=== PATIENT | female | born 1940 | race Caucasian/White ===

== ENCOUNTER 2019-05-08 09:39 | Outpatient (CLI) | payer MEDICARE, OTHER, SELFPAY ==
--- NOTE | 2019-05-08 09:48 | MM_ITS ---
WS: [id number] BILATERAL DIGITAL DIAGNOSTIC MAMMOGRAPHY WITH CAD CLINICAL INFORMATION: HX OF BREAST CA HISTORY: Diagnostic mammogram. No current complaints. COMPARISON: April 30, 2018 TECHNIQUE: Bilateral CC and MLO views. FINDINGS: Scattered fibroglandular densities bilaterally. Lucent centered calcifications. Prior postoperative c hanges with parenchymal volume loss left breast from prior lumpectomy. Unchanged trabecular thickenin g left breast consistent with treatment-related changes. No suspicious focal mass, asymmetry, calcifi cations, or architectural distortion. No evidence of malignancy. MM/[place] [id number] IMPRESSION: BI-RADS: 2-Benign FOLLOW UP: 1 Year Follow-up Recommend return to annual diagnostic mammography.
== END 2019-05-08 09:40 | disposition home or self-care (01) ==
LOC: RADSHAW 09:45
PROVIDERS: Family Provider Internal Medicine; PCP Internal Medicine; Visit Provider Internal Medicine
DX: Z85.3 Personal history of malignant neoplasm of breast (principal)
CPT/HCPCS: 77066

== ENCOUNTER 2019-08-05 14:29 | Outpatient (CLI) | payer MEDICARE, OTHER, SELFPAY ==
--- NOTE | 2019-08-05 14:35 | CT_ITS ---
WS: [id number] CT CHEST WITH INTRAVENOUS CONTRAST HISTORY: COPD,COUGH TECHNIQUE: Contiguous 5 mm axial imaging performed on the thorax. Coronal and sagittal reformats are submitted. All CT scans at [facility] use at least one of these dose optimization techniq ues: automated exposure control; mA and/or kV adjustment per patient size (includes targeted exams wh ere dose is matched to clinical indication); or iterative reconstruction. CONTRAST: Visipaque 320; 95 mL IV. DLP: 849.88 mGycm COMPARISON: 09/21/2016 Lungs and central airway: Marked pulmonary hyperexpansion. Stable LEFT upper lobe 5 mm noncalcified n odule. Stable lobulated 10 mm nodule RIGHT lower lobe. Pleural thickening along the RIGHT fissures. P artial atelectasis of the RIGHT middle lobe is stable. Bronchiectasis in the medial RIGHT upper lobe and also at the RIGHT middle lobe. No new pulmonary nodule. Pleura: Normal. No pleural effusion. Heart and pericardium: Normal size heart. No pericardial effusion. Mediastinum and shaun: Small mediastinal and hilar lymph nodes. Vessels: Mild atherosclerosis aorta. Pulmonary artery size is enlarged. Moderate coronary artery athe rosclerosis. Chest wall and lower neck: Postoperative seroma has decreased in size along the posterior LEFT breast against the chest wall. The skin thickening previously described involving the LEFT breast has signi ficantly improved. Prior LEFT axillary jeremy dissection. Upper abdomen: 3.9 cm cyst upper pole RIGHT kidney is stable. No adrenal mass. Visualized liver is no rmal. Prior cholecystectomy. Osseous structures: No osteoblastic or osteolytic bone disease. There is extensive disc space narrowi ng and osteophytosis throughout the thoracic spine. CT/CT chest w con* [id number] IMPRESSION: 1. Marked chronic emphysema with chronic partial atelectasis RIGHT middle lobe and stable bilateral lower lobe pulmonary nodules. 2. No adenopathy. 3. No pneumonia. 4. Bronchiectasis medial RIGHT upper and RIGHT middle lobes. 5. Postsurgical changes at the LEFT breast with prior LEFT axillary dissection .
[2019-08-05] MEDS: iodixanol 320 mg/mL 100mL Btl IV (15:32)
== END 2019-08-05 14:30 | disposition home or self-care (01) ==
LOC: RADWPI 14:33
PROVIDERS: Family Provider Internal Medicine; PCP Internal Medicine; Visit Provider Internal Medicine
DX: J44.9 Chronic obstructive pulmonary disease, unspecified (principal); R05 Cough
CPT/HCPCS: Q9967

== ENCOUNTER 2019-11-13 16:22 | Inpatient (IN) | payer MEDICARE, OTHER, SELFPAY ==
[2019-11-13] VITALS (10 sets, daily range): BP systolic 95–161; BP diastolic 57–87; PULSE 52–119; RESP 16–26; TEMP 36.5–37.2; O2SAT 92–100; BMI 26.6
--- NOTE | 2019-11-13 16:23 | XR_ITS ---
WS: [id number] Portable AP upright chest, 11/13/2019 Clinical Data: SOB Comparison: PA and lateral chest, 09/13/2016. Findings: There is a patchy right middle lobe opacity which may represent acute pneumonia No nodules, masses or effusions are seen. The heart is normal. The pulmonary vascularity is not increased. No p neumothorax is seen. The aortic arch and descending aorta are are tortuous. The diaphragms are flatte waldemar. XR/XR chest 1V portable [id number] Impression: 1. Probable right middle lobe pneumonia. 2. Atherosclerosis and hyperinflation.
--- NOTE | 2019-11-13 16:23 | ECG_ITS ---
[facility] Test Date: 2019-11-13 Pat Name: Samia Newberry Department: Room: Gender: Female [employer]el [employer]: : 1940 Requested By: Elvia Long Order Number: [id number] Castaneda MD: Sky Padilla M.D. Measurements Intervals [place] Rate: 112 P: 87 MI: 170 QRS: 71 QRSD: 90 T: 105 QT: 306 QTc: 418 Interpretive Statements SINUS TACHYCARDIA WITH OCCASIONAL VENTRICULAR PREMATURE COMPLEXES MINIMAL ST DEPRESSION [0.025+ mV ST DEPRESSION] ABNORMAL RHYTHM ECG Compared to ECG 05/18/2015 12:29:43 Ventricular premature complex(es) now present ST (T wave) deviation now present Sinus rhythm no longer present Sinus arrhythmia no longer present Myocardial infarct finding no longer present Electronically Signed On 11-13-2019 19:57:41 CDT by Sky Padilla M.D. [id number] fili
--- NOTE | 2019-11-13 16:28 | W.ED.GENADLT ---
HPI - General Adult General: Chief complaint: Shortness of Breath/Dyspnea Stated complaint: Respiratory Distress Time Seen by Provider: 11/13/19 16:26 Source: patient Mode of arrival: ambulatory Limitations: no limitations History of Present Illness: HPI narrative: Mrs. Newberry is a nice 79-year-old female who comes in complaining of chest congestion, shortness of breath and fever. Her symptoms been present for about a week but in the past 2 days that she become more ill. She only developed a fever today. She has no chest pain only has shortness of breath and a cough. Her fever was 101.8 at home. EMS got a temperature of 100.8. Patient has audible rhonchi and wheezing that can be heard. She denies a history of needing oxygen but does have a history of COPD. EMS in route gave the patient 0.25 mg of terbutaline 125 mg of Solu-Medrol. She describes her shortness of breath as a tightness in her chest and she is occasionally coughing up clear-colored sputum. She denies loss of sense of taste or loss of sense of smell. She denies any other complaints. Associated symptoms: Reports dyspnea and malaise; Deny chest pain, confusion, diaphoresis, headache(s), nausea, rash, palpitations, syncope or vomiting Review of Systems Const: Reports: fever(s), chills, body aches, fatigue and malaise; Denies: diaphoresis Eyes: Denies: change in vision, blurry vision, photophobia, eye discomfort, eye discharge or eye redness ENMT: Denies: throat pain, odynophagia, hoarseness, swelling of lips/tongue, ear or mastoid pain, ear discharge, change in hearing or nasal discharge Card: Denies: chest pain, palpitations, irregular heart rhythm, edema, lightheadedness, syncope, pre-syncope, dyspnea on exertion or orthopnea Resp: Reports: dyspnea, productive cough, wheezing and chest congestion; Denies: non-productive cough or hemoptysis GI: Denies: abdominal pain, nausea, vomiting, hematemesis, coffee ground emesis, heartburn, diarrhea, constipation, GI cramping, hematochezia or melena : Denies: flank pain, dysuria, urinary frequency, urinary urgency or hematuria Musc: Denies: neck pain, back pain, extremity pain, extremity swelling, joint pain, joint swelling, joint redness, joint warmth or joint stiffness Skin/Breast: Denies: rash, pruritus, erythema or skin tenderness Neuro: Denies: headache(s), numbness in extremities, weakness in extremities, sensory changes, lack of coordination, difficulty walking, dizziness, vertigo, confusion, Slurred speech present or seizure-like activity Guilherme/Lymph: Denies: easy bruising, easy bleeding, petechiae, purpura or enlarged lymph nodes All/Imm: Denies: urticaria, throat swelling, tongue swelling, facial swelling or acute wheezing PFSH ED PFSH: Medical History (Updated 11/13/19 @ 19:48 by Justina Shultz) Accelerated essential hypertension Chronic toe pain, bilateral Social History Smoking and tobacco status: current every day smoker Alcohol intake: never Physical Exam Const: COMMON NORMALS: no acute distress, patient oriented x3, no limitations, healthy appearing and well nourished GENERAL APPEARANCE: cooperative, well kempt and well developed HENMT: COMMON NORMALS: normocephalic, atraumatic, external ears normal, EAC's normal and Normal external nose present HEAD & SCALP: normal to inspection, normocephalic and atraumatic FACE & SINUS: normal facial exam and face symmetric NOSE: Normal external nose present and Normal nares present EXTERNAL EAR: Yes external ears normal EXTERNAL AUDITORY CANAL: EAC's normal MOUTH: Normal oral and palatal mucosa present, lip normal and tongue normal Eye: COMMON NORMALS: Equal, round and reactive pupils present and conjunctivae normal GENERAL EYE: appearance normal, both eyes and all related structures ALIGNMENT: Yes alignment normal PERIORBITAL: periorbital findings normal EYELID: eyelids normal CONJUNCTIVA: Yes conjunctivae normal SCLERA: sclerae normal PUPIL: Yes Equal, round and reactive pupils present Neck/C-Spine: COMMON NORMALS: full ROM, no lymphadenopathy, supple, no meningeal signs and no JVD GENERAL: Yes normal visual inspection and Yes trachea midline Chest: COMMONS NORMALS: normal inspection of the chest and normal palpation of entire chest wall Resp: EFFORT & INSPECTION: Yes able to speak in complete sentences, Yes symmetric chest movement and Yes tachypneic AUSCULTATION: no crackles, no rales, rhonchi, wheezes and diminished lung sounds Cardio: COMMON NORMALS: no JVD, regular rate, regular rhythm, S1 normal heart sound present and S2 normal heart sound present RATE: regular rate RHYTHM: regular rhythm HEART SOUNDS: S1 normal heart sound present, S2 normal heart sound present, no click, no gallops, no murmurs, no rubs and abnormal split S2 GI: COMMON NORMALS: Soft to palpation and No hepatosplenomegaly present PALPATION: Yes Soft to palpation, No Tenderness to palpation present (GI), No Guarding due to palpation present (GI), No Rigid due to palpation, Yes No hepatosplenomegaly present, No Hernia present, No Palpable mass present and No Pulsatile mass present : COMMON NORMALS: Yes no CVA tenderness BLADDER/KIDNEY EXAM: Yes no CVA tenderness EXTERNAL FEMALE EXAM: No Hernia present Back/Pelvis: COMMON NORMALS: no CVA tenderness, thoracic and lumbar spine normal to inspection, no thoracic nor lumbar tenderness and thoraco-lumbar ROM normal Extremity: COMMON NORMALS: normal to inspection, full ROM, capillary refill normal, no joint enlargement, no clubbing, cyanosis or edema and no calf tenderness Neuro: COMMON NORMALS: patient oriented x3, CN's II-XII intact bilaterally, moves all extremities, no focal motor deficits and no sensory deficits noted MENINGEAL SIGNS: Yes no meningeal signs SPEECH: speech normal Psych: COMMON NORMALS: mental status grossly normal, Normal thought process present, cooperative, normal affect, speech normal and activity/motor behavior normal APPEARANCE: Yes well kempt SPEECH: Yes normal speech THOUGHT PROCESS: Normal thought process present Skin: COMMON NORMALS: no rashes or lesions noted, turgor normal, no jaundice, no petechiae and no mottling GENERAL SKIN EXAM: no rashes or lesions noted and turgor normal Course Vital Signs: Vital signs: Vital Signs Temperature 98.9 F 11/13/19 16:23 Pulse Rate 91 11/13/19 19:08 Respiratory Rate 16 11/13/19 19:08 Blood Pressure 95/57 11/13/19 19:08 Pulse Oximetry 100 11/13/19 19:08 MDM - General Adult MDM Narrative: Medical decision making narrative: 1899 -the patient is no longer in respiratory distress but has a significant pneumonia and a COPD exacerbation. She will need to be admitted for treatment of both. The case was endorsed to Dr. Webber and she will come see the patient in the ER. Lab Data: Attestation: I reviewed the patient's lab results. Labs: Lab Results 11/13/19 11/13/19 11/13/19 Range/Units 16:48 16:48 16:48 WBC 11.5 H (4.0-10.0) 10^3/ uL RBC 4.58 (4.1-5.3) 10^6/u L Hgb 14.0 (11.5-15.3) g/dL Hct 44.2 (37.0-47.0) % MCV 96.5 (81-99) fL MCH 30.6 (28.0-34.0) pg MCHC 31.7 (30.0-36.0) g/dL RDW 13.1 (12.1-15.1) % Plt Count 190 (130-400) 10^3/c mm MPV 10.6 H (7.4-10.4) fL Neut % (Auto) 63.4 % Lymph % (Auto) 26.3 % [place] % (Auto) 9.8 % Eos % (Auto) 0.0 % Baso % (Auto) 0.2 % Neut # (Auto) 7.28 (1.8-7.7) 10^3/u L Lymph # (Auto) 3.0 (0.8-4.8) 10^3/u L [place] # (Auto) 1.1 H (0.2-0.9) 10^3/u L Eos # (Auto) 0.0 (0.0-0.8) 10^3/u L Baso # (Auto) 0.0 (0.0-0.1) 10^3/u L Nucleated RBC % (a uto) 0 % Nucleated RBCs # 0.0 /100WBC PT 14.10 (12.1-14.9) SECO NDS INR 1.05 (0.8-1.2) APTT 27.1 (23.9-36.7) SECO NDS Fibrinogen 738 H (174-498) mg/dL D-Dimer 1.51 H (0-0.59) ug/mIFE U Specimen Type Sample Site ABG pH (7.35-7.45) ABG pCO2 (35-45) mmHg ABG pO2 (80.0-100.0) mmH g ABG HCO3 (22-26) mmol/L ABG O2 Saturation ABG Base Excess (-2.0-2.0) mmol/ L Jeff Test A-a O2 Gradient (5-10) mmHg Hematocrit (37-47) % Hgb O2 Saturation (95-100) % Carboxyhemoglobin (0.4-20.1) %THgb Methemoglobin (0.4-1.5) % Total Hemoglobin (12-16) g/dL Ionized Calcium (1.1-1.4) mmol/L O2 Delivery Device O2 Liters/Min % FiO2 % Cap Sizer ID Sodium 135 L (136-145) mmol/L Potassium 3.6 (3.5-5.1) mmol/L Chloride 98 (98-107) mmol/L Carbon Dioxide 26 (22-29) mmol/L Anion Gap 14.6 (5-19) BUN 10 (8-23) mg/dL Creatinine 0.8 (0.5-0.9) mg/dL GFR Calculation Not Reportable Glucose 185 H (65-115) mg/dL Calculated Osmolal ity 281 L (285-295) mOsm/k g Lactic Acid (0.5-2.2) mmol/L Calcium 8.9 (8.5-10.5) mg/dL Magnesium 2.0 (1.7-2.3) mg/dL Ferritin 156 H (15-150) ng/mL Total Bilirubin 0.7 (0.15-1.2) mg/dL AST 9 (0-32) U/L ALT < 5 (0-33) U/L Alkaline Phosphata se 67 (35-105) IU/L Creatine Kinase 39 (26-192) U/L Troponin T Baselin e (0-10) ng/L C-Reactive Protein 117.7 H (0.0-4.9) mg/L NT-Pro-B Natriuret Pep 92 (0-450) pg/mL Total Protein 7.5 (6.6-8.7) g/dL Albumin 3.9 (3.5-5.2) g/dL Globulin 3.6 (1.3-4.6) g/dL Influenza Type A A g (Negative) Influenza Type B A g (Negative) SARS-CoV-2 Ag (Rap id) (Negative) 11/13/19 11/13/19 11/13/19 Range/Units 16:48 16:48 17:07 WBC (4.0-10.0) 10^3/ uL RBC (4.1-5.3) 10^6/u L Hgb (11.5-15.3) g/dL Hct (37.0-47.0) % MCV (81-99) fL MCH (28.0-34.0) pg MCHC (30.0-36.0) g/dL RDW (12.1-15.1) % Plt Count (130-400) 10^3/c mm MPV (7.4-10.4) fL Neut % (Auto) % Lymph % (Auto) % [place] % (Auto) % Eos % (Auto) % Baso % (Auto) % Neut # (Auto) (1.8-7.7) 10^3/u L Lymph # (Auto) (0.8-4.8) 10^3/u L [place] # (Auto) (0.2-0.9) 10^3/u L Eos # (Auto) (0.0-0.8) 10^3/u L Baso # (Auto) (0.0-0.1) 10^3/u L Nucleated RBC % (a uto) % Nucleated RBCs # /100WBC PT (12.1-14.9) SECO NDS INR (0.8-1.2) APTT (23.9-36.7) SECO NDS Fibrinogen (174-498) mg/dL D-Dimer (0-0.59) ug/mIFE U Specimen Type Arterial Sample Site Radial, right ABG pH 7.43 (7.35-7.45) ABG pCO2 37.1 (35-45) mmHg ABG pO2 96.4 (80.0-100.0) mmH g ABG HCO3 24.3 (22-26) mmol/L ABG O2 Saturation 96.3 ABG Base Excess 0.2 (-2.0-2.0) mmol/ L Jeff Test Pos A-a O2 Gradient 11.1 H (5-10) mmHg Hematocrit 43.8 (37-47) % Hgb O2 Saturation 93.7 L (95-100) % Carboxyhemoglobin 2.1 (0.4-20.1) %THgb Methemoglobin 0.6 (0.4-1.5) % Total Hemoglobin 14.3 (12-16) g/dL Ionized Calcium 1.2 (1.1-1.4) mmol/L O2 Delivery Device Nc O2 Liters/Min 3.0 % FiO2 32.0 % Cap Sizer ID Ck Sodium 136.0 (136-145) mmol/L Potassium 3.4 L (3.5-5.1) mmol/L Chloride (98-107) mmol/L Carbon Dioxide (22-29) mmol/L Anion Gap (5-19) BUN (8-23) mg/dL Creatinine (0.5-0.9) mg/dL GFR Calculation Glucose 183.0 H (65-115) mg/dL Calculated Osmolal ity (285-295) mOsm/k g Lactic Acid 2.1 (0.5-2.2) mmol/L Calcium (8.5-10.5) mg/dL Magnesium (1.7-2.3) mg/dL Ferritin (15-150) ng/mL Total Bilirubin (0.15-1.2) mg/dL AST (0-32) U/L ALT (0-33) U/L Alkaline Phosphata se (35-105) IU/L Creatine Kinase (26-192) U/L Troponin T Baselin e 9 (0-10) ng/L C-Reactive Protein (0.0-4.9) mg/L NT-Pro-B Natriuret Pep (0-450) pg/mL Total Protein (6.6-8.7) g/dL Albumin (3.5-5.2) g/dL Globulin (1.3-4.6) g/dL Influenza Type A A g (Negative) Influenza Type B A g (Negative) SARS-CoV-2 Ag (Rap id) (Negative) 11/13/19 11/13/19 Range/Units 18:00 18:00 WBC (4.0-10.0) 10^3/ uL RBC (4.1-5.3) 10^6/u L Hgb (11.5-15.3) g/dL Hct (37.0-47.0) % MCV (81-99) fL MCH (28.0-34.0) pg MCHC (30.0-36.0) g/dL RDW (12.1-15.1) % Plt Count (130-400) 10^3/c mm MPV (7.4-10.4) fL Neut % (Auto) % Lymph % (Auto) % [place] % (Auto) % Eos % (Auto) % Baso % (Auto) % Neut # (Auto) (1.8-7.7) 10^3/u L Lymph # (Auto) (0.8-4.8) 10^3/u L [place] # (Auto) (0.2-0.9) 10^3/u L Eos # (Auto) (0.0-0.8) 10^3/u L Baso # (Auto) (0.0-0.1) 10^3/u L Nucleated RBC % (a uto) % Nucleated RBCs # /100WBC PT (12.1-14.9) SECO NDS INR (0.8-1.2) APTT (23.9-36.7) SECO NDS Fibrinogen (174-498) mg/dL D-Dimer (0-0.59) ug/mIFE U Specimen Type Sample Site ABG pH (7.35-7.45) ABG pCO2 (35-45) mmHg ABG pO2 (80.0-100.0) mmH g ABG HCO3 (22-26) mmol/L ABG O2 Saturation ABG Base Excess (-2.0-2.0) mmol/ L Jeff Test A-a O2 Gradient (5-10) mmHg Hematocrit (37-47) % Hgb O2 Saturation (95-100) % Carboxyhemoglobin (0.4-20.1) %THgb Methemoglobin (0.4-1.5) % Total Hemoglobin (12-16) g/dL Ionized Calcium (1.1-1.4) mmol/L O2 Delivery Device O2 Liters/Min % FiO2 % Cap Sizer ID Sodium (136-145) mmol/L Potassium (3.5-5.1) mmol/L Chloride (98-107) mmol/L Carbon Dioxide (22-29) mmol/L Anion Gap (5-19) BUN (8-23) mg/dL Creatinine (0.5-0.9) mg/dL GFR Calculation Glucose (65-115) mg/dL Calculated Osmolal ity (285-295) mOsm/k g Lactic Acid (0.5-2.2) mmol/L Calcium (8.5-10.5) mg/dL Magnesium (1.7-2.3) mg/dL Ferritin (15-150) ng/mL Total Bilirubin (0.15-1.2) mg/dL AST (0-32) U/L ALT (0-33) U/L Alkaline Phosphata se (35-105) IU/L Creatine Kinase (26-192) U/L Troponin T Baselin e (0-10) ng/L C-Reactive Protein (0.0-4.9) mg/L NT-Pro-B Natriuret Pep (0-450) pg/mL Total Protein (6.6-8.7) g/dL Albumin (3.5-5.2) g/dL Globulin (1.3-4.6) g/dL Influenza Type A A g Negative (Negative) Influenza Type B A g Negative (Negative) SARS-CoV-2 Ag (Rap id) Negative (Negative) Imaging Data^: CXR: Attestation: I personally reviewed and interpreted this imaging study as follows: My impression: Right lower lobe infiltrate. CT Chest: Radiologist's impression: [place] [address] CT Scan Report Signed Patient: Samia Newberry Unit #: [id number] : 1940 Age/Sex: 79 / F ADM Date: 11/13/19 Loc: ER Room/Bed: Attending Dr: Ordering Provider/Ordering MD: Justina Shultz DO Date of Service: 11/13/19 Procedure(s): CT angio chest PE protcl [id number] Accession Number(s): [id number] Report Number: [id number] PROCEDURE INFORMATION: Exam: CT Angiography Chest With Contrast Exam date and time: 11/13/2019 5:38 PM Age: 79 years old Clinical indication: Dyspnea; Prior surgery; Additional info: Dyspnea, positive d-dimer TECHNIQUE: Imaging protocol: Computed tomographic angiography of the chest with intravenous contrast. 3D rendering (Not supervised by radiologist): MIP and/or 3D reconstructed images were created by the technologist. Radiation optimization: All CT scans at this facility use at least one of these dose optimization techniques: automated exposure control; mA and/or kV adjustment per patient size (includes targeted exams where dose is matched to clinical indication); or iterative reconstruction. Contrast material: OMNI 350; Contrast volume: 82 ml; Contrast route: INTRAVENOUS (IV); COMPARISON: CT chest w con* [id number] 08/05/2019 3:24 PM, 09/21/2016. RADIATION DOSE METRICS: Total DLP (mGy-cm): 627.41 FINDINGS: Pulmonary arteries: Normal. No pulmonary emboli. Aorta: Unremarkable. No aortic aneurysm. No aortic dissection. Lungs: Severe centrilobular emphysema. Small scar in the posterior right upper lobe. Stable bandlike region of fibrosis with calcifications transversing the right mid lung. Stable 10 mm irregular nodule in the right lower lobe, image 41. Mild scarring in the anterior left upper lobe. Patchy airspace opacities and tree-in-bud opacities throughout the right lower lobe. Minimal tree-in-bud opacities in the peripheral right upper lobe. Bronchial wall thickening in the right lower lobe and bronchus intermedius. Pleural space: Unremarkable. No pneumothorax. No pleural effusion. Heart: Unremarkable. No cardiomegaly. No pericardial effusion. Lymph nodes: Increased mediastinal and right hilar lymph nodes. Calcified right hilar lymph nodes. Gallbladder and bile ducts: Cholecystectomy. Kidneys and ureters: Benign fluid density cyst in the right kidney, Hounsfield units less than 20. No follow-up is recommended. Bones/joints: Unremarkable. No acute fracture. Soft tissues: Unremarkable. Other findings: Suspected right partial pneumonectomy changes. CT/CT angio chest PE protcl [id number] IMPRESSION: 1. No evidence for pulmonary embolus. 2. Right lower lobe opacities with bronchial wall thickening most likely represents pneumonia with bronchitis. CT follow-up to document resolution recommended. 3. Increased mediastinal and right hilar lymphadenopathy is most likely reactive. 4. Stable 10 mm right lower lobe nodule. Continued annual CT follow-up recommended. COMMENTS: Consistent with the [employer]'s Incidental Findings Committee white paper (J Am Benjy Radiol 2018): Any incidental renal lesion less than 1 cm or classified as too small to characterize, or any incidental cystic renal lesion characterized as simple-appearing, is likely benign. No follow-up imaging is recommended for these lesions per consensus recommendations based on imaging criteria. Radiation Dose CTDIVOL = (mGy): DLP = 627.41 (mGy-cm) Dictated By: Latrell Velez Signed By: Latrell Velez Signed Date/Time: 11/13/191822 DD/ 20 EKG Data^: EKG 1: Attestation: I personally reviewed and interpreted this EKG as follows: EKG interpretation date: 11/13/19 EKG interpretation time: 16:38 Interpretation: Sinus tachycardia at 112 beats a minute, normal axis, no blocks, normal intervals, nonspecific ST and T wave changes. PVC. Computer generated interpretation: Chest CTA 11/13/19 17:18 IMPRESSION: 1. No evidence for pulmonary embolus. 2. Right lower lobe opacities with bronchial wall thickening most likely represents pneumonia with bronchitis. CT follow-up to document resolution recommended. 3. Increased mediastinal and right hilar lymphadenopathy is most likely reactive. 4. Stable 10 mm right lower lobe nodule. Continued annual CT follow-up recommended. COMMENTS: Consistent with the [employer]'s Incidental Findings Committee white paper (J Am Benjy Radiol 2018): Any incidental renal lesion less than 1 cm or classified as too small to characterize, or any incidental cystic renal lesion characterized as simple-appearing, is likely benign. No follow-up imaging is recommended for these lesions per consensus recommendations based on imaging criteria. Radiation Dose CTDIVOL = (mGy): DLP = 627.41 (mGy-cm) Discharge Plan Discharge Patient Disposition: Admitted As Inpatient Clinical Impression: Pneumonia, Acute exacerbation of chronic obstructive pulmonary disease Condition: Stable Prescriptions: No Action lisinopril 20 mg tablet 20 mg PO DAILY RF: 0 exemestane 25 mg tablet 25 mg PO DAILY RF: 0 aspirin [Adult Low Dose Aspirin] 81 mg tablet,delayed release (DR/EC) 81 mg PO DAILY RF: 0 levothyroxine 75 mcg capsule 75 mcg PO DAILY RF: 0 glipizide 5 mg tablet 5 mg PO DAILY RF: 0 amlodipine 5 mg tablet 5 mg PO DAILY RF: 0 Cinnamon 500 mg Capsule 500 mg PO DAILY RF: 0 Vitamin B-12 1 tab PO DAILY RF: 0 Referrals: Nasima Back MD [Primary Care Provider] - Coding Level of Care Code ED Vice President [employer] for Chg Fwd Exam Comprehensive
[2019-11-13] MEDS: piperacillin-tazobactam 3.375 GM in sodium chloride 0.9% (plus) 50 ML IV (16:43)
[2019-11-13 16:56] LABS: Basophils % 0.2 %; Hematocrit 44.2 % (37.0-47.0); Lymphocytes % 26.3 %; Mean Corpuscular HGB Conc 31.7 g/dL (30.0-36.0); Mean Corpuscular Hemoglobin 30.6 pg (28.0-34.0); Mean Corpuscular Volume 96.5 fL (81-99); Mean Platelet Volume 10.6 fL (7.4-10.4); Monocytes # 1.1 10^3/uL (0.2-0.9); Monocytes % 9.8 %; Neutrophils # 7.28 10^3/uL (1.8-7.7); Neutrophils % 63.4 %; Nucleated Red Blood Cells % 0 %; Platelet Count 190 10^3/cmm (130-400); Red Blood Count 4.58 10^6/uL (4.1-5.3); Red Cell Distribution Width 13.1 % (12.1-15.1); White Blood Count 11.5 10^3/uL (4.0-10.0)
[2019-11-13 17:03] LABS: INR 1.05 (0.8-1.2)
[2019-11-13 17:04] LABS: Partial Thromboplastin Time 27.1 SECONDS (23.9-36.7)
[2019-11-13 17:05] LABS: Fibrinogen 738 mg/dL (174-498)
[2019-11-13 17:07] LABS: Lactic Sepsis W/Reflex 2.1 mmol/L (0.5-2.2)
[2019-11-13 17:08] LABS: D Dimer 1.51 ug/mIFEU (0-0.59)
[2019-11-13] MEDS: albuterol 8 gm MDI 6 PUFF INHALATION (17:16)
[2019-11-13 17:18] LABS: ABG PCO2 37.1 mmHg (35-45); ABG PH Result 7.43 (7.35-7.45); Alveolar-Arterial Oxygen Gradi 11.1 mmHg (5-10); Arterial Blood Gas Hematocrit 43.8 % (37-47); Base Excess ABG 0.2 mmol/L (-2.0-2.0); Blood Gas Allen Test Pos; Blood Gas Operator Identificat CK; Blood Gas Sample Site Radial, right; Blood Gas Sample Type Arterial; Carboxyhemoglobin 2.1 %THgb (0.4-20.1); HCO3 ABG 24.3 mmol/L (22-26); HGB O2 Sat 93.7 % (95-100); Ionized Calcium Level - ABG 1.2 mmol/L (1.1-1.4); Methemoglobin 0.6 % (0.4-1.5); Oxygen Device NC; Oxygen Saturation ABG 96.3; PO2 ABG 96.4 mmHg (80.0-100.0); Potassium Level - ABG 3.4 mmol/L (3.5-5.0); Total Hemoglobin 14.3 g/dL (12-16)
--- NOTE | 2019-11-13 17:18 | CTR_ITS ---
PROCEDURE INFORMATION: Exam: CT Angiography Chest With Contrast Exam date and time: 11/13/2019 5:38 PM Age: 79 years old Clinical indication: Dyspnea; Prior surgery; Additional info: Dyspnea, positive d-dimer TECHNIQUE: Imaging protocol: Computed tomographic angiography of the chest with intravenous contrast. 3D rendering (Not supervised by radiologist): MIP and/or 3D reconstructed images were created by the technologist. Radiation optimization: All CT scans at this facility use at least one of these dose optimization techniques: automated exposure control; mA and/or kV adjustment per patient size (includes targeted exams where dose is matched to clinical indication); or iterative reconstruction. Contrast material: OMNI 350; Contrast volume: 82 ml; Contrast route: INTRAVENOUS (IV); COMPARISON: CT chest w con* [id number] 08/05/2019 3:24 PM, 09/21/2016. RADIATION DOSE METRICS: Total DLP (mGy-cm): 627.41 FINDINGS: Pulmonary arteries: Normal. No pulmonary emboli. Aorta: Unremarkable. No aortic aneurysm. No aortic dissection. Lungs: Severe centrilobular emphysema. Small scar in the posterior right upper lobe. Stable bandlike region of fibrosis with calcifications transversing the right mid lung. Stable 10 mm irregular nodule in the right lower lobe, image 41. Mild scarring in the anterior left upper lobe. Patchy airspace opacities and tree-in-bud opacities throughout the right lower lobe. Minimal tree-in-bud opacities in the peripheral right upper lobe. Bronchial wall thickening in the right lower lobe and bronchus intermedius. Pleural space: Unremarkable. No pneumothorax. No pleural effusion. Heart: Unremarkable. No cardiomegaly. No pericardial effusion. Lymph nodes: Increased mediastinal and right hilar lymph nodes. Calcified right hilar lymph nodes. Gallbladder and bile ducts: Cholecystectomy. Kidneys and ureters: Benign fluid density cyst in the right kidney, Hounsfield units less than 20. No follow-up is recommended. Bones/joints: Unremarkable. No acute fracture. Soft tissues: Unremarkable. Other findings: Suspected right partial pneumonectomy changes. CT/CT angio chest PE protcl [id number] IMPRESSION: 1. No evidence for pulmonary embolus. 2. Right lower lobe opacities with bronchial wall thickening most likely represents pneumonia with bronchitis. CT follow-up to document resolution recommended. 3. Increased mediastinal and right hilar lymphadenopathy is most likely reactive. 4. Stable 10 mm right lower lobe nodule. Continued annual CT follow-up recommended. COMMENTS: Consistent with the [employer]'s Incidental Findings Committee white paper (J Am Benjy Radiol 2018): Any incidental renal lesion less than 1 cm or classified as too small to characterize, or any incidental cystic renal lesion characterized as simple-appearing, is likely benign. No follow-up imaging is recommended for these lesions per consensus recommendations based on imaging criteria. Radiation Dose CTDIVOL = (mGy): DLP = 627.41 (mGy-cm)
[2019-11-13 17:23] LABS: Alanine Aminotransferase < 5 U/L (0-33); Albumin Level 3.9 g/dL (3.5-5.2); Alkaline Phosphatase 67 IU/L (35-105); Anion Gap 14.6 (5-19); Aspartate Amino Transferase 9 U/L (0-32); Blood Urea Nitrogen 10 mg/dL (8-23); Calcium 8.9 mg/dL (8.5-10.5); Carbon Dioxide 26 mmol/L (22-29); Chloride 98 mmol/L (98-107); Creatine Phosphokinase 39 U/L (26-192); Globulin 3.6 g/dL (1.3-4.6); Glucose 185 mg/dL (65-115); NT Pro B Type Natriuretic Pept 92 pg/mL (0-450); Osmolality Calculated 281 mOsm/kg (285-295); Potassium 3.6 mmol/L (3.5-5.1); Sodium 135 mmol/L (136-145); Total Bilirubin 0.7 mg/dL (0.15-1.2); Total Protein 7.5 g/dL (6.6-8.7)
[2019-11-13 17:41] LABS: C Reactive Protein 117.7 mg/L (0.0-4.9); Ferritin 156 ng/mL (15-150)
--- NOTE | 2019-11-13 17:47 | PC.NURSE ---
pt to CT by stretcher with tech
[2019-11-13 17:52] LABS: Troponin(5th) Baseline 9 ng/L (0-10)
[2019-11-13] MEDS: iohexol 350 mg/mL 100 mL Btl IV (17:57)
[2019-11-13 18:32] LABS: Influenza A by IFA Negative (Negative); Influenza B by IFA Negative (Negative); SARS Covid-2 Antigen Negative (Negative)
[2019-11-13 18:41] LABS: Reflex Lactate Order REFLEX LACTIC ORDERD
--- NOTE | 2019-11-13 20:12 | P.HP_ITS ---
Providers/Chief Complaint Admitting Physician: Betsy Webber MD Primary Care Provider: Nasima Back MD Chief Complaint: Respiratory Distress History of Present Illness Samia Newberry is a 79 year old female with PMHx noted below presents with complaints of worsening shortness of breath, malaise, congestion and productive cough with clear sputum production for the past 2 days. She is not oxygen dependent at baseline, denies any sick contacts including known COVID-19 posit matt individuals but for the past 2 days has been feeling quite unwell. She has spent much of the time sleeping due to fatigue, and earlier today spiked a fever. She has been compliant to the medications and denies any recent changes. Work-up so far indicates a white count of 11.5, with otherwise normal CBC, normal electrolytes, normal renal function, blood glucose of 185, lactate of 2.1, appropriate ABG, d-dimer 1.[address] with no PE on CT, rapid COVID testing is negative, influenza is also negative. Chest x-ray is pending report but CT shows right lower lobe pneumonia with reactive lymphadenopathy. She has received Zosyn, is currently on 3 L nasal cannula and is audibly congested during my encounter in the ER. Repeat COVID testing has been ordered as well so will require isolation precautions. She will need continued monitoring of her respiratory and hemodynamic status as well as IV antibiotic treatment for pneumonia hence need for admission. Review of Systems Const: Reports: chills, fatigue and malaise; Denies: fever(s) Eyes: Denies: change in vision ENMT: Reports: dry mouth Card: Reports: dyspnea on exertion; Denies: chest pain, swelling of feet/ankles or lightheadedness Resp: Reports: dyspnea, productive cough (clear sputum) and chest congestion GI: Denies: abdominal pain, nausea, vomiting, hematemesis or hematochezia : Denies: difficulty voiding, dysuria or hematuria Musc: Denies: back pain Skin/Breast: Denies: rash Neuro: Denies: numbness in extremities or weakness in extremities Psych: Denies: anxiety Medications/Allergies Home Medications Medication Instructions Recorded Confirmed Last Taken Type amlodipine 5 mg tablet 5 mg PO DAILY 05/13/19 11/13/19 11/13/19 History aspirin 81 mg tablet,delayed 81 mg PO DAILY 05/13/19 11/13/19 11/12/19 History release exemestane 25 mg tablet 25 mg PO DAILY 05/13/19 11/13/19 11/13/19 History glipizide 5 mg tablet 5 mg PO DAILY 05/13/19 11/13/19 11/13/19 History levothyroxine 75 mcg capsule 75 mcg PO DAILY 05/13/19 11/13/19 11/13/19 History lisinopril 20 mg tablet 20 mg PO DAILY 05/13/19 11/13/19 11/13/19 History Vitamin B-12 1 tab PO DAILY 11/13/19 11/13/19 11/13/19 History cinnamon bark [Cinnamon] 500 mg PO DAILY 11/13/19 11/13/19 11/12/19 History Allergies Allergy/AdvReac Type Severity Reaction Status Date / Time No Known Allergies Allergy Verified 11/13/19 17:37 PFSH Acute PFSH: Medical History (Updated 11/13/19 @ 20:33 by Betsy Webber MD) Accelerated essential hypertension Breast cancer -L breast s/p chemo and radiation about 6 yrs ago Carpal tunnel syndrome Chronic toe pain, bilateral COPD (chronic obstructive pulmonary disease) Diabetes mellitus -non insulin dependent Dyslipidemia GERD (gastroesophageal reflux disease) Hypothyroidism Peripheral vascular disease Primary osteoarthritis of left knee Surgical History (Updated 11/13/19 @ 20:20 by Btesy Webber MD) History of lumpectomy of left breast Hx of cholecystectomy Family History Sister Cancer CAD (coronary artery disease) Social History (Updated 11/13/19 @ 20:21 by Betsy Webber MD) Smoking and tobacco status: current every day smoker cigarettes Packs smoked per day: 1.5 Alcohol intake: never Substance/Drug Use: never Household members: family Vitals/I&O/Wt Last Vital Signs Temp 98.9 F 11/13/19 16:23 Pulse 91 11/13/19 19:08 Resp 16 11/13/19 19:08 BP 95/57 11/13/19 19:08 Pulse Ox 100 11/13/19 19:08 11/13/19 11/13/19 11/13/19 06:59 14:59 22:59 Intake Total 50 / 50 Balance 50 / 50 Weight last 48 hrs Weight 70.307 kg Physical Exam Const: COMMON NORMALS: no acute distress, patient oriented x3 and alert GENERAL APPEARANCE: cooperative and comfortable ORIENTATION/CONSCIOUSNESS: Yes awake HENMT: COMMON NORMALS: normocephalic, atraumatic and moist oral mucous membranes HEAD & SCALP: normocephalic and atraumatic GENERAL EAR: hearing grossly impaired (mildly) Laterality: bilateral Eye: COMMON NORMALS: Equal, round and reactive pupils present, EOMs intact bilaterally and conjunctivae normal CONJUNCTIVA: Yes conjunctivae normal PUPIL: Yes Equal, round and reactive pupils present Neck/C-Spine: COMMON NORMALS: full ROM GENERAL: Yes normal visual inspection and Yes trachea midline Resp: COMMON NORMALS: normal respiratory effort, No retractions and No use of accessory muscles EFFORT & INSPECTION: Yes able to speak in complete sentences and Yes symmetric chest movement AUSCULTATION: rhonchi right upper OTHER: -Audibly congested, on 3 L nasal cannula, saturating at 95% Cardio: COMMON NORMALS: regular rate, regular rhythm, S1 normal heart sound present, S2 normal heart sound present and No murmurs present (Cardio) RATE: regular rate RHYTHM: regular rhythm HEART SOUNDS: S1 normal heart sound present and S2 normal heart sound present GI: COMMON NORMALS: Normal to inspection, nondistended, normoactive bowel sounds present, Soft to palpation and non-tender PALPATION: Yes Soft to palpation Extremity: COMMON NORMALS: normal to inspection, full ROM, no clubbing, cyanosis or edema and no pedal edema Neuro: COMMON NORMALS: patient oriented x3, moves all extremities, no focal motor deficits and no sensory deficits noted Psych: COMMON NORMALS: mental status grossly normal, Normal thought process present, cooperative, normal affect and speech normal SPEECH: Yes normal speech THOUGHT PROCESS: Normal thought process present Skin: COMMON NORMALS: no rashes or lesions noted, no jaundice, no petechiae and no mottling GENERAL SKIN EXAM: no rashes or lesions noted Data : 11/13/19 16:48 11/13/19 16:48 Micro: Microbiology 11/13/19 16:55 Blood Culture - Preliminary Blood SPECIMEN COLLECTED 11/13/19 16:48 Blood Culture - Preliminary Blood SPECIMEN COLLECTED A&P Assessment and plan (1) Pneumonia: -Noted evidence of right-sided pneumonia on CT scan with likely reactive lymphadenopathy -Follow-up chest x-ray report -Noted leukocytosis with a white count of 11.5, neutrophilic predominance; trend WBC. Lactate-2.1 -Screen for COVID-19, rapid test negative, will order a send out test as well, isolation precautions for now -Received dose of Zosyn in ER, continue Zosyn, add Levaquin and vancomycin for broad-spectrum IV antibiotic coverage -Follow-up blood culture -ABG noted, appropriate -Currently requiring supplemental oxygen support, wean off as tolerated -Monitor respiratory status -Monitor vital signs Status: Acute Qualifiers: Laterality: right Lung location: lower lobe of lung Pneumonia type: due to unspecified organism Qualified Code(s): J18.9 - Pneumonia, unspecified organism (2) Acute exacerbation of chronic obstructive pulmonary disease: -Not oxygen dependent at baseline, currently requiring 3 L nasal cannula -Likely triggered by pneumonia as noted above -IV steroids for now, wean as tolerated -Noted severe emphysema on CT chest -Neb treatments as needed, antitussives as needed Status: Acute (3) Hypothyroidism: -Resume levothyroxine Status: Chronic Qualifiers: Hypothyroidism type: unspecified Qualified Code(s): E03.9 - Hypothyroidism, unspecified Additional A&P Information -History of hypertension, resume oral antihypertensives as tolerated by blood pressure, monitor vital sign -History of peripheral vascular disease -Noted elevated d-dimer, CTA negative for PE -[id number] diabetes, hold glipizide, ISS, hypoglycemia precautions, A1c at goal (7.3 on 10/29), consistent carb diet as tolerated -History of osteoarthritis, pain control as needed -Chronic smoker, smokes 1.5 packs/day, nicotine replacement therapy -GI ppx with PPI -DVT ppx with lovenox -Dispo: home -Code status: FULL code, discussed with patient at bedside Attestations Medical Necessity Statement*: Samia Newberry's hospital stay will require greater than 2 midnights for treatment of right-sided pneumonia, acute COPD exacerbation, currently requiring higher than baseline oxygen, IV antibiotics, close monitoring of respiratory and hemodynamic status. Time Spent in Patient Care: Greater than 35 minutes (>than 50% of time s pent in counselling and/or direct pt care on unit) . 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
[2019-11-13 21:52] LABS: Troponin 5 2HR 9.06 ng/L (0-10)
--- NOTE | 2019-11-13 22:08 | PC.PHAR ---
Pharmacokinetic dosing service Date: 11/13/19 Time: 2199 Objective: Patient: Samia Newberry Floor: 257-1 Age: 79 yo Serum creatinine: 0.8 mg/dL Height: 64.0 Inches Weight (kg): 70.307 Diagnosis: Relevant medical/social history: Cultures and sensitivities: Other labs: Assessment: IBW (kg): 54.70 Dosing wt(kg): 70.307 Estimated Creatinine clearance (ml/min): 49.2 CRCL method: Cockcroft and Gault using ibw(default). Drug selected: Vancomycin Loading dose (mg): 0 Vd (liters): 63.3 (factor used: 0.9 L/kg) Adrián (hr-1): 0.045 Half life (hrs): 15.40 Recommended dose: 1250 mg Interval: 24 hrs Infusion time (hrs): 2.0 Predicted peak (mcg/mL): 28.6 Predicted trough (mcg/mL): 10.63 Total body weight is being used for vancomycin dosing. Renal function is stable [ ] /unstable [ ] Recommendations: Give Vancomycin 1250 mg q 24 hrs with an expected Cpeak of 28.6 mcg/ml and an expected Ctrough of 10.63 mcg/ml Renal dosing of other antibiotics (review renal dosing of other medications and list guidelines here): Thank you for the consult, will continue to follow. Signature: Dilia Mendez [facility]
--- NOTE | 2019-11-13 22:23 | ECG_ITS ---
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 Measurements Intervals Mitchell Rate: 77 P: 75 WI: 182 QRS: -5 QRSD: 110 T: 79 QT: 397 QTc: 450 Interpretive Statements SINUS RHYTHM POSSIBLE ANTERIOR MYOCARDIAL INFARCTION [30 ms Q WAVE IN V3/V4, OR R < 0.2 mV IN V4], OF INDETERMINATE AGE Compared to ECG 11/13/2019 16:38:28 Myocardial infarct finding now present Sinus tachycardia no longer present Ventricular premature complex(es) no longer present ST (T wave) deviation no longer present Electronically Signed On 11-14-2019 20:24:26 CDT by Angela Shaffer M.D. [email or web address]
[2019-11-13 22:30] LABS: Lactic Acid level (Lactate) 1.4 mmol/L (0.5-2.2)
[2019-11-13] MEDS: sodium chloride 0.9% 1,000 ML 100 ML IV (22:38)
[2019-11-13] MEDS: enoxaparin 40 mg/0.4 mL Syringe SUBCUT (22:39)
[2019-11-13] MEDS: levofloxacin-dextrose 5 % 750 MG/150 ML PREMIX 100 MG IV (22:39)
[2019-11-13 23:04] LABS: Glucose Point of Care 282 mg/dL (70-110)
[2019-11-13 23:09] LABS: Troponin 5 6HR 9.03 ng/L (0-10); Troponin 5 6HR Delta 0.03 ng/L (0-12)
[2019-11-14] VITALS (12 sets, daily range): BP systolic 147–151; BP diastolic 69–77; PULSE 80–100; RESP 14–20; TEMP 36.4–36.7; O2SAT 90–94
[2019-11-14] MEDS: ipratropium-albuterol 3 mL Neb INHALATION ×5 (00:33→21:05)
[2019-11-14] MEDS: piperacillin-tazobactam 3.375 GM in sodium chloride 0.9% (plus) 50 ML IV ×3 (02:00→17:33)
[2019-11-14 05:56] LABS: Add Urine Microscopic? YES; Bacteria Urine TRACE /hpf; Bilirubin Urine Neg (Negative); Blood Urine 2+ (Negative); Glucose Urine UA 2+ (Normal); Ketones Urine Negative (Negative); Leukocyte Esterase Urine Negative (Negative); Nitrate Urine Negative (Negative); Protein Urine Neg (Negative); RBC Urine 0-4 /hpf (0-2); Squamous Epithelial Cell Urine 15-25 /hpf (0-5); Urine Appearance Clear (CLEAR); Urine Color Yellow (Yellow); Urobilinogen Urine Norm (Negative); pH Urine 7 (5-7)
[2019-11-14 06:30] LABS: Hemoglobin 13.5 g/dL (11.5-15.3); Lymphocytes # 1.1 10^3/uL (0.8-4.8); Lymphocytes % 13.2 %; Mean Corpuscular HGB Conc 32.1 g/dL (30.0-36.0); Mean Corpuscular Hemoglobin 30.6 pg (28.0-34.0); Mean Corpuscular Volume 95.2 fL (81-99); Monocytes # 0.1 10^3/uL (0.2-0.9); Monocytes % 1.6 %; Nucleated Red Blood Cells % 0 %; Platelet Count 167 10^3/cmm (130-400); Red Blood Count 4.41 10^6/uL (4.1-5.3); Red Cell Distribution Width 12.8 % (12.1-15.1); White Blood Count 8.2 10^3/uL (4.0-10.0)
[2019-11-14 06:33] LABS: Glucose Point of Care 262 mg/dL (70-110)
[2019-11-14 06:48] LABS: Blood Urea Nitrogen 13 mg/dL (8-23); Calcium 8.8 mg/dL (8.5-10.5); Carbon Dioxide 25 mmol/L (22-29); Chloride 102 mmol/L (98-107); Glucose 248 mg/dL (65-115); Osmolality Calculated 288 mOsm/kg (285-295); Sodium 137 mmol/L (136-145)
[2019-11-14 06:49] LABS: Anion Gap 13.8 (5-19); Potassium 3.8 mmol/L (3.5-5.1)
[2019-11-14] MEDS: pantoprazole DR 40 mg Tablet PO (08:24)
[2019-11-14] MEDS: levothyroxine 150 mcg Tablet 75 MCG PO (08:24)
[2019-11-14] MEDS: lisinopril 20 mg Tablet PO (08:25)
[2019-11-14] MEDS: aspirin 81 mg EC Tablet PO (08:25)
[2019-11-14] MEDS: nicotine 21 mg Patch 1 PATCH TRANSDERMA (08:25)
[2019-11-14] MEDS: guaiFENesin 600 mg Tablet PO ×2 (08:25→17:33)
[2019-11-14] MEDS: amlodipine 5 mg Tablet PO (08:25)
--- NOTE | 2019-11-14 11:19 | PC.CHAP ---
Pastoral Care Encounter/Spiritual Assessment Type of Contact [] Declined welt edge rounder visit [] Patient/Family/Request visit [] Outpatient visit [] Follow-up visit [] Physician referral [] Code/Alert [] Routine visit [] Staff referral [] Actively dying [] Patient sleeping [] Family support [] [] Out of room [] Palliative care [] [] Receiving care in room [] Pre-surgical visit [] Trauma [] Long length of stay [] ICU visit [x] Other: Covid 19 Relational/Emotional Strength [] Patient feels connected with others/family/visitors/staff [] Distress [] Loneliness/isolation [] Abandonment Spirituality of Patient [] Person of Haley [] Attends Jew of their Haley [] Believes in Prayer [] Reads Bible or Pentecostalism materials [] There are Spiritual issues to be addressed Barrel Drum Cutter Interventions [] Prayer [] Active listening [] Non-anxious presence [] Spiritual/emotional support [] Crisis/trauma care [] Spiritual counseling [] Bereavement support [] Provided bereavement packet [] Provided Bible/devotional materials [] Provided toy/stuffed animal, coloring book to patient or family member [] Provided Communion [] Anointing/Hoffman [] Salvation [] Completed spiritual assessment [] Other: Impact on Illness or Injury [] Angry [] Fearful [] Anxious [] Often cries [] Exhaustion [] Unable to work [] Unable to attend pentecostalism [] Unable to walk/stand [] Unable to read [] Unable to drive [] Unable to eat/drink [] Unable to sleep [] Unable to be with family [] Patient intubated [] Other: Summary Covid 19 Time spent with patient 5 mins
[2019-11-14 11:37] LABS: Glucose Point of Care 292 mg/dL (70-110)
--- NOTE | 2019-11-14 11:45 | PM.PN ---
Subjective Subjective: Interval history: Samia reports she feels little bit better. Less short of breath. More energy. History and physical was reviewed. Medications: Reviewed: Yes Vitals/I&O/Wt Last Vital Signs Temp 98.0 F 11/14/19 08:00 Pulse 86 11/14/19 09:08 Resp 20 H 11/14/19 09:05 BP 149/71 11/14/19 08:00 Pulse Ox 93 11/14/19 09:05 11/13/19 11/14/19 11/14/19 22:59 06:59 14:59 Intake Total 50 / 50 50 / 100 360 / 360 Output Total 600 / 600 Balance 50 / 50 -550 / -500 360 / 360 Weight last 48 hrs Weight 70.035 kg Weight 70.307 kg Physical Exam Narrative: EXAM NARRATIVE: General exam no apparent distress Cardiovascular regular rate and rhythm without murmur, bilateral rhonchi are noted Lungs bilateral expiratory wheezes Abdomen is soft with positive bowel sounds Extremities no cyanosis clubbing or edema Data : 11/14/19 06:15 11/14/19 06:15 Micro: Microbiology 11/13/19 23:00 MRSA Culture - Final Nose 11/14/19 04:40 Legionella Urinary Antigen - Final Urine,Voided Bacterial Antigens - Final 11/13/19 16:55 Blood Culture - Preliminary Blood SPECIMEN COLLECTED 11/13/19 16:48 Blood Culture - Preliminary Blood SPECIMEN COLLECTED A&P Assessment and plan (1) Pneumonia: Right lung pneumonia. CTA demonstrated no pulmonary embolism Continue Levaquin, Zosyn, vancomycin started on admission. Vancomycin will be discontinued as MRSA PCR negative Await sputum culture and blood culture Overall improving Will need repeat CT in the future to show clearing of pneumonia Wean oxygen as tolerated Awaiting PTC COVID. Status: Acute Qualifiers: Laterality: right Lung location: lower lobe of lung Pneumonia type: due to unspecified organism Qualified Code(s): J18.9 - Pneumonia, unspecified organism (2) Acute exacerbation of chronic obstructive pulmonary disease: Discontinue IV steroids. Initiate prednisone 40 mg daily Nebs every 4 hours Status: Acute (3) Hypothyroidism: Continue thyroid hormone Status: Chronic Qualifiers: Hypothyroidism type: unspecified Qualified Code(s): E03.9 - Hypothyroidism, unspecified Additional A&P Information History of hypertension Type 2 diabetes. Sliding scale insulin Tobacco dependency. Counseled 3 to 5 minutes Multiple other medical problems as outlined in past medical history Full code Lovenox for DVT prophylaxis Attestations Medical Necessity Statement*: Needs continued hospitalization for IV antibiotics secondary to pneumonia. 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
[2019-11-14] MEDS: sodium chloride 0.9% 1,000 ML 100 ML IV ×2 (11:54→21:43)
--- NOTE | 2019-11-14 13:25 | PC.RESP ---
Smoking Cessation and Pulmonary Rehab information to patient.
[2019-11-14 17:01] LABS: Glucose Point of Care 273 mg/dL (70-110)
[2019-11-14 20:52] LABS: Glucose Point of Care 306 mg/dL (70-110)
[2019-11-14] MEDS: enoxaparin 40 mg/0.4 mL Syringe SUBCUT (21:38)
[2019-11-14] MEDS: levofloxacin-dextrose 5 % 750 MG/150 ML PREMIX 100 MG IV (22:24)
[2019-11-15] VITALS (10 sets, daily range): BP systolic 123–152; BP diastolic 64–81; PULSE 71–99; RESP 16–20; TEMP 36.4–36.6; O2SAT 91–97
[2019-11-15 00:46] LABS: Coronavirus Lab Test PTC Negative
[2019-11-15] MEDS: piperacillin-tazobactam 3.375 GM in sodium chloride 0.9% (plus) 50 ML IV ×3 (01:32→17:20)
[2019-11-15] MEDS: ipratropium-albuterol 3 mL Neb INHALATION ×3 (03:31→19:58)
[2019-11-15 05:33] LABS: Basophils % 0.2 %; Hematocrit 41.1 % (37.0-47.0); Hemoglobin 12.8 g/dL (11.5-15.3); Lymphocytes # 0.7 10^3/uL (0.8-4.8); Lymphocytes % 6.4 %; Mean Corpuscular HGB Conc 31.1 g/dL (30.0-36.0); Mean Corpuscular Hemoglobin 30.5 pg (28.0-34.0); Mean Corpuscular Volume 97.9 fL (81-99); Mean Platelet Volume 10.6 fL (7.4-10.4); Monocytes # 0.5 10^3/uL (0.2-0.9); Monocytes % 4.5 %; Neutrophils # 10.07 10^3/uL (1.8-7.7); Neutrophils % 88.5 %; Nucleated Red Blood Cells % 0 %; Platelet Count 186 10^3/cmm (130-400); Red Cell Distribution Width 12.9 % (12.1-15.1); White Blood Count 11.4 10^3/uL (4.0-10.0)
[2019-11-15 06:00] LABS: Anion Gap 14.9 (5-19); Blood Urea Nitrogen 18 mg/dL (8-23); Calcium 8.6 mg/dL (8.5-10.5); Carbon Dioxide 25 mmol/L (22-29); Chloride 107 mmol/L (98-107); Glucose 255 mg/dL (65-115); Osmolality Calculated 301 mOsm/kg (285-295); Potassium 3.9 mmol/L (3.5-5.1); Sodium 143 mmol/L (136-145)
[2019-11-15 07:14] LABS: Glucose Point of Care 229 mg/dL (70-110)
[2019-11-15] MEDS: sodium chloride 0.9% 1,000 ML 100 ML IV (07:34)
[2019-11-15] MEDS: levothyroxine 150 mcg Tablet 75 MCG PO (07:36)
[2019-11-15] MEDS: predniSONE 20 mg Tablet 40 MG PO (07:36)
[2019-11-15] MEDS: pantoprazole DR 40 mg Tablet PO (07:36)
[2019-11-15] MEDS: amlodipine 5 mg Tablet PO (07:37)
[2019-11-15] MEDS: lisinopril 20 mg Tablet PO (07:37)
[2019-11-15] MEDS: guaiFENesin 600 mg Tablet PO ×2 (07:37→17:20)
[2019-11-15] MEDS: nicotine 21 mg Patch 1 PATCH TRANSDERMA (07:38)
[2019-11-15] MEDS: aspirin 81 mg EC Tablet PO (07:38)
--- NOTE | 2019-11-15 09:50 | PM.PN ---
Subjective Subjective: Interval history: Today in the morning when I examined the patient. She was denying any shortness of breath, cough, any fever. She expressed a desire to go home. She was on 2 L of oxygen through nasal cannula and saturating more than 95%. We will try to wean her off oxygen We will continue with IV antibiotics for now. She is on day 2 of double pseudomonal coverage Zosyn and levofloxacin . We will switch her to oral antibiotics tomorrow in preparation for discharge. Vitals and labs have been reviewed. Medications: Reviewed: Yes Vitals/I&O/Wt Last Vital Signs Temp 97.8 F 11/15/19 07:37 Pulse 91 11/15/19 07:37 Resp 16 11/15/19 07:37 BP 152/81 11/15/19 07:37 Pulse Ox 91 11/15/19 07:37 11/14/19 11/15/19 11/15/19 22:59 06:59 14:59 Intake Total 1271.667 / 2921.667 850 / 3771.667 1105 / 1105 Output Total 100 / 1000 Balance 1271.667 / 2021.667 750 / 2771.667 1105 / 1105 Weight last 48 hrs Weight 71.809 kg Weight 70.035 kg Weight 70.307 kg Physical Exam Const: COMMON NORMALS: patient oriented x3 HENMT: COMMON NORMALS: normocephalic, atraumatic, hearing grossly normal bilaterally and external ears normal HEAD & SCALP: normocephalic and atraumatic EXTERNAL EAR: Yes external ears normal Eye: COMMON NORMALS: no scleral icterus GENERAL EYE: appearance normal, both eyes and all related structures Chest: COMMONS NORMALS: normal inspection of the chest and normal palpation of entire chest wall CHEST: Yes Symmetrical chest wall rise Resp: COMMON NORMALS: normal respiratory effort, No retractions and No use of accessory muscles EFFORT & INSPECTION: Yes symmetric chest movement AUSCULTATION: wheezes expiratory wheezes, scattered wheezes and lower bilaterally Cardio: COMMON NORMALS: regular rate, regular rhythm, S1 normal heart sound present, S2 normal heart sound present, No gallops present (Cardio), No murmurs present (Cardio), No rub (Cardio) and Peripheral pulses 2+ throughout RATE: regular rate RHYTHM: regular rhythm HEART SOUNDS: S1 normal heart sound present and S2 normal heart sound present PERIPHERAL PULSES: Peripheral pulses 2+ throughout GI: COMMON NORMALS: Normal to inspection, nondistended, normoactive bowel sounds present, Soft to palpation, non-tender, No hepatosplenomegaly present and no masses AUSCULTATION: Yes normoactive bowel sounds PALPATION: Yes Soft to palpation and Yes No hepatosplenomegaly present RECTAL EXAM: deferred : COMMON NORMALS: Yes no CVA tenderness BLADDER/KIDNEY EXAM: Yes no CVA tenderness Back/Pelvis: COMMON NORMALS: no CVA tenderness Extremity: COMMON NORMALS: no clubbing, cyanosis or edema and no pedal edema Neuro: COMMON NORMALS: patient oriented x3 Data : 11/15/19 05:20 11/15/19 05:20 Micro: Microbiology 11/13/19 16:48 Blood Culture - Preliminary Blood NEGATIVE TO DATE 11/13/19 16:55 Blood Culture - Preliminary Blood NEGATIVE TO DATE 11/13/19 23:00 MRSA Culture - Final Nose 11/14/19 04:40 Legionella Urinary Antigen - Final Urine,Voided Bacterial Antigens - Final A&P Assessment and plan (1) Pneumonia: Right lung pneumonia. CTA demonstrated no pulmonary embolism Continue Levaquin, Zosyn, vancomycin started on admission. Vancomycin will be discontinued as MRSA PCR negative Await sputum culture and blood culture Overall improving Will need repeat CT in the future to show clearing of pneumonia Wean oxygen as tolerated Awaiting PTC COVID. Status: Acute Qualifiers: Laterality: right Lung location: lower lobe of lung Pneumonia type: due to unspecified organism Qualified Code(s): J18.9 - Pneumonia, unspecified organism (2) Acute exacerbation of chronic obstructive pulmonary disease: continue prednisone 40 mg daily Nebs every 4 hours Status: Acute (3) Hypothyroidism: Continue thyroid hormone Status: Chronic Qualifiers: Hypothyroidism type: unspecified Qualified Code(s): E03.9 - Hypothyroidism, unspecified Additional A&P Information History of hypertension Type 2 diabetes. Sliding scale insulin Tobacco dependency. Counseled 3 to 5 minutes Multiple other medical problems as outlined in past medical history Imaging studies: CT angio chest PE protcl: No evidence for pulmonary embolus. 2. Right lower lobe opacities with bronchial wall thickening most likely represents pneumonia with bronchitis. CT follow-up to document resolution recommended. . Increased mediastinal and right hilar lymphadenopathy is most likely reactive.4. Stable 10 mm right lower lobe nodule. Continued annual CT follow-up recommended. Microbiology: Bacterial antigen panel is negative: Urine Legionella is negative: Blood culture drawn on 11/12: Is negative till date. 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
[2019-11-15 10:49] LABS: Glucose Point of Care 197 mg/dL (70-110)
[2019-11-15 16:44] LABS: Glucose Point of Care 135 mg/dL (70-110)
[2019-11-15 21:43] LABS: Glucose Point of Care 147 mg/dL (70-110)
[2019-11-15] MEDS: enoxaparin 40 mg/0.4 mL Syringe SUBCUT (22:03)
[2019-11-15] MEDS: levofloxacin-dextrose 5 % 750 MG/150 ML PREMIX 100 MG IV (22:04)
[2019-11-16] VITALS (16 sets, daily range): BP systolic 111–157; BP diastolic 72–90; PULSE 77–112; RESP 16–22; TEMP 36.6–37.3; O2SAT 70–94
[2019-11-16] MEDS: ipratropium-albuterol 3 mL Neb INHALATION ×5 (00:15→20:30)
[2019-11-16] MEDS: piperacillin-tazobactam 3.375 GM in sodium chloride 0.9% (plus) 50 ML IV ×3 (01:02→17:51)
[2019-11-16 07:02] LABS: Glucose Point of Care 109 mg/dL (70-110)
[2019-11-16] MEDS: pantoprazole DR 40 mg Tablet PO (08:14)
[2019-11-16] MEDS: lisinopril 20 mg Tablet PO (08:14)
[2019-11-16] MEDS: aspirin 81 mg EC Tablet PO (08:14)
[2019-11-16] MEDS: levothyroxine 150 mcg Tablet 75 MCG PO (08:14)
[2019-11-16] MEDS: nicotine 21 mg Patch 1 PATCH TRANSDERMA (08:14)
[2019-11-16] MEDS: amlodipine 5 mg Tablet PO (08:14)
[2019-11-16] MEDS: predniSONE 20 mg Tablet 40 MG PO (08:14)
[2019-11-16] MEDS: guaiFENesin 600 mg Tablet PO ×2 (08:14→17:51)
--- NOTE | 2019-11-16 10:25 | PC.SOCIAL ---
IMM Update Pg. 2 of [facility] updated and reviewed with patient. She verbalized understanding. Copy provided.
[2019-11-16 11:00] LABS: Glucose Point of Care 141 mg/dL (70-110)
--- NOTE | 2019-11-16 12:00 | PC.NURSE ---
Dr. Garcia stated pt is able to have 2 visitors today,Keith Newberry son of pt and Barb Bowden who is pt daughter.
--- NOTE | 2019-11-16 12:50 | PM.PN ---
Subjective Subjective: Interval history: Still needing 3 L of oxygen via nasal cannula. Without oxygen she desaturates to high 80s. She voiced her desire to go home. But we explained her the medical necessity to stay in the in the hospital. Medications: Reviewed: Yes Vitals/I&O/Wt Last Vital Signs Temp 98.0 F 11/16/19 11:43 Pulse 102 H 11/16/19 11:43 Resp 20 H 11/16/19 11:43 BP 157/84 11/16/19 11:43 Pulse Ox 90 11/16/19 11:43 11/15/19 11/16/19 11/16/19 22:59 06:59 14:59 Intake Total 170 / 1445 700 / 2145 360 / 360 Output Total 400 / 900 Balance 170 / 945 300 / 1245 360 / 360 Weight last 48 hrs Weight 75.013 kg Weight 71.809 kg Physical Exam Const: COMMON NORMALS: patient oriented x3 HENMT: COMMON NORMALS: normocephalic, atraumatic, hearing grossly normal bilaterally and external ears normal HEAD & SCALP: normocephalic and atraumatic EXTERNAL EAR: Yes external ears normal Eye: COMMON NORMALS: no scleral icterus GENERAL EYE: appearance normal, both eyes and all related structures Chest: COMMONS NORMALS: normal inspection of the chest and normal palpation of entire chest wall CHEST: Yes Symmetrical chest wall rise Resp: COMMON NORMALS: normal respiratory effort, No retractions, No use of accessory muscles and clear to auscultation bilaterally EFFORT & INSPECTION: Yes symmetric chest movement AUSCULTATION: clear to auscultation bilaterally OTHER: Decreased air entry on the left lower lung as well as right lower lung. Cardio: COMMON NORMALS: regular rate, regular rhythm, S1 normal heart sound present, S2 normal heart sound present, No gallops present (Cardio), No murmurs present (Cardio), No rub (Cardio) and Peripheral pulses 2+ throughout RATE: regular rate RHYTHM: regular rhythm HEART SOUNDS: S1 normal heart sound present and S2 normal heart sound present PERIPHERAL PULSES: Peripheral pulses 2+ throughout GI: COMMON NORMALS: Normal to inspection, nondistended, normoactive bowel sounds present, Soft to palpation, non-tender, No hepatosplenomegaly present and no masses AUSCULTATION: Yes normoactive bowel sounds PALPATION: Yes Soft to palpation and Yes No hepatosplenomegaly present RECTAL EXAM: deferred : COMMON NORMALS: Yes no CVA tenderness BLADDER/KIDNEY EXAM: Yes no CVA tenderness Back/Pelvis: COMMON NORMALS: no CVA tenderness Extremity: COMMON NORMALS: no clubbing, cyanosis or edema and no pedal edema Neuro: COMMON NORMALS: patient oriented x3 Data : 11/16/19 14:00 11/16/19 14:00 A&P Assessment and plan (1) Pneumonia: Right lung pneumonia. CTA demonstrated no pulmonary embolism Continue Zosyn, stop levofloxacin vancomycin started on admission. Vancomycin will be discontinued as MRSA PCR negative Overall improving Will need repeat CT in the future to show clearing of pneumonia Wean oxygen as tolerated Awaiting PTC COVID. Status: Acute Qualifiers: Laterality: right Lung location: lower lobe of lung Pneumonia type: due to unspecified organism Qualified Code(s): J18.9 - Pneumonia, unspecified organism (2) Acute exacerbation of chronic obstructive pulmonary disease: continue prednisone 40 mg daily Nebs every 4 hours Status: Acute (3) Hypothyroidism: Continue thyroid hormone Status: Chronic Qualifiers: Hypothyroidism type: unspecified Qualified Code(s): E03.9 - Hypothyroidism, unspecified Additional A&P Information History of hypertension Type 2 diabetes. Sliding scale insulin Tobacco dependency. Counseled 3 to 5 minutes Multiple other medical problems as outlined in past medical history Imaging studies: CT angio chest PE protcl: No evidence for pulmonary embolus. 2. Right lower lobe opacities with bronchial wall thickening most likely represents pneumonia with bronchitis. CT follow-up to document resolution recommended. . Increased mediastinal and right hilar lymphadenopathy is most likely reactive.4. Stable 10 mm right lower lobe nodule. Continued annual CT follow-up recommended. Microbiology: Bacterial antigen panel is negative: Urine Legionella is negative: Blood culture drawn on 11/12: Is negative till date. Full code Lovenox for DVT prophylaxis Attestations Medical Necessity Statement*: She needs management of pneumonia Coding Level of Care Code Acute Global Engineering Manager for [facility] Diagnoses Pneumonia J18.9 Laterality: right Lung location: lower lobe of lung Pneumonia type: due to unspecified organism Acute exacerbation of chronic obstructive pulmonary disease J44.1 Hypothyroidism E03.9 Hypothyroidism type: unspecified
--- NOTE | 2019-11-16 12:51 | XRR_ITS ---
PROCEDURE INFORMATION: Exam: XR Chest, 1 View Exam date and time: 11/16/2019 1:52 PM Age: 79 years old Clinical indication: Condition or disease; Lung condition and disease; Pneumonia; Lobar TECHNIQUE: Imaging protocol: XR of the chest Views: 1 view. COMPARISON: CR XR chest 1V portable [id number] 11/13/2019 4:54 PM FINDINGS: Lungs: Right lower lobe consolidation unchanged. Pleural space: Unremarkable. No pleural effusion. No pneumothorax. Heart/Mediastinum: Unremarkable. No cardiomegaly. Bones/joints: No acute findings. XR/XR chest 1V portable [id number] IMPRESSION: Right lower lobe pneumonia unchanged from 11/13/19.
[2019-11-16 14:30] LABS: Basophils % 0.1 %; Hematocrit 44.2 % (37.0-47.0); Hemoglobin 14.1 g/dL (11.5-15.3); Lymphocytes # 0.5 10^3/uL (0.8-4.8); Lymphocytes % 4.7 %; Mean Corpuscular HGB Conc 31.9 g/dL (30.0-36.0); Mean Corpuscular Hemoglobin 30.3 pg (28.0-34.0); Mean Corpuscular Volume 94.8 fL (81-99); Mean Platelet Volume 10.4 fL (7.4-10.4); Monocytes # 0.2 10^3/uL (0.2-0.9); Monocytes % 1.7 %; Neutrophils # 9.14 10^3/uL (1.8-7.7); Neutrophils % 92.7 %; Nucleated Red Blood Cells % 0 %; Platelet Count 236 10^3/cmm (130-400); Red Blood Count 4.66 10^6/uL (4.1-5.3); Red Cell Distribution Width 12.9 % (12.1-15.1); White Blood Count 9.9 10^3/uL (4.0-10.0)
[2019-11-16 14:50] LABS: Anion Gap 15.7 (5-19); Blood Urea Nitrogen 15 mg/dL (8-23); Calcium 9.1 mg/dL (8.5-10.5); Carbon Dioxide 26 mmol/L (22-29); Chloride 102 mmol/L (98-107); Glucose 195 mg/dL (65-115); Osmolality Calculated 292 mOsm/kg (285-295); Potassium 3.7 mmol/L (3.5-5.1); Sodium 140 mmol/L (136-145)
[2019-11-16] MEDS: vancomycin 1,000 MG in sodium chloride 0.9% 250 ML 250 MG IV (21:25)
[2019-11-16] MEDS: enoxaparin 40 mg/0.4 mL Syringe SUBCUT (21:29)
[2019-11-16 21:38] LABS: Glucose Point of Care 220 mg/dL (70-110)
[2019-11-16 21:38] LABS: Glucose Point of Care 222 mg/dL (70-110)
[2019-11-17] VITALS (8 sets, daily range): BP systolic 133–155; BP diastolic 65–86; PULSE 77–89; RESP 17–22; TEMP 36.4–36.9; O2SAT 87–94
[2019-11-17] MEDS: piperacillin-tazobactam 3.375 GM in sodium chloride 0.9% (plus) 50 ML IV ×3 (01:49→17:27)
--- NOTE | 2019-11-17 05:26 | PC.NURSE ---
Pt requiring more oxygen this morning. Pt O2 sat is 86-88% on 3L NC. Pt sat up higher in bed and encouraged to take slow deep breath, inhaling through nose and exhaling out her mouth. Pt then tried coughing. Sats still not coming up. Pt's O2 increased to 4L on NC.
[2019-11-17] MEDS: ipratropium-albuterol 3 mL Neb INHALATION (05:31)
[2019-11-17 06:59] LABS: Glucose Point of Care 119 mg/dL (70-110)
[2019-11-17] MEDS: vancomycin 1,000 MG in sodium chloride 0.9% 250 ML 250 MG IV ×2 (07:40→20:58)
[2019-11-17] MEDS: amlodipine 5 mg Tablet PO (07:41)
[2019-11-17] MEDS: levothyroxine 150 mcg Tablet 75 MCG PO (07:41)
[2019-11-17] MEDS: guaiFENesin 600 mg Tablet PO ×2 (07:41→17:28)
[2019-11-17] MEDS: aspirin 81 mg EC Tablet PO (07:41)
[2019-11-17] MEDS: lisinopril 20 mg Tablet PO (07:42)
[2019-11-17] MEDS: predniSONE 20 mg Tablet 40 MG PO (07:43)
[2019-11-17] MEDS: pantoprazole DR 40 mg Tablet PO (07:43)
[2019-11-17] MEDS: nicotine 21 mg Patch 1 PATCH TRANSDERMA (07:48)
[2019-11-17] MEDS: acetaminophen 325 mg Tablet 650 MG PO (08:56)
[2019-11-17 09:31] LABS: Hematocrit 41.9 % (37.0-47.0); Hemoglobin 13.1 g/dL (11.5-15.3); Lymphocytes # 1.4 10^3/uL (0.8-4.8); Lymphocytes % 19.2 %; Mean Corpuscular HGB Conc 31.3 g/dL (30.0-36.0); Mean Corpuscular Hemoglobin 30.3 pg (28.0-34.0); Mean Corpuscular Volume 96.8 fL (81-99); Mean Platelet Volume 10.3 fL (7.4-10.4); Monocytes # 0.5 10^3/uL (0.2-0.9); Monocytes % 7.5 %; Neutrophils # 5.11 10^3/uL (1.8-7.7); Neutrophils % 72.7 %; Nucleated Red Blood Cells % 0 %; Platelet Count 217 10^3/cmm (130-400); Red Blood Count 4.33 10^6/uL (4.1-5.3); Red Cell Distribution Width 12.9 % (12.1-15.1)
[2019-11-17 09:53] LABS: Anion Gap 12.5 (5-19); Blood Urea Nitrogen 16 mg/dL (8-23); Calcium 8.7 mg/dL (8.5-10.5); Carbon Dioxide 30 mmol/L (22-29); Chloride 104 mmol/L (98-107); Glucose 123 mg/dL (65-115); Osmolality Calculated 294 mOsm/kg (285-295); Potassium 3.5 mmol/L (3.5-5.1); Sodium 143 mmol/L (136-145)
[2019-11-17] MEDS: fluticasone nasal spray 16gm Btl 1 SPRAY NASAL (10:17)
--- NOTE | 2019-11-17 11:03 | PM.PN ---
Subjective Subjective: Interval history: Still needing 3 L of oxygen via nasal cannula. Without oxygen she desaturates to high 80s. We have added vancomycin to broaden the antibiotic coverage. We have also started her on Solu-Medrol 60mg every 12. A 2D echo has also been ordered to evaluate for possible cardiac etiology of shortness of breath. Medications: Reviewed: Yes Vitals/I&O/Wt Last Vital Signs Temp 97.6 F 11/17/19 08:00 Pulse 82 11/17/19 08:00 Resp 18 11/17/19 08:00 BP 136/75 11/17/19 08:00 Pulse Ox 92 11/17/19 08:00 11/16/19 11/17/19 11/17/19 22:59 06:59 14:59 Intake Total 420 / 830 290 / 1120 720 / 720 Output Total 400 / 1200 600 / 600 Balance 20 / -370 290 / -80 120 / 120 Weight last 48 hrs Weight 73.227 kg Weight 75.013 kg Physical Exam Const: COMMON NORMALS: patient oriented x3 HENMT: COMMON NORMALS: normocephalic, atraumatic, hearing grossly normal bilaterally and external ears normal HEAD & SCALP: normocephalic and atraumatic EXTERNAL EAR: Yes external ears normal Eye: COMMON NORMALS: no scleral icterus GENERAL EYE: appearance normal, both eyes and all related structures Chest: COMMONS NORMALS: normal inspection of the chest and normal palpation of entire chest wall CHEST: Yes Symmetrical chest wall rise Resp: COMMON NORMALS: normal respiratory effort, No retractions, No use of accessory muscles and clear to auscultation bilaterally EFFORT & INSPECTION: Yes symmetric chest movement AUSCULTATION: clear to auscultation bilaterally and wheezes expiratory wheezes, scattered wheezes and lower bilaterally OTHER: Decreased air entry on the left lower lung as well as right lower lung. Cardio: COMMON NORMALS: regular rate, regular rhythm, S1 normal heart sound present, S2 normal heart sound present, No gallops present (Cardio), No murmurs present (Cardio), No rub (Cardio) and Peripheral pulses 2+ throughout RATE: regular rate RHYTHM: regular rhythm HEART SOUNDS: S1 normal heart sound present and S2 normal heart sound present PERIPHERAL PULSES: Peripheral pulses 2+ throughout GI: COMMON NORMALS: Normal to inspection, nondistended, normoactive bowel sounds present, Soft to palpation, non-tender, No hepatosplenomegaly present and no masses AUSCULTATION: Yes normoactive bowel sounds PALPATION: Yes Soft to palpation and Yes No hepatosplenomegaly present RECTAL EXAM: deferred : COMMON NORMALS: Yes no CVA tenderness BLADDER/KIDNEY EXAM: Yes no CVA tenderness Back/Pelvis: COMMON NORMALS: no CVA tenderness Extremity: COMMON NORMALS: no clubbing, cyanosis or edema and no pedal edema Neuro: COMMON NORMALS: patient oriented x3 Data : 11/17/19 09:12 11/17/19 09:12 A&P Assessment and plan (1) Pneumonia: Right lung pneumonia. CTA demonstrated no pulmonary embolism Continue Zosyn, stop levofloxacin vancomycin started on admission. Vancomycin will be discontinued as MRSA PCR negative Overall improving Will need repeat CT in the future to show clearing of pneumonia Wean oxygen as tolerated Awaiting PTC COVID. Status: Acute Qualifiers: Laterality: right Lung location: lower lobe of lung Pneumonia type: due to unspecified organism Qualified Code(s): J18.9 - Pneumonia, unspecified organism (2) Acute exacerbation of chronic obstructive pulmonary disease: continue prednisone 40 mg daily Nebs every 4 hours Status: Acute (3) Hypothyroidism: Continue thyroid hormone Status: Chronic Qualifiers: Hypothyroidism type: unspecified Qualified Code(s): E03.9 - Hypothyroidism, unspecified Additional A&P Information History of hypertension Type 2 diabetes. Sliding scale insulin Tobacco dependency. Counseled 3 to 5 minutes Multiple other medical problems as outlined in past medical history Imaging studies: CT angio chest PE protcl: No evidence for pulmonary embolus. 2. Right lower lobe opacities with bronchial wall thickening most likely represents pneumonia with bronchitis. CT follow-up to document resolution recommended. . Increased mediastinal and right hilar lymphadenopathy is most likely reactive.4. Stable 10 mm right lower lobe nodule. Continued annual CT follow-up recommended. 2D Echo Ordered : Microbiology: Bacterial antigen panel is negative: Urine Legionella is negative: Blood culture drawn on 11/12: Is negative till date. Full code Lovenox for DVT prophylaxis Attestations Medical Necessity Statement*: Patient needs to stay in hospital for further management of pneumonia and to rule out other etiology of shortness of breath. Coding Level of Care Code Acute Manager Lsw for [facility] Fwd Exam Comprehensive Diagnoses Pneumonia J18.9 Laterality: right Lung location: lower lobe of lung Pneumonia type: due to unspecified organism Acute exacerbation of chronic obstructive pulmonary disease J44.1 Hypothyroidism E03.9 Hypothyroidism type: unspecified
--- NOTE | 2019-11-17 11:28 | USCV_ITS ---
Samia Newberry Age: 79 Gender: F : 1940 Exam Date: 11/17/2019 13:48 Ordering Phys: Nasim Garcia MD Technologist: Lexii Du Exam Location: [facility] [place] Indication: Worsening shortness of breath BP: 133 / 71 HR: 86 Rhythm: Sinus Technical Quality: Technically difficult study MEASUREMENTS (Male / Female) Normal Values 2D ECHO LV Diastolic Diameter PLAX 3.3 cm 4.2 - 5.9 / 3.9 - 5.3 cm LV Systolic Diameter PLAX 1.9 cm LV Chamber Size 3.3 cm IVS Diastolic Thickness 1.2 cm 0.6 - 1.0 / 0.6 - 0.9 cm IVS Systolic Thickness 1.6 cm LVPW Diastolic Thickness 1.1 cm 0.6 - 1.0 / 0.6 - 0.9 cm LVPW Systolic Thickness 1.8 cm RV Chamber Size 1.7 cm LVOT Diameter 2.1 cm LV Ejection Fraction 2D Teich 75.1 % LA Diameter 3.2 cm LA Width 1.8 cm LA Height 3.9 cm RA Width 2.0 cm RA Height 3.9 cm Aorta at Sinotubular Diameter 2.9 cm M-MODE LV Diastolic Diameter MM 4.2 cm 4.2 - 5.9 / 3.9 - 5.3 cm LV Systolic Diameter MM 2.7 cm LV Ejection Fraction MM Teich 64.0 % IVS Diastolic Thickness MM 1.4 cm 0.6 - 1.0 / 0.6 - 0.9 cm IVS Systolic Thickness MM 1.6 cm LVPW Diastolic Thickness MM 1.1 cm 0.6 - 1.0 / 0.6 - 0.9 cm LVPW Systolic Thickness MM 1.6 cm RV Diastolic Diameter MM 1.8 cm Aortic Annulus Diameter 3.1 cm LA Ao Ratio MM 1.0 MV E Point Septal Separation 0.5 cm DOPPLER AV Peak Velocity 97.0 cm/s LVOT Peak Velocity 92.0 cm/s AV Area Cont Eq vti 3.1 cm squared AV Area Cont Eq pk 3.3 cm squared MV Area PHT 3.7 cm squared Mitral E to A Ratio 0.8 MV E' Velocity 8.0 cm/s Mitral E to LV E' Lateral Ratio 11.3 TV Peak E Velocity 84.0 cm/s Right Atrial Pressure 3.0 mmHg PV Peak Velocity 76.0 cm/s RV Acceleration Time 0.1 s RV Ejection Time 0.3 s RV AcT/ET 0.3 FINDINGS Left Ventricle Normal left ventricular cavity size. Normal left ventricular systolic function. Left ventricular ejection fraction is estimated at 64 %. No regional wall motion abnormalities. Grade I/IV diastolic dysfunction (abnormal relaxation filling pattern), normal to mildly elevated filling pressures. Right Ventricle The right ventricle is normal in size and function. Right Atrium The right atrium is normal in size. Left Atrium The left atrium is normal in size. Mitral Valve Structurally normal mitral valve without significant stenosis or prolapse. There is no mitral regurgitation. Aortic Valve Structurally normal aortic valve without significant sclerosis or stenosis. There is no aortic regurgitation. Tricuspid Valve Trace tricuspid valve regurgitation. Pulmonic Valve Structurally normal pulmonic valve without significant stenosis. There is no pulmonic regurgitation. Pericardium Normal pericardium without effusion. Aorta Normal ascending aorta dimension. CONCLUSIONS 1-Normal left ventricular cavity size. Normal left ventricular systolic function. Left ventricular ejection fraction is estimated at 64 %. No regional wall motion abnormalities. Grade I/IV diastolic dysfunction (abnormal relaxation filling pattern), normal to mildly elevated filling pressures. 2-Trace tricuspid valve regurgitation. 3-There is no pericardial effusion. 4-No other significant valvular abnormality 5-Right atrial pressure is around 5 mm of mercury. 6-There are no prior echocardiogram studies to compare. Angela Shaffer MD (Electronically Signed) Final Date: 18 November 2019 10:00 S
[2019-11-17] MEDS: azithromycin 500 MG in sodium chloride 0.9% 250 ML 250 MG IV (11:36)
--- NOTE | 2019-11-17 14:32 | PC.NURSE ---
PER Patient Please add son Ramone Newberry (Bill) to HIPPA Release form. His home number is and cell number is . Daughter Mary is leaving for home and she resides in [place] but son (Keith) resides with patient at patients home and can be contacted if unable to reach patient. RYLEE, CLOVER
[2019-11-17 16:22] LABS: Glucose Point of Care 130 mg/dL (70-110)
[2019-11-17 16:22] LABS: Glucose Point of Care 228 mg/dL (70-110)
--- NOTE | 2019-11-17 18:25 | PC.NURSE ---
IS at BS and patient instructed on how to use and how often to use. Educated patient to inhale 10x per hour every hour and goal is 1850 per scale on IS. GEMMAW, POPPED CORN OVEN ATTENDANT
[2019-11-17 19:24] LABS: Vancomycin Trough 8.7 ug/mL (10-15)
[2019-11-17 20:41] LABS: Glucose Point of Care 201 mg/dL (70-110)
[2019-11-17] MEDS: enoxaparin 40 mg/0.4 mL Syringe SUBCUT (21:02)
[2019-11-18] VITALS (8 sets, daily range): BP systolic 136–147; BP diastolic 68–84; PULSE 73–89; RESP 18; TEMP 36.4–36.9; O2SAT 84–93; BMI 27.7
[2019-11-18] MEDS: piperacillin-tazobactam 3.375 GM in sodium chloride 0.9% (plus) 50 ML IV ×2 (00:26→10:11)
[2019-11-18 06:46] LABS: Glucose Point of Care 164 mg/dL (70-110)
[2019-11-18] MEDS: vancomycin 1,000 MG in sodium chloride 0.9% 250 ML 250 MG IV (08:51)
[2019-11-18] MEDS: nicotine 21 mg Patch 1 PATCH TRANSDERMA (08:51)
[2019-11-18] MEDS: fluticasone nasal spray 16gm Btl 1 SPRAY NASAL (08:55)
[2019-11-18] MEDS: lisinopril 20 mg Tablet PO (08:56)
[2019-11-18] MEDS: levothyroxine 150 mcg Tablet 75 MCG PO (08:56)
[2019-11-18] MEDS: guaiFENesin 600 mg Tablet PO (08:56)
[2019-11-18] MEDS: aspirin 81 mg EC Tablet PO (08:56)
[2019-11-18] MEDS: pantoprazole DR 40 mg Tablet PO (08:57)
[2019-11-18] MEDS: amlodipine 5 mg Tablet PO (08:57)
[2019-11-18 11:08] LABS: Glucose Point of Care 216 mg/dL (70-110)
--- NOTE | 2019-11-18 11:33 | DCPLANNER ---
Pg 2 of IM updated and reviewed with pt. No questions, copy provided.
[2019-11-18] MEDS: azithromycin 500 MG in sodium chloride 0.9% 250 ML 250 MG IV (11:56)
--- NOTE | 2019-11-18 13:17 | PC.CHAP ---
Pastoral Care Encounter/Spiritual Assessment Type of Contact [] Declined plant production worker visit [] Patient/Family/Request visit [] Outpatient visit [] Follow-up visit [] Physician referral [] Code/Alert [x] Routine visit [] Staff referral [] Actively dying [] Patient sleeping [] Family support [] [] Out of room [] Palliative care [] [] Receiving care in room [] Pre-surgical visit [] Trauma [x] Long length of stay [] ICU visit [] Other: Relational/Emotional Strength [x] Patient feels connected with others/family/visitors/staff [] Distress [] Loneliness/isolation [] Abandonment Spirituality of Patient [x] Person of Haley [] Attends Druze of their Haley [x] Believes in Prayer [] Reads Bible or Mandaen materials [] There are Spiritual issues to be addressed Change Booth Attendant Interventions [x] Prayer [x] Active listening [x] Non-anxious presence [x] Spiritual/emotional support [] Crisis/trauma care [] Spiritual counseling [] Bereavement support [] Provided bereavement packet [] Provided Bible/devotional materials [] Provided toy/stuffed animal, coloring book to patient or family member [] Provided Communion [] Anointing/[place] [] Salvation [] Completed spiritual assessment [] Other: Impact on Illness or Injury [] Angry [] Fearful [] Anxious [] Often cries [] Exhaustion [] Unable to work [] Unable to attend zoroastrianism [] Unable to walk/stand [] Unable to read [] Unable to drive [] Unable to eat/drink [] Unable to sleep [x] Unable to be with family [] Patient intubated [] Other: Summary Patient asked for prayer for healing. She visited about her family. Change Booth Attendant prayed with patient and visited with her until staff came in to give care. Patient visited by Change Booth Attendant Benigno Durham. Time spent with patient 10 minutes
--- NOTE | 2019-11-18 16:24 | PM.DCS ---
Discharge Providers Date of Admission: 11/13/19 20:22 Date of Discharge: November 18, 2019 Attending Provider at Admission: Betsy Webber MD Attending Provider at Discharge: Nasim Garcia MD Primary Care Provider: Nasima Back MD Diagnoses at Discharge Discharge Diagnosis (1) Pneumonia: Status: Acute Qualifiers: Laterality: right Lung location: lower lobe of lung Pneumonia type: due to unspecified organism Qualified Code(s): J18.9 - Pneumonia, unspecified organism (2) Acute exacerbation of chronic obstructive pulmonary disease: Status: Acute (3) Hypothyroidism: Status: Chronic Qualifiers: Hypothyroidism type: unspecified Qualified Code(s): E03.9 - Hypothyroidism, unspecified Reason for Visit Reason for Visit: Respiratory Distress Hospital Course Hospital Course: 79 year old female with PMHx hypertension, COPD, hypothyroidism, DM , came in with chief complaint of worsening shortness of breath, malaise, congestion and productive cough starting 2 days prior to the hospitalization. During this hospital stay she was managed for pneumonia as well as for COPD exacerbation. She was kept on good IV antibiotic. He completed the IV antibiotic course. She was also managed for COPD excerbation. Upon discharge she qualified for 4 L of home oxygen. During this hospital stay PE was ruled out. She responded well to the medical management and was discharged in stable condition. CT angio chest PE protcl: No evidence for pulmonary embolus. 2. Right lower lobe opacities with bronchial wall thickening most likely represents pneumonia with bronchitis. CT follow-up to document resolution recommended. . Increased mediastinal and right hilar lymphadenopathy is most likely reactive.4. Stable 10 mm right lower lobe nodule. Continued annual CT follow-up recommended. 2D Echo Ordered :1-Normal left ventricular cavity size. Normal left ventricular systolic function. Left ventricular ejection fraction is estimated at 64 %. No regional wall motion abnormalities. Grade I/IV diastolic dysfunction (abnormal relaxation filling pattern), normal to mildly elevated filling pressures. 2-Trace tricuspid valve regurgitation. 3-There is no pericardial effusion. 4-No other significant valvular abnormality 5-Right atrial pressure is around 5 mm of mercury. 6-There are no prior echocardiogram studies to compare. Microbiology: Bacterial antigen panel is negative: Urine Legionella is negative: Blood culture drawn on 11/12: was negative. . Physical Exam Const: COMMON NORMALS: patient oriented x3 HENMT: COMMON NORMALS: normocephalic, atraumatic, hearing grossly normal bilaterally and external ears normal HEAD & SCALP: normocephalic and atraumatic EXTERNAL EAR: Yes external ears normal Eye: COMMON NORMALS: no scleral icterus GENERAL EYE: appearance normal, both eyes and all related structures Chest: COMMONS NORMALS: normal inspection of the chest and normal palpation of entire chest wall CHEST: Yes Symmetrical chest wall rise Resp: COMMON NORMALS: normal respiratory effort, No retractions, No use of accessory muscles and clear to auscultation bilaterally EFFORT & INSPECTION: Yes symmetric chest movement AUSCULTATION: clear to auscultation bilaterally Cardio: COMMON NORMALS: regular rate, regular rhythm, S1 normal heart sound present, S2 normal heart sound present, No gallops present (Cardio), No murmurs present (Cardio), No rub (Cardio) and Peripheral pulses 2+ throughout RATE: regular rate RHYTHM: regular rhythm HEART SOUNDS: S1 normal heart sound present and S2 normal heart sound present PERIPHERAL PULSES: Peripheral pulses 2+ throughout GI: COMMON NORMALS: Normal to inspection, nondistended, normoactive bowel sounds present, Soft to palpation, non-tender, No hepatosplenomegaly present and no masses AUSCULTATION: Yes normoactive bowel sounds PALPATION: Yes Soft to palpation and Yes No hepatosplenomegaly present RECTAL EXAM: deferred Extremity: COMMON NORMALS: no clubbing, cyanosis or edema and no pedal edema Neuro: COMMON NORMALS: patient oriented x3 Discharge Data Data Completed and Pending: Completed Studies During Hospitalization Category Date Time Status CT angio chest PE protcl [id number] Stat Cat Scan 11/13/19 17:18 Completed XR chest 1V kanika ble [id number] Stat Exams 11/16/19 12:51 Completed XR chest 1V kanika ble [id number] Urgent Exams 11/13/19 16:23 Completed CV echo complete* [id number] Routine Ultrasound 11/17/19 11:28 Completed Pending at discharge Category Date Time Status Blood Culture Sta t Lab 11/13/19 16:55 Results Labs from last 24 hours 11/18/19 11/18/19 11/17/19 10:35 06:22 20:31 POC Glucose 216 164 201 Vancomycin Trough 11/17/19 18:47 POC Glucose Vancomycin Trough 8.7 L Vitals: Last Vital Signs Temp 98.4 F 11/18/19 13:21 Pulse 89 11/18/19 13:21 Resp 18 11/18/19 13:21 BP 139/84 11/18/19 13:21 Pulse Ox 90 11/18/19 13:21 Discharge Plan Discharge Patient Disposition: Home Condition: Stable Prescriptions: New Medrol (Brannon) 4 mg tablets,dose pack See Rx Instructions .ROUTE .COMPLEX Qty: 21 RF: 0 Continued lisinopril 20 mg tablet 20 mg PO DAILY RF: 0 exemestane 25 mg tablet 25 mg PO DAILY RF: 0 aspirin [Adult Low Dose Aspirin] 81 mg tablet,delayed release (DR/EC) 81 mg PO DAILY RF: 0 levothyroxine 75 mcg capsule 75 mcg PO DAILY RF: 0 glipizide 5 mg tablet 5 mg PO DAILY RF: 0 amlodipine 5 mg tablet 5 mg PO DAILY RF: 0 Cinnamon 500 mg Capsule 500 mg PO DAILY RF: 0 Vitamin B-12 1 tab PO DAILY RF: 0 Discharge Orders: Discharge Order (Routine); Ordered 11/18/19 Ordered By: Nasim Garcia Other Ambulatory Orders: DME: Oxygen (Order) Location: None Selected Ordered By: Nasim Garcia Referrals: [facility] [place] [Outside] Nasima Back MD [Primary Care Provider] - Datar,Bruno Murillo MD [Physician] - 1 week (,check in at 09:00 AM) Discharge Diet: Usual diet Discharge Activity: Resume usual activity Patient Instructions: Methylprednisolone (By mouth), Hypothyroidism (DC), Chronic Obstructive Pulmonary Disease (DC), Pneumonia (DC), COPD Stoplight, Pneumonia Stoplight Discharge Date/Time: 11/18/19 16:15 Discharge Attestations Time Spent in Discharge Care*: greater than 30 min Status at Discharge: Cognitive status at discharge: cognitively intact, Behavioral status at discharge: cooperative, Functional status at discharge: independent ambulation Overall status at discharge: patient is back to baseline Quality Metrics Clinical Quality Measures During this hospital stay, did patient experience: None Coding Level of Care Code Acute Associate Director Data & Analytics for [facility] Fwd Diagnoses Pneumonia J18.9 Laterality: right Lung location: lower lobe of lung Pneumonia type: due to unspecified organism Acute exacerbation of chronic obstructive pulmonary disease J44.1 Hypothyroidism E03.9 Hypothyroidism type: unspecified
== END 2019-11-18 16:15 | disposition home or self-care (01) | DRG 194 ==
LOC: ER 19:48 → MEDSURG 20:48
PROVIDERS: Emergency Medicine; Internal Medicine; Physician Assistant; Admitting Provider Family Medicine; PCP Internal Medicine; Visit Provider Internal Medicine
DX: J18.9 Pneumonia, unspecified organism (principal); J44.1 Chronic obstructive pulmonary disease with (acute) exacerbation; J44.0 Chronic obstructive pulmonary disease with (acute) lower respiratory infection; I10 Essential (primary) hypertension; Z85.3 Personal history of malignant neoplasm of breast; Z92.21 Personal history of antineoplastic chemotherapy; Z92.3 Personal history of irradiation; G89.29 Other chronic pain; M79.675 Pain in left toe(s); M79.674 Pain in right toe(s); E11.51 Type 2 diabetes mellitus with diabetic peripheral angiopathy without gangrene; E78.5 Hyperlipidemia, unspecified; K21.9 Gastro-esophageal reflux disease without esophagitis; E03.9 Hypothyroidism, unspecified; M17.12 Unilateral primary osteoarthritis, left knee; F17.210 Nicotine dependence, cigarettes, uncomplicated; Z79.811 Long term (current) use of aromatase inhibitors; Z79.82 Long term (current) use of aspirin
CPT/HCPCS: 12345; 36415; 36416; 36600; 71045; 71275; 80048; 80051; 80053; 80202; 81001; 82550; 82728; 82810; 82962; 83605; 83735; 83880; 83986; 84484; 85025; 85378; 85384; 85610; 85730; 86140; 86403; 87040; 87426; 87449; 87635; 87641; 87804; 93005; 93306; 94640; 94760; 96372; 96375; 99283; J0456; J1650; J1815; J1956; J2543; J2920; J2930; J3370; J3535; J7030; J7050; J7512; Q9967

== ENCOUNTER → 2019-11-28 15:37 | Outpatient (BNVA) | payer MEDICARE, OTHER, SELFPAY | PROVIDERS: PCP Internal Medicine; Visit Provider Internal Medicine Critical Care Medicine | DX: Z20.828 Contact with and (suspected) exposure to other viral communicable diseases (principal) | CPT/HCPCS: 87635 ==

== ENCOUNTER 2019-12-02 08:52 | Outpatient (CLI) | payer MEDICARE, OTHER, SELFPAY ==
[2019-12-02 09:58] VITALS: BP 152/90
--- NOTE | 2019-12-02 14:18 | PFTS_ITS ---
Date of Study:12/02/19 Date of Dictation: MECHANICS: Forced vital capacity (FVC) is reduced. Forced expiratory volume in one second (FEV1) is reduced. FEV1/FVC is reduced. FLOW VOLUME LOOP: Reduced flow at all lung volumes with significant scooping. LUNG VOLUMES: Total lung capacity (TLC) is normal. Residual volume (RV) is increased. DIFFUSING CAPACITY FOR CARBON MONOXIDE: Moderately reduced. INTERPRETATION: The pulmonary function tests are consistent with moderate obstruction. There is no significant postbronchodilator response. Lung volumes are consistent with air trapping. Gas exchange (DLCO) is moderately reduced. MTDD
== END 2019-12-02 08:53 | disposition home or self-care (01) ==
LOC: RT 08:58
PROVIDERS: PCP Internal Medicine; Visit Provider Internal Medicine Critical Care Medicine
DX: J44.9 Chronic obstructive pulmonary disease, unspecified (principal)
CPT/HCPCS: 94060; 94618; 94726; 94729; J7611

== ENCOUNTER 2020-06-19 09:59 | Outpatient (CLI) | payer MEDICARE, OTHER, SELFPAY ==
--- NOTE | 2020-06-19 10:05 | MM_ITS ---
WS: [id number] Bilateral diagnostic digital mammogram, 06/19/2020 Clinical Data: HX OF BREAST CA Comparison: 05/08/2019, 04/30/2018, 08/26/2016, 05/07/2015. Findings: There are no speculated masses or clustered calcifications. The left breast is smaller with skin thic kening unchanged. There is a pacemaker in the right axilla. The breast parenchymal pattern shows fibr oglandular tissue. There are lymph nodes in the right axilla. MM/[id number] Impression: 1. Left breast is smaller with skin thickening because of treatment for left br east cancer. New line 2. Negative right breast unchanged. BIRADS: 2-Benign FOLLOW UP: 1 Year Follow-up The CAD glass checker was used.
== END 2020-06-19 10:00 | disposition home or self-care (01) ==
LOC: RADSHAW 10:04
PROVIDERS: PCP Internal Medicine; Visit Provider Internal Medicine
DX: Z85.3 Personal history of malignant neoplasm of breast (principal)
CPT/HCPCS: 77066

== ENCOUNTER 2020-08-26 12:46 | Outpatient (CLI) | payer MEDICARE, OTHER, SELFPAY ==
--- NOTE | 2020-08-26 12:51 | CT_ITS ---
WS: [id number] CT CHEST TECHNIQUE: Contrast enhanced CT of the chest with coronal and sagittal reformatted images. CLINICAL INFORMATION: PULMONARY NODULE, COPD COMPARISON: None. DLP: 834.[address] scans at use at least one of these dose optimization techniques: automat ed exposure control; mA and/or kV adjustment per patient size (includes targeted exams where dose is matched to clinical indication); or iterative reconstruction. FINDINGS: Advanced chronic emphysematous changes. No acute pulmonary infiltrates. Bronchiectasis in right lower lobe. Subsegmental atelectasis in the right middle lobe. Stable 10 mm right lower lobe noncalcified nodule. Two additional noncalcified nodules left upper lobe measuring 4 to 5 mm unchanged.Previously described infiltrates in the right lower lobe have resolved. Aortic calcification. Coronary calcification. No mediastinal or hilar lymphadenopathy. Calcified righ t hilar lymph nodes. Adrenal glands are normal. Right renal cyst measuring 3.7 CC. Diffuse fatty infi ltration liver. No axillary lymphadenopathy. Prior postoperative changes left breast with prior left axillary dissection. CT/CT chest w con* [id number] IMPRESSION: 1. Previously described right lower lobe pulmonary infiltrates have resolved w ith mild residual interstitial thickening right lower lobe. 2. Stable 10 mm noncalcified nodule right lower lobe. Recommend 12 month follo w-up. 3. Two Additional noncalcified nodules left upper lobe measuring 4 to 5 mm unc hanged. 4. Bronchiectasis right lower lobe. Subsegmental atelectasis in the lingula. 5. Calcified right hilar lymph nodes. No mediastinal or hilar lymphadenopathy.
[2020-08-26] MEDS: iohexol 300 mg/mL 100 mL Btl IV (13:35)
== END 2020-08-26 12:47 | disposition home or self-care (01) ==
PROVIDERS: PCP Internal Medicine; Visit Provider Internal Medicine
DX: R91.1 Solitary pulmonary nodule (principal); J44.9 Chronic obstructive pulmonary disease, unspecified; J98.11 Atelectasis
CPT/HCPCS: 71260; Q9967

== ENCOUNTER 2021-06-21 14:18 | Outpatient (CLI) | payer MEDICARE, OTHER, SELFPAY ==
--- NOTE | 2021-06-21 14:26 | MM_ITS ---
WS: [id number] VIEWS: MLO, CC, and ML views both breasts. 3D digital tomosynthesis is also included in this exam. Comparison made with prior exam of 05/07/2015, 08/26/2016, 04/30/2018, and 06/19/2020.. Findings: There was no sign of mass, architectural distortion or suspicious calcification in either breast. Sc attered fibroglandular densities MM/[id number] Impression: BI-RADS: 2-Benign FOLLOW-UP: 1 Year Follow-up This mammogram was also analyzed by the Computer Aided Detection System R2 Imag e Instrument Sterilizer.
== END 2021-06-21 14:19 | disposition home or self-care (01) ==
LOC: RAD 14:19
PROVIDERS: PCP Internal Medicine; Visit Provider Internal Medicine
DX: Z85.3 Personal history of malignant neoplasm of breast (principal)
CPT/HCPCS: 77062

== ENCOUNTER 2021-07-25 07:46 | Emergency (ER) | payer MEDICARE, OTHER, SELFPAY ==
[2021-07-25 07:55] VITALS: BP 129/90; PULSE 103; RESP 24; TEMP 36.5; O2SAT 90; BMI 25.0
[2021-07-25 08:02] VITALS: BP 130/66; RESP 21; TEMP 36.6; O2SAT 91
--- NOTE | 2021-07-25 08:09 | ECG_ITS ---
[facility] Test Date: 2021-07-25 Pat Name: Samia Newberry Department: Room: Gender: Female Take Away Man: : 1940 Requested By: Brittany Edmonds Order Number: [id number] Tonya MD: Darrick Madrid M.D. Measurements Intervals [place] Rate: 96 P: 75 ND: 176 QRS: -59 QRSD: 91 T: 84 QT: 330 QTc: 419 Interpretive Statements SINUS RHYTHM LEFT AXIS DEVIATION [QRS AXIS < -30] ANTEROSEPTAL MYOCARDIAL INFARCTION , OF INDETERMINATE AGE [40+ ms Q WAVE IN V1-V4] Compared to ECG 11/14/2019 00:45:56 Left-axis deviation now present Myocardial infarct finding still present Electronically Signed On 07-25-2021 12:12:14 CDT by Darrick Madrid M.D. [id number]
--- NOTE | 2021-07-25 08:09 | XRR_ITS ---
PROCEDURE INFORMATION: Exam: XR Chest Exam date and time: 07/25/2021 8:28 AM Age: 80 years old Clinical indication: Shortness of breath; Additional info: SOB TECHNIQUE: Imaging protocol: XR of the chest. Views: 1 view. 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 There is increased left basilar atelectasis. The lung apices are clear. Pleural spaces: Unremarkable. No pleural effusion. No pneumothorax. Heart/Mediastinum: Unremarkable. No cardiomegaly. Bones/joints: Unremarkable. XR/XR chest 1V portable [id number] IMPRESSION: 1. Stable right basilar fibrosis and atelectasis. 2. There is increasing atelectasis in the medial left lung base.
[2021-07-25 08:21] LABS: Basophils % 0.3 %; Eosinophils % 0.2 %; Hematocrit 48.1 % (37.0-47.0); Hemoglobin 15.4 g/dL (11.5-15.3); Lymphocytes # 1.8 10^3/uL (0.8-4.8); Lymphocytes % 14.3 %; Mean Corpuscular Hemoglobin 30.9 pg (28.0-34.0); Mean Corpuscular Volume 96.6 fl (81-99); Mean Platelet Volume 10.4 fL (7.4-10.4); Monocytes # 1.4 10^3/uL (0.2-0.9); Monocytes % 10.5 %; Neutrophils # 9.55 10^3/uL (1.8-7.7); Neutrophils % 74.4 %; Nucleated Red Blood Cells % 0 %; Platelet Count 171 10^3/cmm (130-400); Red Blood Count 4.98 10^6/uL (4.1-5.3); Red Cell Distribution Width 12.8 % (12.1-15.1); White Blood Count 12.8 10^3/uL (4.0-10.0)
--- NOTE | 2021-07-25 08:21 | W.ED.SOB ---
HPI - SOB/Dyspnea General: Chief Complaint: Shortness of Breath/Dyspnea Stated Complaint: low o2 Time Seen by Provider: 07/25/21 08:07 Source: patient Mode of arrival: ambulatory Limitations: no limitations History of Present Illness: HPI Narrative: 80-year-old female history of COPD wears oxygen as needed at home is a smoker. States she had increasing shortness of breath for the last 3 to 4 days with a cough and some wheezing she states her oxygen levels been in the 80s at home and her concentrator and oxygen tank was not working. She denies any fever denies any chest pain denies any worsening improving factors. Associated symptoms: Deny abdominal pain, chest pain, fever(s), nausea or vomiting Review of Systems Const: Denies: fever(s), chills, body aches or change in appetite Eyes: Denies: blurry vision or eye discomfort ENMT: Denies: throat pain or dental pain Card: Denies: chest pain Resp: Reports: dyspnea and non-productive cough GI: Denies: abdominal pain, nausea, vomiting or diarrhea : Denies: dysuria Musc: Denies: neck pain or back pain Skin/Breast: Denies: rash Neuro: Denies: headache(s) Psych: Denies: depression Guilherme/Lymph: Denies: easy bruising All/Imm: Denies: urticaria PFSH ED PFSH: Medical History Abnormal ankle brachial index (SURESH) Accelerated essential hypertension Acute exacerbation of chronic obstructive pulmonary disease Breast cancer -L breast s/p chemo and radiation about 6 yrs ago Carpal tunnel syndrome Chronic toe pain, bilateral COPD (chronic obstructive pulmonary disease) Diabetes mellitus -non insulin dependent Dyslipidemia GERD (gastroesophageal reflux disease) Hypothyroidism Peripheral vascular disease Primary osteoarthritis of left knee Surgical History History of lumpectomy of left breast Hx of cholecystectomy Family History Sister Cancer CAD (coronary artery disease) Social History Smoking and tobacco status: current every day smoker cigarettes Packs smoked per day: 1 Years cigarettes smoked: 65 Quit status (tobacco): not considering quitting Second hand smoke exposure: No Alcohol intake: never Lives independently: Yes Household members: family Marital status: / 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 History of recent travel: No Current gender identity: Female Physical Exam Const: COMMON NORMALS: patient oriented x3 HENMT: COMMON NORMALS: normocephalic and atraumatic HEAD & SCALP: normocephalic and atraumatic Eye: COMMON NORMALS: Equal, round and reactive pupils present and EOMs intact bilaterally PUPIL: Yes Equal, round and reactive pupils present Neck/C-Spine: COMMON NORMALS: full ROM and supple Chest: COMMONS NORMALS: normal inspection of the chest and normal palpation of entire chest wall Resp: COMMON NORMALS: No retractions and No use of accessory muscles AUSCULTATION: rales and wheezes Cardio: COMMON NORMALS: regular rate, regular rhythm and No murmurs present (Cardio) RATE: regular rate RHYTHM: regular rhythm GI: COMMON NORMALS: Normal to inspection, nondistended, normoactive bowel sounds present, Soft to palpation, non-tender and no masses PALPATION: Yes Soft to palpation Extremity: COMMON NORMALS: normal to inspection and full ROM Neuro: COMMON NORMALS: patient oriented x3, moves all extremities and no focal motor deficits Psych: COMMON NORMALS: mental status grossly normal, Normal thought process present and cooperative THOUGHT PROCESS: Normal thought process present Skin: COMMON NORMALS: no rashes or lesions noted and no wounds GENERAL SKIN EXAM: no rashes or lesions noted Course Vital Signs: Vital signs: Vital Signs Temperature 97.8 F 07/25/21 08:02 Pulse Rate 96 07/25/21 08:32 Respiratory Rate 18 07/25/21 08:32 Blood Pressure 130/74 07/25/21 08:32 Pulse Oximetry 94 07/25/21 08:32 MDM - SOB/Dyspnea Medical Decision Making Patient presents here with COPD exacerbation likely bronchitis her concentrator and tank was not working at home we will get her set up with home oxygen she feels improved here she continues to smoke I did give her counseling she is to follow-up with pulmonology we will start her on antibiotic she is return if worsening she has no signs of pulm embolism. Lab Data : 07/25/21 08:10 07/25/21 08:10 Labs/Radiology: Radiology Impressions Chest X-Ray 07/25/21 08:09 IMPRESSION: 1. Stable right basilar fibrosis and atelectasis. 2. There is increasing atelectasis in the medial left lung base. Laboratory Results WBC 12.8 10^3/uL (4.0-10.0) H 07/25/21 08:10 RBC 4.98 10^6/uL (4.1-5.3) 07/25/21 08:10 Hgb 15.4 g/dL (11.5-15.3) H 07/25/21 08:10 Hct 48.1 % (37.0-47.0) H 07/25/21 08:10 MCV 96.6 fl (81-99) 07/25/21 08:10 MCH 30.9 pg (28.0-34.0) 07/25/21 08:10 MCHC 32.0 g/dL (30.0-36.0) 07/25/21 08:10 RDW 12.8 % (12.1-15.1) 07/25/21 08:10 Plt Count 171 10^3/cmm (130-400) 07/25/21 08:10 MPV 10.4 fL (7.4-10.4) 07/25/21 08:10 Neut % (Auto) 74.4 % 07/25/21 08:10 Lymph % (Auto) 14.3 % 07/25/21 08:10 [place] % (Auto) 10.5 % 07/25/21 08:10 Eos % (Auto) 0.2 % 07/25/21 08:10 Baso % (Auto) 0.3 % 07/25/21 08:10 Neut # (Auto) 9.55 10^3/uL (1.8-7.7) H 07/25/21 08:10 Lymph # (Auto) 1.8 10^3/uL (0.8-4.8) 07/25/21 08:10 [place] # (Auto) 1.4 10^3/uL (0.2-0.9) H 07/25/21 08:10 Eos # (Auto) 0.0 10^3/uL (0.0-0.8) 07/25/21 08:10 Baso # (Auto) 0.0 10^3/uL (0.0-0.1) 07/25/21 08:10 Nucleated RBC % (auto) 0 % 07/25/21 08:10 Nucleated RBCs # 0.0 /100WBC 07/25/21 08:10 Sodium 137 mmol/L (136-145) 07/25/21 08:10 Potassium 3.9 mmol/L (3.5-5.1) 07/25/21 08:10 Chloride 98 mmol/L (98-107) 07/25/21 08:10 Carbon Dioxide 27 mmol/L (22-29) 07/25/21 08:10 Anion Gap 15.9 (5-19) 07/25/21 08:10 BUN 14 mg/dL (8-23) 07/25/21 08:10 Creatinine 0.7 mg/dL (0.5-0.9) 07/25/21 08:10 GFR Calculation Not Reportable 07/25/21 08:10 Glucose 171 mg/dL (65-115) H 07/25/21 08:10 Calculated Osmolality 289 mOsm/kg (285-295) 07/25/21 08:10 Calcium 8.6 mg/dL (8.5-10.5) 07/25/21 08:10 Total Bilirubin 0.8 mg/dL (0.15-1.2) 07/25/21 08:10 AST 7 U/L (0-32) 07/25/21 08:10 ALT < 5 U/L (0-33) 07/25/21 08:10 Alkaline Phosphatase 78 IU/L (35-105) 07/25/21 08:10 NT-Pro-B Natriuret Pep 178 pg/mL (0-450) 07/25/21 08:10 Total Protein 7.0 g/dL (6.6-8.7) 07/25/21 08:10 Albumin 4.0 g/dL (3.5-5.2) 07/25/21 08:10 Globulin 3.0 g/dL (1.3-4.6) 07/25/21 08:10 SARS-CoV-2 Ag (Rapid) Negative (Negative) 07/25/21 08:30 EKG Data EKG 1: I personally reviewed and interpreted this EKG as follows: EKG Interpretation Date: 07/25/21 EKG interpretation time: 08:25 Interpretation: nsr hr [address] or t wave abnormalities qrs 91 qtc 384 Discharge Plan Discharge Patient Disposition: Home Clinical Impression: Acute exacerbation of chronic obstructive airways disease Condition: Stable Prescriptions: New prednisone 50 mg tablet 50 mg PO DAILY Qty: 5 0RF doxycycline hyclate 100 mg tablet 100 mg PO BID 7 Days Qty: 14 0RF No Action aspirin [Adult Low Dose Aspirin] 81 mg tablet,delayed release (DR/EC) 81 mg PO DAILY 0RF levothyroxine 75 mcg capsule 75 mcg PO DAILY 0RF glipizide 5 mg tablet 5 mg PO DAILY 0RF ipratropium-albuterol 0.5 mg-3 mg(2.5 mg base)/3 mL solution for nebulization 3 ml inhalation Q4H Qty: 540 6RF Rx Instructions: And as needed ICaps AREDS [id number] capsule 1 cap PO BID 0RF amlodipine 5 mg tablet 5 mg PO BID Qty: 180 3RF lisinopril 20 mg tablet 30 mg PO DIRECTED Qty: 135 3RF Rx Instructions: Take 20mg (1 tab) in AM and 10mg (0.5 tab) in PM Cinnamon 500 mg Capsule 500 mg PO DAILY 0RF Vitamin B-12 1 tab PO DAILY 0RF Discharge Orders: Discharge ED (Routine); Ordered 07/25/21 Ordered By: Brittany Edmonds Other Ambulatory Orders: DME: Oxygen (Order) Location: None Selected Ordered By: Brittany Edmonds Referrals: Nasima Back MD [Primary Care Provider] - 1-3 days Discharge Diet: Advance as tolerated Discharge Activity: Resume usual activity Patient Instructions: COPD (Chronic Obstructive Pulmonary Disease) (ED) Coding Level of Care Code ED Chalk Cutter for Chg Fwd Exam Comprehensive
[2021-07-25 08:32] VITALS: BP 130/74; PULSE 96; RESP 18; O2SAT 94
[2021-07-25 08:53] LABS: Alanine Aminotransferase < 5 U/L (0-33); Alkaline Phosphatase 78 IU/L (35-105); Anion Gap 15.9 (5-19); Aspartate Amino Transferase 7 U/L (0-32); Blood Urea Nitrogen 14 mg/dL (8-23); Calcium 8.6 mg/dL (8.5-10.5); Carbon Dioxide 27 mmol/L (22-29); Chloride 98 mmol/L (98-107); Creatinine Clr Calc Pharmacy 52.5137; Glucose 171 mg/dL (65-115); NT Pro B Type Natriuretic Pept 178 pg/mL (0-450); Osmolality Calculated 289 mOsm/kg (285-295); Potassium 3.9 mmol/L (3.5-5.1); Sodium 137 mmol/L (136-145); Total Bilirubin 0.8 mg/dL (0.15-1.2)
[2021-07-25 09:24] LABS: SARS Covid-2 Antigen Negative (Negative)
[2021-07-25 09:57] VITALS: BP 131/68; PULSE 81; RESP 18; TEMP 36.6; O2SAT 91
--- NOTE | 2021-07-29 06:38 | DCPLANNER ---
Addendum entered by Oxana Mejia 08/13/21 05:44: Patient had a follow up appointment scheduled for 08.10.[address] Conti at [facility] - patient did attend appointment. Original Note: dealer development manager had message to schedule a follow up appointment for patient with heart care for pulmonology. dealer development manager sent patients information to the front office staff at [facility]. Patients information will be printed and reviewed. Clinic will call patient with appointment information.
== END 2021-07-25 10:00 | disposition home or self-care (01) ==
PROVIDERS: Emergency Provider Emergency Medicine; PCP Internal Medicine
DX: J44.1 Chronic obstructive pulmonary disease with (acute) exacerbation (principal); F17.210 Nicotine dependence, cigarettes, uncomplicated
CPT/HCPCS: 71045; 80053; 83880; 85025; 87426; 93005; 96374; 99284; J2930

== ENCOUNTER → 2021-08-10 13:01 | Outpatient (BNVA) | payer MEDICARE, OTHER, SELFPAY | PROVIDERS: PCP Internal Medicine; Visit Provider Internal Medicine Critical Care Medicine | DX: J44.9 Chronic obstructive pulmonary disease, unspecified (principal); F17.210 Nicotine dependence, cigarettes, uncomplicated; R91.1 Solitary pulmonary nodule; G25.81 Restless legs syndrome; E78.5 Hyperlipidemia, unspecified; K21.9 Gastro-esophageal reflux disease without esophagitis; E11.8 Type 2 diabetes mellitus with unspecified complications; E03.9 Hypothyroidism, unspecified | CPT/HCPCS: 99214 ==

== ENCOUNTER 2021-09-13 14:44 | Outpatient (CLI) | payer MEDICARE, OTHER, SELFPAY ==
--- NOTE | 2021-09-13 15:06 | CT_ITS ---
WS: [id number] CT CHEST WITH INTRAVENOUS CONTRAST HISTORY: PULMONARY NODULE. COPD, pain posterior RIGHT ribs. History of breast cancer. TECHNIQUE: Contiguous 5 mm axial imaging performed on the thorax. Coronal and sagittal reformats are submitted. All CT scans at [facility] use at least one of these dose optimization techniques: automated exposure control; mA and/or kV adjustment per patient size (includes targeted exams where dose is matched to clinical indication); or iterative reconstruction. CONTRAST: Omnipaque 350; 75 mL IV. DLP: 617.45 mGy.cm COMPARISON: 08/26/2020 and 11/13/2019 Lungs and central airway: Mild pulmonary hyperexpansion from emphysema. Since the prior examination t here are multiple bilateral pulmonary nodules identified. Majority of these nodules are very small. T he largest is slightly lobulated in the RIGHT lower lobe measuring 9 x 7 mm. There are additional lachelle y small bilateral pulmonary nodules greatest in the lower lung pineda. There is also mild bilateral b ronchial wall thickening. This is greatest extending into the RIGHT lower lobe. No pneumonia. Pleura: Normal. No pleural effusion. Heart and pericardium: Normal size heart with no pericardial effusion. Mediastinum and shaun: Mediastinal and hilar lymph nodes have increased slightly in size and number si nce the prior study. Largest lymph node is 13 mm at the RIGHT hilum. Vessels: Atherosclerosis aorta. Pulmonary artery is enlarged measuring 3.5 cm. Chest wall and lower neck/osseous structures.: Abnormal appearance to the RIGHT lateral chest wall in volving both the soft tissues and the bones. There is increased soft tissue thickening with stranding predominantly encasing the 10th rib. Increased soft tissue surrounding the rib and the rib has been destroyed over a long segment. Abnormal soft tissue extends into the intercostal muscles. Pathologica l fracture involving the 10th rib. Increased sclerosis in the T9 vertebral body, increased sclerosis within T4 and T6 suspicious for metastatic sites. Abnormal lytic and sclerotic changes within the mona rnal body. There is an additional soft tissue nodule in the LEFT posterior lateral chest wall adjacen t to the ninth rib. Upper abdomen: No adrenal mass. No liver lesions. Incompletely visualized 3.9 x 4.1 cm cyst associate d with the superior RIGHT kidney. Common bile duct at pancreatic head is mildly prominent 8.[address]/CT chest w con* [id number] IMPRESSION: 1. Numerous bilateral very small pulmonary nodules are new since 08/26/2020. Th e largest measures 9 x 7 mm in the RIGHT lower lobe. Consistent with metastatic disease until proven otherwise. Consider follow-up PET/CT imaging. 2. Abnormal RIGHT 10th rib consistent with metastatic disease and pathological fracture. There is additional soft tissue thickening surrounding the rib and e xtending into the intercostal muscles centered at the RIGHT 10th rib. 3. Additional metastatic cyst RIGHT suspected at T9 and probably T4 and T6 and also the sternal body. Consider PET/CT. 4. Slight increase in size of the mediastinal lymph nodes with the largest at the RIGHT hilum measuring 13 mm. 5. Additional soft tissue nodule in the posterior LEFT chest wall at the leve l of the ninth rib. Indeterminate for metastatic nodule.
[2021-09-13] MEDS: iohexol 350 mg/mL 100 mL Btl IV (15:23)
== END 2021-09-13 14:45 | disposition home or self-care (01) ==
LOC: RAD 14:44
PROVIDERS: PCP Internal Medicine; Visit Provider Internal Medicine
DX: R91.1 Solitary pulmonary nodule (principal); J43.9 Emphysema, unspecified; C78.01 Secondary malignant neoplasm of right lung; C78.02 Secondary malignant neoplasm of left lung; C79.51 Secondary malignant neoplasm of bone; M84.58XA Pathological fracture in neoplastic disease, other specified site, initial encounter for fracture
CPT/HCPCS: 71260

== ENCOUNTER 2021-10-01 11:05 | Oncology outpatient (recurring) (ONCR) | payer MEDICARE, OTHER, SELFPAY ==
--- NOTE | 2021-09-16 14:17 | N.ONRAD NP_ITS ---
Radiation Oncology Consultation Patient Name: Samia Newberry Date of : 1940 Date of Service: 09/16/2021 Attending Physician: Ferdinand Marrero M.D. Samia Newberry was seen in consultation this afternoon at the request of Cory Richter M.D. for consideration of palliative radiotherapy for the management of metastatic breast cancer. 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 The breast prognostic profile was estrogen receptor positive, progesterone receptor negative, and HER-2 negative. Adjuvant chemotherapy consisting of Taxotere and cyclophosphamide were administered between dates of Jul, 2015 through September 15, 2015. A total of 4 cycles were prescribed. Postoperative radiotherapy was administered and completed on December 07, 2015. Adjuvant hormonal therapy was initiated. She was evaluated by her primary care physician for right-sided thoracic pain. A thoracic CT scan (independently reviewed in [facility]) ordered on September 13, 2021 described multiple bilateral pulmonary nodules, hilar and mediastinal lymphadenopathy, soft tissue thickening encasing the right 10th rib with an associated pathological fracture, left posterior chest wall soft tissue nodule adjacent to the ninth rib, and sclerosis of the T4, T6, and T9 vertebral bodies. The patient was evaluated for palliative radiotherapy in the setting of right thoracic wall pain likely attributable to the soft tissue abnormality. I discussed with Ms. Newberry the role for palliative radiotherapy because of her worsening symptoms. She would like a trial of pain medication prior to beginning treatment. The patient???s medical treatment has been discussed with Cory Richter M.D. Signed by: Dr. Ferdinand Marrero 09/16/2021 3:12:52 PM
--- NOTE | 2021-09-24 11:20 | ONCRAD EPV_ITS ---
Radiation Oncology Established Patient Visit Patient: Rohith Gracia [id number] : 1940 Age: 80 Sex: Female> Dictated by: Dr. Titus Bello Date of Service: 09/24/2021 Referring Physician(s) : Dr. Paul Day Diagnosis: Z17.0 - Estrogen receptor positive status [ER+], Diagnosed 06/08/2015 (Active) C50.512 - Malignant neoplasm of lower-outer quadrant of left female breast, Diagnosed 05/21/2015 (Active) Stage IIIA, T2, pN2, M0, G2 Breast cancer. 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 She had presented with a lump in her left breast mass. A left breast mammogram on 05/07/2015 showed highly suspicious posterior wall along the chest wall at 3 to 4:00 position. The patient underwent a lumpectomy without sentinel lymph node biopsy on 05/21/2015. Her surgical pathology showed 3 cm grade 2/3 infiltrating ductal carcinoma with positive lymphovascular invasion and positive neural invasion. Margins were negative. Prognostic profile was ER positive at 100%, AL less than 1%, and HER-2/colette negative, 1+ by IHC and FISH amplification ratio 1.0. The patient was first seen by Dr. Howard on 06/08/2015. Clinically, her breast was swollen and tender, concerning for mastitis after surgery. It was not was not like that prior to surgery. She received antibiotic therapy with Augmentin. On 06/11/2015 she underwent axillary lymph node dissection, and 9 out of 9 lymph nodes were involved with metastatic disease. Further staging imaging with CT of the chest showed new left lower lobe pulmonary nodules for which follow-up was recommended in 6 months. PET/CT on 06/20/2015 showed FDG avid dermal thickening suspicious for inflammatory breast cancer and equivocal left retropectoral lymph nodes. Thus, by clinical evaluation her disease was at least stage IIIA (T2, N2, M0). Radiographically, inflammatory breast cancer was suspected. Skin biopsy on 07/02/2015 showed only nonspecific chronic dermatitis, without atypia or tumor. Therefore, inflammatory breast cancer was unlikely. Port-A-Cath was placed. 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 She received acyclovir therapy 500 mg 5 times a day and topical eyedrops. Adjuvant chemotherapy with Taxotere and cyclophosphamide began on 07/14/15, with Neulasta prophylaxis. As of 09/15/2015 she completed 4 cycles of treatment. Toxicities included nausea/vomiting with dehydration, severe asthenia, and grade 3 neutropenia. She did receive a dose reduction with cycles 3 and 4. Her other medical illnesses include COPD, hypertension, hyperlipidemia, type II diabetes, GERD, and peripheral neuropathy. She has history of smoking a pack and a half of cigarettes daily for 60 years. She continues to smoke one pack of cigarettes daily. She completed radiation therapy to the left scapula to 5,040 cGy with posterior axillary boost of 705.6 cGy on 11/30/15 and completed radiation therapy to the left breast to 5,040 cGy with 1,000 cGy boost on 12/07/15. tolerating hormonal therapy well. Patient says she did stop taking anastrozolefor month because she could not affor due to financial reason but then her primary care doctor Dr. Back convinced her and give her a prescription. Came for follow-up, denies any specific complaints except left knee pain, which is chronic in nature patient said she has a arthritis in both knees. No fever or chills no nausea or vomiting no other bony pains.Tolerating anastrozole well Radiotherapy to Date: Course: C1, Treatment Site: BREAST BST, Ref. ID: BREAST BOOST, Energy: 6X, Dose/Fx (cGy): 200, #Fx: 5 / 5, Dose Correction (cGy): 0, Total Dose (cGy): 1,000, Start Date: 12/01/2015, End Date: 12/07/2015, Elapsed Days: 6 Course: C1, Treatment Site: PAB, Ref. ID: PAB, Energy: 15X, Dose/Fx (cGy): 25.2, #Fx: , Dose Correction (cGy): 0, Total Dose (cGy): 705.6, Start Date: 10/21/2015, End Date: 11/30/2015, Elapsed Days: 40 Course: C1, Treatment Site: SCLAV, Ref. ID: SCLAV [id number], Energy: 15X, Dose/Fx (cGy): 180, #Fx: , Dose Correction (cGy): 0, Total Dose (cGy): 5,040, Start Date: 10/21/2015, End Date: 11/30/2015, Elapsed Days: 40 C1, Treatment Site: LT BREAST, Ref. ID: LTBREAST PTV50.4, Energy: 15X/6X, Dose/Fx (cGy): 180, #Fx: , Dose Correction (cGy): 0, Total Dose (cGy): 5,040, Start Date: 10/21/2015, End Date: 11/30/2015, Elapsed Days: 40 Current History: Ms Newberry saw Dr. Marrreo last week in consultation for right thoracic pain related to metastatic disease in that area. Because of this right-sided pain she had had a CT of the thorax on 09/13/2021. She she was noted to have soft tissue thickening encasing the right 10th rib with an associated pathologic fracture. Also she had suspicious findings in multiple vertebrae, particularly T4, T6 and T9. Also she had a left posterior chest wall nodule adjacent to the ninth rib that was not symptomatic. It was decided to give her a 1 week trial of pain medication (oxycodone 5 mg #30) and then to return for follow-up today to discuss the status of her pain. The pain medication gives her some relief of the pain for a few hours. She mainly notices it when she lies down to sleep at night. Shifting positions in bed produces discomfort. It seems to be significantly disruptive of her sleep pattern. She also describes pain that extends down the posterior aspect of her left leg. She states that pain has been present for about 1 year. She has not had any evaluation of it and has not been on any pain medication until about 1 week ago. She states that the pain in the posterior aspect of the left lower extremity can occur anytime and in any position. Although it is troublesome, she does not really describe it as having a sense significant impact on her quality of life, whereas the right chest wall pain does have an effect on quality of life. She does not have any other areas of pain that are significantly troublesome. Current Medications: Acetaminophen, aromasin, bactrim DS, citalopram Hydrobromide, compazine, dexamethasone, glipiZIDE, klor-Con 10, lasix, levothyroxine Sodium, levothyroxine Sodium, lisinopril, lomotil, medrol, neulasta, omeprazole, ondansetron HCl, raNITidine HCl. Allergies: No Known Allergies Current Complaints / Review of Systems: . Vital Signs: Performed on 09/24/2021 9:06 AM BMI - 24.133 kg/m2 (high), Height - 64.5 in, Weight - 142.8 lbs, Temperature - 97.4 f, Pulse - 97 /min, Respiration - 18 /min, O2 Sat - 91 % (low), Pain - 0, Fatigue - 8 and BP - 128/ 67 mm(hg). Physical Exam: General: Alert and oriented x 3. No acute distress. HEENT: Normocephalic, atraumatic. Extraocular Movements Intact. NECK: Supple without supraclavicular or jugular lymphadenopathy. LUNGS: Clear to auscultation bilaterally without rales, rhonchi or wheeze. HEART: Regular rate and rhythm, normal S1 and S2 without murmur, gallop or rub. MUSCULOSKELETAL: Cervical spine nontender. The thoracic spine she has tenderness over the lower 3 or 4 vertebrae this tenderness is easily reproducible with either palpation or percussion. No tenderness of the lumbar spine, sacrum or SI joints. Palpation of the rib cage reveals no tenderness on the left. On the right she has easily reproducible tenderness over the right lower ribs in the area of the 10th rib. No tenderness of the shoulders or humeri. She has a free range of motion in both hips. On the right with internal rotation she had mild discomfort. No tenderness on direct palpation over the hip joints or along the course of the femurs. ABDOMEN: Soft, nondistended without masses or organomegaly. Bowell sounds are present. Tenderness in the epigastrium which seem to be related to the left lobe of the liver. There was some induration and fullness though no distinct mass was palpated. EXTREMITIES: No peripheral edema is identified. Limited motor and sensory examination are grossly intact and symmetric bilaterally. NEUROLOGIC: Cranial nerves II ???XII are grossly intact. Normal sensation, strength 5/5 in all extremities, limping gait giving to the right, no ataxia. Performance Status: Lab: None pending. 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 Imaging: See HPI Recent chest CT reviewed. Prior PET scan reviewed. Impression: Metastatic breast cancer with a symptomatic right rib pathologic fracture. Quality of life is being affected. The pain prevents her from resting well at night. I suggested a 2-week course of palliative radiation and she has agreed to that. Also suggested that a PET CT should be performed to better evaluate the full extent of her metastatic cancer. I discussed that with her and her daughter and they are eager to proceed. (Also the diagnostic radiologist who read the recent chest CT suggested a PET/CT.) I told the patient she may need additional areas treated. I am particularly concerned about the lower thoracic spine. This study may or may not give us some information about the pain that she has been experiencing down the posterior aspect of the left lower extremity. Simulation will be scheduled and I will order the PET. We will also get her in to see Dr. García in the next few weeks. Signed by: 09/24/2021 11:18:55 AM <<Signature on File>> Time spent with patient: CPT Code: CPT Code:
--- NOTE | 2021-09-27 | CT_ITS ---
Radiation Therapy Planning CT images; total exam DLP: 444.15 mGy-cm MTDD
[2021-09-29 09:50] LABS: Basophils % 0.3 %; Eosinophils # 0.1 10^3/uL (0.0-0.8); Eosinophils % 1.3 %; Hematocrit 44.6 % (37.0-47.0); Hemoglobin 14.6 g/dL (11.5-15.3); Lymphocytes # 2.3 10^3/uL (0.8-4.8); Lymphocytes % 25.7 %; Mean Corpuscular HGB Conc 32.7 g/dL (30.0-36.0); Mean Corpuscular Hemoglobin 30.9 pg (28.0-34.0); Mean Corpuscular Volume 94.5 fl (81-99); Mean Platelet Volume 10.4 fL (7.4-10.4); Monocytes # 0.6 10^3/uL (0.2-0.9); Neutrophils # 5.77 10^3/uL (1.8-7.7); Neutrophils % 65.6 %; Nucleated Red Blood Cells % 0 %; Platelet Count 222 10^3/cmm (130-400); Red Blood Count 4.72 10^6/uL (4.1-5.3); Red Cell Distribution Width 13.3 % (12.1-15.1); White Blood Count 8.8 10^3/uL (4.0-10.0)
[2021-09-29 12:21] LABS: Alanine Aminotransferase 8 U/L (0-33); Alkaline Phosphatase 87 IU/L (35-105); Anion Gap 15.5 (5-19); Aspartate Amino Transferase 11 U/L (0-32); Blood Urea Nitrogen 12 mg/dL (8-23); CA 15-3 194.8 U/mL (0-25); Calcium 9.4 mg/dL (8.5-10.5); Carbon Dioxide 27 mmol/L (22-29); Chloride 103 mmol/L (98-107); Globulin 2.8 g/dL (1.3-4.6); Glucose 155 mg/dL (65-115); Osmolality Calculated 295 mOsm/kg (285-295); Potassium 4.5 mmol/L (3.5-5.1); Sodium 141 mmol/L (136-145); Total Bilirubin 0.4 mg/dL (0.15-1.2); Total Protein 6.8 g/dL (6.6-8.7)
== END 2021-10-03 23:59 | disposition home or self-care (01) ==
PROVIDERS: PCP Internal Medicine; Referring Provider Internal Medicine Medical Oncology; Visit Provider Specialist
DX: Z51.0 Encounter for antineoplastic radiation therapy (principal); C50.512 Malignant neoplasm of lower-outer quadrant of left female breast
CPT/HCPCS: 36415; 77290; 77295; 77300; 77334; 77387; 77412; 80053; 85025; 86300; 99205; 99214; 99215; G6002

== ENCOUNTER 2021-10-12 13:41 | Oncology outpatient (recurring) (ONCR) | payer MEDICARE, OTHER, SELFPAY ==
--- NOTE | 2021-10-05 14:40 | ONCRAD TMN_ITS ---
Radiation Oncology Treatment Management Note Patient Name: Samia Newberry Date of : 1940 Date of Service: 10/05/2021 Attending Physician: Ferdinand Marrero M.D. Samia Newberry is an 81 year-old white male diagnosed with metastatic breast cancer. 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 The breast prognostic profile was estrogen receptor positive, progesterone receptor negative, and HER-2 negative. Adjuvant chemotherapy consisting of Taxotere and cyclophosphamide were administered between dates of Jul, 2015 through September 15, 2015. A total of 4 cycles were prescribed. Postoperative radiotherapy was administered and completed on December 07, 2015. Adjuvant hormonal therapy was initiated. She was evaluated by her primary care physician for right-sided thoracic pain. A thoracic CT scan ordered on September 13, 2021 described multiple bilateral pulmonary nodules, hilar and mediastinal lymphadenopathy, soft tissue thickening encasing the right 10th rib with an associated pathological fracture, left posterior chest wall soft tissue nodule adjacent to the ninth rib, and sclerosis of the T4, T6, and T9 vertebral bodies. The patient has received 15 Gy of a prescribed 30 Ellis to the 10th rib with a 3-dimensional conformal radiotherapy plan utilizing tangential treatment pineda. Upon review of systems, she described a rash on her back and abdomen. She denied taking new medications. On physical examination, the patient weighed 134 lbs. Her temperature was 97.8 ???F and the blood pressure was 117/72mmHg. Her pulse was 94 bpm and the respiratory rate was 17. A maculopapular rash was present on the left aspect of her back and abdomen. Continue palliative radiotherapy as prescribed. I will prescribe a Medrol Dosepak. Signed by: Dr. Ferdinand Marrero 10/05/2021 2:39:26 PM
--- NOTE | 2021-10-12 14:04 | N.ONRD TS_ITS ---
Radiation OncologyTreatment Summary Patient Name: Samia Newberry Date of : 1940 Date of Service: 10/12/2021 Attending Physician: Ferdinand Marrero M.D. Samia Newberry has completed palliative radiotherapy for the management of diagnosed with metastatic breast cancer. 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 The breast prognostic profile was estrogen receptor positive, progesterone receptor negative, and HER-2 negative. Adjuvant chemotherapy consisting of Taxotere and cyclophosphamide were administered between dates of Jul, 2015 through September 15, 2015. A total of 4 cycles were prescribed. Postoperative radiotherapy was administered and completed on December 07, 2015. Adjuvant hormonal therapy was initiated. She was evaluated by her primary care physician for right-sided thoracic pain. A thoracic CT scan ordered on September 13, 2021 described multiple bilateral pulmonary nodules, hilar and mediastinal lymphadenopathy, soft tissue thickening encasing the right 10th rib with an associated pathological fracture, left posterior chest wall soft tissue nodule adjacent to the ninth rib, and sclerosis of the T4, T6, and T9 vertebral bodies. Daily radiotherapy was administered between the dates of September 29, 2021 through October 12, 2021. A prescribed dose of 30 Gy was delivered in 10 fractions encompassing 14 elapsed days. The right 10th rib was treated utilizing a 3-dimensional conformal radiotherapy plan with an SALEH/RPO portal pineda design. The SALEH field utilized a 320??? gantry angle with a collimator angle of 90???. The field size measured 5.9 cm x 6 cm within the X-direction and 5.7 cm x 4.2 cm within the Y-direction. The SSD measured 94.8 cm with the field delivering 223 monitor units. An enhanced dynamic wedge of 45??? was incorporated. The RPO port employed a gantry angle of 200??? and a collimator angle of 90???. The field size was 5.8 cm x 6.2 cm within X-direction and 5.2 cm x 6.7 cm within the Y-direction. The measured SSD was 96.2 cm with the field allocating 217 monitor units. An enhanced dynamic wedge of 45??? was implemented. All treatments were performed with the [employer] linear accelerator and an isocentric technique. The dose was calculated by Anisotropic Analytic Algorithm. Photon energies of 6 MV were prescribed with the plan normalized to deliver 100% of the prescription dose to 95% of the planning target volume. The plan was designed and approved by the [facility] physician. Signed by: Dr. Ferdinand Marrero 10/12/2021 2:03:06 PM
--- NOTE | 2021-10-12 14:29 | ONCRAD TMN_ITS ---
Radiation Oncology Treatment Management Note Patient Name: Samia Newberry Date of : 1940 Date of Service: 10/12/2021 Attending Physician: Ferdinand Marrero M.D. Samia Newberry is an 81 year-old white male diagnosed with metastatic breast cancer. 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 The breast prognostic profile was estrogen receptor positive, progesterone receptor negative, and HER-2 negative. Adjuvant chemotherapy consisting of Taxotere and cyclophosphamide were administered between dates of Jul, 2015 through September 15, 2015. A total of 4 cycles were prescribed. Postoperative radiotherapy was administered and completed on December 07, 2015. Adjuvant hormonal therapy was initiated. She was evaluated by her primary care physician for right-sided thoracic pain. A thoracic CT scan ordered on September 13, 2021 described multiple bilateral pulmonary nodules, hilar and mediastinal lymphadenopathy, soft tissue thickening encasing the right 10th rib with an associated pathological fracture, left posterior chest wall soft tissue nodule adjacent to the ninth rib, and sclerosis of the T4, T6, and T9 vertebral bodies. The patient has received 30 Gy of a prescribed 30 Ellis to the 10th rib with a 3-dimensional conformal radiotherapy plan utilizing tangential treatment pineda. Upon review of systems, she described improvement in the rib pain. On physical examination, the patient weighed 137 lbs. Her temperature was 98.6 ???F and the blood pressure was 107/65 mmHg. Her pulse was 107 bpm and the respiratory rate was 20. The rash that was present on the left aspect of her back and abdomen has resolved. Radiotherapy was completed today. Signed by: Dr. Ferdinand Marrero 10/12/2021 2:28:00 PM
== END 2021-11-03 23:59 | disposition home or self-care (01) ==
PROVIDERS: PCP Internal Medicine; Referring Provider Internal Medicine Medical Oncology; Visit Provider Radiology Radiation Oncology
DX: Z51.0 Encounter for antineoplastic radiation therapy (principal); C50.812 Malignant neoplasm of overlapping sites of left female breast
CPT/HCPCS: 77336; 77387; 77412

== ENCOUNTER 2021-10-17 14:58 | Inpatient (IN) | payer MEDICARE, OTHER, SELFPAY ==
[2021-10-17] VITALS (9 sets, daily range): BP systolic 95–117; BP diastolic 58–66; PULSE 67–99; RESP 16–24; TEMP 36.6–36.7; O2SAT 80–92; BMI 22.3
--- NOTE | 2021-10-17 15:20 | ECG_ITS ---
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 Measurements Intervals [place] Rate: 97 P: 59 TX: 159 QRS: -28 QRSD: 100 T: 77 QT: 329 QTc: 418 Interpretive Statements SINUS RHYTHM BORDERLINE LEFT AXIS DEVIATION [QRS AXIS < -20] Compared to ECG 07/25/2021 08:25:31 Myocardial infarct finding no longer present Electronically Signed On 10-18-2021 17:39:27 CDT by Darrick Madrid M.D. [id number]
--- NOTE | 2021-10-17 15:20 | XRR_ITS ---
PROCEDURE INFORMATION: Exam: XR Chest Exam date and time: 10/17/2021 3:24 PM Age: 81 years old Clinical indication: Dyspnea TECHNIQUE: Imaging protocol: Radiologic exam of the chest. Views: 1 view. COMPARISON: CT chest w con* [id number] 09/13/2021 3:18 PM FINDINGS: Lungs: New ill-defined bibasilar opacities, right greater than left suspicious for multifocal pneumonia. Probable small right pleural effusion. No pneumothorax. Pleural spaces: See Lungs finding. Heart/Mediastinum: Normal heart size with no vascular congestion. Vasculature: Somewhat tortuous thoracic aorta with no obvious dilatation on recent CT exam. There is slightly prominent main pulmonary artery similar to CT findings. Clinical correlation for pulmonary hypertension should be obtained. Bones/joints: No acute findings. XR/XR chest 1V portable [id number] IMPRESSION: New bibasilar opacities. See discussion above. Other findings as above.
--- NOTE | 2021-10-17 15:28 | W.ED.GENADLT ---
HPI - General Adult General: Chief complaint: Shortness of Breath/Dyspnea Stated complaint: low O2 Time Seen by Provider: 10/17/21 15:19 History of Present Illness: Patient is an 81-year-old female with a history of breast cancer, interstitial pulmonary disease, COPD, diabetes chronically on 5 L oxygen at home presenting to the emergency room with increased respiratory distress and fatigue. Per family, patient patient has been increasingly short of breath congested and coughing for the last 2 days. Patient today was noted to have an oxygen sat of 60% on 5 L oxygen. EMS was called patient was brought to the emergency room. In route, patient required 8 to 9 L of oxygen satting at 80%. Patient has no demonstrated work of breathing. Per family, patient is full code at this time. Patient denies any fever/chills, productive sputum, abdominal pain, chest pain, diarrhea melena/hematochezia. No sick contact around her. Onset:2 days ago Duration:2 days Location:home Severity:severe Associated symptoms: Reports dyspnea; Deny chest pain, nausea, rash, palpitations or vomiting Review of Systems Const: Denies: fever(s) or chills Eyes: Denies: change in vision ENMT: Denies: mouth pain Card: Denies: chest pain or palpitations Resp: Reports: dyspnea and non-productive cough GI: Denies: abdominal pain, nausea, vomiting or diarrhea : Denies: dysuria Musc: Denies: extremity pain Skin/Breast: Denies: rash or new lesions Neuro: Denies: weakness in extremities Psych: Reports: other (Normal mood) Guilherme/Lymph: Denies: easy bruising PFS ED PFSH: Medical History Abnormal ankle brachial index (SURESH) Accelerated essential hypertension Acute exacerbation of chronic obstructive pulmonary disease Breast cancer -L breast s/p chemo and radiation about 6 yrs ago Carpal tunnel syndrome Chronic toe pain, bilateral COPD (chronic obstructive pulmonary disease) Diabetes mellitus -non insulin dependent Dyslipidemia GERD (gastroesophageal reflux disease) Hypothyroidism Peripheral vascular disease Primary osteoarthritis of left knee Surgical History History of lumpectomy of left breast Hx of cholecystectomy Family History Sister Cancer CAD (coronary artery disease) Other Diabetes Hyperlipidemia Denies family history of Clotting disorder Dementia Psychiatric illness Chronic kidney disease (CKD) Suicide Anesthesia complication Bleeding disorder Lung disease Hypertension Stroke Social History Smoking and tobacco status: current every day smoker (1.5 ppd) cigarettes Packs smoked per day: 1 Years cigarettes smoked: 65 [ Other cigarette details: started at 15] Quit status (tobacco): not considering quitting Second hand smoke exposure: No Alcohol intake: never Lives independently: Yes Household members: family Marital status: / 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 History of recent travel: No Current gender identity: Female Physical Exam Const: COMMON NORMALS: alert HENMT: COMMON NORMALS: atraumatic HEAD & SCALP: atraumatic MOUTH: moist mucous membranes not abnormal Eye: COMMON NORMALS: EOMs intact bilaterally and conjunctivae normal CONJUNCTIVA: Yes conjunctivae normal Neck/C-Spine: COMMON NORMALS: full ROM and supple Resp: COMMON NORMALS: normal respiratory effort OTHER: + Coarse breath sounds bilaterally Cardio: COMMON NORMALS: regular rate RATE: regular rate GI: COMMON NORMALS: Soft to palpation and non-tender PALPATION: Yes Soft to palpation OTHER: No focal TTP. NO guarding rebound, guarding, rigidity. No CVA tenderness to percussion. Neg Lindsey/Neg McBurney's point tenderness, no suprabupic tenderness to palpation. Extremity: COMMON NORMALS: full ROM OTHER: +no lower extremity swelling Neuro: SENSORIUM/ORIENTATION: Yes alert MOTOR EXAM: No Abnormal motor strength present and Other motor observations present (no focal motor deficits) Psych: COMMON NORMALS: speech normal SPEECH: Yes normal speech MOOD & AFFECT: Yes euthymic mood Course Vital Signs: Vital signs: Vital Signs Temperature 97.9 F 10/17/21 15:13 Pulse Rate 94 10/17/21 16:15 Respiratory Rate 22 H 10/17/21 16:05 Blood Pressure 95/58 10/17/21 15:13 Pulse Oximetry 92 10/17/21 16:05 Oxygen Delivery Me thod 10/17/21 16:05 Oxygen Flow Rate 30 10/17/21 16:05 Fraction of Inspir ed Oxygen 43 10/17/21 16:05 MDM - General Adult Medical Decision Making 81-year-old female with a history of COPD, breast cancer currently on radiation treatment presenting to the emergency room for evaluation of cute onset of dyspnea and nonproductive cough worsening the last 2 days. On physical exam, patient is noted to be satting at 83% on 6 L oxygen. Patient is noted to have coarse lungs bilaterally. Patient has no oral airway compromise no increased work of breathing. Patient is placed on high flow for comfort 30 L. Chest shows bilateral lower opacity findings. Patient received ceftriaxone azithromycin. COVID pending. CTA done did not show any PE but multifocal PNA. Patient received duoneb in the ED. on reassessment, patient is no signs of respiratory compromise. Patient continues to be stable in no acute distress on high flow. Disposition: ICU Lab Data : 10/17/21 15:45 10/17/21 15:45 Radiology Impressions Chest X-Ray 10/17/21 15:20 IMPRESSION: New bibasilar opacities. See discussion above. Other findings as above. Chest CTA 10/17/21 15:41 IMPRESSION: 1. Comparison CT 09/13/2021. 2. No acute PE. Stable minimal dilatation of main pulmonary artery. 3. New diffuse peribronchial thickening and patchy opacities in the right mid and lower lung zones suspicious for acute multifocal pneumonia. Clinical correlation and follow-up should be obtained. Stable pulmonary emphysema. 4. Several tiny pulmonary nodules are again noted, probably unchanged and may represent metastatic disease. 5. Stable abnormal partially calcified right perihilar soft tissue density. No new enlarged mediastinal adenopathy. 6. Osseous findings as above. If there is a concern for progression of metastatic osseous lesions, bone scan correlation may be helpful. COMMENTS: Consistent with the [place] [employer]'s Incidental Findings Committee white paper (J Am Benjy Radiol 2018): Any incidental renal lesion less than 1 cm or classified as too small to characterize, or any incidental cystic renal lesion characterized as simple-appearing, is likely benign. No follow-up imaging is recommended for these lesions per consensus recommendations based on imaging criteria. Laboratory Results WBC 8.6 10^3/uL (4.0-10.0) 10/17/21 15:45 RBC 4.47 10^6/uL (4.1-5.3) 10/17/21 15:45 Hgb 13.9 g/dL (11.5-15.3) 10/17/21 15:45 Hct 43.5 % (37.0-47.0) 10/17/21 15:45 MCV 97.3 fl (81-99) 10/17/21 15:45 MCH 31.1 pg (28.0-34.0) 10/17/21 15:45 MCHC 32.0 g/dL (30.0-36.0) 10/17/21 15:45 RDW 13.4 % (12.1-15.1) 10/17/21 15:45 Plt Count 175 10^3/cmm (130-400) 10/17/21 15:45 MPV 10.4 fL (7.4-10.4) 10/17/21 15:45 Neut % (Auto) 78.0 % 10/17/21 15:45 Lymph % (Auto) 9.9 % 10/17/21 15:45 [place] % (Auto) 10.9 % 10/17/21 15:45 Eos % (Auto) 0.5 % 10/17/21 15:45 Baso % (Auto) 0.2 % 10/17/21 15:45 Neut # (Auto) 6.71 10^3/uL (1.8-7.7) 10/17/21 15:45 Lymph # (Auto) 0.9 10^3/uL (0.8-4.8) 10/17/21 15:45 [place] # (Auto) 0.9 10^3/uL (0.2-0.9) 10/17/21 15:45 Eos # (Auto) 0.0 10^3/uL (0.0-0.8) 10/17/21 15:45 Baso # (Auto) 0.0 10^3/uL (0.0-0.1) 10/17/21 15:45 Nucleated RBC % (auto) 0 % 10/17/21 15:45 Nucleated RBCs # 0.0 /100WBC 10/17/21 15:45 Specimen Type Arterial 10/17/21 15:46 Sample Site Radial, left 10/17/21 15:46 ABG pH 7.40 (7.35-7.45) 10/17/21 15:46 ABG pCO2 51.9 mmHg (35-45) H 10/17/21 15:46 ABG pO2 70.9 mmHg (80.0-100.0) L 10/17/21 15:46 ABG HCO3 31.8 mmol/L (22-26) H 10/17/21 15:46 ABG O2 Saturation 94.6 10/17/21 15:46 ABG Base Excess 5.5 mmol/L (-2.0-2.0) H 10/17/21 15:46 Jeff Test Pos 10/17/21 15:46 A-a O2 Gradient 22.3 mmHg (5-10) H 10/17/21 15:46 Hematocrit 42.7 % (37-47) 10/17/21 15:46 Hgb O2 Saturation 92.0 % (95-100) L 10/17/21 15:46 Carboxyhemoglobin 2.1 %THgb (0.4-20.1) 10/17/21 15:46 Methemoglobin 0.7 % (0.4-1.5) 10/17/21 15:46 Total Hemoglobin 13.9 g/dL (12-16) 10/17/21 15:46 Sodium 139.0 mmol/L (131-143) 10/17/21 15:46 Potassium 3.9 mmol/L (3.5-5.0) 10/17/21 15:46 Glucose 175.0 mg/dL (70-115) H 10/17/21 15:46 Ionized Calcium 1.2 mmol/L (1.1-1.4) 10/17/21 15:46 O2 Delivery Device Hag 10/17/21 15:46 O2 Liters/Min 30.0 % 10/17/21 15:46 FiO2 43.0 % 10/17/21 15:46 Panel Instrument Repairer ID Cak 10/17/21 15:46 Sodium 140 mmol/L (136-145) 10/17/21 15:45 Potassium 4.0 mmol/L (3.5-5.1) 10/17/21 15:45 Chloride 100 mmol/L (98-107) 10/17/21 15:45 Carbon Dioxide 33 mmol/L (22-29) H 10/17/21 15:45 Anion Gap 11.0 (5-19) 10/17/21 15:45 BUN 25 mg/dL (8-23) H 10/17/21 15:45 Creatinine 0.8 mg/dL (0.5-0.9) 10/17/21 15:45 GFR Calculation Not Reportable 10/17/21 15:45 Glucose 167 mg/dL (65-115) H 10/17/21 15:45 Calculated Osmolality 298 mOsm/kg (285-295) H 10/17/21 15:45 Calcium 8.8 mg/dL (8.5-10.5) 10/17/21 15:45 Troponin T Baseline 15 ng/L (0-10) H 10/17/21 15:45 NT-Pro-B Natriuret Pep 100 pg/mL (0-450) 10/17/21 15:45 Imaging Data Other Imaging: Radiologist's impression: [facility] [address] [address] XRay Report Signed Patient: Samia Newberry Unit #: [id number] : 1940 Age/Sex: 81 / F ADM Date: 10/17/21 Loc: ER Room/Bed: Attending Dr: Ordering Provider/Ordering MD: Huong Quintanilla MD Date of Service: 10/17/21 Procedure(s): XR chest 1V portable [id number] Accession Number(s): [id number] Report Number: [id number] PROCEDURE INFORMATION: Exam: XR Chest Exam date and time: 10/17/2021 3:24 PM Age: 81 years old Clinical indication: Dyspnea TECHNIQUE: Imaging protocol: Radiologic exam of the chest. Views: 1 view. COMPARISON: CT chest w con* [id number] 09/13/2021 3:18 PM FINDINGS: Lungs: New ill-defined bibasilar opacities, right greater than left suspicious for multifocal pneumonia.? Probable small right pleural effusion. No pneumothorax. Pleural spaces: See Lungs finding. Heart/Mediastinum:? Normal heart size with no vascular congestion. Vasculature: Somewhat tortuous thoracic aorta with no obvious dilatation on recent CT exam. There is slightly prominent main pulmonary artery similar to CT findings. Clinical correlation for pulmonary hypertension should be obtained. Bones/joints: No acute findings.? XR/XR chest 1V portable [id number] IMPRESSION: New bibasilar opacities. See discussion above. Other findings as above. ? Dictated By: Afia Cid MD Signed By: Afia Cid MD Signed Date/Time: 10/17/21 1558 DD/ [address] [address] [address] Scan Report Signed Patient: Samia Newberry Unit #: [id number] : 1940 Age/Sex: 81 / F ADM Date: 10/17/21 Loc: ER Room/Bed: Attending Dr: Ordering Provider/Ordering MD: Huong Quintanilla MD Date of Service: 10/17/21 Procedure(s): CT angio chest PE protcl [id number] Accession Number(s): [id number] Report Number: [id number] PROCEDURE INFORMATION: Exam: CTA Chest With Contrast Exam date and time: 10/17/2021 5:07 PM Age: 81 years old Clinical indication: Shortness of breath; Additional info: Hypoxemia TECHNIQUE: Imaging protocol: Computed tomographic angiography of the chest with contrast. 3D rendering (Not supervised by radiologist): MIP and/or 3D reconstructed images were created by the technologist. Radiation optimization: All CT scans at this facility use at least one of these dose optimization techniques: automated exposure control; mA and/or kV adjustment per patient size (includes targeted exams where dose is matched to clinical indication); or iterative reconstruction. Contrast material: OMNI 350; Contrast volume: 88 ml; Contrast route: INTRAVENOUS (IV);? COMPARISON: CT angio chest PE protcl [id number] 11/13/2019 5:46 PM RADIATION DOSE METRICS: Total DLP (mGy-cm): 229.85 FINDINGS: Pulmonary arteries: There is no pulmonary embolism in the central-proximal segmental branches. Assessment of the peripheral subsegmental small branches is limited. Minimal dilatation of main pulmonary artery at 3.2 cm, unchanged. Aorta: No aortic aneurysm. No aortic dissection. Lungs: Partially calcified soft tissue thickening in the right perihilar region appears stable suggesting sequela of treated malignancy or postinflammatory disease. No new enlarged mediastinal hilar lymph nodes are otherwise identified. Diffuse peribronchial thickening and ill-defined patchy opacities throughout the right mid and lower lung zones, new since prior exam suggesting multifocal pneumonia. Multiple scattered tiny nodular pulmonary densities are again noted measuring up to 2-4 mm, probably unchanged and may represent metastatic disease. Several nodules are somewhat obscured by the new lung opacity.? Mild pulmonary emphysema, unchanged. Pleural spaces: Unremarkable. No pneumothorax. No pleural effusion. Heart: See Bones/joints finding. Lymph nodes: See Lungs finding. Kidneys and ureters: Right upper pole simple renal cyst measuring 4.2 cm. Bones/joints: Osteopenia. Multilevel vertebral disc degeneration and endplate osteophytes. Heterogeneous trabecular pattern involving multiple osseous structures with patchy vertebral sclerosis at multiple levels suspicious for metastatic disease similar to prior exam. No obvious vertebral compression fractures. Osteolytic changes of the sternum appears relatively stable. Next item normal heart size with coronary calcification. No acute osseous findings otherwise. Soft tissues: Unremarkable. CT/CT angio chest PE protcl [id number] IMPRESSION: 1. Comparison CT 09/13/2021. 2. No acute PE. Stable minimal dilatation of main pulmonary artery. 3. New diffuse peribronchial thickening and patchy opacities in the right mid and lower lung zones suspicious for acute multifocal pneumonia. Clinical correlation and follow-up should be obtained.? Stable pulmonary emphysema. 4. Several tiny pulmonary nodules are again noted, probably unchanged and may represent metastatic disease. 5. Stable abnormal partially calcified right perihilar soft tissue density. No new enlarged mediastinal adenopathy. 6. Osseous findings as above. If there is a concern for progression of metastatic osseous lesions, bone scan correlation may be helpful. ? COMMENTS: Consistent with the [place] [employer]'s Incidental Findings Committee white paper (J Am Benjy Radiol 2018): Any incidental renal lesion less than 1 cm or classified as too small to characterize, or any incidental cystic renal lesion characterized as simple-appearing, is likely benign. No follow-up imaging is recommended for these lesions per consensus recommendations based on imaging criteria. ? Dictated By: Afia Cid MD Signed By: Afia Cid MD Signed Date/Time: 10/17/211746 DD/ 06 Discharge Plan Discharge Patient Disposition: Admitted As Inpatient Clinical Impression: Hypoxemia, Pneumonia Condition: Stable Coding Level of Care Code ED Water Quality Specialist for Chg Fwd Exam Comprehensive
--- NOTE | 2021-10-17 15:41 | CTR_ITS ---
PROCEDURE INFORMATION: Exam: CTA Chest With Contrast Exam date and time: 10/17/2021 5:07 PM Age: 81 years old Clinical indication: Shortness of breath; Additional info: Hypoxemia TECHNIQUE: Imaging protocol: Computed tomographic angiography of the chest with contrast. 3D rendering (Not supervised by radiologist): MIP and/or 3D reconstructed images were created by the technologist. Radiation optimization: All CT scans at this facility use at least one of these dose optimization techniques: automated exposure control; mA and/or kV adjustment per patient size (includes targeted exams where dose is matched to clinical indication); or iterative reconstruction. Contrast material: OMNI 350; Contrast volume: 88 ml; Contrast route: INTRAVENOUS (IV); COMPARISON: CT angio chest PE protcl [id number] 11/13/2019 5:46 PM RADIATION DOSE METRICS: Total DLP (mGy-cm): 229.85 FINDINGS: Pulmonary arteries: There is no pulmonary embolism in the central-proximal segmental branches. Assessment of the peripheral subsegmental small branches is limited. Minimal dilatation of main pulmonary artery at 3.2 cm, unchanged. Aorta: No aortic aneurysm. No aortic dissection. Lungs: Partially calcified soft tissue thickening in the right perihilar region appears stable suggesting sequela of treated malignancy or postinflammatory disease. No new enlarged mediastinal hilar lymph nodes are otherwise identified. Diffuse peribronchial thickening and ill-defined patchy opacities throughout the right mid and lower lung zones, new since prior exam suggesting multifocal pneumonia. Multiple scattered tiny nodular pulmonary densities are again noted measuring up to 2-4 mm, probably unchanged and may represent metastatic disease. Several nodules are somewhat obscured by the new lung opacity. Mild pulmonary emphysema, unchanged. Pleural spaces: Unremarkable. No pneumothorax. No pleural effusion. Heart: See Bones/joints finding. Lymph nodes: See Lungs finding. Kidneys and ureters: Right upper pole simple renal cyst measuring 4.2 cm. Bones/joints: Osteopenia. Multilevel vertebral disc degeneration and endplate osteophytes. Heterogeneous trabecular pattern involving multiple osseous structures with patchy vertebral sclerosis at multiple levels suspicious for metastatic disease similar to prior exam. No obvious vertebral compression fractures. Osteolytic changes of the sternum appears relatively stable. Next item normal heart size with coronary calcification. No acute osseous findings otherwise. Soft tissues: Unremarkable. CT/CT angio chest PE protcl [id number] IMPRESSION: 1. Comparison CT 09/13/2021. 2. No acute PE. Stable minimal dilatation of main pulmonary artery. 3. New diffuse peribronchial thickening and patchy opacities in the right mid and lower lung zones suspicious for acute multifocal pneumonia. Clinical correlation and follow-up should be obtained. Stable pulmonary emphysema. 4. Several tiny pulmonary nodules are again noted, probably unchanged and may represent metastatic disease. 5. Stable abnormal partially calcified right perihilar soft tissue density. No new enlarged mediastinal adenopathy. 6. Osseous findings as above. If there is a concern for progression of metastatic osseous lesions, bone scan correlation may be helpful. COMMENTS: Consistent with the [place] [employer]'s Incidental Findings Committee white paper (J Am Benjy Radiol 2018): Any incidental renal lesion less than 1 cm or classified as too small to characterize, or any incidental cystic renal lesion characterized as simple-appearing, is likely benign. No follow-up imaging is recommended for these lesions per consensus recommendations based on imaging criteria.
[2021-10-17 15:57] LABS: Basophils % 0.2 %; Eosinophils % 0.5 %; Hematocrit 43.5 % (37.0-47.0); Hemoglobin 13.9 g/dL (11.5-15.3); Lymphocytes # 0.9 10^3/uL (0.8-4.8); Lymphocytes % 9.9 %; Mean Corpuscular Hemoglobin 31.1 pg (28.0-34.0); Mean Corpuscular Volume 97.3 fl (81-99); Mean Platelet Volume 10.4 fL (7.4-10.4); Monocytes # 0.9 10^3/uL (0.2-0.9); Monocytes % 10.9 %; Neutrophils # 6.71 10^3/uL (1.8-7.7); Nucleated Red Blood Cells % 0 %; Platelet Count 175 10^3/cmm (130-400); Red Blood Count 4.47 10^6/uL (4.1-5.3); Red Cell Distribution Width 13.4 % (12.1-15.1); White Blood Count 8.6 10^3/uL (4.0-10.0)
[2021-10-17 15:58] LABS: ABG PCO2 51.9 mmHg (35-45); Alveolar-Arterial Oxygen Gradi 22.3 mmHg (5-10); Arterial Blood Gas Hematocrit 42.7 % (37-47); Base Excess ABG 5.5 mmol/L (-2.0-2.0); Blood Gas Allen Test Pos; Blood Gas Operator Identificat CAK; Blood Gas Sample Site Radial, left; Blood Gas Sample Type Arterial; Carboxyhemoglobin 2.1 %THgb (0.4-20.1); HCO3 ABG 31.8 mmol/L (22-26); Ionized Calcium Level - ABG 1.2 mmol/L (1.1-1.4); Methemoglobin 0.7 % (0.4-1.5); Oxygen Device HAG; Oxygen Saturation ABG 94.6; PO2 ABG 70.9 mmHg (80.0-100.0); Potassium Level - ABG 3.9 mmol/L (3.5-5.0); Total Hemoglobin 13.9 g/dL (12-16)
[2021-10-17] MEDS: ipratropium-albuterol 3 mL Neb INHALATION ×3 (16:08→16:09)
[2021-10-17 16:22] LABS: Troponin(5th) Baseline 15 ng/L (0-10)
[2021-10-17 16:32] LABS: Blood Urea Nitrogen 25 mg/dL (8-23); Calcium 8.8 mg/dL (8.5-10.5); Carbon Dioxide 33 mmol/L (22-29); Chloride 100 mmol/L (98-107); Glucose 167 mg/dL (65-115); NT Pro B Type Natriuretic Pept 100 pg/mL (0-450); Osmolality Calculated 298 mOsm/kg (285-295); Sodium 140 mmol/L (136-145)
[2021-10-17] MEDS: iohexol 350 mg/mL 100 mL Btl IV (17:17)
--- NOTE | 2021-10-17 17:20 | ECG_ITS ---
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 Measurements Intervals [place] Rate: 93 P: 61 CA: 174 QRS: -6 QRSD: 104 T: 90 QT: 356 QTc: 445 Interpretive Statements SINUS RHYTHM POSSIBLE ANTERIOR MYOCARDIAL INFARCTION , OF INDETERMINATE AGE [30 ms Q WAVE IN V3/V4, OR R < 0.2 mV IN V4] Compared to ECG 10/17/2021 15:49:39 Myocardial infarct finding now present Electronically Signed On 10-18-2021 17:47:14 CDT by Darrick Madrid M.D. [email or web address]
--- NOTE | 2021-10-17 17:39 | PM.HP ---
Providers/Chief Complaint Primary Care Provider: Nasima Back MD Chief Complaint: low O2 History of Present Illness Samia Newberry is a 81 year old female who carries history of stage IV metastatic breast cancer, follows up with Dr. García, presented to the hospital for worsening of shortness of breath, at baseline uses 4 to 5 L. In the ER I requested CTA chest to rule out PE. Patient has not noticed any fever however she is producing white sputum with her cough. Her shortness of breath has been getting worse over the last 2 days. In the ER she was put on heated high flow. She has not noted chest pain, diarrhea, skin rash or fever. Decision was made to start her on IV steroids along broad-spectrum antibiotics CTA ruled out PE She was admitted to ICU because of her drowsy mentation and requiring heated high flow SHe is full code Review of Systems Const: Reports: chills, body aches and fatigue Eyes: Denies: change in vision ENMT: Denies: throat pain Card: Reports: dyspnea on exertion; Denies: chest pain Resp: Reports: dyspnea GI: Denies: abdominal pain : Denies: flank pain Musc: Denies: neck pain Skin/Breast: Denies: rash Neuro: Denies: headache(s) Psych: Reports: anxiety Endo: Denies: polyuria Guilherme/Lymph: Denies: easy bruising All/Imm: Denies: urticaria Medications/Allergies Home Medications Medication Instructions Recorded Confirmed Last Taken Type aspirin 81 mg tablet,delayed 81 mg PO DAILY 05/13/19 10/17/21 10/16/21 History release (Adult Low Dose Aspirin) glipizide 5 mg tablet 5 mg PO BID 05/13/19 10/17/21 10/16/21 History levothyroxine 75 mcg capsule 75 mcg PO DAILY 05/13/19 10/17/21 11/13/19 History cyanocobalamin (vitamin B-12) 50 50 mcg PO DAILY ##0 11/13/19 10/17/21 10/16/21 History mcg tablet (Vitamin B-12) vitamins A,C,D-dljz-cwlhzt 14,320 1 cap PO BID 07/20/20 10/17/21 10/16/21 History unit-226 mg-200 unit capsule (ICaps AREDS) albuterol sulfate 90 mcg/actuation 2 puff inhalation Q6H PRN 08/10/21 10/17/21 Unknown Rx aerosol inhaler shortness of breath or wheezing 30 days #8.5 grams atorvastatin 40 mg tablet 40 mg PO DAILY 08/10/21 10/17/21 10/16/21 History lisinopril 20 mg tablet 20 mg PO DAILY 08/10/21 10/17/21 10/16/21 History omeprazole 40 mg capsule,delayed 40 mg PO DAILY 08/10/21 10/17/21 10/16/21 History release amlodipine 5 mg tablet 5 mg PO BID #60 tabs 09/29/21 10/17/21 10/16/21 Rx oxycodone 5 mg capsule 5 mg PO Q4H PRN pain 2 weeks #60 10/07/21 10/17/21 Unknown Rx caps Allergies Allergy/AdvReac Type Severity Reaction Status Date / Time No Known Allergies Allergy Verified 09/29/21 11:12 PFSH Acute PFSH: Medical History Abnormal ankle brachial index (SURESH) Accelerated essential hypertension Acute exacerbation of chronic obstructive pulmonary disease Breast cancer -L breast s/p chemo and radiation about 6 yrs ago Carpal tunnel syndrome Chronic toe pain, bilateral COPD (chronic obstructive pulmonary disease) Diabetes mellitus -non insulin dependent Dyslipidemia GERD (gastroesophageal reflux disease) Hypothyroidism Peripheral vascular disease Primary osteoarthritis of left knee Surgical History History of lumpectomy of left breast Hx of cholecystectomy Family History Sister Cancer CAD (coronary artery disease) Other Diabetes Hyperlipidemia Denies family history of Clotting disorder Dementia Psychiatric illness Chronic kidney disease (CKD) Suicide Anesthesia complication Bleeding disorder Lung disease Hypertension Stroke Social History Smoking and tobacco status: current every day smoker (1.5 ppd) cigarettes Packs smoked per day: 1 Years cigarettes smoked: 65 [ Other cigarette details: started at 15] Quit status (tobacco): not considering quitting Second hand smoke exposure: No Alcohol intake: never Lives independently: Yes Household members: family Marital status: / 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 History of recent travel: No Current gender identity: Female Vitals/I&O/Wt Last Vital Signs Temp 97.9 F 10/17/21 15:13 Pulse 94 10/17/21 16:15 Resp 22 H 10/17/21 16:05 BP 95/58 10/17/21 15:13 Pulse Ox 92 10/17/21 16:05 O2 Del Method 10/17/21 16:05 O2 Flow Rate 30 10/17/21 16:05 FiO2 43 10/17/21 16:05 Weight last 48 hrs Weight 58.967 kg Physical Exam Narrative: Patient was showing signs of conversational dyspnea She was on heated high flow 30% Family at the bedside Nonfocal neuro exam She was drowsy however able to converse at Verbally redirectable S1, S2 with systolic murmur Abdomen soft No signs of edema Clinically looks dehydrated Data : 10/18/21 05:11 10/18/21 05:11 A&P Assessment and plan (1) Hypoxemia: Status: Acute (2) Pneumonia: Status: Acute (3) Breast cancer: Status: Acute (4) Restless leg syndrome: Status: Acute (5) Pulmonary nodule: Status: Acute (6) Stage IV breast cancer in female: Status: Acute Plan Breast cancer stage IV mets to lungs and spine Acute on chronic hypoxia related to pneumonia Acute exacerbation of COPD Patient is immunocompromised started broad-spectrum antibiotic Rule out PE CTA chest requested IV steroids DuoNeb BiPAP Patient is full code Admit to ICU Continue hypothyroid medication levothyroxine 75 mcg Initiate use of antihypertensive regimen along opioids Family at the bedside updated Follows up with Dr. García Attestations Medical Necessity Statement*: Anticipating more than 2 midnights for management of multifocal pneumonia Time Spent in Patient Care: 35 Coding Level of Care Code Acute Personnel Associate for Chg Fwd Diagnoses Hypoxemia R09.02 Pneumonia J18.9 Breast cancer C50.919 Restless leg syndrome G25.81 Pulmonary nodule R91.1 Stage IV breast cancer in female C50.919
--- NOTE | 2021-10-17 17:49 | PC.NURSE ---
Blood cultures not necessary prior to antibiotic administration- per Dr. Quintanilla.
[2021-10-17] MEDS: cefTRIAXone 1,000 MG in sodium chloride 0.9% (plus) 50 ML 100 MG IV (17:54)
[2021-10-17] MEDS: azithromycin 500 MG in sodium chloride 0.9% 250 ML 250 MG IV (18:06)
[2021-10-17 18:10] LABS: Adenovirus Not Detected (NOT DETECT); Chlamydia Pneumoniae Not Detected (NOT DETECT); Coronavirus 229E,HKU1,NL63,OC4 Not Detected (NOT DETECT); Human Metapneumovirus Not Detected (NOT DETECT); Human Rhinovirus/Enterovirus Not Detected (NOT DETECT); Influenza A Not Detected (NOT DETECT); Influenza A H1 Not Detected (NOT DETECT); Influenza A H1-2009 Not Detected (NOT DETECT); Influenza A H3 Not Detected (NOT DETECT); Influenza B Not Detected (NOT DETECT); Mycoplasma Pneumoniae Not Detected (NOT DETECT); Parainfluenza Virus Type 1 Not Detected (NOT DETECT); Parainfluenza Virus Type 2 Not Detected (NOT DETECT); Parainfluenza Virus Type 3 Detected (NOT DETECT); Parainfluenza Virus Type 4 Not Detected (NOT DETECT); Respiratory Syncytial Virus A Not Detected (NOT DETECT); Respiratory Syncytial Virus B Not Detected (NOT DETECT); SARS-COV-2 Not Detected (NOT DETECT)
[2021-10-17 18:21] LABS: Procalcitonin 0.12 ng/mL (0-0.5)
[2021-10-17 18:25] LABS: Parainfluenza Virus Type 1 Not Detected (NOT DETECT); Parainfluenza Virus Type 2 Not Detected (NOT DETECT); Parainfluenza Virus Type 3 Detected (NOT DETECT); Parainfluenza Virus Type 4 Not Detected (NOT DETECT); Results from Genmark
[2021-10-17 19:58] LABS: Glucose Point of Care 160 mg/dL (70-110)
[2021-10-17] MEDS: enoxaparin 40 mg/0.4 mL Syringe SUBCUT (20:13)
[2021-10-17] MEDS: sodium chloride 0.9% 1,000 ML 75 ML IV (21:09)
--- NOTE | 2021-10-17 21:20 | ECG_ITS ---
[facility] Test Date: 2021-10-18 Pat Name: Samia Newberry Department: Room: EDIP Gender: Female Plasma Table Operator: : 1940 Requested By: Huong Quintanilla Order Number: [id number] Tonya MD: Darrick Madrid M.D. Measurements Intervals [place] Rate: 86 P: 81 MS: 183 QRS: 9 QRSD: 94 T: 67 QT: 362 QTc: 433 Interpretive Statements SINUS RHYTHM POSSIBLE ANTERIOR MYOCARDIAL INFARCTION , PROBABLY OLD [30 ms Q WAVE IN V3/V4, OR R < 0.2 mV IN V4] Compared to ECG 10/17/2021 18:59:30 No significant changes Electronically Signed On 10-18-2021 17:44:43 CDT by Darrick Madrid M.D. [id number]
--- NOTE | 2021-10-17 21:20 | PC.PHAR ---
Pharmacokinetic dosing service Date: 10/17/21 Time: 2129 Objective: Patient: Samia Newberry Floor: ER Age: 81 yo Serum creatinine: 0.8 mg/dL Height: 64.0 Inches Weight (kg): 58.967 Diagnosis: Relevant medical/social history: Cultures and sensitivities: Other labs: Assessment: IBW (kg): 54.70 Dosing wt(kg): 58.967 Estimated Creatinine clearance (ml/min): 47.6 CRCL method: Cockcroft and Gault using ibw(default). Drug selected: Vancomycin Loading dose (mg): 0 Vd (liters): 53.1 (factor used: 0.9 L/kg) Adrián (hr-1): 0.044 Half life (hrs): 15.75 Recommended dose: 1000 mg Interval: 24 hrs Infusion time (hrs): 1.5 Predicted peak (mcg/mL): 27.9 Predicted trough (mcg/mL): 10.37 Total body weight is being used for vancomycin dosing. Renal function is stable [ ] /unstable [ ] Recommendations: Give Vancomycin 1000 mg q 24 hrs with an expected Cpeak of 27.9 mcg/ml and an expected Ctrough of 10.37 mcg/ml Renal dosing of other antibiotics (review renal dosing of other medications and list guidelines here): Thank you for the consult, will continue to follow. Signature: Dilia Mendez [facility]
[2021-10-17 22:01] LABS: Troponin 5 6HR 22.57 ng/L (0-10)
[2021-10-17 22:13] LABS: Troponin 5 6HR Delta 7.57 ng/L (0-12)
[2021-10-17] MEDS: piperacillin-tazobactam 3.375 GM in sodium chloride 0.9% (plus) 50 ML IV (23:03)
[2021-10-17] MEDS: vancomycin 1,000 MG in sodium chloride 0.9% 250 ML 250 MG IV (23:33)
[2021-10-18] VITALS (78 sets, daily range): BP systolic 90–143; BP diastolic 48–85; PULSE 59–95; RESP 15–32; TEMP 36.5–36.8; O2SAT 83–98
[2021-10-18] MEDS: insulin lispro 100 unit/1 mL SUBCUT ×4 (00:22→18:24)
[2021-10-18 03:31] LABS: ABG PCO2 50.4 mmHg (35-45); ABG PH Result 7.38 (7.35-7.45); Arterial Blood Gas Hematocrit 41.3 % (37-47); Base Excess ABG 3.4 mmol/L (-2.0-2.0); Blood Gas Allen Test Pos; Blood Gas Sample Site Radial, right; Blood Gas Sample Type Arterial; HCO3 ABG 29.6 mmol/L (22-26); Oxygen Device NC; PO2 ABG 72.3 mmHg (80.0-100.0)
[2021-10-18 05:35] LABS: Basophils % 0.1 %; Hematocrit 41.3 % (37.0-47.0); Hemoglobin 13.2 g/dL (11.5-15.3); Lymphocytes # 0.5 10^3/uL (0.8-4.8); Lymphocytes % 6.8 %; Mean Corpuscular Hemoglobin 30.6 pg (28.0-34.0); Mean Corpuscular Volume 95.8 fl (81-99); Mean Platelet Volume 10.9 fL (7.4-10.4); Monocytes # 0.1 10^3/uL (0.2-0.9); Monocytes % 1.4 %; Neutrophils # 7.29 10^3/uL (1.8-7.7); Neutrophils % 91.2 %; Nucleated Red Blood Cells % 0 %; Platelet Count 169 10^3/cmm (130-400); Red Blood Count 4.31 10^6/uL (4.1-5.3); Red Cell Distribution Width 13.1 % (12.1-15.1)
[2021-10-18 05:58] LABS: Anion Gap 13.1 (5-19); Blood Urea Nitrogen 22 mg/dL (8-23); C Reactive Protein 119.9 mg/L (0.0-4.9); Calcium 8.2 mg/dL (8.5-10.5); Carbon Dioxide 28 mmol/L (22-29); Chloride 104 mmol/L (98-107); Glucose 149 mg/dL (65-115); Magnesium 2.4 mg/dL (1.7-2.3); Osmolality Calculated 298 mOsm/kg (285-295); Phosphorus 3.6 mg/dL (2.5-4.5); Potassium 4.1 mmol/L (3.5-5.1); Sodium 141 mmol/L (136-145)
--- NOTE | 2021-10-18 07:44 | PC.NURSE ---
Patient report called to HUDSON Cisse.
[2021-10-18 08:20] LABS: Glucose Point of Care 230 mg/dL (70-110)
[2021-10-18] MEDS: sodium chloride 0.9% 1,000 ML 75 ML IV (08:53)
[2021-10-18] MEDS: levothyroxine 75 mcg Tablet PO (08:53)
[2021-10-18] MEDS: piperacillin-tazobactam 3.375 GM in sodium chloride 0.9% (plus) 50 ML IV ×3 (09:49→22:46)
[2021-10-18 11:44] LABS: Glucose Point of Care 197 mg/dL (70-110)
--- NOTE | 2021-10-18 15:04 | P.PN_ITS ---
Subjective Subjective: Morning patient is on 5 L nasal cannula She is not requiring heated high flow anymore She is much more awake and alert Happy with the progress Family at the bedside No fever no leukocytosis Vitals/I&O/Wt Last Vital Signs Temp 98.2 F 10/18/21 14:30 Pulse 87 10/18/21 14:00 Resp 17 10/18/21 08:00 BP 107/66 10/18/21 07:37 Pulse Ox 93 10/18/21 08:12 O2 Del Method 10/18/21 08:03 O2 Flow Rate 4 10/18/21 08:12 FiO2 50 10/18/21 07:52 10/18/21 10/18/21 10/18/21 06:59 14:59 22:59 Intake Total 300 / 350 1170 / 1170 Balance 300 / 350 1170 / 1170 Weight last 48 hrs Weight 58.967 kg Physical Exam Narrative: Patient is on 5 L nasal cannula No conversational dyspnea today She is much more awake and alert Abdomen soft No signs of edema Awake and alert Nonfocal neuro exam No signs of stroke Bilateral breath sounds with mild rhonchi Data : 10/18/21 05:11 10/18/21 05:11 Micro: Microbiology 10/17/21 19:12 MRSA Culture - Final Nose A&P Assessment and plan (1) Stage IV breast cancer in female: Status: Acute (2) Hypoxemia: Status: Acute (3) Pneumonia: Status: Acute (4) Breast cancer: Status: Acute (5) Restless leg syndrome: Status: Acute (6) COPD (chronic obstructive pulmonary disease): Status: Acute (7) Chronic toe pain, bilateral: Status: Acute Plan I would like to watch her 1 more day I will keep her in ICU Currently she is on nasal cannula Not requiring heated high flow Continue IV steroids along antibiotics Cultures negative to date, afebrile, no leukocytosis She is immunocompromise She is high risk of deterioration Judicious use of antihypertensive regimen because of low blood pressure and opioids Continue levothyroxine Acute on chronic hypoxia at home uses 4 to 5 L, Full code DVT prophylaxis on board No signs of PE SHe does not want to go to any correction Attestations Medical Necessity Statement*: Discharge in next 48 hours if stable Time Spent in Patient Care: 30 Coding Level of Care Code Acute Contract Consultant for Chg Fwd Diagnoses Stage IV breast cancer in female C50.919 Hypoxemia R09.02 Pneumonia J18.9 Breast cancer C50.919 Restless leg syndrome G25.81 COPD (chronic obstructive pulmonary disease) J44.9 Chronic toe pain, bilateral M79.674; M79.675; G89.29
[2021-10-18 18:02] LABS: Glucose Point of Care 267 mg/dL (70-110)
[2021-10-18] MEDS: enoxaparin 40 mg/0.4 mL Syringe SUBCUT (20:06)
[2021-10-18] MEDS: vancomycin 1,000 MG in sodium chloride 0.9% 250 ML 250 MG IV (21:33)
[2021-10-19] VITALS (43 sets, daily range): BP systolic 107–142; BP diastolic 46–85; PULSE 57–90; RESP 15–25; TEMP 36.5; O2SAT 86–99
[2021-10-19 04:08] LABS: Basophils % 0.1 %; Hematocrit 41.3 % (37.0-47.0); Lymphocytes # 0.5 10^3/uL (0.8-4.8); Lymphocytes % 4.6 %; Mean Corpuscular HGB Conc 31.5 g/dL (30.0-36.0); Mean Corpuscular Hemoglobin 30.7 pg (28.0-34.0); Mean Corpuscular Volume 97.4 fl (81-99); Monocytes # 0.3 10^3/uL (0.2-0.9); Monocytes % 2.2 %; Neutrophils # 10.75 10^3/uL (1.8-7.7); Neutrophils % 92.5 %; Nucleated Red Blood Cells % 0 %; Platelet Count 197 10^3/cmm (130-400); Red Blood Count 4.24 10^6/uL (4.1-5.3); Red Cell Distribution Width 13.2 % (12.1-15.1); White Blood Count 11.6 10^3/uL (4.0-10.0)
[2021-10-19 04:34] LABS: Anion Gap 9.3 (5-19); Blood Urea Nitrogen 22 mg/dL (8-23); Calcium 8.8 mg/dL (8.5-10.5); Carbon Dioxide 32 mmol/L (22-29); Chloride 104 mmol/L (98-107); Glucose 245 mg/dL (65-115); Osmolality Calculated 303 mOsm/kg (285-295); Potassium 4.3 mmol/L (3.5-5.1); Sodium 141 mmol/L (136-145)
[2021-10-19] MEDS: piperacillin-tazobactam 3.375 GM in sodium chloride 0.9% (plus) 50 ML IV (06:00)
[2021-10-19 07:39] LABS: Glucose Point of Care 221 mg/dL (70-110)
[2021-10-19] MEDS: levothyroxine 75 mcg Tablet PO (08:12)
[2021-10-19] MEDS: insulin lispro 100 unit/1 mL SUBCUT ×2 (08:25→11:49)
--- NOTE | 2021-10-19 10:26 | PC.CHAP ---
Pastoral Care Encounter/Spiritual Assessment Type of Contact [] Declined crate repairer visit [] Patient/Family/Request visit [] Outpatient visit [] Follow-up visit [] Physician referral [] Code/Alert [x] Routine visit [] Staff referral [] Actively dying [] Patient sleeping [x] Family support [] [] Out of room [] Palliative care [] [] Receiving care in room [] Pre-surgical visit [] Trauma [] Long length of stay [x] ICU visit [] Other: Relational/Emotional Strength [] Patient feels connected with others/family/visitors/staff [] Distress [] Loneliness/isolation [] Abandonment Spirituality of Patient [] Person of Haley [] Attends Mosque of their Haley [] Believes in Prayer [] Reads Bible or Pentecostal materials [] There are Spiritual issues to be addressed Leasing Coordinator Interventions [x] Prayer [x] Active listening [x] Non-anxious presence [x] Spiritual/emotional support [] Crisis/trauma care [] Spiritual counseling [] Bereavement support [] Provided bereavement packet [] Provided Bible/devotional materials [] Provided toy/stuffed animal, coloring book to patient or family member [] Provided Communion [] Anointing/[place] [] Salvation [x] Completed spiritual assessment [] Other: Impact on Illness or Injury [] Angry [] Fearful [] Anxious [] Often cries [] Exhaustion [] Unable to work [] Unable to attend zoroastrian [] Unable to walk/stand [] Unable to read [] Unable to drive [] Unable to eat/drink [] Unable to sleep [] Unable to be with family [] Patient intubated [] Other: Summary PT setting up in chair... family members with her.. feeling much stronger Time spent with patient 10 min
[2021-10-19 11:45] LABS: Glucose Point of Care 230 mg/dL (70-110)
--- NOTE | 2021-10-19 11:50 | PM.DCS ---
Discharge Providers Date of Admission: 10/17/21 17:41 Date of Discharge: October 19, 2021 Attending Provider at Admission: Angela Lee MD Attending Provider at Discharge: Angela Lee MD Primary Care Provider: Nasima Back MD Diagnoses at Discharge Discharge Diagnosis (1) Stage IV breast cancer in female: Status: Acute Permanent problem details: Stage IIIa progressed to stage IV with metastatic lesion in spine and lungs with pulm nodule (2) Hypoxemia: Status: Acute (3) Pneumonia: Status: Acute (4) Breast cancer: Status: Acute (5) Restless leg syndrome: Status: Acute (6) COPD (chronic obstructive pulmonary disease): Status: Acute (7) Chronic toe pain, bilateral: Status: Acute Reason for Visit Reason for Visit: low O2 Hospital Course Hospital Course 81-year-old female who has history of metastatic breast cancer present to the hospital for worsening of shortness of breath. She was diagnosed with pneumonia at the time of admission CTA ruled out PE, she still has an appointment to see Dr. García after her PET scan, they are metastatic nodules in her lung and osseous lesions in the spine, initially required high flow oxygen however transitioned down to nasal cannula 45 L which is her home requirement. She remained afebrile no severe worsening of leukocytosis. Cultures negative. Patient started feeling better after 48 hours in the ICU, she is able to eat on her own her appetite is better. Her family is requesting that they would like to keep her home and follow-up with Dr. García outpatient. Home O2 eval would be done, a walker will be prescribed. I will give her Augmentin at the time of discharge no signs of MRSA from nares PCR. CT/CT angio chest PE protcl [id number] IMPRESSION: 1. Comparison CT 09/13/2021. 2. No acute PE. Stable minimal dilatation of main pulmonary artery. 3. New diffuse peribronchial thickening and patchy opacities in the right mid and lower lung zones suspicious for acute multifocal pneumonia. Clinical correlation and follow-up should be obtained.? Stable pulmonary emphysema. 4. Several tiny pulmonary nodules are again noted, probably unchanged and may represent metastatic disease. 5. Stable abnormal partially calcified right perihilar soft tissue density. No new enlarged mediastinal adenopathy. 6. Osseous findings as above. If there is a concern for progression of metastatic osseous lesions, bone scan correlation may be helpful. Physical Exam Narrative: Patient is on 5 L nasal cannula No conversational dyspnea today She is much more awake and alert, eating breakfast Abdomen soft No signs of edema Awake and alert Nonfocal neuro exam No signs of stroke Bilateral breath sounds with mild rhonchi Discharge Data Studies Completed and Pending Completed Studies During Hospitalization Category Date Time Status CTA chest [CT angio chest PE protcl [id number]] Stat Cat Scan 10/17/21 15:41 Completed XR chest 1V portable [id number] Stat Exams 10/17/21 15:20 Completed Pending at discharge Category Date Time Status Vancomycin Trough Timed Lab 10/20/21 21:00 Ordered Radiology Impressions Chest X-Ray 10/17/21 15:20 IMPRESSION: New bibasilar opacities. See discussion above. Other findings as above. Chest CTA 10/17/21 15:41 IMPRESSION: 1. Comparison CT 09/13/2021. 2. No acute PE. Stable minimal dilatation of main pulmonary artery. 3. New diffuse peribronchial thickening and patchy opacities in the right mid and lower lung zones suspicious for acute multifocal pneumonia. Clinical correlation and follow-up should be obtained. Stable pulmonary emphysema. 4. Several tiny pulmonary nodules are again noted, probably unchanged and may represent metastatic disease. 5. Stable abnormal partially calcified right perihilar soft tissue density. No new enlarged mediastinal adenopathy. 6. Osseous findings as above. If there is a concern for progression of metastatic osseous lesions, bone scan correlation may be helpful. COMMENTS: Consistent with the [employer]'s Incidental Findings Committee white paper (J Am Benjy Radiol 2018): Any incidental renal lesion less than 1 cm or classified as too small to characterize, or any incidental cystic renal lesion characterized as simple-appearing, is likely benign. No follow-up imaging is recommended for these lesions per consensus recommendations based on imaging criteria. Laboratory Results WBC 11.6 10^3/uL (4.0-10.0) H 10/19/21 03:17 RBC 4.24 10^6/uL (4.1-5.3) 10/19/21 03:17 Hgb 13.0 g/dL (11.5-15.3) 10/19/21 03:17 Hct 41.3 % (37.0-47.0) 10/19/21 03:17 MCV 97.4 fl (81-99) 10/19/21 03:17 MCH 30.7 pg (28.0-34.0) 10/19/21 03:17 MCHC 31.5 g/dL (30.0-36.0) 10/19/21 03:17 RDW 13.2 % (12.1-15.1) 10/19/21 03:17 Plt Count 197 10^3/cmm (130-400) 10/19/21 03:17 MPV 11.0 fL (7.4-10.4) H 10/19/21 03:17 Neut % (Auto) 92.5 % 10/19/21 03:17 Lymph % (Auto) 4.6 % 10/19/21 03:17 [place] % (Auto) 2.2 % 10/19/21 03:17 Eos % (Auto) 0.0 % 10/19/21 03:17 Baso % (Auto) 0.1 % 10/19/21 03:17 Neut # (Auto) 10.75 10^3/uL (1.8-7.7) H 10/19/21 03:17 Lymph # (Auto) 0.5 10^3/uL (0.8-4.8) L 10/19/21 03:17 [place] # (Auto) 0.3 10^3/uL (0.2-0.9) 10/19/21 03:17 Eos # (Auto) 0.0 10^3/uL (0.0-0.8) 10/19/21 03:17 Baso # (Auto) 0.0 10^3/uL (0.0-0.1) 10/19/21 03:17 Nucleated RBC % (auto) 0 % 10/19/21 03:17 Nucleated RBCs # 0.0 /100WBC 10/19/21 03:17 Specimen Type Arterial 10/18/21 03:25 Sample Site Radial, right 10/18/21 03:25 ABG pH 7.38 (7.35-7.45) 10/18/21 03:25 ABG pCO2 50.4 mmHg (35-45) H 10/18/21 03:25 ABG pO2 72.3 mmHg (80.0-100.0) L 10/18/21 03:25 ABG HCO3 29.6 mmol/L (22-26) H 10/18/21 03:25 ABG O2 Saturation 94.6 10/17/21 15:46 ABG Base Excess 3.4 mmol/L (-2.0-2.0) H 10/18/21 03:25 Jeff Test Pos 10/18/21 03:25 A-a O2 Gradient 22.3 mmHg (5-10) H 10/17/21 15:46 Hematocrit 41.3 % (37-47) 10/18/21 03:25 Hgb O2 Saturation 92.0 % (95-100) L 10/17/21 15:46 Carboxyhemoglobin 2.1 %THgb (0.4-20.1) 10/17/21 15:46 Methemoglobin 0.7 % (0.4-1.5) 10/17/21 15:46 Total Hemoglobin 13.9 g/dL (12-16) 10/17/21 15:46 Sodium 139.0 mmol/L (131-143) 10/17/21 15:46 Potassium 3.9 mmol/L (3.5-5.0) 10/17/21 15:46 Glucose 175.0 mg/dL (70-115) H 10/17/21 15:46 Ionized Calcium 1.2 mmol/L (1.1-1.4) 10/17/21 15:46 O2 Delivery Device Nc 10/18/21 03:25 O2 Liters/Min 30.0 % 10/17/21 15:46 FiO2 50.0 % 10/18/21 03:25 Member Service Specialist ID [email or web address] 10/18/21 03:25 Sodium 141 mmol/L (136-145) 10/19/21 03:17 Potassium 4.3 mmol/L (3.5-5.1) 10/19/21 03:17 Chloride 104 mmol/L (98-107) 10/19/21 03:17 Carbon Dioxide 32 mmol/L (22-29) H 10/19/21 03:17 Anion Gap 9.3 (5-19) 10/19/21 03:17 BUN 22 mg/dL (8-23) 10/19/21 03:17 Creatinine 0.6 mg/dL (0.5-0.9) 10/19/21 03:17 GFR Calculation Not Reportable 10/19/21 03:17 Glucose 245 mg/dL (65-115) H 10/19/21 03:17 POC Glucose 230 mg/dL (70-110) H 10/19/21 11:42 Calculated Osmolality 303 mOsm/kg (285-295) H 10/19/21 03:17 Calcium 8.8 mg/dL (8.5-10.5) 10/19/21 03:17 Phosphorus 3.6 mg/dL (2.5-4.5) 10/18/21 05:11 Magnesium 2.4 mg/dL (1.7-2.3) H 10/18/21 05:11 Troponin T Baseline 15 ng/L (0-10) H 10/17/21 15:45 Troponin T 120 Minute 13.20 ng/L (0-10) H 10/17/21 18:16 Delta Troponin T -1.80 ABS# (0-10) L 10/17/21 18:16 Troponin T Hi Sens 6Hr 22.57 ng/L (0-10) H 10/17/21 21:25 Troponin T Hi Sens 6Hr Delta 7.57 ng/L (0-12) 10/17/21 21:25 C-Reactive Protein 119.9 mg/L (0.0-4.9) H 10/18/21 05:11 NT-Pro-B Natriuret Pep 100 pg/mL (0-450) 10/17/21 15:45 Procalcitonin 0.12 ng/mL (0-0.5) 10/17/21 15:45 Coronavirus 229E (PCR) Not detected (NOT DETECT) 10/17/21 15:45 Parainfluenza 1 (PCR) Not detected (NOT DETECT) 10/17/21 18:25 Parainfluenza 2 (PCR) Not detected (NOT DETECT) 10/17/21 18:25 Parainfluenza 3 (PCR) Detected (NOT DETECT) A 10/17/21 18:25 Parainfluenza 4 (PCR) Not detected (NOT DETECT) 10/17/21 18:25 SARS-CoV-2 (PCR) Not detected (NOT DETECT) 10/17/21 15:45 Vitals Last Vital Signs Temp 97.7 F 10/19/21 04:00 Pulse 69 10/19/21 10:00 Resp 21 H 10/19/21 10:00 BP 127/61 10/19/21 10:00 Pulse Ox 94 10/19/21 10:00 O2 Del Method 10/19/21 08:00 O2 Flow Rate 4 10/19/21 08:00 FiO2 50 10/18/21 07:52 Discharge Plan Discharge Patient Disposition: Home Condition: Stable Prescriptions: New Symbicort 80-4.5 mcg/actuation HFA aerosol inhaler 2 inh inhalation BID Qty: 10.2 3RF Augmentin 500-125 mg tablet 1 tab PO BID Qty: 20 0RF Continued aspirin [Adult Low Dose Aspirin] 81 mg tablet,delayed release (DR/EC) 81 mg PO DAILY levothyroxine 75 mcg capsule 75 mcg PO DAILY ICaps AREDS [id number] four-[id number]-zxxa capsule 1 cap PO BID omeprazole 40 mg capsule,delayed release(DR/EC) 40 mg PO DAILY lisinopril 20 mg tablet 20 mg PO DAILY Rx Instructions: Take 20mg (1 tab) atorvastatin 40 mg tablet 40 mg PO DAILY amlodipine 5 mg tablet 5 mg PO BID Qty: 60 0RF Rx Instructions: MUST have follow-up with new provider for further refills oxycodone 5 mg capsule 5 mg PO Q4H PRN (Reason: pain) 14 Days Qty: 60 0RF Vitamin B-12 50 mcg Tablet 50 mcg PO DAILY Qty: 0 albuterol sulfate 90 mcg/actuation HFA aerosol inhaler 2 puff inhalation Q6H PRN (Reason: shortness of breath or wheezing) 30 Days Qty: 8.5 7RF Discontinued glipizide 5 mg tablet 5 mg PO BID Discharge Orders: Discharge Order (Routine); Ordered 10/19/21 Ordered By: Angela Lee Other Ambulatory Orders: DME: Oxygen (Order) Location: None Selected Ordered By: Angela Lee DME: Walker (Order) Location: None Selected Ordered By: Angela Lee Referrals: Nasima Back MD [Primary Care Provider] - Casey García MD [Staff Physician] - 4-7 days (Dr García is out of the office for two weeks... Please keep your biopsy appt 11-03-2021 and a followup will be scheduled at that time) Discharge Diet: Cardiac Discharge Activity: Increase activity as tolerated Patient Instructions: Amoxicillin/Clavulanate Potassium (By mouth) (Augmentin, Augmentin..., Budesonide/Formoterol (By breathing) (Symbicort), Heart Healthy Diet, Viral Pneumonia (DC), Opioid Safety Discharge Attestations Time Spent in Discharge Care*: less than 30 min Status at Discharge: Cognitive status at discharge: cognitively intact, Behavioral status at discharge: cooperative, Quality Metrics Clinical Quality Measures [ No reported AMI, CVA or VTE this stay] Coding Level of Care Code Acute Chg FW DC note Diagnoses Stage IV breast cancer in female C50.919 Hypoxemia R09.02 Pneumonia J18.9 Breast cancer C50.919 Restless leg syndrome G25.81 COPD (chronic obstructive pulmonary disease) J44.9 Chronic toe pain, bilateral M79.674; M79.675; G89.29
== END 2021-10-19 12:34 | disposition home health service (06) | DRG 190 ==
LOC: ER 17:38 → ER IP 23:30 → ICU 10-18 05:48
PROVIDERS: Admitting Provider Internal Medicine; Emergency Provider Emergency Medicine; PCP Internal Medicine; Visit Provider Internal Medicine
DX: J44.0 Chronic obstructive pulmonary disease with (acute) lower respiratory infection (principal); J18.9 Pneumonia, unspecified organism; C78.00 Secondary malignant neoplasm of unspecified lung; C79.51 Secondary malignant neoplasm of bone; C50.912 Malignant neoplasm of unspecified site of left female breast; I10 Essential (primary) hypertension; Z92.3 Personal history of irradiation; Z92.21 Personal history of antineoplastic chemotherapy; E11.40 Type 2 diabetes mellitus with diabetic neuropathy, unspecified; E11.51 Type 2 diabetes mellitus with diabetic peripheral angiopathy without gangrene; K21.9 Gastro-esophageal reflux disease without esophagitis; E03.9 Hypothyroidism, unspecified; M17.12 Unilateral primary osteoarthritis, left knee; F17.210 Nicotine dependence, cigarettes, uncomplicated; G25.81 Restless legs syndrome; Z79.891 Long term (current) use of opiate analgesic; Z79.82 Long term (current) use of aspirin; Z79.51 Long term (current) use of inhaled steroids
CPT/HCPCS: 36415; 36416; 36600; 71045; 71275; 77336; 80048; 80051; 82330; 82803; 82805; 82962; 83735; 83880; 84100; 84145; 84484; 85025; 86140; 87631; 87635; 87641; 93005; 94640; 94664; 96365; 96367; 96372; 96375; 97116; 97162; 99285; J0456; J0696; J1650; J1815; J2543; J2920; J3370; J7030; J7050; Q9967

== ENCOUNTER 2021-11-05 08:23 | Oncology outpatient (recurring) (ONCR) | payer MEDICARE, OTHER, SELFPAY | END 2021-12-03 23:59 | disposition home or self-care (01) | PROVIDERS: PCP Internal Medicine; Referring Provider Internal Medicine Medical Oncology; Visit Provider Radiology Radiation Oncology | DX: C50.812 Malignant neoplasm of overlapping sites of left female breast (principal); Z17.0 Estrogen receptor positive status [ER+]; C79.51 Secondary malignant neoplasm of bone; R91.1 Solitary pulmonary nodule; R59.0 Localized enlarged lymph nodes; J44.9 Chronic obstructive pulmonary disease, unspecified; F17.210 Nicotine dependence, cigarettes, uncomplicated; Z79.818 Long term (current) use of other agents affecting estrogen receptors and estrogen levels; Z92.21 Personal history of antineoplastic chemotherapy; Z92.3 Personal history of irradiation | CPT/HCPCS: 36415; 99214 ==

== ENCOUNTER → 2021-11-15 10:48 | Outpatient (BNVA) | payer MEDICARE, OTHER, SELFPAY | PROVIDERS: PCP Internal Medicine; Visit Provider Internal Medicine Critical Care Medicine | DX: J43.2 Centrilobular emphysema (principal); R91.1 Solitary pulmonary nodule; C50.919 Malignant neoplasm of unspecified site of unspecified female breast; R60.0 Localized edema; F17.210 Nicotine dependence, cigarettes, uncomplicated; Z99.81 Dependence on supplemental oxygen | CPT/HCPCS: 99214 ==

== ENCOUNTER 2021-11-22 15:37 | Outpatient (CLI) | payer MEDICARE, OTHER, SELFPAY ==
[2021-11-22 16:52] LABS: Basophils % 0.4 %; Eosinophils # 0.1 10^3/uL (0.0-0.8); Eosinophils % 0.7 %; Hemoglobin 12.6 g/dL (11.5-15.3); Lymphocytes % 27.4 %; Mean Corpuscular HGB Conc 31.5 g/dL (30.0-36.0); Mean Corpuscular Hemoglobin 30.4 pg (28.0-34.0); Mean Corpuscular Volume 96.4 fl (81-99); Monocytes # 0.6 10^3/uL (0.2-0.9); Monocytes % 7.6 %; Neutrophils # 4.61 10^3/uL (1.8-7.7); Neutrophils % 63.6 %; Nucleated Red Blood Cells % 0 %; Platelet Count 191 10^3/cmm (130-400); Red Blood Count 4.15 10^6/uL (4.1-5.3); Red Cell Distribution Width 14.1 % (12.1-15.1); White Blood Count 7.3 10^3/uL (4.0-10.0)
[2021-11-22 17:26] LABS: Alanine Aminotransferase 9 U/L (0-33); Alkaline Phosphatase 158 U/L (35-105); Aspartate Amino Transferase 14 U/L (0-32); Blood Urea Nitrogen 13 mg/dL (8-23); Calcium 8.8 mg/dL (8.5-10.5); Carbon Dioxide 26 mmol/L (22-29); Chloride 105 mmol/L (98-107); Globulin 3.2 g/dL (1.3-4.6); Glucose 164 mg/dL (65-115); Osmolality Calculated 298 mOsm/kg (285-295); Sodium 142 mmol/L (136-145); Total Bilirubin 0.3 mg/dL (0.15-1.2); Total Protein 6.2 g/dL (6.6-8.7)
[2021-11-22 17:29] LABS: Anion Gap 14.4 (5-19); Potassium 3.4 mmol/L (3.5-5.1)
[2021-11-22 21:53] LABS: Estmated Average Glucose 143; Hemoglobin A1C 6.6 % (4.0-6.0)
== END 2021-11-22 15:38 | disposition home or self-care (01) ==
LOC: LAB 15:37
PROVIDERS: PCP Internal Medicine; Visit Provider Student in an Organized Health Care Education/Training Program
DX: J18.9 Pneumonia, unspecified organism (principal); E11.51 Type 2 diabetes mellitus with diabetic peripheral angiopathy without gangrene
CPT/HCPCS: 36415; 80053; 83036; 85025

== ENCOUNTER 2021-12-22 14:20 | Oncology outpatient (recurring) (ONCR) | payer MEDICARE, OTHER, SELFPAY ==
[2021-12-22 14:42] LABS: Basophils % 0.3 %; Eosinophils # 0.1 10^3/uL (0.0-0.8); Eosinophils % 1.2 %; Hematocrit 41.4 % (37.0-47.0); Hemoglobin 13.5 g/dL (11.5-15.3); Lymphocytes % 28.9 %; Mean Corpuscular HGB Conc 32.6 g/dL (30.0-36.0); Mean Corpuscular Hemoglobin 31.8 pg (28.0-34.0); Mean Corpuscular Volume 97.4 fl (81-99); Mean Platelet Volume 10.3 fL (7.4-10.4); Monocytes # 0.6 10^3/uL (0.2-0.9); Monocytes % 8.6 %; Neutrophils # 4.19 10^3/uL (1.8-7.7); Neutrophils % 60.9 %; Nucleated Red Blood Cells % 0 %; Platelet Count 210 10^3/cmm (130-400); Red Blood Count 4.25 10^6/uL (4.1-5.3); White Blood Count 6.9 10^3/uL (4.0-10.0)
[2021-12-22 15:32] LABS: Alanine Aminotransferase 8 U/L (0-33); Albumin Level 3.8 g/dL (3.5-5.2); Alkaline Phosphatase 132 U/L (35-105); Anion Gap 16.7 (5-19); Aspartate Amino Transferase 11 U/L (0-32); Blood Urea Nitrogen 12 mg/dL (8-23); Calcium 9.2 mg/dL (8.5-10.5); Carbon Dioxide 25 mmol/L (22-29); Chloride 101 mmol/L (98-107); Globulin 3.2 g/dL (1.3-4.6); Glucose 170 mg/dL (65-115); Osmolality Calculated 292 mOsm/kg (285-295); Potassium 3.7 mmol/L (3.5-5.1); Sodium 139 mmol/L (136-145); Total Bilirubin 0.3 mg/dL (0.15-1.2)
== END 2022-01-03 23:59 | disposition home or self-care (01) ==
PROVIDERS: Internal Medicine Hematology & Oncology; PCP Internal Medicine; Referring Provider Internal Medicine Medical Oncology; Visit Provider Radiology Radiation Oncology
DX: C50.812 Malignant neoplasm of overlapping sites of left female breast (principal); Z17.0 Estrogen receptor positive status [ER+]; C79.51 Secondary malignant neoplasm of bone; J44.9 Chronic obstructive pulmonary disease, unspecified; F17.210 Nicotine dependence, cigarettes, uncomplicated; Z79.818 Long term (current) use of other agents affecting estrogen receptors and estrogen levels; Z92.21 Personal history of antineoplastic chemotherapy; Z92.3 Personal history of irradiation; Z79.899 Other long term (current) drug therapy; R91.1 Solitary pulmonary nodule; R59.0 Localized enlarged lymph nodes
CPT/HCPCS: 80053; 85025; 99214

== ENCOUNTER → 2021-12-30 13:57 | Outpatient (BNVA) | payer MEDICARE, OTHER, SELFPAY | PROVIDERS: PCP Internal Medicine; Visit Provider Internal Medicine Pulmonary Disease | DX: J44.9 Chronic obstructive pulmonary disease, unspecified (principal); C50.919 Malignant neoplasm of unspecified site of unspecified female breast; R60.0 Localized edema; R91.1 Solitary pulmonary nodule; F17.210 Nicotine dependence, cigarettes, uncomplicated; C79.51 Secondary malignant neoplasm of bone | CPT/HCPCS: 99214 ==

== ENCOUNTER 2022-01-06 12:53 | Oncology outpatient (recurring) (ONCR) | payer MEDICARE, OTHER, SELFPAY ==
[2022-01-06] MEDS: denosumab 120 mg SDV SUBCUT (13:18)
== END 2022-02-02 23:59 | disposition home or self-care (01) ==
PROVIDERS: PCP Internal Medicine; Visit Provider Internal Medicine Hematology & Oncology
DX: C50.812 Malignant neoplasm of overlapping sites of left female breast (principal); Z17.0 Estrogen receptor positive status [ER+]; Z51.11 Encounter for antineoplastic chemotherapy
CPT/HCPCS: 96372; J0897

== ENCOUNTER 2022-02-15 11:14 | Oncology outpatient (recurring) (ONCR) | payer MEDICARE, OTHER, SELFPAY ==
[2022-02-15 12:08] LABS: Basophils % 0.5 %; Eosinophils # 0.1 10^3/uL (0.0-0.8); Eosinophils % 1.4 %; Hematocrit 46.7 % (37.0-47.0); Hemoglobin 14.8 g/dL (11.5-15.3); Lymphocytes # 1.9 10^3/uL (0.8-4.8); Lymphocytes % 33.6 %; Mean Corpuscular HGB Conc 31.7 g/dL (30.0-36.0); Mean Corpuscular Hemoglobin 30.9 pg (28.0-34.0); Mean Corpuscular Volume 97.5 fl (81-99); Mean Platelet Volume 10.2 fL (7.4-10.4); Monocytes # 0.5 10^3/uL (0.2-0.9); Neutrophils # 3.06 10^3/uL (1.8-7.7); Neutrophils % 55.3 %; Nucleated Red Blood Cells % 0 %; Platelet Count 190 10^3/cmm (130-400); Red Blood Count 4.79 10^6/uL (4.1-5.3); Red Cell Distribution Width 13.2 % (12.1-15.1); White Blood Count 5.5 10^3/uL (4.0-10.0)
[2022-02-15 12:28] LABS: Alanine Aminotransferase 6 U/L (0-33); Albumin Level 4.1 g/dL (3.5-5.2); Alkaline Phosphatase 114 U/L (35-105); Anion Gap 13.2 (5-19); Aspartate Amino Transferase 10 U/L (0-32); Blood Urea Nitrogen 11 mg/dL (8-23); Calcium 8.6 mg/dL (8.5-10.5); Carbon Dioxide 28 mmol/L (22-29); Chloride 105 mmol/L (98-107); Globulin 3.2 g/dL (1.3-4.6); Glucose 164 mg/dL (65-115); Osmolality Calculated 297 mOsm/kg (285-295); Potassium 4.2 mmol/L (3.5-5.1); Sodium 142 mmol/L (136-145); Total Bilirubin 0.3 mg/dL (0.15-1.2); Total Protein 7.3 g/dL (6.6-8.7)
[2022-02-15] MEDS: denosumab 120 mg SDV SUBCUT (14:56)
[2022-02-16 11:29] LABS: CA 27.29 604 U/mL (<38)
== END 2022-03-05 23:59 | disposition home or self-care (01) ==
PROVIDERS: PCP Internal Medicine; Visit Provider Internal Medicine Hematology & Oncology
DX: C50.812 Malignant neoplasm of overlapping sites of left female breast; Z17.0 Estrogen receptor positive status [ER+]; C79.51 Secondary malignant neoplasm of bone; C78.01 Secondary malignant neoplasm of right lung; C78.02 Secondary malignant neoplasm of left lung; C77.8 Secondary and unspecified malignant neoplasm of lymph nodes of multiple regions; Z79.818 Long term (current) use of other agents affecting estrogen receptors and estrogen levels; Z79.899 Other long term (current) drug therapy; F17.210 Nicotine dependence, cigarettes, uncomplicated
CPT/HCPCS: 36415; 80053; 85025; 86300; 96372; 99214; J0897

== ENCOUNTER 2022-03-28 09:42 | Oncology outpatient (recurring) (ONCR) | payer MEDICARE, OTHER, SELFPAY ==
[2022-03-21 09:41] LABS: Basophils % 0.5 %; Eosinophils # 0.1 10^3/uL (0.0-0.8); Hemoglobin 15.4 g/dL (11.5-15.3); Lymphocytes # 1.7 10^3/uL (0.8-4.8); Lymphocytes % 29.9 %; Mean Corpuscular HGB Conc 32.1 g/dL (30.0-36.0); Mean Corpuscular Volume 96.8 fl (81-99); Monocytes # 0.5 10^3/uL (0.2-0.9); Monocytes % 8.3 %; Neutrophils # 3.25 10^3/uL (1.8-7.7); Neutrophils % 59.1 %; Nucleated Red Blood Cells % 0 %; Platelet Count 190 10^3/cmm (130-400); Red Blood Count 4.96 10^6/uL (4.1-5.3); Red Cell Distribution Width 13.5 % (12.1-15.1); White Blood Count 5.5 10^3/uL (4.0-10.0)
[2022-03-21 09:57] LABS: Alanine Aminotransferase < 5 U/L (0-33); Albumin Level 4.2 g/dL (3.5-5.2); Alkaline Phosphatase 94 U/L (35-105); Anion Gap 11.8 (5-19); Aspartate Amino Transferase 10 U/L (0-32); Blood Urea Nitrogen 12 mg/dL (8-23); Calcium 8.6 mg/dL (8.5-10.5); Carbon Dioxide 28 mmol/L (22-29); Chloride 105 mmol/L (98-107); Globulin 3.2 g/dL (1.3-4.6); Glucose 155 mg/dL (65-115); Osmolality Calculated 293 mOsm/kg (285-295); Potassium 4.8 mmol/L (3.5-5.1); Sodium 140 mmol/L (136-145); Total Bilirubin 0.3 mg/dL (0.15-1.2); Total Protein 7.4 g/dL (6.6-8.7)
[2022-03-21] MEDS: denosumab 120 mg SDV SUBCUT (11:39)
[2022-03-21 11:53] LABS: CA 15-3 159.6 U/mL (0-25)
[2022-03-28 10:21] LABS: Basophils % 0.4 %; Eosinophils # 0.1 10^3/uL (0.0-0.8); Eosinophils % 1.6 %; Hematocrit 45.5 % (37.0-47.0); Hemoglobin 14.3 g/dL (11.5-15.3); Lymphocytes # 1.4 10^3/uL (0.8-4.8); Lymphocytes % 27.6 %; Mean Corpuscular HGB Conc 31.4 g/dL (30.0-36.0); Mean Corpuscular Hemoglobin 30.5 pg (28.0-34.0); Mean Platelet Volume 10.4 fL (7.4-10.4); Monocytes # 0.2 10^3/uL (0.2-0.9); Monocytes % 4.1 %; Neutrophils # 3.36 10^3/uL (1.8-7.7); Neutrophils % 65.9 %; Nucleated Red Blood Cells % 0 %; Platelet Count 187 10^3/cmm (130-400); Red Blood Count 4.69 10^6/uL (4.1-5.3); Red Cell Distribution Width 13.3 % (12.1-15.1); White Blood Count 5.1 10^3/uL (4.0-10.0)
[2022-03-28 10:44] LABS: Alanine Aminotransferase < 5 U/L (0-33); Alkaline Phosphatase 78 U/L (35-105); Anion Gap 11.6 (5-19); Aspartate Amino Transferase 9 U/L (0-32); Blood Urea Nitrogen 10 mg/dL (8-23); Calcium 8.4 mg/dL (8.5-10.5); Carbon Dioxide 27 mmol/L (22-29); Chloride 99 mmol/L (98-107); Globulin 3.1 g/dL (1.3-4.6); Glucose 172 mg/dL (65-115); Osmolality Calculated 279 mOsm/kg (285-295); Potassium 4.6 mmol/L (3.5-5.1); Sodium 133 mmol/L (136-145); Total Bilirubin 0.4 mg/dL (0.15-1.2); Total Protein 7.1 g/dL (6.6-8.7)
== END 2022-04-05 23:59 | disposition home or self-care (01) ==
PROVIDERS: Nurse Practitioner; PCP Internal Medicine; Visit Provider Internal Medicine Hematology & Oncology
DX: C50.812 Malignant neoplasm of overlapping sites of left female breast (principal); Z17.0 Estrogen receptor positive status [ER+]
CPT/HCPCS: 36415; 80053; 85025; 86300; 96372; 99215; J0897

== ENCOUNTER 2022-04-29 10:15 | Oncology outpatient (recurring) (ONCR) | payer MEDICARE, OTHER, SELFPAY ==
[2022-04-11 10:41] LABS: Basophils % 0.7 %; Hematocrit 44.4 % (37.0-47.0); Hemoglobin 14.3 g/dL (11.5-15.3); Lymphocytes # 1.4 10^3/uL (0.8-4.8); Lymphocytes % 46.2 %; Mean Corpuscular HGB Conc 32.2 g/dL (30.0-36.0); Mean Corpuscular Hemoglobin 31.2 pg (28.0-34.0); Mean Corpuscular Volume 96.7 fl (81-99); Mean Platelet Volume 9.7 fL (7.4-10.4); Monocytes # 0.2 10^3/uL (0.2-0.9); Monocytes % 6.3 %; Neutrophils # 1.37 10^3/uL (1.8-7.7); Neutrophils % 45.5 %; Nucleated Red Blood Cells % 0 %; Platelet Count 158 10^3/cmm (130-400); Red Blood Count 4.59 10^6/uL (4.1-5.3); Red Cell Distribution Width 14.4 % (12.1-15.1)
[2022-04-11 10:56] LABS: Alanine Aminotransferase < 5 U/L (0-33); Albumin Level 4.2 g/dL (3.5-5.2); Alkaline Phosphatase 74 U/L (35-105); Anion Gap 12.6 (5-19); Aspartate Amino Transferase 8 U/L (0-32); Blood Urea Nitrogen 10 mg/dL (8-23); Calcium 8.7 mg/dL (8.5-10.5); Carbon Dioxide 29 mmol/L (22-29); Chloride 101 mmol/L (98-107); Globulin 2.9 g/dL (1.3-4.6); Glucose 154 mg/dL (65-115); Osmolality Calculated 288 mOsm/kg (285-295); Potassium 4.6 mmol/L (3.5-5.1); Sodium 138 mmol/L (136-145); Total Bilirubin 0.3 mg/dL (0.15-1.2); Total Protein 7.1 g/dL (6.6-8.7)
[2022-04-18 10:39] LABS: Basophils % 1.1 %; Eosinophils % 0.6 %; Hematocrit 43.5 % (37.0-47.0); Hemoglobin 13.7 g/dL (11.5-15.3); Lymphocytes # 1.6 10^3/uL (0.8-4.8); Lymphocytes % 44.1 %; Mean Corpuscular HGB Conc 31.5 g/dL (30.0-36.0); Mean Corpuscular Hemoglobin 30.9 pg (28.0-34.0); Mean Corpuscular Volume 98.2 fl (81-99); Mean Platelet Volume 9.5 fL (7.4-10.4); Monocytes # 0.4 10^3/uL (0.2-0.9); Monocytes % 10.5 %; Neutrophils # 1.55 10^3/uL (1.8-7.7); Neutrophils % 43.7 %; Nucleated Red Blood Cells % 0 %; Platelet Count 165 10^3/cmm (130-400); Red Blood Count 4.43 10^6/uL (4.1-5.3); Red Cell Distribution Width 15.6 % (12.1-15.1); White Blood Count 3.5 10^3/uL (4.0-10.0)
[2022-04-18 10:54] LABS: Alanine Aminotransferase < 5 U/L (0-33); Alkaline Phosphatase 72 U/L (35-105); Anion Gap 14.6 (5-19); Aspartate Amino Transferase 13 U/L (0-32); Blood Urea Nitrogen 9 mg/dL (8-23); Carbon Dioxide 27 mmol/L (22-29); Chloride 105 mmol/L (98-107); Globulin 2.8 g/dL (1.3-4.6); Glucose 134 mg/dL (65-115); Osmolality Calculated 295 mOsm/kg (285-295); Potassium 4.6 mmol/L (3.5-5.1); Sodium 142 mmol/L (136-145); Total Bilirubin 0.4 mg/dL (0.15-1.2); Total Protein 6.8 g/dL (6.6-8.7)
[2022-04-29] MEDS: denosumab 120 mg SDV SUBCUT (12:31)
== END 2022-05-03 23:59 | disposition home or self-care (01) ==
PROVIDERS: Nurse Practitioner; PCP Internal Medicine; Visit Provider Internal Medicine Hematology & Oncology
DX: C50.812 Malignant neoplasm of overlapping sites of left female breast (principal); Z17.0 Estrogen receptor positive status [ER+]; C79.51 Secondary malignant neoplasm of bone; Z79.818 Long term (current) use of other agents affecting estrogen receptors and estrogen levels; Z79.899 Other long term (current) drug therapy; F17.210 Nicotine dependence, cigarettes, uncomplicated; Z92.21 Personal history of antineoplastic chemotherapy; Z92.3 Personal history of irradiation
CPT/HCPCS: 71046; 72100; 72220; 80053; 85025; 96372; 99214; J0897

== ENCOUNTER 2022-06-03 09:30 | Oncology outpatient (recurring) (ONCR) | payer MEDICARE, OTHER, SELFPAY ==
[2022-05-23 12:11] LABS: Basophils % 0.5 %; Eosinophils # 0.1 10^3/uL (0.0-0.8); Eosinophils % 0.8 %; Hematocrit 45.7 % (37.0-47.0); Hemoglobin 14.8 g/dL (11.5-15.3); Lymphocytes # 1.9 10^3/uL (0.8-4.8); Mean Corpuscular HGB Conc 32.4 g/dL (30.0-36.0); Mean Corpuscular Hemoglobin 31.8 pg (28.0-34.0); Mean Corpuscular Volume 98.3 fl (81-99); Monocytes # 0.2 10^3/uL (0.2-0.9); Monocytes % 2.7 %; Neutrophils # 4.12 10^3/uL (1.8-7.7); Neutrophils % 65.7 %; Nucleated Red Blood Cells % 0 %; Platelet Count 191 10^3/cmm (130-400); Red Blood Count 4.65 10^6/uL (4.1-5.3); Red Cell Distribution Width 15.1 % (12.1-15.1); White Blood Count 6.3 10^3/uL (4.0-10.0)
[2022-05-23 12:23] LABS: Alanine Aminotransferase < 5 U/L (0-33); Albumin Level 4.1 g/dL (3.5-5.2); Alkaline Phosphatase 60 U/L (35-105); Anion Gap 13.5 (5-19); Aspartate Amino Transferase 6 U/L (0-32); Blood Urea Nitrogen 12 mg/dL (8-23); Calcium 8.7 mg/dL (8.5-10.5); Carbon Dioxide 26 mmol/L (22-29); Chloride 105 mmol/L (98-107); Glucose 137 mg/dL (65-115); Osmolality Calculated 292 mOsm/kg (285-295); Potassium 4.5 mmol/L (3.5-5.1); Sodium 140 mmol/L (136-145); Total Bilirubin 0.5 mg/dL (0.15-1.2); Total Protein 7.1 g/dL (6.6-8.7)
[2022-05-30 13:29] LABS: Basophils % 0.6 %; Eosinophils % 0.6 %; Hematocrit 43.1 % (37.0-47.0); Hemoglobin 13.8 g/dL (11.5-15.3); Lymphocytes # 1.4 10^3/uL (0.8-4.8); Lymphocytes % 44.2 %; Mean Corpuscular Hemoglobin 31.2 pg (28.0-34.0); Mean Corpuscular Volume 97.5 fl (81-99); Mean Platelet Volume 10.4 fL (7.4-10.4); Monocytes # 0.2 10^3/uL (0.2-0.9); Monocytes % 4.7 %; Neutrophils # 1.58 10^3/uL (1.8-7.7); Neutrophils % 49.9 %; Nucleated Red Blood Cells % 0 %; Platelet Count 115 10^3/cmm (130-400); Red Blood Count 4.42 10^6/uL (4.1-5.3); White Blood Count 3.2 10^3/uL (4.0-10.0)
[2022-05-30 13:51] LABS: Alanine Aminotransferase < 5 U/L (0-33); Albumin Level 4.4 g/dL (3.5-5.2); Alkaline Phosphatase 69 U/L (35-105); Anion Gap 15.7 (5-19); Aspartate Amino Transferase 8 U/L (0-32); Blood Urea Nitrogen 11 mg/dL (8-23); Calcium 8.2 mg/dL (8.5-10.5); Carbon Dioxide 24 mmol/L (22-29); Chloride 108 mmol/L (98-107); Globulin 2.7 g/dL (1.3-4.6); Glucose 122 mg/dL (65-115); Osmolality Calculated 297 mOsm/kg (285-295); Potassium 4.7 mmol/L (3.5-5.1); Sodium 143 mmol/L (136-145); Total Bilirubin 0.3 mg/dL (0.15-1.2); Total Protein 7.1 g/dL (6.6-8.7)
[2022-06-03 10:05] LABS: Basophils % 0.3 %; Eosinophils % 0.7 %; Hematocrit 42.8 % (37.0-47.0); Hemoglobin 13.8 g/dL (11.5-15.3); Lymphocytes # 1.3 10^3/uL (0.8-4.8); Lymphocytes % 45.5 %; Mean Corpuscular HGB Conc 32.2 g/dL (30.0-36.0); Mean Corpuscular Hemoglobin 31.8 pg (28.0-34.0); Mean Corpuscular Volume 98.6 fl (81-99); Monocytes # 0.2 10^3/uL (0.2-0.9); Monocytes % 6.3 %; Neutrophils # 1.34 10^3/uL (1.8-7.7); Neutrophils % 46.9 %; Nucleated Red Blood Cells % 0 %; Platelet Count 140 10^3/cmm (130-400); Red Blood Count 4.34 10^6/uL (4.1-5.3); Red Cell Distribution Width 15.5 % (12.1-15.1); White Blood Count 2.9 10^3/uL (4.0-10.0)
[2022-06-03 10:31] LABS: Alanine Aminotransferase < 5 U/L (0-33); Albumin Level 4.3 g/dL (3.5-5.2); Alkaline Phosphatase 65 U/L (35-105); Anion Gap 14.4 (5-19); Aspartate Amino Transferase 12 U/L (0-32); Blood Urea Nitrogen 11 mg/dL (8-23); CA 15-3 139.9 U/mL (0-25); Calcium 7.6 mg/dL (8.5-10.5); Carbon Dioxide 25 mmol/L (22-29); Chloride 107 mmol/L (98-107); Globulin 2.9 g/dL (1.3-4.6); Glucose 142 mg/dL (65-115); Osmolality Calculated 296 mOsm/kg (285-295); Potassium 4.4 mmol/L (3.5-5.1); Sodium 142 mmol/L (136-145); Total Bilirubin 0.4 mg/dL (0.15-1.2); Total Protein 7.2 g/dL (6.6-8.7)
[2022-06-03] MEDS: denosumab 120 mg SDV SUBCUT (12:05)
[2022-06-03 12:09] VITALS: BP 129/71; PULSE 91; RESP 16; TEMP 35.8; O2SAT 93
== END 2022-06-03 23:59 | disposition home or self-care (01) ==
PROVIDERS: Nurse Practitioner; PCP Internal Medicine; Visit Provider Internal Medicine Hematology & Oncology
DX: C50.812 Malignant neoplasm of overlapping sites of left female breast (principal); Z17.0 Estrogen receptor positive status [ER+]; C79.51 Secondary malignant neoplasm of bone; C78.02 Secondary malignant neoplasm of left lung; C78.01 Secondary malignant neoplasm of right lung; C77.8 Secondary and unspecified malignant neoplasm of lymph nodes of multiple regions; R97.8 Other abnormal tumor markers; D72.819 Decreased white blood cell count, unspecified; Z79.818 Long term (current) use of other agents affecting estrogen receptors and estrogen levels; Z79.899 Other long term (current) drug therapy
CPT/HCPCS: 36415; 80053; 85025; 86300; 96402; 99214; J0897

== ENCOUNTER 2022-07-02 06:21 | Outpatient (CLI) | payer MEDICARE, OTHER, SELFPAY ==
--- NOTE | 2022-07-02 11:00 | PETR_ITS ---
PROCEDURE INFORMATION: Exam: PET/CT Skull Base to Mid-thigh Exam date and time: 07/02/2022 11:37 AM Age: 81 years old Clinical indication: Abnormal findings; Elevated tumor markers; Patient HX: Malignant neoplasm of breast LABS AND CLINICAL REPORTS: Glucose: 151 mg/dl Treatment strategy for malignancy (PET staging): Restaging (PS) TECHNIQUE: Imaging protocol: Following at least four-hour fasting and following the injection of radiopharmaceutical, low dose CT images were obtained. Then, PET images were obtained. Attenuation corrected images were constructed using the CT scan. Fused images of PET and CT were reviewed. The standardized uptake values (SUV) reported below are maximum values within a region of interest, expressed in gm/ml. Exam includes orbital meatal line to mid-thigh. Radiopharmaceutical: 13.8 mCi F-18 FDG (Fluorodeoxyglucose), IV. Time of imaging post radiopharmaceutical administration: 1 hour Injection site: Right antecubital COMPARISON: CTA chest 10/17/2021, PT PET Scan 10/02/2021 8:59 AM FINDINGS: Brain: Visualized brain has normal physiologic uptake. Paranasal sinuses: Moderate non radiotracer avid lobulated mucosal thickening of the right maxillary sinus is noted. Pharynx: No abnormal uptake. Larynx: No abnormal uptake. Lungs, pleura and trachea: No abnormal uptake. Small right pleural effusion. Non radiotracer avid streaky linear density is noted in the region of the major fissure inferiorly and involving the minor fissure. Regions of patchy consolidation involving the right lung in the right lower lobe have nearly completely resolved. A single noncalcified appearing nodule measuring 7 mm on series 3, image 68 is noted. Evaluation of the lungs is slightly limited by motion artifact. A noncalcified similar nodule in the posterior left upper lobe is noted on series 3, image 54 measuring 4 mm. Similar 2 mm nodule in the lateral left upper lobe on series 3, image 44. Heart: Normal physiologic uptake. Mediastinal space: No abnormal uptake. Liver: No abnormal uptake. Gallbladder and bile ducts: No abnormal uptake. Pancreas: No abnormal uptake. Spleen: No abnormal uptake. Adrenal glands: No abnormal uptake. Kidneys and ureters: Normal physiologic uptake. Stomach and bowel: No abnormal uptake. There are scattered colonic diverticula. Vasculature: No abnormal uptake. Diffuse atherosclerotic changes are noted including within the coronary arteries. Lymph nodes: Uptake within a similar in size lymph node measuring approximately 9 mm in the aortopulmonary window is noted, SUV max 3.7 (previously 4.9). Calcified non radiotracer avid mediastinal and right hilar lymph nodes are noted. Bones/joints: There is been interval decreased radiotracer activity within previously noted osseous metastatic lesions. The number of osseous lesions which are predominately sclerotic appear increased since the prior PET-CT. Currently radiotracer avid lesions are as follows: Uptake in the T6 vertebral body within a sclerotic lesion measuring approximately 1.8 cm in diameter on series 3, image 56 demonstrates an SUV max 3.7 (previous SUV max 8.9). A subtle primarily lucent lesion in the anterior right lateral L2 vertebral body on series 3, image 97 demonstrates an SUV max 2.7 (previously 4.1). Subtle uptake in a rounded 1.3 cm lesion in the right lateral L5 vertebral body on series 3, image 116 is noted, SUV max 1.8 (previously 6.0). A small focus of uptake in S1 to the right of midline on series 3, image 124 demonstrates an SUV max 3.1 (previously 2.5) without a well-defined lesion there is uptake within the mid superior sacrum at S2 with an SUV max 3.1 (previously 6.7) within a sclerotic lesion measuring 1 cm on series 3, image 126. Soft tissues: No abnormal uptake in the visualized head, neck, chest, abdomen, pelvis, and extremities. There are postoperative changes involving the left breast. No abnormal uptake. METRICS: Mediastinal blood pool: SUV max 2.3 PET[facility] SUBSEQ [id number] IMPRESSION: 1. Interval near complete resolution of regions of patchy density throughout the right lower lobe compared with 10/17/2021 with a single residual 7 mm nodule. Similar small left upper lobe nodule. These nodules are not radiotracer avid. Assessment of small nodules can be limited by PET-CT. 2. Increased number of sclerotic osseous metastatic lesions compared with the prior PET-CT. The number of radiotracer avid lesions has significantly decreased since the prior PET-CT however suggesting interval partial response to therapy. The number of radiotracer avid lesions has decreased and currently radiotracer avid lesions demonstrate decreased uptake with the exception of a lesion in the S1 vertebral body to the right of midline where uptake is slightly increased. 3. Small left pleural effusion. 4. Additional nonurgent findings as detailed above.
== END 2022-07-02 06:22 | disposition home or self-care (01) ==
LOC: RAD 07-04 06:21
PROVIDERS: PCP Internal Medicine; Visit Provider Internal Medicine Hematology & Oncology
DX: C50.919 Malignant neoplasm of unspecified site of unspecified female breast (principal); C79.51 Secondary malignant neoplasm of bone; R97.8 Other abnormal tumor markers; J90 Pleural effusion, not elsewhere classified
CPT/HCPCS: 78815; A9552

== ENCOUNTER 2022-07-11 13:01 | Oncology outpatient (recurring) (ONCR) | payer MEDICARE, OTHER, SELFPAY ==
[2022-07-11 13:24] LABS: Basophils % 0.3 %; Eosinophils # 0.1 10^3/uL (0.0-0.8); Eosinophils % 0.7 %; Hematocrit 44.8 % (37.0-47.0); Hemoglobin 14.5 g/dL (11.5-15.3); Lymphocytes # 2.3 10^3/uL (0.8-4.8); Lymphocytes % 22.9 %; Mean Corpuscular HGB Conc 32.4 g/dL (30.0-36.0); Mean Corpuscular Volume 98.9 fl (81-99); Mean Platelet Volume 10.2 fL (7.4-10.4); Monocytes # 0.8 10^3/uL (0.2-0.9); Monocytes % 7.8 %; Neutrophils # 6.71 10^3/uL (1.8-7.7); Neutrophils % 67.9 %; Nucleated Red Blood Cells % 0 %; Platelet Count 196 10^3/cmm (130-400); Red Blood Count 4.53 10^6/uL (4.1-5.3); Red Cell Distribution Width 13.6 % (12.1-15.1); White Blood Count 9.9 10^3/uL (4.0-10.0)
[2022-07-11 13:56] LABS: Alanine Aminotransferase < 5 U/L (0-33); Albumin Level 4.2 g/dL (3.5-5.2); Alkaline Phosphatase 79 U/L (35-105); Aspartate Amino Transferase 10 U/L (0-32); Blood Urea Nitrogen 9 mg/dL (8-23); Carbon Dioxide 23 mmol/L (22-29); Chloride 102 mmol/L (98-107); Globulin 2.9 g/dL (1.3-4.6); Glucose 142 mg/dL (65-115); Osmolality Calculated 285 mOsm/kg (285-295); Sodium 137 mmol/L (136-145); Total Bilirubin 0.5 mg/dL (0.15-1.2); Total Protein 7.1 g/dL (6.6-8.7)
== END 2022-08-03 23:59 | disposition home or self-care (01) ==
PROVIDERS: PCP Internal Medicine; Visit Provider Internal Medicine Hematology & Oncology
DX: C50.812 Malignant neoplasm of overlapping sites of left female breast (principal); Z17.0 Estrogen receptor positive status [ER+]; Z79.811 Long term (current) use of aromatase inhibitors; F17.210 Nicotine dependence, cigarettes, uncomplicated; C77.8 Secondary and unspecified malignant neoplasm of lymph nodes of multiple regions; C78.02 Secondary malignant neoplasm of left lung; C78.01 Secondary malignant neoplasm of right lung; C79.51 Secondary malignant neoplasm of bone; Z92.3 Personal history of irradiation; Z79.899 Other long term (current) drug therapy; Z92.21 Personal history of antineoplastic chemotherapy; J90 Pleural effusion, not elsewhere classified; R11.2 Nausea with vomiting, unspecified
CPT/HCPCS: 36415; 80053; 85025; 99214

== ENCOUNTER 2022-08-10 10:01 | Oncology outpatient (recurring) (ONCR) | payer MEDICARE, OTHER, SELFPAY ==
[2022-08-10 10:30] VITALS: BP 130/76; PULSE 92; RESP 16; TEMP 36.3; O2SAT 94
[2022-08-10 10:47] LABS: Basophils % 0.6 %; Hematocrit 39.9 % (37.0-47.0); Lymphocytes # 1.4 10^3/uL (0.8-4.8); Lymphocytes % 44.7 %; Mean Corpuscular HGB Conc 32.6 g/dL (30.0-36.0); Mean Corpuscular Hemoglobin 32.2 pg (28.0-34.0); Mean Corpuscular Volume 98.8 fl (81-99); Mean Platelet Volume 9.5 fL (7.4-10.4); Monocytes # 0.3 10^3/uL (0.2-0.9); Monocytes % 10.6 %; Neutrophils # 1.42 10^3/uL (1.8-7.7); Neutrophils % 44.1 %; Nucleated Red Blood Cells % 0 %; Platelet Count 143 10^3/cmm (130-400); Red Blood Count 4.04 10^6/uL (4.1-5.3); Red Cell Distribution Width 14.3 % (12.1-15.1); White Blood Count 3.2 10^3/uL (4.0-10.0)
[2022-08-10 11:08] LABS: Estmated Average Glucose 151; Hemoglobin A1C 6.9 % (4.0-6.0)
[2022-08-10 11:21] LABS: Alanine Aminotransferase 6 U/L (0-33); Albumin Level 4.2 g/dL (3.5-5.2); Alkaline Phosphatase 69 U/L (35-105); Anion Gap 13.9 (5-19); Aspartate Amino Transferase 11 U/L (0-32); Blood Urea Nitrogen 8 mg/dL (8-23); Calcium 8.3 mg/dL (8.5-10.5); Carbon Dioxide 26 mmol/L (22-29); Chloride 105 mmol/L (98-107); Globulin 2.8 g/dL (1.3-4.6); Glucose 111 mg/dL (65-115); Osmolality Calculated 291 mOsm/kg (285-295); Potassium 3.9 mmol/L (3.5-5.1); Sodium 141 mmol/L (136-145); Total Bilirubin 0.4 mg/dL (0.15-1.2)
== END 2022-09-02 23:59 | disposition home or self-care (01) ==
PROVIDERS: PCP Internal Medicine; Visit Provider Internal Medicine Hematology & Oncology
DX: C50.812 Malignant neoplasm of overlapping sites of left female breast (principal); Z17.0 Estrogen receptor positive status [ER+]; Z79.811 Long term (current) use of aromatase inhibitors; F17.210 Nicotine dependence, cigarettes, uncomplicated; Z92.21 Personal history of antineoplastic chemotherapy; Z79.899 Other long term (current) drug therapy; C77.8 Secondary and unspecified malignant neoplasm of lymph nodes of multiple regions; C78.02 Secondary malignant neoplasm of left lung; C78.01 Secondary malignant neoplasm of right lung; C79.51 Secondary malignant neoplasm of bone; Z92.3 Personal history of irradiation; D72.819 Decreased white blood cell count, unspecified
CPT/HCPCS: 36415; 80053; 83036; 85025; 99214

== ENCOUNTER 2022-09-22 13:40 | Oncology outpatient (recurring) (ONCR) | payer MEDICARE, OTHER, SELFPAY ==
[2022-09-08 14:15] VITALS: BP 145/76; PULSE 91; RESP 18; TEMP 36.6; O2SAT 91
[2022-09-08 14:22] LABS: Basophils % 0.5 %; Eosinophils # 0.1 10^3/uL (0.0-0.8); Eosinophils % 1.5 %; Hematocrit 41.1 % (37.0-47.0); Hemoglobin 13.2 g/dL (11.5-15.3); Lymphocytes # 1.7 10^3/uL (0.8-4.8); Lymphocytes % 42.7 %; Mean Corpuscular HGB Conc 32.1 g/dL (30.0-36.0); Mean Corpuscular Hemoglobin 32.4 pg (28.0-34.0); Mean Corpuscular Volume 100.7 fl (81-99); Mean Platelet Volume 9.6 fL (7.4-10.4); Monocytes # 0.2 10^3/uL (0.2-0.9); Monocytes % 4.9 %; Neutrophils # 2.03 10^3/uL (1.8-7.7); Neutrophils % 50.2 %; Nucleated Red Blood Cells % 0 %; Platelet Count 145 10^3/cmm (130-400); Red Blood Count 4.08 10^6/uL (4.1-5.3); Red Cell Distribution Width 14.2 % (12.1-15.1); White Blood Count 4.1 10^3/uL (4.0-10.0)
[2022-09-08 14:43] LABS: Alanine Aminotransferase < 5 U/L (0-33); Albumin Level 3.9 g/dL (3.5-5.2); Alkaline Phosphatase 56 U/L (35-105); Aspartate Amino Transferase 11 U/L (0-32); Blood Urea Nitrogen 8 mg/dL (8-23); Calcium 7.9 mg/dL (8.5-10.5); Carbon Dioxide 27 mmol/L (22-29); Chloride 107 mmol/L (98-107); Globulin 2.9 g/dL (1.3-4.6); Glucose 99 mg/dL (65-115); Osmolality Calculated 296 mOsm/kg (285-295); Sodium 144 mmol/L (136-145); Total Bilirubin 0.4 mg/dL (0.15-1.2); Total Protein 6.8 g/dL (6.6-8.7)
[2022-09-08 14:45] LABS: Anion Gap 14.4 (5-19); Potassium 4.4 mmol/L (3.5-5.1)
[2022-09-08] MEDS: denosumab 120 mg SDV SUBCUT (15:43)
[2022-09-22 13:33] VITALS: BMI 24.7
[2022-09-22 13:34] VITALS: BP 110/71; PULSE 95; RESP 18; TEMP 36.3; O2SAT 89
[2022-09-22 13:50] LABS: Basophils % 0.8 %; Eosinophils % 0.8 %; Hematocrit 40.2 % (37.0-47.0); Hemoglobin 13.2 g/dL (11.5-15.3); Lymphocytes # 1.9 10^3/uL (0.8-4.8); Lymphocytes % 46.8 %; Mean Corpuscular HGB Conc 32.8 g/dL (30.0-36.0); Mean Corpuscular Hemoglobin 33.5 pg (28.0-34.0); Mean Platelet Volume 9.8 fL (7.4-10.4); Monocytes # 0.4 10^3/uL (0.2-0.9); Monocytes % 10.6 %; Neutrophils # 1.62 10^3/uL (1.8-7.7); Nucleated Red Blood Cells % 0 %; Platelet Count 152 10^3/cmm (130-400); Red Blood Count 3.94 10^6/uL (4.1-5.3); Red Cell Distribution Width 15.4 % (12.1-15.1)
[2022-09-22 14:13] LABS: Alanine Aminotransferase 6 U/L (0-33); Albumin Level 4.1 g/dL (3.5-5.2); Alkaline Phosphatase 53 U/L (35-105); Anion Gap 15.3 (5-19); Aspartate Amino Transferase 11 U/L (0-32); Blood Urea Nitrogen 12 mg/dL (8-23); Calcium 8.3 mg/dL (8.5-10.5); Carbon Dioxide 27 mmol/L (22-29); Chloride 102 mmol/L (98-107); Globulin 2.6 g/dL (1.3-4.6); Glucose 183 mg/dL (65-115); Osmolality Calculated 294 mOsm/kg (285-295); Potassium 4.3 mmol/L (3.5-5.1); Sodium 140 mmol/L (136-145); Total Bilirubin 0.2 mg/dL (0.15-1.2); Total Protein 6.7 g/dL (6.6-8.7)
== END 2022-10-03 23:59 | disposition home or self-care (01) ==
PROVIDERS: PCP Internal Medicine; Visit Provider Internal Medicine Hematology & Oncology
DX: C50.812 Malignant neoplasm of overlapping sites of left female breast (principal); J90 Pleural effusion, not elsewhere classified; Z79.811 Long term (current) use of aromatase inhibitors; F17.210 Nicotine dependence, cigarettes, uncomplicated; Z92.21 Personal history of antineoplastic chemotherapy; Z79.899 Other long term (current) drug therapy; C77.8 Secondary and unspecified malignant neoplasm of lymph nodes of multiple regions; C78.02 Secondary malignant neoplasm of left lung; C78.01 Secondary malignant neoplasm of right lung; C79.51 Secondary malignant neoplasm of bone; K29.70 Gastritis, unspecified, without bleeding; Z79.818 Long term (current) use of other agents affecting estrogen receptors and estrogen levels; Z92.3 Personal history of irradiation; K21.9 Gastro-esophageal reflux disease without esophagitis
CPT/HCPCS: 36415; 80053; 85025; 96372; 99214; J0897

== ENCOUNTER → 2022-10-12 13:35 | Outpatient (BNVA) | payer MEDICARE, OTHER, SELFPAY | PROVIDERS: PCP Internal Medicine; Visit Provider Surgery | DX: K21.9 Gastro-esophageal reflux disease without esophagitis (principal) | CPT/HCPCS: 99203 ==

== ENCOUNTER 2022-11-03 14:30 | Oncology outpatient (recurring) (ONCR) | payer MEDICARE, OTHER, SELFPAY ==
[2022-10-27 09:12] VITALS: BP 168/80; PULSE 100; RESP 18; TEMP 36.1; O2SAT 88
[2022-10-27 09:27] LABS: Basophils % 0.6 %; Eosinophils % 0.6 %; Hematocrit 41.7 % (36-47); Lymphocytes # 1.3 10^3/uL (0.8-4.8); Lymphocytes % 40.1 %; Mean Corpuscular HGB Conc 32.9 g/dL (30-55); Mean Corpuscular Hemoglobin 34.1 pg (27-33); Mean Corpuscular Volume 103.7 fl (85-98); Mean Platelet Volume 9.1 fL (7.4-10.4); Monocytes # 0.4 10^3/uL (0.2-0.9); Neutrophils # 1.55 10^3/uL (1.8-7.7); Neutrophils % 47.4 %; Nucleated Red Blood Cells % 0 %; Platelet Count 139 10^3/cmm (157-399); Red Blood Count 4.02 10^6/uL (3.85-5.65); Red Cell Distribution Width 15.7 % (12.1-15.1); White Blood Count 3.27 10^3/uL (3.29-11.43)
[2022-10-27 09:46] LABS: Alanine Aminotransferase 6 U/L (0-33); Albumin Level 4.1 g/dL (3.5-5.2); Alkaline Phosphatase 52 U/L (35-105); Anion Gap 13.1 (5-19); Aspartate Amino Transferase 10 U/L (0-32); Blood Urea Nitrogen 6 mg/dL (8-23); Calcium 8.4 mg/dL (8.5-10.5); Carbon Dioxide 29 mmol/L (22-29); Chloride 103 mmol/L (98-107); Glucose 182 mg/dL (65-115); Osmolality Calculated 294 mOsm/kg (285-295); Potassium 4.1 mmol/L (3.5-5.1); Sodium 141 mmol/L (136-145); Total Bilirubin 0.4 mg/dL (0.15-1.2); Total Protein 7.1 g/dL (6.6-8.7)
[2022-11-03] MEDS: denosumab 120 mg SDV SUBCUT (15:14)
[2022-11-03 15:17] VITALS: BP 151/70; PULSE 89; RESP 18; TEMP 35.9; O2SAT 89
== END 2022-11-03 23:59 | disposition home or self-care (01) ==
PROVIDERS: PCP Internal Medicine; Visit Provider Internal Medicine Medical Oncology
DX: C50.812 Malignant neoplasm of overlapping sites of left female breast (principal)
CPT/HCPCS: 36415; 80053; 85025; 96402; 99214; J0897

== ENCOUNTER 2022-11-12 06:00 | Outpatient (CLI) | payer MEDICARE, OTHER, SELFPAY ==
--- NOTE | 2022-11-12 11:00 | PETR_ITS ---
PROCEDURE INFORMATION: Exam: PET/CT Skull Base to Mid-thigh Exam date and time: 11/12/2022 11:18 AM Age: 82 years old Clinical indication: Breast cancer. Follow up LABS AND CLINICAL REPORTS: Glucose: 90 mg/dl Treatment strategy for malignancy (PET staging): Restaging (PS) TECHNIQUE: Imaging protocol: Following at least four-hour fasting and following the injection of radiopharmaceutical, low dose CT images were obtained. Then, PET images were obtained. Attenuation corrected images were constructed using the CT scan. Fused images of PET and CT were reviewed. The standardized uptake values (SUV) reported below are maximum values within a region of interest, expressed in gm/ml. Exam includes orbital meatal line to mid-thigh. Radiopharmaceutical: 14.1 mCi F-18 FDG (Fluorodeoxyglucose), IV. Time of imaging post radiopharmaceutical administration: 52.4 minutes. Injection site: Not provided. [id number] 07/02/2022 11:37 AM FINDINGS: Brain: Visualized brain has normal physiologic uptake. Pharynx: No abnormal uptake. Larynx: No abnormal uptake. Lungs, pleura and trachea: Stable small right pleural effusion is 7 mm in depth. In the right lower lobe, an 7 mm pulmonary nodule is unchanged in size and still not FDG avid (image 62). Its max SUV is 0.7. Evaluation of the lungs is slightly limited by motion artifact. Heart: Normal physiologic uptake. Mediastinal space: Mediastinal blood pool SUV max is 2.5 (previously 2.3). Liver: No abnormal uptake. Gallbladder and bile ducts: No abnormal uptake. Pancreas: No abnormal uptake. Spleen: No abnormal uptake. Adrenal glands: No abnormal uptake. Kidneys and ureters: Normal physiologic uptake. Stomach and bowel: No abnormal uptake. Scattered colonic diverticula. Vasculature: No abnormal uptake. Lymph nodes: A subaortic (aortopulmonary window) mediastinal lymph node is unchanged in size and more FDG avid. It has a short axis of 8 mm, previously 8 mm. Its max SUV is 4.5, previously 3.7. There are no other FDG avid lymph nodes. Bones/joints: Numerous sclerotic osseous metastatic lesions. Almost all of them are not FDG avid. A 7 mm lesion in the T4 vertebral body is unchanged in size and slightly more FDG avid. Its max SUV is 3.0, previously 2.3. A lesion in the T6 vertebral body is slightly larger, and its FDG avidity is nearly unchanged. It is 2.7 cm, previously 1.8 cm. Its max SUV is 3.6, previously 3.7. A lesion in the S1 vertebral body to the right of midline is unchanged in size and FDG avidity. It is 1.0 cm. Its max SUV is 3.1, previously 3.1. An 8 mm midline lesion in the S2 vertebral body is unchanged in size. It is FDG avidity nearly unchanged. Its max SUV is 3.0, previously 3.1. Soft tissues: No abnormal uptake in the visualized head, neck, chest, abdomen, pelvis, and extremities. There are postoperative changes involving the left breast. No abnormal uptake. [facility] [id number] IMPRESSION: 1. Numerous sclerotic osseous metastatic lesions. Almost all of them are not FDG avid. Stable low-level uptake is noted in lesions at the T6 vertebral body, S1 vertebral body and S2 vertebral body. The lesion at T6 is slightly larger. A lesion at the T4 vertebral body is slightly more FDG avid. 2. A subaortic (aortopulmonary window) mediastinal lymph node is unchanged in size and more FDG avid. It has a short axis of 8 mm, previously 8 mm. Its max SUV is 4.5, previously 3.7. There are no other FDG avid lymph nodes. 3. No FDG avid pulmonary nodules.
== END 2022-11-12 06:01 | disposition home or self-care (01) ==
LOC: RAD 11-14 06:00
PROVIDERS: PCP Internal Medicine; Visit Provider Internal Medicine Medical Oncology
DX: C50.512 Malignant neoplasm of lower-outer quadrant of left female breast (principal); C79.51 Secondary malignant neoplasm of bone
CPT/HCPCS: 78815; A9552

== ENCOUNTER 2022-11-16 05:49 | Day surgery (SDC) | payer MEDICARE, OTHER, SELFPAY ==
[2022-11-15 09:18] VITALS: BMI 26.6
[2022-11-16 06:10] VITALS: BP 172/87; PULSE 87; RESP 18; TEMP 36.2; O2SAT 92
[2022-11-16] MEDS: ipratropium-albuterol 3 mL Neb INHALATION (06:22)
[2022-11-16 06:23] VITALS: PULSE 72; RESP 18; O2SAT 99
[2022-11-16] MEDS: sodium chloride 0.9% 1,000 ML 30 ML IV (06:35)
[2022-11-16 06:40] LABS: Glucose Point of Care 135 mg/dL (70-110)
--- NOTE | 2022-11-16 06:47 | ANES.PREANE2 ---
Pre-Anesthetic Assessment Height/Weight: Height 1.63 m Weight 70.307 kg Temp Pulse Resp BP Pulse Ox O2 Del Method O2 Flow Rate 97.1 F L 72 18 172/87 99 Nasal Cannula 4.5 11/16/22 06:10 11/16/22 06:23 11/16/22 06:23 11/16/22 06:10 11/16/22 06:23 11/16/22 06:23 11/16/22 06:23 Preop Diagnosis: GERD Operation Date: 11/16/22 07:00 Proposed Procedures p EGD 15247,K21.9(Not Applicable) - Nino Doll DO Familial anesthetic complications: None Was Beta Roberta taken within 24 hours: N/A Was Clonidine taken within 24 hours: N/A Last intake: Intake Last Liquid Date 11/15/22 Last Liquid Time 21:00 Last Solid Date 11/15/22 Last Solid Time 18:00 Social Tobacco (1.5 ppd x70 years) and No alcohol Exam alert, oriented x 3, clear to auscultation bilaterally and regular rate & rhythm Airway Submandibular: within normal limits Cervical ROM: within normal limits Mallampati: Class II Dentition: partials History/ROS No significant history except as noted Pulmonary Chronic Obstructive Pulmonary Disease CV/HEM Hypertension None reported Hepatic None reported GI Gastroesophageal Reflux Disease Metabolic Thyroid Disease [facility] None reported Neuropsych None reported Anesthetic Plan ASA status: 3 Anesthesia: Anesthesia Evaluation and MAC Risk of > 500 ml blood loss (7ml/kg in children): No Medications/Allergies Home Medications Medication Instructions Recorded Confirmed Last Taken Type levothyroxine 75 mcg capsule 75 mcg PO DAILY 05/13/19 11/16/22 11/16/22 History cyanocobalamin (vitamin B-12) 50 50 mcg PO DAILY ##0 11/13/19 11/15/22 11/15/22 History mcg tablet (Vitamin B-12) amlodipine 5 mg tablet 5 mg PO BID #60 tabs 09/29/21 11/15/22 11/15/22 Rx fluticasone fur. 200 mcg-umeclid 1 inh inhalation DAILY PRN 12/30/21 11/16/22 Unknown History 62.5 mcg-vilant 25 mcg Shortness Of Breath inhalat.powder (Trelegy Ellipta) lorazepam 0.5 mg tablet 0.5 mg PO TID PRN nausea and 03/21/22 11/15/22 2 Days Ago Rx vomiting #30 tabs ~11/13/22 pantoprazole 40 mg tablet,delayed 40 mg PO BID 6 weeks #84 tabs 10/12/22 11/15/22 11/15/22 Rx release (Protonix) cholecalciferol (vitamin D3) 10 10 mcg PO DAILY 10/27/22 11/16/22 11/14/22 History mcg (400 unit) capsule palbociclib 75 mg capsule 75 mg PO DAILY #21 caps 10/27/22 11/15/22 11/15/22 Rx gabapentin 300 mg capsule 300 mg PO TID 11/15/22 11/15/22 11/15/22 History letrozole 2.5 mg tablet 2.5 mg PO DAILY 11/15/22 11/15/22 11/15/22 History lisinopril 20 mg tablet 20 mg PO DAILY 11/15/22 11/15/22 11/15/22 History vit C 50 mg-E 15 unit-zinc cit 4.5 2 tab PO DAILY 11/15/22 11/15/22 11/14/22 History mg-lutein 2.5 mg-zeaxan chew tablet (Radio NEXT) Allergies Allergy/AdvReac Type Severity Reaction Status Date / Time No Known Allergies Allergy Verified 11/15/22 09:03 Current Medications Generic Name Dose Route Start Last Admin Trade Name Freq PRN Reason Stop Dose Admin Sodium Chloride 1,000 mls @ 30 mls/hr 11/16/22 06:00 11/16/22 06:35 Sodium Chloride 0.9% IV 11/17/22 05:59 30 mls/hr .Q24H JACKSON Administration PFSH Anesthesia Medical History (Updated 10/27/22 @ 10:56 by Alfie Live) Abnormal ankle brachial index (SURESH) Accelerated essential hypertension Acute exacerbation of chronic obstructive pulmonary disease Breast cancer -L breast s/p chemo and radiation about 6 yrs ago Breast cancer Carpal tunnel syndrome Chronic toe pain, bilateral COPD (chronic obstructive pulmonary disease) Diabetes mellitus -non insulin dependent Dyslipidemia GERD (gastroesophageal reflux disease) Hypothyroidism Hypoxemia Peripheral vascular disease Pneumonia Primary osteoarthritis of left knee Pulmonary nodule Restless leg syndrome 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 with pulm nodule Surgical History History of lumpectomy of left breast Hx of cholecystectomy Family History Sister Cancer CAD (coronary artery disease) Other Diabetes Hyperlipidemia Denies family history of Clotting disorder Dementia Psychiatric illness Chronic kidney disease (CKD) Suicide Anesthesia complication Bleeding disorder Lung disease Hypertension Stroke Social History (Updated 10/27/22 @ 10:57 by Alfie Live) Smoking and tobacco status: current every day smoker (Up to 5 cigs per day, smoked x 65 years) cigarettes Packs smoked per day: 1 Years cigarettes smoked: 65 [ Other cigarette details: started at 15] Quit status (tobacco): not considering quitting Second hand smoke exposure: No Alcohol intake: never Substance/Drug Use: never Lives independently: Yes Household members: family Marital status: / 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
--- NOTE | 2022-11-16 06:51 | PM.HP ---
Providers/Chief Complaint Primary Care Provider: Nasima Back MD Chief Complaint: K21.9 History of Present Illness Samia Newberry is a 82 year old female Review of Systems General: Reports: 10 or more systems reviewed and unremarkable except in HPI and below Medications/Allergies Home Medications Medication Instructions Recorded Confirmed Last Taken Type levothyroxine 75 mcg capsule 75 mcg PO DAILY 05/13/19 11/16/22 11/16/22 History cyanocobalamin (vitamin B-12) 50 50 mcg PO DAILY ##0 11/13/19 11/15/22 11/15/22 History mcg tablet (Vitamin B-12) amlodipine 5 mg tablet 5 mg PO BID #60 tabs 09/29/21 11/15/22 11/15/22 Rx fluticasone fur. 200 mcg-umeclid 1 inh inhalation DAILY PRN 12/30/21 11/16/22 Unknown History 62.5 mcg-vilant 25 mcg Shortness Of Breath inhalat.powder (Trelegy Ellipta) lorazepam 0.5 mg tablet 0.5 mg PO TID PRN nausea and 03/21/22 11/15/22 2 Days Ago Rx vomiting #30 tabs ~11/13/22 pantoprazole 40 mg tablet,delayed 40 mg PO BID 6 weeks #84 tabs 10/12/22 11/15/22 11/15/22 Rx release (Protonix) cholecalciferol (vitamin D3) 10 10 mcg PO DAILY 10/27/22 11/16/22 11/14/22 History mcg (400 unit) capsule palbociclib 75 mg capsule 75 mg PO DAILY #21 caps 10/27/22 11/15/22 11/15/22 Rx gabapentin 300 mg capsule 300 mg PO TID 11/15/22 11/15/22 11/15/22 History letrozole 2.5 mg tablet 2.5 mg PO DAILY 11/15/22 11/15/22 11/15/22 History lisinopril 20 mg tablet 20 mg PO DAILY 11/15/22 11/15/22 11/15/22 History vit C 50 mg-E 15 unit-zinc cit 4.5 2 tab PO DAILY 11/15/22 11/15/22 11/14/22 History mg-lutein 2.5 mg-zeaxan chew tablet (rubberit) Allergies Allergy/AdvReac Type Severity Reaction Status Date / Time No Known Allergies Allergy Verified 11/15/22 09:03 PFSH Acute PFSH: Medical History (Updated 10/27/22 @ 10:56 by Alfie Live) Abnormal ankle brachial index (SURESH) Accelerated essential hypertension Acute exacerbation of chronic obstructive pulmonary disease Breast cancer -L breast s/p chemo and radiation about 6 yrs ago Breast cancer Carpal tunnel syndrome Chronic toe pain, bilateral COPD (chronic obstructive pulmonary disease) Diabetes mellitus -non insulin dependent Dyslipidemia GERD (gastroesophageal reflux disease) Hypothyroidism Hypoxemia Peripheral vascular disease Pneumonia Primary osteoarthritis of left knee Pulmonary nodule Restless leg syndrome 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 with pulm nodule Surgical History History of lumpectomy of left breast Hx of cholecystectomy Family History Sister Cancer CAD (coronary artery disease) Other Diabetes Hyperlipidemia Denies family history of Clotting disorder Dementia Psychiatric illness Chronic kidney disease (CKD) Suicide Anesthesia complication Bleeding disorder Lung disease Hypertension Stroke Social History (Updated 10/27/22 @ 10:57 by Alfei Live) Smoking and tobacco status: current every day smoker (Up to 5 cigs per day, smoked x 65 years) cigarettes Packs smoked per day: 1 Years cigarettes smoked: 65 [ Other cigarette details: started at 15] Quit status (tobacco): not considering quitting Second hand smoke exposure: No Alcohol intake: never Substance/Drug Use: never Lives independently: Yes Household members: family 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
[2022-11-16 07:20] VITALS: BP 134/68; PULSE 80; RESP 16; TEMP 36.6; O2SAT 95
[2022-11-16 07:31] VITALS: BP 134/63; PULSE 84; RESP 18; O2SAT 93
--- NOTE | 2022-11-16 07:58 | ANE.PACU2 ---
Inpatient post-anesthesia follow up: Airway intact: Yes Vital signs: Temperature 97.8 F Pulse Rate 84 Respiratory Rate 18 Blood Pressure 134/63 Pulse Oximetry 93 Oxygen Delivery Me thod Nasal Cannula Oxygen Flow Rate 5 Fraction of Inspir ed Oxygen Hydration adequate: Yes Nausea and vomiting: No Pain level: 0 Mental status: Baseline
== END 2022-11-16 07:50 | disposition home or self-care (01) ==
PROVIDERS: PCP Internal Medicine; Visit Provider Surgery
PROC: 0DJ08ZZ Inspection of Upper Intestinal Tract, Via Natural or Artificial Opening Endoscopic (ICD-10-PCS; CPT 43235; principal; 2022-11-16 07:00)
DX: K21.9 Gastro-esophageal reflux disease without esophagitis (principal); K29.50 Unspecified chronic gastritis without bleeding; Z85.3 Personal history of malignant neoplasm of breast; J44.9 Chronic obstructive pulmonary disease, unspecified; E11.9 Type 2 diabetes mellitus without complications; E78.5 Hyperlipidemia, unspecified; E03.9 Hypothyroidism, unspecified; F17.210 Nicotine dependence, cigarettes, uncomplicated
CPT/HCPCS: 36416; 43239; 82962; 88305; 88342; 94640; J2704; J7030

== ENCOUNTER → 2022-11-29 13:54 | Outpatient (BNVA) | payer MEDICARE, OTHER, SELFPAY | PROVIDERS: PCP Internal Medicine; Visit Provider Surgery | DX: Z09 Encounter for follow-up examination after completed treatment for conditions other than malignant neoplasm (principal) | CPT/HCPCS: 99213 ==

== ENCOUNTER 2022-12-01 14:30 | Oncology outpatient (recurring) (ONCR) | payer MEDICARE, OTHER, SELFPAY ==
[2022-11-24 12:10] VITALS: BP 118/68; PULSE 92; RESP 16; TEMP 36.7; O2SAT 88
[2022-11-24 12:18] LABS: Basophils % 0.6 %; Eosinophils % 0.6 %; Hematocrit 39.8 % (36-47); Lymphocytes # 1.5 10^3/uL (0.8-4.8); Lymphocytes % 45.6 %; Mean Corpuscular HGB Conc 33.4 g/dL (30-55); Mean Corpuscular Hemoglobin 34.5 pg (27-33); Mean Corpuscular Volume 103.4 fl (85-98); Monocytes # 0.2 10^3/uL (0.2-0.9); Neutrophils # 1.49 10^3/uL (1.8-7.7); Neutrophils % 46.9 %; Nucleated Red Blood Cells % 0 %; Platelet Count 124 10^3/cmm (157-399); Red Blood Count 3.85 10^6/uL (3.85-5.65); Red Cell Distribution Width 14.6 % (12.1-15.1); White Blood Count 3.18 10^3/uL (3.29-11.43)
[2022-11-24 12:45] LABS: Alanine Aminotransferase < 5 U/L (0-33); Alkaline Phosphatase 47 U/L (35-105); Anion Gap 12.8 (5-19); Aspartate Amino Transferase 9 U/L (0-32); Blood Urea Nitrogen 12 mg/dL (8-23); CA 15-3 98.5 U/mL (0-25); Calcium 8.5 mg/dL (8.5-10.5); Carbon Dioxide 30 mmol/L (22-29); Chloride 102 mmol/L (98-107); Globulin 2.8 g/dL (1.3-4.6); Glucose 109 mg/dL (65-115); Osmolality Calculated 292 mOsm/kg (285-295); Potassium 3.8 mmol/L (3.5-5.1); Sodium 141 mmol/L (136-145); Total Bilirubin 0.5 mg/dL (0.15-1.2); Total Protein 6.8 g/dL (6.6-8.7)
[2022-11-25 11:49] LABS: CA 27.29 196 U/mL (<38)
[2022-12-01] MEDS: denosumab 120 mg SDV SUBCUT (14:23)
[2022-12-01 14:26] VITALS: BP 141/75; PULSE 56; TEMP 36.5; O2SAT 98
== END 2022-12-03 23:59 | disposition home or self-care (01) ==
PROVIDERS: PCP Internal Medicine; Visit Provider Internal Medicine Medical Oncology
DX: C50.812 Malignant neoplasm of overlapping sites of left female breast (principal); Z51.11 Encounter for antineoplastic chemotherapy; Z53.9 Procedure and treatment not carried out, unspecified reason
CPT/HCPCS: 36415; 80053; 85025; 86300; 96372; 99215; J0897

== ENCOUNTER 2022-12-29 13:18 | Oncology outpatient (recurring) (ONCR) | payer MEDICARE, OTHER, SELFPAY ==
[2022-12-29 14:24] LABS: Basophils % 0.6 %; Eosinophils # 0.2 10^3/uL (0.0-0.8); Eosinophils % 2.5 %; Hematocrit 43.7 % (36-47); Lymphocytes # 2.2 10^3/uL (0.8-4.8); Mean Corpuscular HGB Conc 32.7 g/dL (30-55); Mean Corpuscular Hemoglobin 32.9 pg (27-33); Mean Corpuscular Volume 100.7 fl (85-98); Mean Platelet Volume 10.7 fL (7.4-10.4); Monocytes # 0.5 10^3/uL (0.2-0.9); Neutrophils # 3.42 10^3/uL (1.8-7.7); Neutrophils % 53.9 %; Nucleated Red Blood Cells % 0 %; Platelet Count 179 10^3/cmm (157-399); Red Blood Count 4.34 10^6/uL (3.85-5.65); Red Cell Distribution Width 12.9 % (12.1-15.1); White Blood Count 6.35 10^3/uL (3.29-11.43)
[2022-12-29 15:03] LABS: Alanine Aminotransferase < 5 U/L (0-33); Albumin Level 4.3 g/dL (3.5-5.2); Alkaline Phosphatase 56 U/L (35-105); Anion Gap 13.9 (5-19); Aspartate Amino Transferase 8 U/L (0-32); Blood Urea Nitrogen 9 mg/dL (8-23); CA 15-3 100.3 U/mL (0-25); Calcium 9.3 mg/dL (8.5-10.5); Carbon Dioxide 28 mmol/L (22-29); Chloride 103 mmol/L (98-107); Glucose 107 mg/dL (65-115); Osmolality Calculated 291 mOsm/kg (285-295); Potassium 3.9 mmol/L (3.5-5.1); Sodium 141 mmol/L (136-145); Total Bilirubin 0.5 mg/dL (0.15-1.2); Total Protein 7.3 g/dL (6.6-8.7)
[2022-12-29] MEDS: denosumab 120 mg SDV SUBCUT (15:16)
[2022-12-29 15:18] VITALS: BP 146/82; PULSE 84; RESP 18; TEMP 36.7; O2SAT 92
[2022-12-30 13:19] LABS: CA 27.29 219 U/mL (<38)
== END 2023-01-03 23:59 | disposition home or self-care (01) ==
PROVIDERS: PCP Internal Medicine; Visit Provider Internal Medicine Medical Oncology
DX: C50.812 Malignant neoplasm of overlapping sites of left female breast (principal); Z17.0 Estrogen receptor positive status [ER+]; J90 Pleural effusion, not elsewhere classified; F17.210 Nicotine dependence, cigarettes, uncomplicated; C77.8 Secondary and unspecified malignant neoplasm of lymph nodes of multiple regions; C78.02 Secondary malignant neoplasm of left lung; C78.01 Secondary malignant neoplasm of right lung; C79.51 Secondary malignant neoplasm of bone; K21.9 Gastro-esophageal reflux disease without esophagitis; K29.70 Gastritis, unspecified, without bleeding; Z79.818 Long term (current) use of other agents affecting estrogen receptors and estrogen levels; Z92.3 Personal history of irradiation; Z79.899 Other long term (current) drug therapy; Z79.811 Long term (current) use of aromatase inhibitors; Z92.21 Personal history of antineoplastic chemotherapy; M47.816 Spondylosis without myelopathy or radiculopathy, lumbar region; R09.89 Other specified symptoms and signs involving the circulatory and respiratory systems; J98.11 Atelectasis; D70.9 Neutropenia, unspecified; R97.8 Other abnormal tumor markers; R11.0 Nausea; Z51.11 Encounter for antineoplastic chemotherapy
CPT/HCPCS: 80053; 85025; 86300; 96372; 99213; J0897

== ENCOUNTER 2023-02-02 11:22 | Oncology outpatient (recurring) (ONCR) | payer MEDICARE, OTHER, SELFPAY ==
[2023-01-09 12:48] LABS: Basophils % 0.5 %; Eosinophils # 0.1 10^3/uL (0.0-0.8); Hematocrit 44.3 % (36-47); Lymphocytes # 1.9 10^3/uL (0.8-4.8); Mean Corpuscular HGB Conc 32.5 g/dL (30-55); Mean Corpuscular Volume 101.4 fl (85-98); Mean Platelet Volume 10.5 fL (7.4-10.4); Monocytes # 0.5 10^3/uL (0.2-0.9); Neutrophils # 3.92 10^3/uL (1.8-7.7); Neutrophils % 60.3 %; Nucleated Red Blood Cells % 0 %; Platelet Count 186 10^3/cmm (157-399); Red Blood Count 4.37 10^6/uL (3.85-5.65); Red Cell Distribution Width 12.6 % (12.1-15.1); White Blood Count 6.49 10^3/uL (3.29-11.43)
[2023-01-09 13:09] LABS: Alanine Aminotransferase < 5 U/L (0-33); Albumin Level 4.3 g/dL (3.5-5.2); Alkaline Phosphatase 57 U/L (35-105); Anion Gap 14.2 (5-19); Aspartate Amino Transferase 9 U/L (0-32); Blood Urea Nitrogen 7 mg/dL (8-23); Carbon Dioxide 30 mmol/L (22-29); Chloride 104 mmol/L (98-107); Globulin 2.9 g/dL (1.3-4.6); Glucose 132 mg/dL (65-115); Osmolality Calculated 298 mOsm/kg (285-295); Potassium 4.2 mmol/L (3.5-5.1); Sodium 144 mmol/L (136-145); Total Bilirubin 0.4 mg/dL (0.15-1.2); Total Protein 7.2 g/dL (6.6-8.7)
[2023-01-09 13:59] LABS: CA 15-3 97.1 U/mL (0-25)
== END 2023-02-02 23:59 | disposition home or self-care (01) ==
PROVIDERS: Internal Medicine Medical Oncology; PCP Internal Medicine; Visit Provider Internal Medicine Medical Oncology
DX: Z53.9 Procedure and treatment not carried out, unspecified reason
CPT/HCPCS: 36415; 80053; 85025; 86300; 99215

== ENCOUNTER 2023-02-06 09:47 | Oncology outpatient (recurring) (ONCR) | payer MEDICARE, OTHER, SELFPAY ==
[2023-02-06 10:01] VITALS: BP 151/78; PULSE 97; RESP 16; TEMP 36.7; O2SAT 90
[2023-02-06 10:13] LABS: Basophils % 0.4 %; Eosinophils # 0.3 10^3/uL (0.0-0.8); Eosinophils % 4.3 %; Hematocrit 44.8 % (36-47); Lymphocytes % 26.1 %; Mean Corpuscular HGB Conc 31.7 g/dL (30-55); Mean Corpuscular Hemoglobin 31.5 pg (27-33); Mean Corpuscular Volume 99.3 fl (85-98); Mean Platelet Volume 10.1 fL (7.4-10.4); Monocytes # 0.5 10^3/uL (0.2-0.9); Neutrophils # 4.63 10^3/uL (1.8-7.7); Neutrophils % 62.1 %; Nucleated Red Blood Cells % 0 %; Platelet Count 196 10^3/cmm (157-399); Red Blood Count 4.51 10^6/uL (3.85-5.65); Red Cell Distribution Width 12.9 % (12.1-15.1); White Blood Count 7.46 10^3/uL (3.29-11.43)
[2023-02-06 10:39] LABS: Alanine Aminotransferase < 5 U/L (0-33); Albumin Level 4.1 g/dL (3.5-5.2); Alkaline Phosphatase 61 U/L (35-105); Anion Gap 15.5 (5-19); Aspartate Amino Transferase 12 U/L (0-32); Blood Urea Nitrogen 12 mg/dL (8-23); CA 15-3 100.3 U/mL (0-25); Calcium 9.4 mg/dL (8.5-10.5); Carbon Dioxide 28 mmol/L (22-29); Chloride 103 mmol/L (98-107); Globulin 3.3 g/dL (1.3-4.6); Glucose 191 mg/dL (65-115); Osmolality Calculated 299 mOsm/kg (285-295); Potassium 4.5 mmol/L (3.5-5.1); Sodium 142 mmol/L (136-145); Total Bilirubin 0.3 mg/dL (0.15-1.2); Total Protein 7.4 g/dL (6.6-8.7)
[2023-02-06] MEDS: denosumab 120 mg SDV SUBCUT (12:54)
== END 2023-03-05 23:59 | disposition home or self-care (01) ==
PROVIDERS: Internal Medicine; PCP Internal Medicine; Visit Provider Internal Medicine Medical Oncology
DX: C50.812 Malignant neoplasm of overlapping sites of left female breast (principal); Z17.0 Estrogen receptor positive status [ER+]; J90 Pleural effusion, not elsewhere classified; F17.210 Nicotine dependence, cigarettes, uncomplicated; C77.8 Secondary and unspecified malignant neoplasm of lymph nodes of multiple regions; C78.02 Secondary malignant neoplasm of left lung; C78.01 Secondary malignant neoplasm of right lung; C79.51 Secondary malignant neoplasm of bone; K21.9 Gastro-esophageal reflux disease without esophagitis; K29.70 Gastritis, unspecified, without bleeding; Z79.818 Long term (current) use of other agents affecting estrogen receptors and estrogen levels; Z92.3 Personal history of irradiation; Z79.899 Other long term (current) drug therapy; Z79.811 Long term (current) use of aromatase inhibitors; Z92.21 Personal history of antineoplastic chemotherapy; M47.816 Spondylosis without myelopathy or radiculopathy, lumbar region; R09.89 Other specified symptoms and signs involving the circulatory and respiratory systems; J98.11 Atelectasis; D70.9 Neutropenia, unspecified; R97.8 Other abnormal tumor markers; R11.0 Nausea
CPT/HCPCS: 36415; 80053; 85025; 86300; 96372; 99215; J0897

== ENCOUNTER 2023-02-14 14:17 | Outpatient (CLI) | payer MEDICARE, OTHER, SELFPAY ==
--- NOTE | 2023-02-14 17:01 | PETR_ITS ---
PROCEDURE INFORMATION: Exam: PET/CT Skull Base to Mid-thigh Exam date and time: 02/14/2023 1:20 PM Age: 82 years old Clinical indication: Condition or disease; Primary cancer: Breast; Follow-up oncological assessment; Additional info: Metastatic breast cancer LABS AND CLINICAL REPORTS: Glucose: 120 mg/dl Treatment strategy for malignancy (PET staging): Restaging (PS) TECHNIQUE: Imaging protocol: Following at least four-hour fasting and following the injection of radiopharmaceutical, low dose CT images were obtained. Then, PET images were obtained. Attenuation corrected images were constructed using the CT scan. Fused images of PET and CT were reviewed. The standardized uptake values (SUV) reported below are maximum values within a region of interest, expressed in gm/ml. Exam includes orbital meatal line to mid-thigh. Radiopharmaceutical: 11.93 mCi F-18 FDG (Fluorodeoxyglucose), IV. Time of imaging post radiopharmaceutical administration: 1 hour Injection site: site [id number] 11/12/2022 11:18 AM FINDINGS: Brain: Visualized brain has normal physiologic uptake. Paranasal sinuses: The right maxillary sinus is nearly completely opacified without significant uptake or containing an air-fluid level. Pharynx: No abnormal uptake. Larynx: No abnormal uptake. Lungs, pleura and trachea: Trace right pleural effusion is decreased. 9 mm nodule in the right lower lobe on series 3, image 95 is unchanged again without uptake on PET. Right lower lobe and inferior right middle lobe atelectasis or scarring is unchanged. Stable 4 mm left upper lobe nodule series 3, image 82 also without uptake. Heart: Normal physiologic uptake. Coronary arteries: Stable coronary artery atherosclerosis. Mediastinal space: No abnormal uptake. Liver: No abnormal uptake. Gallbladder and bile ducts: No abnormal uptake. Pancreas: No abnormal uptake. Spleen: No abnormal uptake. Adrenal glands: No abnormal uptake. Kidneys and ureters: Unchanged right renal cysts. Stomach and bowel: Colonic diverticulosis. Vasculature: Stable atherosclerotic changes of the vasculature. Lymph nodes: The aortopulmonary window lymph node measuring 8 mm short axis on series 3 image 78 is unchanged in size. SUV maximum is 2.4 decreased from previous value of 4.5. Calcified hilar lymph nodes are unchanged. Bones/joints: Innumerable sclerotic osseous metastatic lesions are again present. The majority of these lesions are again not FDG-avid. Lesion in the right aspect of C1 has a SUV maximum of 3.7, previously 3.3. T4 vertebral body lesion SUV max measures 3.2, previously 3.0. T6 vertebral body lesion SUV maximum measures 3.5 previously 3.6. S1 lesion SUV max measures 3.1 unchanged with a prior value. No definite new lesion identified. Soft tissues: Left breast postoperative changes. No abnormal uptake. Other findings: Mediastinal blood pool uptake is SUV maximum of 2.8, previously 2.5. PET[facility] [id number] IMPRESSION: 1. Stable widespread sclerotic osseous metastasis with stable low-level uptake in the index lesions, as described. No new lesion identified. 2. Aortopulmonary window lymph node is stable in size with resolution of uptake since previous, possibly reactive. Recommend continued attention on follow-up. 3. Stable non FDG avid pulmonary nodules.
== END 2023-02-14 14:18 | disposition home or self-care (01) ==
LOC: RAD 14:17
PROVIDERS: PCP Internal Medicine; Visit Provider Internal Medicine Medical Oncology
DX: C50.512 Malignant neoplasm of lower-outer quadrant of left female breast (principal); D05.12 Intraductal carcinoma in situ of left breast; C79.51 Secondary malignant neoplasm of bone
CPT/HCPCS: 78815; A9552

== ENCOUNTER 2023-04-05 13:15 | Oncology outpatient (recurring) (ONCR) | payer MEDICARE, OTHER, SELFPAY ==
[2023-03-08 11:05] VITALS: BP 171/93; PULSE 107; RESP 16; TEMP 36.5; O2SAT 98
[2023-03-08 11:19] LABS: Basophils % 0.6 %; Eosinophils % 0.9 %; Lymphocytes # 1.3 10^3/uL (0.8-4.8); Lymphocytes % 41.1 %; Mean Corpuscular Hemoglobin 32.1 pg (27-33); Mean Corpuscular Volume 97.3 fl (85-98); Mean Platelet Volume 9.7 fL (7.4-10.4); Monocytes # 0.2 10^3/uL (0.2-0.9); Monocytes % 7.2 %; Neutrophils # 1.59 10^3/uL (1.8-7.7); Neutrophils % 49.9 %; Nucleated Red Blood Cells % 0 %; Platelet Count 147 10^3/cmm (157-399); Red Blood Count 4.11 10^6/uL (3.85-5.65); Red Cell Distribution Width 14.7 % (12.1-15.1); White Blood Count 3.19 10^3/uL (3.29-11.43)
[2023-03-08 12:01] LABS: Alanine Aminotransferase < 5 U/L (0-33); Alkaline Phosphatase 52 U/L (35-105); Anion Gap 15.5 (5-19); Aspartate Amino Transferase 7 U/L (0-32); Blood Urea Nitrogen 11 mg/dL (8-23); CA 15-3 100.1 U/mL (0-25); Calcium 8.8 mg/dL (8.5-10.5); Carbon Dioxide 25 mmol/L (22-29); Chloride 103 mmol/L (98-107); Creatinine Clr Calc Pharmacy 50.3596; Globulin 3.3 g/dL (1.3-4.6); Glucose 209 mg/dL (65-115); Osmolality Calculated 296 mOsm/kg (285-295); Potassium 3.5 mmol/L (3.5-5.1); Sodium 140 mmol/L (136-145); Total Bilirubin 0.5 mg/dL (0.15-1.2); Total Protein 7.3 g/dL (6.6-8.7); Vitamin B12 1257 pg/mL (232-1245)
[2023-03-08 12:46] LABS: Folate Level 7.1 ng/mL (4.8-37.3)
[2023-03-08] MEDS: denosumab 120 mg SDV SUBCUT (13:44)
[2023-03-08 14:13] LABS: Urine Appearance Cloudy (CLEAR); Urine Color Yellow (Yellow)
[2023-03-08 14:14] LABS: Add Urine Microscopic? YES; Bilirubin Urine Neg (Negative); Blood Urine Neg (Negative); Glucose Urine UA Norm (Normal); Ketones Urine Negative (Negative); Leukocyte Esterase Urine 2+ (Negative); Nitrate Urine Positive (Negative); Protein Urine Neg (Negative); Specific Gravity, Urine 1.005 (1.005-1.030); Urobilinogen Urine Norm (Negative); pH Urine 6.5 (5-7)
[2023-03-08 14:21] LABS: Bacteria Urine 3+ /hpf; Mucus Urine TRACE /hpf; Squamous Epithelial Cell Urine 0-4 /hpf (0-5); Transitional Epi Cells Urine 0-4 /hpf; WBC Urine >100 /hpf (0-5)
[2023-03-08 14:22] LABS: Add Urine Culture? Yes
[2023-03-11 10:40] LABS: Methylmalonic Acid 118 nmol/L (87-318)
[2023-04-05 13:46] LABS: Basophils % 0.7 %; Eosinophils # 0.1 10^3/uL (0.0-0.8); Eosinophils % 2.5 %; Hematocrit 38.8 % (36-47); Lymphocytes # 1.4 10^3/uL (0.8-4.8); Lymphocytes % 49.5 %; Mean Corpuscular HGB Conc 33.2 g/dL (30-55); Mean Corpuscular Hemoglobin 32.2 pg (27-33); Mean Corpuscular Volume 96.8 fl (85-98); Mean Platelet Volume 9.6 fL (7.4-10.4); Monocytes # 0.2 10^3/uL (0.2-0.9); Monocytes % 6.5 %; Neutrophils # 1.11 10^3/uL (1.8-7.7); Neutrophils % 40.1 %; Nucleated Red Blood Cells % 0 %; Platelet Count 128 10^3/cmm (157-399); Red Blood Count 4.01 10^6/uL (3.85-5.65); Red Cell Distribution Width 16.4 % (12.1-15.1); White Blood Count 2.77 10^3/uL (3.29-11.43)
[2023-04-05 14:05] LABS: Alanine Aminotransferase 6 U/L (0-33); Albumin Level 4.2 g/dL (3.5-5.2); Alkaline Phosphatase 53 U/L (35-105); Anion Gap 16.1 (5-19); Aspartate Amino Transferase 11 U/L (0-32); Blood Urea Nitrogen 13 mg/dL (8-23); Calcium 9.3 mg/dL (8.5-10.5); Carbon Dioxide 28 mmol/L (22-29); Chloride 103 mmol/L (98-107); Creatinine Clr Calc Pharmacy 50.3596; Globulin 3.1 g/dL (1.3-4.6); Glucose 143 mg/dL (65-115); Osmolality Calculated 299 mOsm/kg (285-295); Potassium 4.1 mmol/L (3.5-5.1); Sodium 143 mmol/L (136-145); Total Bilirubin 0.4 mg/dL (0.15-1.2); Total Protein 7.3 g/dL (6.6-8.7)
[2023-04-05 14:27] LABS: Estmated Average Glucose 169; Hemoglobin A1C 7.5 % (4.0-6.0)
[2023-04-05] MEDS: denosumab 120 mg SDV SUBCUT (15:53)
== END 2023-04-05 23:59 | disposition home or self-care (01) ==
PROVIDERS: Internal Medicine; Nurse Practitioner Family; PCP Internal Medicine; Visit Provider Internal Medicine Medical Oncology
DX: Z17.0 Estrogen receptor positive status [ER+] (principal); Z53.9 Procedure and treatment not carried out, unspecified reason; C50.812 Malignant neoplasm of overlapping sites of left female breast; F17.210 Nicotine dependence, cigarettes, uncomplicated; C79.51 Secondary malignant neoplasm of bone; E11.9 Type 2 diabetes mellitus without complications; Z79.818 Long term (current) use of other agents affecting estrogen receptors and estrogen levels; R91.8 Other nonspecific abnormal finding of lung field
CPT/HCPCS: 36415; 80053; 81001; 82607; 82746; 83036; 83921; 85025; 86300; 87077; 87086; 87186; 96372; 99214; J0897

== ENCOUNTER 2023-05-04 11:06 | Oncology outpatient (recurring) (ONCR) | payer MEDICARE, OTHER, SELFPAY ==
[2023-05-04] MEDS: denosumab 120 mg SDV SUBCUT (13:40)
== END 2023-05-04 23:59 | disposition home or self-care (01) ==
PROVIDERS: PCP Internal Medicine; Visit Provider Internal Medicine Medical Oncology
DX: C50.812 Malignant neoplasm of overlapping sites of left female breast (principal); C79.51 Secondary malignant neoplasm of bone; Z79.818 Long term (current) use of other agents affecting estrogen receptors and estrogen levels; Z92.3 Personal history of irradiation; Z79.899 Other long term (current) drug therapy; Z17.0 Estrogen receptor positive status [ER+]; F17.210 Nicotine dependence, cigarettes, uncomplicated; R91.8 Other nonspecific abnormal finding of lung field
CPT/HCPCS: 36415; 80053; 85025; 86300; 96372; 99214; J0897

== ENCOUNTER 2023-06-01 10:34 | Oncology outpatient (recurring) (ONCR) | payer MEDICARE, OTHER, SELFPAY ==
[2023-06-01 10:56] LABS: Basophils % 0.5 %; Eosinophils # 0.1 10^3/uL (0.0-0.8); Eosinophils % 1.4 %; Hematocrit 39.9 % (36-47); Lymphocytes # 1.4 10^3/uL (0.8-4.8); Lymphocytes % 32.3 %; Mean Corpuscular HGB Conc 32.8 g/dL (30-55); Mean Corpuscular Hemoglobin 34.8 pg (27-33); Mean Corpuscular Volume 106.1 fl (85-98); Mean Platelet Volume 10.1 fL (7.4-10.4); Monocytes # 0.2 10^3/uL (0.2-0.9); Monocytes % 3.6 %; Neutrophils # 2.61 10^3/uL (1.8-7.7); Nucleated Red Blood Cells % 0 %; Platelet Count 174 10^3/cmm (157-399); Red Blood Count 3.76 10^6/uL (3.85-5.65); Red Cell Distribution Width 14.5 % (12.1-15.1); White Blood Count 4.21 10^3/uL (3.29-11.43)
[2023-06-01 11:33] LABS: Alanine Aminotransferase < 5 U/L (0-33); Alkaline Phosphatase 54 U/L (35-105); Anion Gap 13.4 (5-19); Aspartate Amino Transferase 15 U/L (0-32); Blood Urea Nitrogen 13 mg/dL (8-23); CA 15-3 105.5 U/mL (0-25); Calcium 8.7 mg/dL (8.5-10.5); Carbon Dioxide 27 mmol/L (22-29); Chloride 105 mmol/L (98-107); Globulin 2.8 g/dL (1.3-4.6); Glucose 213 mg/dL (65-115); Osmolality Calculated 298 mOsm/kg (285-295); Potassium 4.4 mmol/L (3.5-5.1); Sodium 141 mmol/L (136-145); Total Bilirubin 0.3 mg/dL (0.15-1.2); Total Protein 6.8 g/dL (6.6-8.7)
[2023-06-01] MEDS: denosumab 120 mg SDV SUBCUT (12:32)
== END 2023-06-04 23:59 | disposition home or self-care (01) ==
PROVIDERS: Nurse Practitioner Family; PCP Internal Medicine; Visit Provider Internal Medicine Medical Oncology
DX: Z17.0 Estrogen receptor positive status [ER+] (principal); C50.812 Malignant neoplasm of overlapping sites of left female breast; J90 Pleural effusion, not elsewhere classified; C77.8 Secondary and unspecified malignant neoplasm of lymph nodes of multiple regions; C78.02 Secondary malignant neoplasm of left lung; C78.01 Secondary malignant neoplasm of right lung; C79.51 Secondary malignant neoplasm of bone; K21.9 Gastro-esophageal reflux disease without esophagitis; K29.70 Gastritis, unspecified, without bleeding; Z79.818 Long term (current) use of other agents affecting estrogen receptors and estrogen levels; Z92.3 Personal history of irradiation; Z79.899 Other long term (current) drug therapy; F17.210 Nicotine dependence, cigarettes, uncomplicated; Z79.811 Long term (current) use of aromatase inhibitors; Z92.21 Personal history of antineoplastic chemotherapy; M47.816 Spondylosis without myelopathy or radiculopathy, lumbar region; R09.89 Other specified symptoms and signs involving the circulatory and respiratory systems; J98.11 Atelectasis; D70.9 Neutropenia, unspecified; R97.8 Other abnormal tumor markers; R11.0 Nausea
CPT/HCPCS: 36415; 80053; 85025; 86300; 96372; 99214; J0897

== ENCOUNTER 2023-08-03 12:30 | Oncology outpatient (recurring) (ONCR) | payer MEDICARE, OTHER, SELFPAY ==
[2023-07-06 12:26] LABS: Basophils % 0.7 %; Eosinophils % 0.7 %; Lymphocytes # 1.4 10^3/uL (0.8-4.8); Lymphocytes % 48.8 %; Mean Corpuscular HGB Conc 33.4 g/dL (30-55); Mean Corpuscular Hemoglobin 35.9 pg (27-33); Mean Corpuscular Volume 107.3 fl (85-98); Mean Platelet Volume 10.4 fL (7.4-10.4); Monocytes # 0.2 10^3/uL (0.2-0.9); Monocytes % 5.6 %; Neutrophils # 1.26 10^3/uL (1.8-7.7); Neutrophils % 43.9 %; Nucleated Red Blood Cells % 0 %; Platelet Count 160 10^3/cmm (157-399); Red Blood Count 3.54 10^6/uL (3.85-5.65); Red Cell Distribution Width 14.6 % (12.1-15.1); White Blood Count 2.87 10^3/uL (3.29-11.43)
[2023-07-06 13:05] LABS: Alanine Aminotransferase < 5 U/L (0-33); Albumin Level 4.3 g/dL (3.5-5.2); Alkaline Phosphatase 54 U/L (35-105); Anion Gap 11.7 (5-19); Aspartate Amino Transferase 13 U/L (0-32); Blood Urea Nitrogen 10 mg/dL (8-23); CA 15-3 104.4 U/mL (0-25); Calcium 8.1 mg/dL (8.5-10.5); Carbon Dioxide 29 mmol/L (22-29); Chloride 103 mmol/L (98-107); Globulin 3.3 g/dL (1.3-4.6); Glucose 120 mg/dL (65-115); Osmolality Calculated 290 mOsm/kg (285-295); Potassium 3.7 mmol/L (3.5-5.1); Sodium 140 mmol/L (136-145); Total Bilirubin 0.3 mg/dL (0.15-1.2); Total Protein 7.6 g/dL (6.6-8.7); Vitamin B12 1346 pg/mL (232-1245)
[2023-07-06 13:13] LABS: Folate Level 6.4 ng/mL (4.8-37.3)
[2023-07-10 00:50] LABS: Methylmalonic Acid 113 nmol/L (87-318)
[2023-08-03 12:43] LABS: Basophils % 0.6 %; Eosinophils % 1.2 %; Hematocrit 36.9 % (36-47); Lymphocytes # 1.5 10^3/uL (0.8-4.8); Lymphocytes % 46.5 %; Mean Corpuscular HGB Conc 33.3 g/dL (30-55); Mean Corpuscular Hemoglobin 35.8 pg (27-33); Mean Corpuscular Volume 107.3 fl (85-98); Mean Platelet Volume 10.1 fL (7.4-10.4); Monocytes # 0.3 10^3/uL (0.2-0.9); Monocytes % 7.6 %; Neutrophils # 1.43 10^3/uL (1.8-7.7); Neutrophils % 43.8 %; Nucleated Red Blood Cells % 0 %; Platelet Count 146 10^3/cmm (157-399); Red Blood Count 3.44 10^6/uL (3.85-5.65); Red Cell Distribution Width 14.5 % (12.1-15.1); White Blood Count 3.27 10^3/uL (3.29-11.43)
[2023-08-03 12:54] LABS: Alanine Aminotransferase < 5 U/L (0-33); Alkaline Phosphatase 50 U/L (35-105); Anion Gap 13.4 (5-19); Aspartate Amino Transferase 12 U/L (0-32); Blood Urea Nitrogen 12 mg/dL (8-23); Calcium 8.7 mg/dL (8.5-10.5); Carbon Dioxide 30 mmol/L (22-29); Chloride 107 mmol/L (98-107); Creatinine Clr Calc Pharmacy 51.2292; Globulin 3.1 g/dL (1.3-4.6); Glucose 138 mg/dL (65-115); Osmolality Calculated 304 mOsm/kg (285-295); Potassium 4.4 mmol/L (3.5-5.1); Sodium 146 mmol/L (136-145); Total Bilirubin 0.3 mg/dL (0.15-1.2); Total Protein 7.1 g/dL (6.6-8.7)
[2023-08-03 13:36] LABS: CA 15-3 100.4 U/mL (0-25)
[2023-08-03] MEDS: denosumab 120 mg SDV SUBCUT (14:44)
== END 2023-08-04 23:59 | disposition home or self-care (01) ==
PROVIDERS: Internal Medicine; Nurse Practitioner Family; PCP Internal Medicine; Visit Provider Internal Medicine Medical Oncology
DX: C50.812 Malignant neoplasm of overlapping sites of left female breast (principal); C77.8 Secondary and unspecified malignant neoplasm of lymph nodes of multiple regions; C79.51 Secondary malignant neoplasm of bone; Z79.818 Long term (current) use of other agents affecting estrogen receptors and estrogen levels; Z92.3 Personal history of irradiation; Z79.899 Other long term (current) drug therapy; Z17.0 Estrogen receptor positive status [ER+]; Z53.9 Procedure and treatment not carried out, unspecified reason
CPT/HCPCS: 36415; 80053; 82607; 82746; 83921; 85025; 86300; 96372; 99214; J0897

== ENCOUNTER 2023-08-31 08:18 | Oncology outpatient (recurring) (ONCR) | payer MEDICARE, OTHER, SELFPAY ==
[2023-08-31 08:53] LABS: Basophils % 0.7 %; Eosinophils % 0.7 %; Hematocrit 39.5 % (36-47); Lymphocytes % 33.8 %; Mean Corpuscular HGB Conc 33.2 g/dL (30-55); Mean Corpuscular Hemoglobin 35.9 pg (27-33); Mean Corpuscular Volume 108.2 fl (85-98); Mean Platelet Volume 10.1 fL (7.4-10.4); Monocytes # 0.2 10^3/uL (0.2-0.9); Neutrophils # 1.66 10^3/uL (1.8-7.7); Neutrophils % 58.4 %; Nucleated Red Blood Cells % 0 %; Platelet Count 127 10^3/cmm (157-399); Red Blood Count 3.65 10^6/uL (3.85-5.65); Red Cell Distribution Width 14.2 % (12.1-15.1); White Blood Count 2.84 10^3/uL (3.29-11.43)
[2023-08-31 09:11] LABS: Alanine Aminotransferase < 5 U/L (0-33); Alkaline Phosphatase 53 U/L (35-105); Anion Gap 13.7 (5-19); Aspartate Amino Transferase 14 U/L (0-32); Blood Urea Nitrogen 11 mg/dL (8-23); Calcium 8.7 mg/dL (8.5-10.5); Carbon Dioxide 30 mmol/L (22-29); Chloride 104 mmol/L (98-107); Globulin 3.3 g/dL (1.3-4.6); Glucose 141 mg/dL (65-115); Osmolality Calculated 298 mOsm/kg (285-295); Potassium 4.7 mmol/L (3.5-5.1); Sodium 143 mmol/L (136-145); Total Bilirubin 0.5 mg/dL (0.15-1.2); Total Protein 7.3 g/dL (6.6-8.7)
[2023-08-31 09:43] LABS: CA 15-3 104.3 U/mL (0-25)
[2023-08-31] MEDS: denosumab 120 mg SDV SUBCUT (10:19)
== END 2023-09-03 23:59 | disposition home or self-care (01) ==
PROVIDERS: Nurse Practitioner Family; PCP Internal Medicine; Visit Provider Internal Medicine Medical Oncology
DX: C77.1 Secondary and unspecified malignant neoplasm of intrathoracic lymph nodes; C79.51 Secondary malignant neoplasm of bone; Z79.818 Long term (current) use of other agents affecting estrogen receptors and estrogen levels; Z92.3 Personal history of irradiation; Z79.899 Other long term (current) drug therapy; Z79.811 Long term (current) use of aromatase inhibitors; Z92.21 Personal history of antineoplastic chemotherapy; Z85.3 Personal history of malignant neoplasm of breast; R53.83 Other fatigue; D69.6 Thrombocytopenia, unspecified
CPT/HCPCS: 36415; 80053; 85025; 86300; 96372; 99214; J0897

== ENCOUNTER 2023-11-02 14:00 | Oncology outpatient (recurring) (ONCR) | payer MEDICARE, OTHER, SELFPAY ==
[2023-10-05 08:30] LABS: Basophils % 0.6 %; Eosinophils # 0.1 10^3/uL (0.0-0.8); Eosinophils % 1.8 %; Hematocrit 36.7 % (36-47); Lymphocytes # 1.2 10^3/uL (0.8-4.8); Mean Corpuscular HGB Conc 32.4 g/dL (30-55); Mean Corpuscular Hemoglobin 34.8 pg (27-33); Mean Corpuscular Volume 107.3 fl (85-98); Mean Platelet Volume 10.2 fL (7.4-10.4); Monocytes # 0.2 10^3/uL (0.2-0.9); Neutrophils # 1.83 10^3/uL (1.8-7.7); Neutrophils % 55.3 %; Nucleated Red Blood Cells % 0 %; Platelet Count 130 10^3/cmm (157-399); Red Blood Count 3.42 10^6/uL (3.85-5.65); Red Cell Distribution Width 13.1 % (12.1-15.1); White Blood Count 3.31 10^3/uL (3.29-11.43)
[2023-10-05 08:51] LABS: Alanine Aminotransferase < 5 U/L (0-33); Albumin Level 3.9 g/dL (3.5-5.2); Alkaline Phosphatase 49 U/L (35-105); Anion Gap 12.8 (5-19); Aspartate Amino Transferase 8 U/L (0-32); Blood Urea Nitrogen 14 mg/dL (8-23); Calcium 8.3 mg/dL (8.5-10.5); Carbon Dioxide 29 mmol/L (22-29); Chloride 106 mmol/L (98-107); Globulin 3.3 g/dL (1.3-4.6); Glucose 151 mg/dL (65-115); Osmolality Calculated 301 mOsm/kg (285-295); Potassium 3.8 mmol/L (3.5-5.1); Sodium 144 mmol/L (136-145); Total Bilirubin 0.3 mg/dL (0.15-1.2); Total Protein 7.2 g/dL (6.6-8.7)
[2023-10-05] MEDS: denosumab 120 mg SDV SUBCUT (10:33)
[2023-10-05 10:36] LABS: Charge for UA Resulting for Rev
[2023-10-05 10:47] LABS: CA 15-3 100.3 U/mL (0-25)
[2023-10-05 10:53] LABS: Bilirubin Urine Negative (Negative); Blood Urine Negative (Negative); Glucose Urine UA Negative (Normal); Ketones Urine 1+ (Negative); Leukocyte Esterase Urine 3+ (Negative); Nitrate Urine Negative (Negative); Protein Urine 1+ (Negative); Specific Gravity, Urine 1.018 (1.005-1.030); Urine Appearance Cloudy (CLEAR); Urine Color Yellow (Yellow)
[2023-10-05 10:58] LABS: Bacteria Urine 4+ /hpf; RBC Urine 0-2 /hpf (0-2); WBC Urine 21-50 /hpf (0-5)
[2023-10-05 11:04] LABS: Add Urine Culture? Yes
--- NOTE | 2023-10-10 12:30 | PETR_ITS ---
PROCEDURE INFORMATION: Exam: PET/CT Skull Base to Mid-thigh Exam date and time: 10/10/2023 1:18 PM Age: 83 years old Clinical indication: Condition or disease; Follow-up oncological assessment; Condition/disease: Breast cancer; Prior surgery; Surgery date: 6+ months; Additional info: Disease progression, restaging LABS AND CLINICAL REPORTS: Glucose: 104 mg/dl Treatment strategy for malignancy (PET staging): Restaging (PS) TECHNIQUE: Imaging protocol: Following at least four-hour fasting and following the injection of radiopharmaceutical, low dose CT images were obtained. Then, PET images were obtained. Attenuation corrected images were constructed using the CT scan. Fused images of PET and CT were reviewed. The standardized uptake values (SUV) reported below are maximum values within a region of interest, expressed in gm/ml. Exam includes orbital meatal line to mid-thigh. Radiopharmaceutical: 11.19 mCi F-18 FDG (Fluorodeoxyglucose), IV. Time of imaging post radiopharmaceutical administration: 1 hour Injection site: Right antecubital COMPARISON: 1. PT PET skulltothigh SUBSEQ [id number] 02/14/2023 1:20 PM 2. PT PET skull to thigh SUBS [id number] 11/12/2022 11:18 AM FINDINGS: Brain: Visualized brain has normal physiologic uptake. Paranasal sinuses: Completely opacified right maxillary sinus without FDG uptake. Pharynx: No abnormal uptake. Larynx: No abnormal uptake. Lungs, pleura and trachea: No abnormal uptake. Stable small right pleural effusion and right lower lung subsegmental atelectasis versus scarring. Stable non FDG avid 9 mm right lower lobe nodule on axial image 202 of series 202. Stable 4 mm left upper lobe nodule on axial image 224 of series 202 without FDG uptake. Heart: Normal physiologic uptake. Coronary arteries: Moderate coronary artery calcification. Mediastinal space: No abnormal uptake. Liver: No abnormal uptake. Gallbladder and biliary ducts: No abnormal uptake. Pancreas: No abnormal uptake. Spleen: No abnormal uptake. Adrenal glands: No abnormal uptake. Kidneys and ureters: Normal physiologic uptake. Right renal cyst. Stomach and bowel: Diffuse FDG uptake along the colon. Colonic diverticulosis without findings of diverticulitis. Vasculature: No abnormal uptake. Heavy systemic atherosclerotic calcification without aortic aneurysm. Lymph nodes: AP window lymph node measures 11 mm in the short axis and shows FDG uptake with SUV max of 4.2, previously 9 mm in the short axis with SUV max of 2.5. Skeleton: Widespread sclerotic metastases redemonstrated. Multiple areas of increased FDG uptake, index right C1 lateral mass sclerosis shows SUV max of 9.4 on axial image 295 of series 202, previously 3.7 in February 2023. Right T5 vertebral body shows SUV max of 5.7, previously 3.9. Mildly increased FDG uptake at the left T7 vertebral body showing SUV max of 4.8, previously 3.7. T11 vertebral body shows SUV max of 7.4, new. Left L4 vertebral body shows SUV max of 7.1, new. Rightward sacrum shows larger area of FDG uptake with SUV max of 3.8, previously smaller focus showing SUV max of 3.1. Lateral right 6th rib shows SUV max of 5.8, new. Degenerative change along the imaged axial and proximal appendicular skeletal system. Soft tissues: No abnormal uptake in the visualized head, neck, chest, abdomen, pelvis, and extremities. Small fat containing left inguinal hernia. PET/PET skull to thigh SUBS [id number] IMPRESSION: 1. Progression of osseous metastatic disease. 2. Mildly increased AP window lymphadenopathy. 3. Stable non FDG avid pulmonary nodules without new or enlarging nodule. 4. Small right pleural effusion with mild right lower lung subsegmental atelectasis versus scarring. 5. Diffuse FDG uptake along the colon may be physiologic or inflammatory.
[2023-10-18 09:17] LABS: Basophils % 0.9 %; Eosinophils % 0.9 %; Hematocrit 39.1 % (36-47); Lymphocytes # 1.5 10^3/uL (0.8-4.8); Lymphocytes % 33.8 %; Mean Corpuscular HGB Conc 32.7 g/dL (30-55); Mean Corpuscular Hemoglobin 35.1 pg (27-33); Mean Corpuscular Volume 107.1 fl (85-98); Mean Platelet Volume 9.9 fL (7.4-10.4); Monocytes # 0.5 10^3/uL (0.2-0.9); Monocytes % 10.5 %; Neutrophils # 2.35 10^3/uL (1.8-7.7); Neutrophils % 53.7 %; Nucleated Red Blood Cells % 0 %; Platelet Count 218 10^3/cmm (157-399); Red Blood Count 3.65 10^6/uL (3.85-5.65); Red Cell Distribution Width 13.2 % (12.1-15.1); White Blood Count 4.38 10^3/uL (3.29-11.43)
[2023-10-18 09:43] LABS: Alanine Aminotransferase 6 U/L (0-33); Alkaline Phosphatase 59 U/L (35-105); Anion Gap 12.9 (5-19); Aspartate Amino Transferase 11 U/L (0-32); Blood Urea Nitrogen 11 mg/dL (8-23); Calcium 8.6 mg/dL (8.5-10.5); Carbon Dioxide 32 mmol/L (22-29); Chloride 99 mmol/L (98-107); Creatinine Clr Calc Pharmacy 49.2777; Globulin 3.2 g/dL (1.3-4.6); Glucose 171 mg/dL (65-115); Osmolality Calculated 293 mOsm/kg (285-295); Potassium 3.9 mmol/L (3.5-5.1); Sodium 140 mmol/L (136-145); Total Bilirubin 0.5 mg/dL (0.15-1.2); Total Protein 7.2 g/dL (6.6-8.7)
[2023-10-18 10:07] LABS: CA 15-3 117.1 U/mL (0-25)
[2023-10-25 08:17] LABS: Basophils % 0.7 %; Eosinophils # 0.1 10^3/uL (0.0-0.8); Eosinophils % 1.2 %; Hematocrit 43.2 % (36-47); Lymphocytes # 1.6 10^3/uL (0.8-4.8); Lymphocytes % 27.9 %; Mean Corpuscular HGB Conc 32.2 g/dL (30-55); Mean Corpuscular Hemoglobin 34.4 pg (27-33); Mean Corpuscular Volume 106.9 fl (85-98); Mean Platelet Volume 10.4 fL (7.4-10.4); Monocytes # 0.6 10^3/uL (0.2-0.9); Neutrophils # 3.31 10^3/uL (1.8-7.7); Neutrophils % 58.5 %; Nucleated Red Blood Cells % 0 %; Platelet Count 226 10^3/cmm (157-399); Red Blood Count 4.04 10^6/uL (3.85-5.65); Red Cell Distribution Width 12.9 % (12.1-15.1); White Blood Count 5.66 10^3/uL (3.29-11.43)
[2023-10-25 08:43] LABS: Alanine Aminotransferase 9 U/L (0-33); Albumin Level 4.1 g/dL (3.5-5.2); Alkaline Phosphatase 60 U/L (35-105); Anion Gap 13.8 (5-19); Aspartate Amino Transferase 11 U/L (0-32); Blood Urea Nitrogen 11 mg/dL (8-23); Calcium 9.4 mg/dL (8.5-10.5); Carbon Dioxide 32 mmol/L (22-29); Chloride 101 mmol/L (98-107); Creatinine Clr Calc Pharmacy 49.5829; Globulin 3.4 g/dL (1.3-4.6); Glucose 167 mg/dL (65-115); Osmolality Calculated 297 mOsm/kg (285-295); Potassium 4.8 mmol/L (3.5-5.1); Sodium 142 mmol/L (136-145); Total Bilirubin 0.3 mg/dL (0.15-1.2); Total Protein 7.5 g/dL (6.6-8.7)
[2023-10-25 10:35] LABS: Charge for UA Resulting for Rev
[2023-10-25 10:46] LABS: Bilirubin Urine Negative (Negative); Blood Urine Negative (Negative); Glucose Urine UA Negative (Normal); Ketones Urine Negative (Negative); Leukocyte Esterase Urine 2+ (Negative); Nitrate Urine Negative (Negative); Protein Urine Negative (Negative); Specific Gravity, Urine 1.005 (1.005-1.030); Urine Appearance Clear (CLEAR); Urine Color Yellow (Yellow); Urobilinogen Urine 0.2 mg/dL (Negative)
[2023-10-25 10:51] LABS: Bacteria Urine None Seen /hpf; RBC Urine 0-2 /hpf (0-2); Squamous Epithelial Cell Urine 0-5 /hpf (0-5); WBC Urine 0-5 /hpf (0-5)
[2023-11-02 14:04] LABS: Basophils # 0.1 10^3/uL (0.0-0.1); Basophils % 0.5 %; Eosinophils # 0.1 10^3/uL (0.0-0.8); Eosinophils % 1.5 %; Lymphocytes # 2.2 10^3/uL (0.8-4.8); Lymphocytes % 24.1 %; Mean Corpuscular HGB Conc 32.3 g/dL (30-55); Mean Corpuscular Hemoglobin 34.4 pg (27-33); Mean Corpuscular Volume 106.6 fl (85-98); Mean Platelet Volume 10.6 fL (7.4-10.4); Monocytes # 0.7 10^3/uL (0.2-0.9); Monocytes % 7.7 %; Neutrophils # 6.04 10^3/uL (1.8-7.7); Nucleated Red Blood Cells % 0 %; Platelet Count 238 10^3/cmm (157-399); Red Blood Count 3.66 10^6/uL (3.85-5.65); Red Cell Distribution Width 12.9 % (12.1-15.1); White Blood Count 9.17 10^3/uL (3.29-11.43)
[2023-11-02 14:20] LABS: Alanine Aminotransferase 7 U/L (0-33); Albumin Level 3.8 g/dL (3.5-5.2); Alkaline Phosphatase 59 U/L (35-105); Aspartate Amino Transferase 11 U/L (0-32); Blood Urea Nitrogen 10 mg/dL (8-23); Calcium 8.5 mg/dL (8.5-10.5); Carbon Dioxide 25 mmol/L (22-29); Chloride 102 mmol/L (98-107); Creatinine Clr Calc Pharmacy 49.5829; Glucose 206 mg/dL (65-115); Osmolality Calculated 295 mOsm/kg (285-295); Sodium 140 mmol/L (136-145); Total Bilirubin 0.2 mg/dL (0.15-1.2); Total Protein 6.8 g/dL (6.6-8.7)
[2023-11-02 14:24] LABS: Anion Gap 17.3 (5-19); Potassium 4.3 mmol/L (3.5-5.1)
[2023-11-02] MEDS: denosumab 120 mg SDV SUBCUT (15:53)
== END 2023-11-04 23:59 | disposition home or self-care (01) ==
PROVIDERS: Internal Medicine Medical Oncology; Nurse Practitioner Family; PCP Internal Medicine; Visit Provider Nurse Practitioner Family
DX: C50.812 Malignant neoplasm of overlapping sites of left female breast (principal); Z53.9 Procedure and treatment not carried out, unspecified reason; R82.90 Unspecified abnormal findings in urine; C79.51 Secondary malignant neoplasm of bone; Z79.899 Other long term (current) drug therapy
CPT/HCPCS: 36415; 71100; 78815; 80053; 81003; 81015; 85025; 86300; 87086; 96372; 96377; 99214; 99215; A9552; J0897

== ENCOUNTER 2023-11-30 08:15 | Oncology outpatient (recurring) (ONCR) | payer MEDICARE, OTHER, SELFPAY ==
[2023-11-16 08:16] LABS: Basophils % 0.5 %; Eosinophils # 0.2 10^3/uL (0.0-0.8); Eosinophils % 2.5 %; Hematocrit 42.8 % (36-47); Mean Corpuscular Hemoglobin 34.3 pg (27-33); Mean Platelet Volume 10.3 fL (7.4-10.4); Monocytes # 0.6 10^3/uL (0.2-0.9); Monocytes % 7.6 %; Neutrophils # 4.45 10^3/uL (1.8-7.7); Neutrophils % 61.1 %; Nucleated Red Blood Cells % 0 %; Platelet Count 182 10^3/cmm (157-399); Red Cell Distribution Width 13.9 % (12.1-15.1); White Blood Count 7.28 10^3/uL (3.29-11.43)
[2023-11-16 08:36] LABS: Alanine Aminotransferase < 5 U/L (0-33); Albumin Level 4.1 g/dL (3.5-5.2); Alkaline Phosphatase 50 U/L (35-105); Anion Gap 14.3 (5-19); Aspartate Amino Transferase 13 U/L (0-32); Blood Urea Nitrogen 16 mg/dL (8-23); Calcium 9.2 mg/dL (8.5-10.5); Carbon Dioxide 28 mmol/L (22-29); Chloride 102 mmol/L (98-107); Glucose 190 mg/dL (65-115); Osmolality Calculated 296 mOsm/kg (285-295); Potassium 4.3 mmol/L (3.5-5.1); Sodium 140 mmol/L (136-145); Total Bilirubin 0.6 mg/dL (0.15-1.2); Total Protein 7.1 g/dL (6.6-8.7)
[2023-11-16 09:31] LABS: CA 15-3 115.4 U/mL (0-25)
[2023-11-16 13:01] LABS: Estmated Average Glucose 160; Hemoglobin A1C 7.2 % (4.0-6.0)
[2023-11-30 08:09] LABS: Basophils % 0.6 %; Eosinophils # 0.1 10^3/uL (0.0-0.8); Hematocrit 43.9 % (36-47); Lymphocytes # 1.9 10^3/uL (0.8-4.8); Lymphocytes % 29.6 %; Mean Corpuscular HGB Conc 32.6 g/dL (30-55); Mean Corpuscular Volume 104.5 fl (85-98); Mean Platelet Volume 10.5 fL (7.4-10.4); Monocytes # 0.6 10^3/uL (0.2-0.9); Monocytes % 8.5 %; Neutrophils # 3.82 10^3/uL (1.8-7.7); Nucleated Red Blood Cells % 0 %; Platelet Count 159 10^3/cmm (157-399); Red Cell Distribution Width 14.3 % (12.1-15.1); White Blood Count 6.48 10^3/uL (3.29-11.43)
[2023-11-30 08:31] LABS: Alanine Aminotransferase < 5 U/L (0-33); Albumin Level 4.3 g/dL (3.5-5.2); Alkaline Phosphatase 53 U/L (35-105); Anion Gap 14.6 (5-19); Aspartate Amino Transferase 13 U/L (0-32); Blood Urea Nitrogen 13 mg/dL (8-23); Calcium 9.2 mg/dL (8.5-10.5); Carbon Dioxide 31 mmol/L (22-29); Chloride 102 mmol/L (98-107); Creatinine Clr Calc Pharmacy 49.4304; Globulin 3.1 g/dL (1.3-4.6); Glucose 170 mg/dL (65-115); Osmolality Calculated 300 mOsm/kg (285-295); Potassium 4.6 mmol/L (3.5-5.1); Sodium 143 mmol/L (136-145); Total Bilirubin 0.6 mg/dL (0.15-1.2); Total Protein 7.4 g/dL (6.6-8.7)
[2023-11-30] MEDS: denosumab 120 mg SDV SUBCUT (09:55)
[2023-11-30 10:45] LABS: CA 15-3 117.3 U/mL (0-25)
== END 2023-12-04 23:59 | disposition home or self-care (01) ==
PROVIDERS: Internal Medicine Medical Oncology; Nurse Practitioner Family; PCP Internal Medicine; Visit Provider Nurse Practitioner Family
DX: Z53.9 Procedure and treatment not carried out, unspecified reason (principal); C50.812 Malignant neoplasm of overlapping sites of left female breast; R73.9 Hyperglycemia, unspecified; C79.51 Secondary malignant neoplasm of bone; Z79.899 Other long term (current) drug therapy
CPT/HCPCS: 36415; 80053; 83036; 85025; 86300; 96372; 99214; J0897

== ENCOUNTER 2023-12-28 08:00 | Oncology outpatient (recurring) (ONCR) | payer MEDICARE, OTHER, SELFPAY ==
[2023-12-14 09:47] LABS: Basophils % 0.4 %; Eosinophils # 0.1 10^3/uL (0.0-0.8); Eosinophils % 1.4 %; Hematocrit 43.6 % (36-47); Lymphocytes # 1.5 10^3/uL (0.8-4.8); Lymphocytes % 25.8 %; Mean Corpuscular HGB Conc 31.9 g/dL (30-55); Mean Corpuscular Hemoglobin 33.9 pg (27-33); Mean Corpuscular Volume 106.3 fl (85-98); Mean Platelet Volume 10.1 fL (7.4-10.4); Monocytes # 0.4 10^3/uL (0.2-0.9); Monocytes % 7.1 %; Neutrophils # 3.66 10^3/uL (1.8-7.7); Neutrophils % 65.1 %; Nucleated Red Blood Cells % 0 %; Platelet Count 163 10^3/cmm (157-399); Red Cell Distribution Width 14.6 % (12.1-15.1); White Blood Count 5.62 10^3/uL (3.29-11.43)
[2023-12-14 10:09] LABS: Alanine Aminotransferase 7 U/L (0-33); Alkaline Phosphatase 52 U/L (35-105); Anion Gap 9.5 (5-19); Aspartate Amino Transferase 11 U/L (0-32); Blood Urea Nitrogen 11 mg/dL (8-23); Calcium 8.9 mg/dL (8.5-10.5); Carbon Dioxide 33 mmol/L (22-29); Chloride 102 mmol/L (98-107); Globulin 3.1 g/dL (1.3-4.6); Glucose 120 mg/dL (65-115); Osmolality Calculated 291 mOsm/kg (285-295); Potassium 4.5 mmol/L (3.5-5.1); Sodium 140 mmol/L (136-145); Total Bilirubin 0.4 mg/dL (0.15-1.2); Total Protein 7.1 g/dL (6.6-8.7)
[2023-12-28 08:19] LABS: Basophils % 0.3 %; Eosinophils # 0.1 10^3/uL (0.0-0.8); Eosinophils % 1.7 %; Hematocrit 44.4 % (36-47); Lymphocytes # 2.1 10^3/uL (0.8-4.8); Lymphocytes % 31.1 %; Mean Corpuscular HGB Conc 32.7 g/dL (30-55); Mean Corpuscular Hemoglobin 34.4 pg (27-33); Mean Corpuscular Volume 105.5 fl (85-98); Mean Platelet Volume 10.3 fL (7.4-10.4); Monocytes # 0.7 10^3/uL (0.2-0.9); Monocytes % 9.8 %; Neutrophils # 3.76 10^3/uL (1.8-7.7); Neutrophils % 56.8 %; Nucleated Red Blood Cells % 0 %; Platelet Count 159 10^3/cmm (157-399); Red Blood Count 4.21 10^6/uL (3.85-5.65); Red Cell Distribution Width 15.3 % (12.1-15.1); White Blood Count 6.62 10^3/uL (3.29-11.43)
[2023-12-28 08:52] LABS: Alanine Aminotransferase 8 U/L (0-33); Albumin Level 4.3 g/dL (3.5-5.2); Alkaline Phosphatase 55 U/L (35-105); Anion Gap 13.5 (5-19); Aspartate Amino Transferase 13 U/L (0-32); Blood Urea Nitrogen 13 mg/dL (8-23); CA 15-3 152.2 U/mL (0-25); Calcium 9.1 mg/dL (8.5-10.5); Carbon Dioxide 30 mmol/L (22-29); Chloride 101 mmol/L (98-107); Creatinine Clr Calc Pharmacy 44.3449; Globulin 2.9 g/dL (1.3-4.6); Glucose 116 mg/dL (65-115); Osmolality Calculated 291 mOsm/kg (285-295); Potassium 4.5 mmol/L (3.5-5.1); Sodium 140 mmol/L (136-145); Total Bilirubin 0.4 mg/dL (0.15-1.2); Total Protein 7.2 g/dL (6.6-8.7)
[2023-12-28] MEDS: denosumab 120 mg SDV SUBCUT (09:39)
== END 2024-01-04 23:59 | disposition home or self-care (01) ==
PROVIDERS: Nurse Practitioner Family; PCP Internal Medicine; Visit Provider Nurse Practitioner Family
DX: Z53.9 Procedure and treatment not carried out, unspecified reason (principal); C50.812 Malignant neoplasm of overlapping sites of left female breast; Z79.899 Other long term (current) drug therapy
CPT/HCPCS: 36415; 80053; 85025; 86300; 96372; 99214; J0897

== ENCOUNTER 2024-01-11 11:00 | Oncology outpatient (recurring) (ONCR) | payer MEDICARE, OTHER, SELFPAY ==
[2024-01-11 11:18] LABS: Basophils % 0.4 %; Eosinophils # 0.1 10^3/uL (0.0-0.8); Eosinophils % 0.9 %; Hematocrit 44.5 % (36-47); Lymphocytes # 2.1 10^3/uL (0.8-4.8); Mean Corpuscular HGB Conc 32.6 g/dL (30-55); Mean Corpuscular Hemoglobin 34.3 pg (27-33); Mean Corpuscular Volume 105.2 fl (85-98); Mean Platelet Volume 9.9 fL (7.4-10.4); Monocytes # 0.6 10^3/uL (0.2-0.9); Monocytes % 7.5 %; Neutrophils # 4.79 10^3/uL (1.8-7.7); Neutrophils % 62.8 %; Nucleated Red Blood Cells % 0 %; Platelet Count 156 10^3/cmm (157-399); Red Blood Count 4.23 10^6/uL (3.85-5.65); Red Cell Distribution Width 15.7 % (12.1-15.1); White Blood Count 7.62 10^3/uL (3.29-11.43)
[2024-01-11 11:58] LABS: Alanine Aminotransferase 7 U/L (0-33); Albumin Level 4.3 g/dL (3.5-5.2); Alkaline Phosphatase 59 U/L (35-105); Anion Gap 12.4 (5-19); Aspartate Amino Transferase 10 U/L (0-32); Blood Urea Nitrogen 13 mg/dL (8-23); CA 15-3 177.3 U/mL (0-25); Calcium 9.1 mg/dL (8.5-10.5); Carbon Dioxide 32 mmol/L (22-29); Chloride 101 mmol/L (98-107); Globulin 2.2 g/dL (1.3-4.6); Glucose 131 mg/dL (65-115); Osmolality Calculated 294 mOsm/kg (285-295); Potassium 4.4 mmol/L (3.5-5.1); Sodium 141 mmol/L (136-145); Total Bilirubin 0.5 mg/dL (0.15-1.2); Total Protein 6.5 g/dL (6.6-8.7)
== END 2024-02-03 23:59 | disposition home or self-care (01) ==
PROVIDERS: Nurse Practitioner Family; PCP Internal Medicine; Visit Provider Internal Medicine
DX: C50.812 Malignant neoplasm of overlapping sites of left female breast (principal); Z87.891 Personal history of nicotine dependence; Z17.0 Estrogen receptor positive status [ER+]; Z79.51 Long term (current) use of inhaled steroids; C78.00 Secondary malignant neoplasm of unspecified lung; C79.51 Secondary malignant neoplasm of bone; Z92.3 Personal history of irradiation; Z79.811 Long term (current) use of aromatase inhibitors
CPT/HCPCS: 36415; 80053; 85025; 86300; 99213

== ENCOUNTER 2024-02-16 13:54 | Oncology outpatient (recurring) (ONCR) | payer MEDICARE, OTHER, SELFPAY ==
[2024-02-08 09:26] LABS: Basophils % 0.2 %; Eosinophils # 0.1 10^3/uL (0.0-0.8); Eosinophils % 0.9 %; Hematocrit 46.3 % (36-47); Lymphocytes # 2.2 10^3/uL (0.8-4.8); Lymphocytes % 22.5 %; Mean Corpuscular Hemoglobin 33.9 pg (27-33); Mean Corpuscular Volume 106.2 fl (85-98); Mean Platelet Volume 10.4 fL (7.4-10.4); Monocytes # 0.8 10^3/uL (0.2-0.9); Monocytes % 7.8 %; Neutrophils # 6.73 10^3/uL (1.8-7.7); Neutrophils % 68.4 %; Nucleated Red Blood Cells % 0 %; Platelet Count 149 10^3/cmm (157-399); Red Blood Count 4.36 10^6/uL (3.85-5.65); White Blood Count 9.84 10^3/uL (3.29-11.43)
[2024-02-08 09:49] LABS: Alanine Aminotransferase < 5 U/L (0-33); Alkaline Phosphatase 59 U/L (35-105); Anion Gap 11.5 (5-19); Aspartate Amino Transferase 10 U/L (0-32); Blood Urea Nitrogen 11 mg/dL (8-23); CA 15-3 196.5 U/mL (0-25); Calcium 9.5 mg/dL (8.5-10.5); Carbon Dioxide 32 mmol/L (22-29); Chloride 101 mmol/L (98-107); Globulin 3.2 g/dL (1.3-4.6); Glucose 166 mg/dL (65-115); Lactate Dehydrogenase 144 U/L (135-214); Osmolality Calculated 293 mOsm/kg (285-295); Potassium 4.5 mmol/L (3.5-5.1); Sodium 140 mmol/L (136-145); Total Bilirubin 0.5 mg/dL (0.15-1.2); Total Protein 7.2 g/dL (6.6-8.7)
[2024-02-08] MEDS: denosumab 120 mg SDV SUBCUT (11:00)
--- NOTE | 2024-02-16 14:00 | PETR_ITS ---
PROCEDURE INFORMATION: Exam: PET/CT Skull Base to Mid-thigh Exam date and time: 02/16/2024 3:07 PM Age: 83 years old Clinical indication: Condition or disease; Primary cancer: Lung cancer shakeel; Follow-up oncological assessment; Prior surgery; Surgery date: 6+ months; Surgery type: Breast; Additional info: Restaging LABS AND CLINICAL REPORTS: Glucose: 133 mg/dl Treatment strategy for malignancy (PET staging): Restaging (PS) TECHNIQUE: Imaging protocol: Following at least four-hour fasting and following the injection of radiopharmaceutical, low dose CT images were obtained. Then, PET images were obtained. Attenuation corrected images were constructed using the CT scan. Fused images of PET and CT were reviewed. The standardized uptake values (SUV) reported below are maximum values within a region of interest, expressed in gm/ml. Exam includes orbital meatal line to mid-thigh. SUV normalization method: BodyWeight Radiopharmaceutical: 11.65 mCi F-18 FDG (Fluorodeoxyglucose), IV. Time of imaging post radiopharmaceutical administration: 47 minutes Injection site: right ac COMPARISON: PT PET skull to thigh SUBS [id number] 10/10/2023 1:18 PM FINDINGS: Brain: Visualized brain has normal physiologic uptake. Paranasal sinuses: Completely opacified right maxillary sinus without FDG uptake, stable. Pharynx: No abnormal uptake. Larynx: No abnormal uptake. Lungs, pleura and trachea: No abnormal uptake. Mild upper lung predominant emphysematous change. Decreased mild right basilar subsegmental atelectasis versus scarring. Stable non FDG avid 9 mm right lower lobe nodule on axial image 121. Stable non FDG avid 4 mm left upper lobe nodule on axial image 100. Heart: Normal physiologic uptake. Coronary arteries: Moderate coronary artery calcification. Mediastinal space: No abnormal uptake. Liver: No abnormal uptake. Gallbladder and biliary ducts: No abnormal uptake. Pancreas: No abnormal uptake. Spleen: No abnormal uptake. Adrenal glands: No abnormal uptake. Kidneys and ureters: Normal physiologic uptake. Right renal cyst. Stomach and bowel: No abnormal uptake. Colonic diverticulosis without findings of diverticulitis. Vasculature: No abnormal uptake. Heavy systemic atherosclerotic calcification without aortic aneurysm. Lymph nodes: No abnormal uptake. No lymphadenopathy in the head, neck, chest, abdomen, pelvis, and extremities. Resolved AP window lymphadenopathy without discretely measurable node. Skeleton: Widespread sclerotic metastases redemonstrated. Multiple areas of increased FDG uptake, index right C1 lateral mass sclerosis shows SUV max of 8.8 on axial image 31, previously 9.4. Right T5 vertebral body shows SUV max of 10.0, previously 5.7. FDG uptake at the T7 vertebral body shows SUV max of 3.9, previously 4.8. T11 vertebral body shows SUV max of 6.1, previously 7.4. Left L4 vertebral body shows SUV max of 5.3, previously 7.1. Rightward sacrum shows mildly larger area of FDG uptake with SUV max of 3.9, previously smaller focus showing SUV max of 3.8. Lateral right 6th rib shows SUV max of 5.3, previously 5.8. Sternal FDG uptake shows SUV max 6.1 on axial image 102, previously 2.6 Multiple non FDG avid sclerotic lesions throughout the imaged skeletal system compatible with treated metastases. Degenerative change along the imaged axial and proximal appendicular skeletal system. Soft tissues: No abnormal uptake in the visualized head, neck, chest, abdomen, pelvis, and extremities. Small fat containing left inguinal hernia. METRICS: Mediastinal blood pool: SUV mean 2.3 Liver uptake: SUV mean 2.6 PET/PET skull to thigh SUBS [id number] IMPRESSION: 1. Progression of some osseous metastatic lesions most notably involving the right T5 vertebral body and sternum. Multiple additional metastatic lesions shows similar to mildly decreased FDG uptake. 2. Resolved AP window lymphadenopathy. 3. Stable non FDG avid pulmonary nodules without new or enlarging nodule. 4. Additional chronic and incidental findings as above.
== END 2024-03-05 23:59 | disposition home or self-care (01) ==
LOC: RAD 13:54 → ONCMED 02-19 09:39
PROVIDERS: Internal Medicine; PCP Internal Medicine; Visit Provider Nurse Practitioner Family
DX: C34.12 Malignant neoplasm of upper lobe, left bronchus or lung; C79.9 Secondary malignant neoplasm of unspecified site
CPT/HCPCS: 36415; 78815; 80053; 83615; 85025; 86300; 96372; 99214; A9552; J0897

== ENCOUNTER 2024-03-27 13:30 | Oncology outpatient (recurring) (ONCR) | payer MEDICARE, OTHER, SELFPAY ==
[2024-03-07 09:32] LABS: Basophils % 0.4 %; Eosinophils # 0.1 10^3/uL (0.0-0.8); Eosinophils % 2.1 %; Hematocrit 47.9 % (36-47); Lymphocytes # 1.7 10^3/uL (0.8-4.8); Lymphocytes % 31.2 %; Mean Corpuscular HGB Conc 32.8 g/dL (30-55); Mean Corpuscular Hemoglobin 33.9 pg (27-33); Mean Corpuscular Volume 103.5 fl (85-98); Mean Platelet Volume 10.4 fL (7.4-10.4); Monocytes # 0.4 10^3/uL (0.2-0.9); Monocytes % 6.8 %; Neutrophils # 3.13 10^3/uL (1.8-7.7); Neutrophils % 59.1 %; Nucleated Red Blood Cells % 0 %; Platelet Count 173 10^3/cmm (157-399); Red Blood Count 4.63 10^6/uL (3.85-5.65); Red Cell Distribution Width 15.2 % (12.1-15.1); White Blood Count 5.29 10^3/uL (3.29-11.43)
[2024-03-07 09:51] LABS: Alanine Aminotransferase 7 U/L (0-33); Albumin Level 4.1 g/dL (3.5-5.2); Alkaline Phosphatase 58 U/L (35-105); Anion Gap 14.3 (5-19); Aspartate Amino Transferase 11 U/L (0-32); Blood Urea Nitrogen 10 mg/dL (8-23); Calcium 9.4 mg/dL (8.5-10.5); Carbon Dioxide 30 mmol/L (22-29); Chloride 101 mmol/L (98-107); Globulin 3.1 g/dL (1.3-4.6); Glucose 142 mg/dL (65-115); Lactate Dehydrogenase 153 U/L (135-214); Osmolality Calculated 293 mOsm/kg (285-295); Potassium 4.3 mmol/L (3.5-5.1); Sodium 141 mmol/L (136-145); Total Bilirubin 0.3 mg/dL (0.15-1.2); Total Protein 7.2 g/dL (6.6-8.7)
--- NOTE | 2024-03-07 10:02 | ONCRAD EPV_ITS ---
Radiation Oncology Established Patient Visit Patient: Samia Newberry [id number] : 1940 Age: 83 Sex: Female Dictated by: Dr. Sharita Hernandez Date of Service: 03/07/2024 Referring Physician(s) : Dr. Paul Day Diagnosis: C79.51 - Secondary malignant neoplasm of bone, Diagnosed 09/27/2021 (Active) Z17.0 - Estrogen receptor positive status [ER+], Diagnosed 06/08/2015 (Active) C50.512 - Malignant neoplasm of lower-outer quadrant of left female breast, Diagnosed 05/21/2015 (Active) Stage IIIA, T2, pN2, M0, G2 Radiotherapy to Date: Course: C1, Treatment Site: LT BREAST BST, Ref. ID: LT BREAST BOOST, Energy: 6X, Dose/Fx (cGy): 200, #Fx: 5 / 5, Dose Correction (cGy): 0, Total Dose Delivered (cGy): 1,000, Start Date: 12/01/2015, End Date: 12/07/2015, Elapsed Days: 6 Course: C1, Treatment Site: LT PAB, Ref. ID: LT PAB, Energy: 15X, Dose/Fx (cGy): 25.2, #Fx: 28 / 28, Dose Correction (cGy): 0, Total Dose Delivered (cGy): 705.6, Start Date: 10/21/2015, End Date: 11/30/2015, Elapsed Days: 40 Course: C1, Treatment Site: LT SCLAV, Ref. ID: LT SCLAV PTV50.4, Energy: 15X, Dose/Fx (cGy): 180, #Fx: 28 / 28, Dose Correction (cGy): 0, Total Dose Delivered (cGy): 5,040, Start Date: 10/21/2015, End Date: 11/30/2015, Elapsed Days: 40 Course: C1, Treatment Site: LT BREAST, Ref. ID: [id number] [id number], Energy: 15X/6X, Dose/Fx (cGy): 180, #Fx: 28 / 28, Dose Correction (cGy): 0, Total Dose Delivered (cGy): 5,040, Start Date: 10/21/2015, End Date: 11/30/2015, Elapsed Days: 40 Course: RT Ribs, Treatment Site: RT Ribs, Ref. ID: [id number], Energy: 6X, Dose/Fx (cGy): 300, #Fx: , Dose Correction (cGy): 0, Total Dose Delivered (cGy): 3,000, Start Date: 09/29/2021, End Date: 10/12/2021, Elapsed Days: 13 Current History: Patient has been undergoing treatment with capecitabine and had a serial PET scan done. The results of this showed that there was progression of the T5 vertebrae involvement with an SUV that went from 5.7 up to 10. The additional disease was fairly stable. Patient is or was thought to be asymptomatic. She is here today to discuss the results of the PET scan to decide whether we need to proceed with treatment. She does have a unique way of stating her symptoms and that she calls the area between her shoulder blades and ache. She says is present most days. She does not really cause pain at this point. Current Medications: Acetaminophen, glipiZIDE, klor-Con 10, lasix, levothyroxine Sodium, levothyroxine Sodium, lisinopril, medrol, omeprazole, ondansetron HCl, raNITidine HCl. Allergies: No Known Allergies Current Complaints / Review of Systems: . Vital Signs: Performed on 03/07/2024 8:33 AM BMI - 25.113 kg/m2 (high), Height - 64.5 in, Weight - 148.6 lbs, Temperature - 97.3 f, Pulse - 97 /min, Respiration - 18 /min, O2 Sat - 93 % (low), Pain - 0, Fatigue - 0 and BP - 172/ 94 mm(hg)(high). Physical Exam: General: Alert and oriented x 3. No acute distress. HEENT: Normocephalic atraumatic. Pupils equal, sclera clear, extraocular muscles intact LUNGS: Respiratory rate is regular nonlabored. HEART: Regular rate and rhythm ABDOMEN: Abdomen is moderately protuberant and android pattern EXTREMITIES: No peripheral edema is identified NEUROLOGIC alert and orient x 3. Gait is wide-based and shuffling. Speech is intact. Performance Status: 80 Lab: None pending. 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 Imaging: See HPI Impression: Stage IV breast cancer now with progression of a T5 lesion by PET scan Plan: I reviewed with her the findings on the PET scan. We talked about how the uptake had increased. We reviewed her previous treatments. She is familiar with radiation from the treatments to her breast as well as to some ribs when she first developed metastatic disease. We discussed the risks and side effects of treatment to the area of the T5 vertebrae. We reviewed the simulation process. I offered to her at this point that we could monitor the area and if she began to have increasing symptoms we could proceed with treatment. After some discussion however she decided she wanted to go through treatment now. I suspect the aches that she has is more of a pain for most people. At this point we will get her set up for simulation and get her treatment started subsequently thereafter. Signed by: 03/07/2024 9:59:54 AM <<Signature on File>> Time spent on patient:45 CPT Code: CPT Code:
[2024-03-07 10:29] LABS: CA 15-3 198.4 U/mL (0-25)
[2024-03-07] MEDS: denosumab 120 mg SDV SUBCUT (11:55)
--- NOTE | 2024-03-19 13:45 | ONCRAD TMN_ITS ---
Radiation Oncology Weekly Treatment Management Patient: Samia Newberry MR#: [id number] : 1940 Attending Physician: Dr. Sharita Hernandez Date of Service: 03/19/2024 Fractions: 2 out of 10 Referring Physician(s) : Dr. Paul Day Diagnosis: C79.51 - Secondary malignant neoplasm of bone, Diagnosed 09/27/2021 (Active) Z17.0 - Estrogen receptor positive status [ER+], Diagnosed 06/08/2015 (Active) C50.512 - Malignant neoplasm of lower-outer quadrant of left female breast, Diagnosed 05/21/2015 (Active) Stage IIIA, T2, pN2, M0, G2 Radiotherapy to date: Course: T4-T6, Treatment Site: [id number], Ref. ID: [id number], Energy: 15X, Dose/Fx (cGy): 300, #Fx: 2 / 10, Dose Correction (cGy): 0, Total Dose Delivered (cGy): 600, Start Date: 03/18/2024, Elapsed Days: 1 Reason for visit: The patient is being seen today as part of their regularly scheduled weekly on treatment visits to assess for acute toxicities from radiotherapy. Review of Systems: Patient has noticed that her low back is gotten a little itchy. Vital Signs: Performed on 03/19/2024 1:27 PM BMI - 25.08 kg/m2 (high), Height - 64.5 in, Weight - 148.4 lbs, Temperature - 97.0 f, Pulse - 97 /min, Respiration - 18 /min, O2 Sat - 94 % (low), Pain - 0, Fatigue - 0 and BP - 173/ 65 mm(hg)(high/). Physical Exam: On exam she does not have any rash present Imaging: Radiation therapy imaging related to accurate target localization (i.e. KV, MV and CBCT) was reviewed. Appropriate changes, if any, were made to ensure treatment accuracy. Plan: I have asked her to go ahead and use some cream on the area as it may just be dry skin. Will otherwise continue with her treatments as planned Signed by: Dr. Sharita Hernandez 03/19/2024 1:44:17 PM
--- NOTE | 2024-03-26 13:57 | ONCRAD TMN_ITS ---
Radiation Oncology Weekly Treatment Management Patient: Rohith Gracia> MR#: [id number] : 1940> Attending Physician: Dr. Sharita Hernandez Date of Service: 03/26/2024 Fractions: 7 out of 10 Referring Physician(s) : Dr. Paul Day Diagnosis: C79.51 - Secondary malignant neoplasm of bone, Diagnosed 09/27/2021 (Active) Z17.0 - Estrogen receptor positive status [ER+], Diagnosed 06/08/2015 (Active) C50.512 - Malignant neoplasm of lower-outer quadrant of left female breast, Diagnosed 05/21/2015 (Active) Stage IIIA, T2, pN2, M0, G2 Radiotherapy to date: Course: T4-T6, Treatment Site: [id number], Ref. ID: [id number], Energy: 15X, Dose/Fx (cGy): 300, #Fx: 10, Dose Correction (cGy): 0, Total Dose Delivered (cGy): 2,100, Start Date: 03/18/2024, Elapsed Days: 8 Reason for visit: The patient is being seen today as part of their regularly scheduled weekly on treatment visits to assess for acute toxicities from radiotherapy. Review of Systems: Patient had no complaints today. We noticed however a rash across her right breast Vital Signs: Performed on 03/26/2024 1:51 PM BMI - 24.877 kg/m2 (high), Height - 64.5 in, Weight - 147.2 lbs, Temperature - 96.1 f, Pulse - 102 /min (high), Respiration - 18 /min, O2 Sat - 91 % (low), Pain - 0, Fatigue - 0 and BP - 173/ 73 mm(hg)(high/). Physical Exam: On exam the skin across the thorax in the posterior region is mildly erythematous. She does have a fine green raised rash across the right breast. It is mildly erythematous. Imaging: Radiation therapy imaging related to accurate target localization (i.e. KV, MV and CBCT) was reviewed. Appropriate changes, if any, were made to ensure treatment accuracy. Plan: At this point she is not having symptoms from the changes on her breast. She did not even notice this prior to our pointed out to her. Will keep a close eye on this and she will let us know if it should change or cause her any symptoms. Will otherwise continue with her treatments as planned Signed by: Dr. Sharita Hernandez 03/26/2024 1:55:33 PM
== END 2024-03-27 23:59 | disposition home or self-care (01) ==
PROVIDERS: Internal Medicine; PCP Internal Medicine; Visit Provider Radiology Radiation Oncology
DX: C50.812 Malignant neoplasm of overlapping sites of left female breast (principal); Z51.0 Encounter for antineoplastic radiation therapy; C79.51 Secondary malignant neoplasm of bone
CPT/HCPCS: 77290; 77295; 77300; 77334; 77387; 77412; 80053; 83615; 85025; 86300; 96372; 99024; 99213; 99215; J0897

== ENCOUNTER 2024-04-04 08:00 | Oncology outpatient (recurring) (ONCR) | payer MEDICARE, OTHER, SELFPAY ==
--- NOTE | 2024-04-01 09:04 | N.ONRD TS_ITS ---
Radiation Oncology Treatment Summary Patient: Samia Newberry MR#: [id number] : 1940 Age: 83 Sex: Female Dictated by: Dr. Sharita Hernandez Date of Service: 04/01/2024 Referring Physician(s) : Dr. Paul Day Diagnosis: C79.51 - Secondary malignant neoplasm of bone, Diagnosed 09/27/2021 (Active) Z17.0 - Estrogen receptor positive status [ER+], Diagnosed 06/08/2015 (Active) C50.512 - Malignant neoplasm of lower-outer quadrant of left female breast, Diagnosed 05/21/2015 (Active) Stage IIIA, T2, pN2, M0, G2 Radiotherapy to Date: Course: C1, Treatment Site: LT BREAST BST, Ref. ID: BREAST BOOST, Energy: 6X, Dose/Fx (cGy): 200, #Fx: 5 / 5, Dose Correction (cGy): 0, Total Dose Delivered (cGy): 1,000, Start Date: 12/01/2015, End Date: 12/07/2015, Elapsed Days: 6 Course: C1, Treatment Site: LT PAB, Ref. ID: PAB, Energy: 15X, Dose/Fx (cGy): 25.2, #Fx: 28 / 28, Dose Correction (cGy): 0, Total Dose Delivered (cGy): 705.6, Start Date: 10/21/2015, End Date: 11/30/2015, Elapsed Days: 40 Course: C1, Treatment Site: LT SCLAV, Ref. ID: SCLAV PTV50.4, Energy: 15X, Dose/Fx (cGy): 180, #Fx: 28 / 28, Dose Correction (cGy): 0, Total Dose Delivered (cGy): 5,040, Start Date: 10/21/2015, End Date: 11/30/2015, Elapsed Days: 40 Course: C1, Treatment Site: LT BREAST, Ref. ID: [id number] PTV50.4, Energy: 15X/6X, Dose/Fx (cGy): 180, #Fx: 28 / 28, Dose Correction (cGy): 0, Total Dose Delivered (cGy): 5,040, Start Date: 10/21/2015, End Date: 11/30/2015, Elapsed Days: 40 Course: RT Ribs, Treatment Site: RT Ribs, Ref. ID: [id number], Energy: 6X, Dose/Fx (cGy): 300, #Fx: 10 / 10, Dose Correction (cGy): 0, Total Dose Delivered (cGy): 3,000, Start Date: 09/29/2021, End Date: 10/12/2021, Elapsed Days: 13 Course: T4-T6, Treatment Site: [id number], Ref. ID: [id number], Energy: 15X, Dose/Fx (cGy): 300, #Fx: 10 / 10, Dose Correction (cGy): 0, Total Dose Delivered (cGy): 3,000, Start Date: 03/18/2024, End Date: 03/29/2024, Elapsed Days: 11 Clinical Summary: The patient tolerated RT well. Patient did not have any ill effects during the course of her treatment. She did have some improvement in her pain control. Plan: End of treatment today. Continue on the above medication until the skin reaction resolves. Follow up in one month. Signed by: Dr. Sharita Hernandez>04/01/2024 9:02:18 AM <<Signature on File>>
[2024-04-04 08:15] LABS: Basophils % 0.4 %; Eosinophils # 0.1 10^3/uL (0.0-0.8); Eosinophils % 0.9 %; Lymphocytes # 0.9 10^3/uL (0.8-4.8); Lymphocytes % 17.7 %; Mean Corpuscular Hemoglobin 34.5 pg (27-33); Mean Corpuscular Volume 104.4 fl (85-98); Monocytes # 0.9 10^3/uL (0.2-0.9); Monocytes % 16.5 %; Neutrophils # 3.41 10^3/uL (1.8-7.7); Neutrophils % 64.1 %; Nucleated Red Blood Cells % 0 %; Platelet Count 168 10^3/cmm (157-399); Red Blood Count 3.83 10^6/uL (3.85-5.65); Red Cell Distribution Width 15.2 % (12.1-15.1); White Blood Count 5.32 10^3/uL (3.29-11.43)
[2024-04-04 08:34] LABS: Alanine Aminotransferase < 5 U/L (0-33); Albumin Level 3.6 g/dL (3.5-5.2); Alkaline Phosphatase 52 U/L (35-105); Anion Gap 14.6 (5-19); Aspartate Amino Transferase 8 U/L (0-32); Blood Urea Nitrogen 12 mg/dL (8-23); Calcium 8.3 mg/dL (8.5-10.5); Carbon Dioxide 26 mmol/L (22-29); Chloride 100 mmol/L (98-107); Creatinine Clr Calc Pharmacy 49.5829; Globulin 2.8 g/dL (1.3-4.6); Glucose 167 mg/dL (65-115); Lactate Dehydrogenase 136 U/L (135-214); Osmolality Calculated 288 mOsm/kg (285-295); Potassium 3.6 mmol/L (3.5-5.1); Sodium 137 mmol/L (136-145); Total Bilirubin 0.4 mg/dL (0.15-1.2); Total Protein 6.4 g/dL (6.6-8.7)
[2024-04-04] MEDS: denosumab 120 mg SDV SUBCUT (10:16)
[2024-04-04] MEDS: lidocaine 2% viscous 15 ML, aluminum-mag hydrox-simethicon 30 ML, sucralfate oral liq 1 GM PO (10:18)
== END 2024-04-05 23:59 | disposition home or self-care (01) ==
PROVIDERS: Internal Medicine; PCP Internal Medicine; Visit Provider Radiology Radiation Oncology
DX: Z53.9 Procedure and treatment not carried out, unspecified reason; C50.812 Malignant neoplasm of overlapping sites of left female breast; C79.51 Secondary malignant neoplasm of bone; Z17.0 Estrogen receptor positive status [ER+]; Z87.891 Personal history of nicotine dependence; Z92.3 Personal history of irradiation; J44.9 Chronic obstructive pulmonary disease, unspecified; Z79.811 Long term (current) use of aromatase inhibitors; Z79.899 Other long term (current) drug therapy; Z99.81 Dependence on supplemental oxygen; Z71.6 Tobacco abuse counseling; K29.60 Other gastritis without bleeding
CPT/HCPCS: 36415; 77336; 77387; 77412; 80053; 83615; 85025; 96372; 99024; 99214; J0897

== ENCOUNTER 2024-05-02 08:00 | Oncology outpatient (recurring) (ONCR) | payer MEDICARE, OTHER, SELFPAY ==
--- NOTE | 2024-04-29 13:51 | ONCRAD EPV_ITS ---
Radiation Oncology Established Patient Visit Patient: Samia Newberry [id number] : 1940 Age: 83 Sex: Female Dictated by: Farhad Gonsalez Date of Service: 04/29/2024 Referring Physician(s) : Dr. Paul Day Diagnosis: C79.51 - Secondary malignant neoplasm of bone, Diagnosed 09/27/2021 (Active) Z17.0 - Estrogen receptor positive status [ER+], Diagnosed 06/08/2015 (Active) C50.512 - Malignant neoplasm of lower-outer quadrant of left female breast, Diagnosed 05/21/2015 (Active) Stage IIIA, T2, pN2, M0, G2 Breast cancer. Radiotherapy to Date: Course: C1, Treatment Site: LT BREAST BST, Ref. ID: LT BREAST BOOST, Energy: 6X, Dose/Fx (cGy): 200, #Fx: 5 / 5, Dose Correction (cGy): 0, Total Dose Delivered (cGy): 1,000, Start Date: 12/01/2015, End Date: 12/07/2015, Elapsed Days: 6 Course: C1, Treatment Site: LT PAB, Ref. ID: LT PAB, Energy: 15X, Dose/Fx (cGy): 25.2, #Fx: 28 / 28, Dose Correction (cGy): 0, Total Dose Delivered (cGy): 705.6, Start Date: 10/21/2015, End Date: 11/30/2015, Elapsed Days: 40 Course: C1, Treatment Site: LT SCLAV, Ref. ID: LT SCLAV PTV50.4, Energy: 15X, Dose/Fx (cGy): 180, #Fx: 28 / 28, Dose Correction (cGy): 0, Total Dose Delivered (cGy): 5,040, Start Date: 10/21/2015, End Date: 11/30/2015, Elapsed Days: 40 Course: C1, Treatment Site: LT BREAST, Ref. ID: [id number] PTV50.4, Energy: 15X/6X, Dose/Fx (cGy): 180, #Fx: 28 / 28, Dose Correction (cGy): 0, Total Dose Delivered (cGy): 5,040, Start Date: 10/21/2015, End Date: 11/30/2015, Elapsed Days: 40 Course: RT Ribs, Treatment Site: RT Ribs, Ref. ID: [id number], Energy: 6X, Dose/Fx (cGy): 300, #Fx: 10, Dose Correction (cGy): 0, Total Dose Delivered (cGy): 3,000, Start Date: 09/29/2021, End Date: 10/12/2021, Elapsed Days: 13 Course: T4-T6, Treatment Site: [id number], Ref. ID: [id number], Energy: 15X, Dose/Fx (cGy): 300, #Fx: 10 10, Dose Correction (cGy): 0, Total Dose Delivered (cGy): 3,000, Start Date: 03/18/2024, End Date: 03/29/2024, Elapsed Days: 11 Current History: This is a pleasant 83-year-old female who completed a course of XRT to T4-T6. She received 3000 cGy in 10 fractions over 11 elapsed days completing this on 03/29/2024. Patient is seen complete relief of pain since then. She denies any other sites of tenderness at this time. Patient states she takes Prevagen and super beets OTC. Patient seems to have a poor train of thought at times. Patient to see medical oncology on 05/02/2024. We will have her follow only with medical oncology at this time. Current Medications: Acetaminophen, glipiZIDE, klor-Con 10, lasix, levothyroxine Sodium, levothyroxine Sodium, lisinopril, medrol, omeprazole, ondansetron HCl, raNITidine HCl. Prevagen and super Beets OTC Allergies: No Known Allergies Current Complaints / Review of Systems: . Vital Signs: Performed on 04/29/2024 1:33 PM BMI - 23.863 kg/m2 (high), Height - 64.5 in, Weight - 141.2 lbs, Temperature - 96.4 f, Pulse - 98 /min, Respiration - 18 /min, O2 Sat - 91 % (low), Pain - 0, Fatigue - 0 and BP - 160/ 76 mm(hg)(high/). Physical Exam: General: Alert and oriented x 3. No acute distress. HEENT: Normocephalic, atraumatic. Extraocular Movements Intact: Pupils Equal, Round, Reactive to Light and Accommodation: Sclerae anicteric. Oral cavity is clear without lesions, masses or ulcers. NECK: Supple without supraclavicular or jugular lymphadenopathy. LUNGS: Clear to auscultation bilaterally without rales, rhonchi or wheeze. HEART: Regular rate and rhythm, normal S1 and S2 without murmur, gallop or rub. MUSCULOSKELETAL: No tenderness or percussion pain over the axial skeleton, scapulae or pelvis. ABDOMEN: Soft, nontender, nondistended without masses or organomegaly. Bowell sounds are present. EXTREMITIES: No peripheral edema is identified. Limited motor and sensory examination are grossly intact and symmetric bilaterally. NEUROLOGIC: Cranial nerves II ???XII are grossly intact. Normal sensation, strength 5/5 in all extremities, normal gait, no ataxia. Performance Status: KPS 90 Lab: None pending. 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 Imaging: See HPI Impression: Metastatic breast carcinoma with good XRT response to treatment T4-T6. MO to see patient on 05/02/2024. RTC to Rad Onc on an as needed basis. We will ask her to follow with MO. Signed by: 04/29/2024 1:50:08 PM <<Signature on File>> Time spent with patient: CPT Code: * CPT Code: *
[2024-05-02 08:04] LABS: Basophils % 0.5 %; Eosinophils # 0.2 10^3/uL (0.0-0.8); Eosinophils % 2.5 %; Hematocrit 44.6 % (36-47); Lymphocytes # 1.5 10^3/uL (0.8-4.8); Lymphocytes % 23.2 %; Mean Corpuscular HGB Conc 32.5 g/dL (30-55); Mean Corpuscular Hemoglobin 33.8 pg (27-33); Mean Platelet Volume 9.6 fL (7.4-10.4); Monocytes # 0.5 10^3/uL (0.2-0.9); Monocytes % 6.9 %; Neutrophils # 4.35 10^3/uL (1.8-7.7); Neutrophils % 66.7 %; Nucleated Red Blood Cells % 0 %; Platelet Count 180 10^3/cmm (157-399); Red Blood Count 4.29 10^6/uL (3.85-5.65); Red Cell Distribution Width 14.9 % (12.1-15.1); White Blood Count 6.51 10^3/uL (3.29-11.43)
[2024-05-02 08:35] LABS: Alanine Aminotransferase 7 U/L (0-33); Albumin Level 4.1 g/dL (3.5-5.2); Alkaline Phosphatase 70 U/L (35-105); Anion Gap 13.5 (5-19); Aspartate Amino Transferase 14 U/L (0-32); Blood Urea Nitrogen 10 mg/dL (8-23); CA 15-3 212.9 U/mL (0-25); Carbon Dioxide 32 mmol/L (22-29); Chloride 99 mmol/L (98-107); Creatinine Clr Calc Pharmacy 49.4304; Globulin 3.4 g/dL (1.3-4.6); Glucose 172 mg/dL (65-115); Lactate Dehydrogenase 146 U/L (135-214); Osmolality Calculated 293 mOsm/kg (285-295); Potassium 4.5 mmol/L (3.5-5.1); Sodium 140 mmol/L (136-145); Total Bilirubin 0.3 mg/dL (0.15-1.2); Total Protein 7.5 g/dL (6.6-8.7)
[2024-05-02] MEDS: denosumab 120 mg SDV SUBCUT (10:02)
== END 2024-05-03 23:59 | disposition home or self-care (01) ==
PROVIDERS: PCP Internal Medicine; Visit Provider Internal Medicine
DX: C78.02 Secondary malignant neoplasm of left lung (principal); C79.51 Secondary malignant neoplasm of bone; Z85.3 Personal history of malignant neoplasm of breast; K20.90 Esophagitis, unspecified without bleeding; Z71.6 Tobacco abuse counseling; Z87.891 Personal history of nicotine dependence; Z92.3 Personal history of irradiation; Z99.81 Dependence on supplemental oxygen
CPT/HCPCS: 36415; 80053; 83615; 85025; 86300; 96372; 99024; 99213; 99214; J0897

== ENCOUNTER 2024-05-30 08:04 | Oncology outpatient (recurring) (ONCR) | payer MEDICARE, OTHER, SELFPAY ==
[2024-05-30 08:29] LABS: Basophils % 0.4 %; Eosinophils # 0.1 10^3/uL (0.0-0.8); Eosinophils % 2.3 %; Hematocrit 39.7 % (36-47); Lymphocytes # 1.1 10^3/uL (0.8-4.8); Lymphocytes % 22.2 %; Mean Corpuscular HGB Conc 32.7 g/dL (30-55); Mean Corpuscular Hemoglobin 34.8 pg (27-33); Mean Corpuscular Volume 106.1 fl (85-98); Mean Platelet Volume 9.8 fL (7.4-10.4); Monocytes # 0.4 10^3/uL (0.2-0.9); Monocytes % 8.6 %; Neutrophils # 3.14 10^3/uL (1.8-7.7); Neutrophils % 66.3 %; Nucleated Red Blood Cells % 0 %; Platelet Count 141 10^3/cmm (157-399); Red Blood Count 3.74 10^6/uL (3.85-5.65); Red Cell Distribution Width 14.9 % (12.1-15.1); White Blood Count 4.74 10^3/uL (3.29-11.43)
[2024-05-30 08:47] LABS: Alanine Aminotransferase 7 U/L (0-33); Albumin Level 3.9 g/dL (3.5-5.2); Alkaline Phosphatase 54 U/L (35-105); Anion Gap 12.9 (5-19); Aspartate Amino Transferase 11 U/L (0-32); Blood Urea Nitrogen 11 mg/dL (8-23); Calcium 8.9 mg/dL (8.5-10.5); Carbon Dioxide 30 mmol/L (22-29); Chloride 102 mmol/L (98-107); Globulin 2.8 g/dL (1.3-4.6); Glucose 156 mg/dL (65-115); Lactate Dehydrogenase 137 U/L (135-214); Osmolality Calculated 295 mOsm/kg (285-295); Potassium 3.9 mmol/L (3.5-5.1); Sodium 141 mmol/L (136-145); Total Bilirubin 0.6 mg/dL (0.15-1.2); Total Protein 6.7 g/dL (6.6-8.7)
[2024-05-30 10:35] LABS: CA 15-3 184.1 U/mL (0-25)
[2024-05-30] MEDS: denosumab 120 mg SDV SUBCUT (10:37)
[2024-05-30 10:52] LABS: Bilirubin Urine Negative (Negative); Blood Urine Negative (Negative); Glucose Urine UA Negative (Normal); Ketones Urine Negative (Negative); Leukocyte Esterase Urine Negative (Negative); Nitrate Urine Negative (Negative); Protein Urine Negative (Negative); Specific Gravity, Urine 1.005 (1.005-1.030); Urine Appearance Clear (CLEAR); Urine Color Yellow (Yellow); Urobilinogen Urine 0.2 mg/dL (Negative)
[2024-05-30 10:58] LABS: Add Urine Microscopic? YES; Bacteria Urine None Seen /hpf; Hyaline Casts Urine 0-4 /lpf; RBC Urine 0-2 /hpf (0-2); Squamous Epithelial Cell Urine 0-5 /hpf (0-5); WBC Urine 0-5 /hpf (0-5)
[2024-05-30 11:03] LABS: Add Urine Culture? No
== END 2024-06-03 23:59 | disposition home or self-care (01) ==
PROVIDERS: Nurse Practitioner Family; PCP Internal Medicine; Visit Provider Internal Medicine
DX: C79.51 Secondary malignant neoplasm of bone (principal); Z85.3 Personal history of malignant neoplasm of breast; Z79.899 Other long term (current) drug therapy; Z87.891 Personal history of nicotine dependence; Z92.3 Personal history of irradiation; Z92.23 Personal history of estrogen therapy
CPT/HCPCS: 36415; 80053; 81001; 83615; 85025; 86300; 96372; 99214; J0897

== ENCOUNTER 2024-06-03 08:37 | Outpatient (CLI) | payer MEDICARE, OTHER, SELFPAY ==
--- NOTE | 2024-06-03 08:44 | MR_ITS ---
WS: [id number] MRI HEAD WITH CONTRAST TECHNIQUE: Sagittal T1, T2 axial, T2 axial FLAIR, axial susceptibility weighted imaging, axial diffusion weighted images, and coronal T2 images were obtained. Pre and post-T1 axial and post T1 coronal images. ADC and FSPGR images. CLINICAL INFORMATION: MEMORY LOSS/BREAST CANCER COMPARISON: None. FINDINGS: Some images degraded by patient motion. No evidence of enhancing intraparenchymal metastatic disease. Enhancing extra-axial dural based lesion overlying the RIGHT parasagittal frontal parietal lobe at the vertex measuring 4 mm. This may resent a small meningioma. A dural metastasis is less likely. No prior comparisons. No evidence of restricted diffusion to suggest acute ischemia. Ventricular system and basal cisterns are patent. No hemosiderin on susceptibly weighted images. Normal optic chiasm and pituitary infundibulum. Advanced small vessel changes. Moderate parenchymal volume loss. Small vessel changes in the aury. Retention cyst RIGHT maxillary sinus. Normal vascular flow voids at the skull base. Heterogeneous bone marrow signal in the calvarium with multiple sclerotic appearing lesions. 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 MR/MR head wo/w con [id number] IMPRESSION: 1. No evidence of enhancing intraparenchymal metastatic disease. 2. 4 mm small enhancing extra-axial dural based lesion RIGHT parasagittal fron toparietal vertex nonspecific but most likely represents a small meningioma. Is olated dural metastasis is less likely. 3. Advanced small vessel changes with moderate parenchymal volume loss.
[2024-06-03] MEDS: gadobenate dimeglumine 20 mL vial IV (09:28)
== END 2024-06-03 08:38 | disposition home or self-care (01) ==
PROVIDERS: PCP Internal Medicine; Visit Provider Internal Medicine
DX: R41.3 Other amnesia (principal); C50.512 Malignant neoplasm of lower-outer quadrant of left female breast; R93.0 Abnormal findings on diagnostic imaging of skull and head, not elsewhere classified; G31.89 Other specified degenerative diseases of nervous system; M27.40 Unspecified cyst of jaw
CPT/HCPCS: 70553

== ENCOUNTER 2024-06-28 08:30 | Oncology outpatient (recurring) (ONCR) | payer MEDICARE, OTHER, SELFPAY ==
[2024-06-27 08:20] LABS: Basophils % 0.4 %; Eosinophils # 0.1 10^3/uL (0.0-0.8); Eosinophils % 2.3 %; Hematocrit 43.3 % (36-47); Lymphocytes # 1.6 10^3/uL (0.8-4.8); Lymphocytes % 29.8 %; Mean Corpuscular HGB Conc 31.6 g/dL (30-55); Mean Corpuscular Hemoglobin 34.4 pg (27-33); Mean Corpuscular Volume 108.8 fl (85-98); Monocytes # 0.4 10^3/uL (0.2-0.9); Monocytes % 8.3 %; Neutrophils # 3.13 10^3/uL (1.8-7.7); Nucleated Red Blood Cells % 0 %; Platelet Count 175 10^3/cmm (157-399); Red Blood Count 3.98 10^6/uL (3.85-5.65)
[2024-06-27 08:54] LABS: Alanine Aminotransferase 9 U/L (0-33); Albumin Level 3.9 g/dL (3.5-5.2); Alkaline Phosphatase 61 U/L (35-105); Anion Gap 15.8 (5-19); Aspartate Amino Transferase 15 U/L (0-32); Blood Urea Nitrogen 11 mg/dL (8-23); Calcium 9.5 mg/dL (8.5-10.5); Carbon Dioxide 28 mmol/L (22-29); Chloride 102 mmol/L (98-107); Globulin 3.3 g/dL (1.3-4.6); Glucose 132 mg/dL (65-115); Lactate Dehydrogenase 116 U/L (135-214); Osmolality Calculated 293 mOsm/kg (285-295); Potassium 4.8 mmol/L (3.5-5.1); Sodium 141 mmol/L (136-145); Total Bilirubin 0.4 mg/dL (0.15-1.2); Total Protein 7.2 g/dL (6.6-8.7)
[2024-06-27] MEDS: denosumab 120 mg SDV SUBCUT (10:39)
--- NOTE | 2024-06-28 08:30 | PETR_ITS ---
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 LABS AND CLINICAL REPORTS: Glucose: 136 mg/dl Treatment strategy for malignancy (PET staging): Restaging (PS) TECHNIQUE: Imaging protocol: Following at least four-hour fasting and following the injection of radiopharmaceutical, low dose CT images were obtained. Then, PET images were obtained. Attenuation corrected images were constructed using the CT scan. Fused images of PET and CT were reviewed. The standardized uptake values (SUV) reported below are maximum values within a region of interest, expressed in gm/ml. Exam includes orbital meatal line to mid-thigh. SUV normalization method: BodyWeight Radiopharmaceutical: 11.93 mCi F-18 FDG (Fluorodeoxyglucose), IV. Time of imaging post radiopharmaceutical administration: 46 minutes Injection site: right ac COMPARISON: PT PET skull to thigh SUBS [id number] 02/16/2024 3:07 PM FINDINGS: Brain: Visualized brain has normal physiologic uptake. Paranasal sinuses: Decreased right maxillary sinus opacification now showing moderate non FDG avid mucous retention cyst. Pharynx: No abnormal uptake. Larynx: No abnormal uptake. Lungs, pleura and trachea: No abnormal uptake. Mild upper lung predominant emphysematous change. Stable mild right basilar subsegmental atelectasis versus scarring. Stable non FDG avid 9 mm right lower lobe nodule on axial image 122. Stable non FDG avid 4 mm left upper lobe nodule on axial image 98. Heart: Normal physiologic uptake. Coronary arteries: Heavy coronary artery calcification. Mediastinal space: No abnormal uptake. Liver: No abnormal uptake. Gallbladder and biliary ducts: No abnormal uptake. Pancreas: No abnormal uptake. Spleen: No abnormal uptake. Adrenal glands: No abnormal uptake. Kidneys and ureters: Normal physiologic uptake. Right renal cyst. Stomach and bowel: No abnormal uptake. Colonic diverticulosis without findings of diverticulitis. Vasculature: No abnormal uptake. Heavy systemic atherosclerotic calcification without aortic aneurysm. Lymph nodes: No abnormal uptake. No lymphadenopathy in the head, neck, chest, abdomen, pelvis, and extremities. Calcified mediastinal and right hilar nodes in keeping with sequela of old granulomatous disease. Skeleton: Widespread sclerotic metastases redemonstrated. Much improved areas of metabolic activity to include resolution at right C1 lateral mass sclerosis, small residual area of mild uptake at the right T5 vertebral body with SUV max 2.7 on axial image 87 (previously 10.0), resolved FDG avidity at T7 vertebral body, nearly resolved uptake at T11 vertebral body with SUV max 2.2 (previously 6.1), decreased uptake at left L4 vertebral body showing SUV max 2.7 (previously 5.3), nearly resolved rightward sacral uptake showing small area of metabolic activity with SUV max 2.5 (previously 3.9), and decreased sternal uptake with SUV max 3.3 on axial image 99 (previously 6.1). No new or worsening areas of FDG uptake. Multiple non FDG avid sclerotic lesions throughout the imaged skeletal system compatible with treated metastases. Degenerative change along the imaged axial and proximal appendicular skeletal system. Soft tissues: No abnormal uptake in the visualized head, neck, chest, abdomen, pelvis, and extremities. Small fat containing left inguinal hernia. METRICS: Mediastinal blood pool: SUV mean 2.1 Liver uptake: SUV mean 2.3 PET/PET skull to thigh SUBS [id number] IMPRESSION: 1. Good partial treatment response since 02/16/2024 with much decreased metabolic activity of multifocal osseous metastases, to include index sternal lesion. 2. Stable non FDG avid pulmonary nodules without new or enlarging nodule. 3. Additional chronic and incidental findings as above.
== END 2024-07-03 23:59 | disposition home or self-care (01) ==
LOC: ONCMED 07-01 09:25
PROVIDERS: Internal Medicine; PCP Internal Medicine; Visit Provider Nurse Practitioner Family
DX: Z08 Encounter for follow-up examination after completed treatment for malignant neoplasm (principal); C79.51 Secondary malignant neoplasm of bone; C50.812 Malignant neoplasm of overlapping sites of left female breast; R91.8 Other nonspecific abnormal finding of lung field
CPT/HCPCS: 36415; 78815; 80053; 83615; 85025; 96372; 99213; A9552; J0897

== ENCOUNTER 2024-08-09 08:20 | Oncology outpatient (recurring) (ONCR) | payer MEDICARE, OTHER, SELFPAY ==
[2024-08-09 08:54] LABS: Basophils % 0.3 %; Eosinophils # 0.1 10^3/uL (0.0-0.8); Hematocrit 43.6 % (36-47); Lymphocytes # 1.6 10^3/uL (0.8-4.8); Lymphocytes % 23.2 %; Mean Corpuscular Hemoglobin 35.1 pg (27-33); Mean Corpuscular Volume 106.3 fl (85-98); Mean Platelet Volume 9.9 fL (7.4-10.4); Monocytes # 0.6 10^3/uL (0.2-0.9); Monocytes % 9.4 %; Neutrophils # 4.42 10^3/uL (1.8-7.7); Neutrophils % 65.7 %; Nucleated Red Blood Cells % 0 %; Platelet Count 148 10^3/cmm (157-399); Red Cell Distribution Width 15.1 % (12.1-15.1); White Blood Count 6.73 10^3/uL (3.29-11.43)
[2024-08-09 09:24] LABS: Alanine Aminotransferase 7 U/L (0-33); Alkaline Phosphatase 54 U/L (35-105); Anion Gap 15.7 (5-19); Aspartate Amino Transferase 13 U/L (0-32); Blood Urea Nitrogen 16 mg/dL (8-23); CA 15-3 174.1 U/mL (0-25); Carbon Dioxide 30 mmol/L (22-29); Chloride 101 mmol/L (98-107); Globulin 2.9 g/dL (1.3-4.6); Glucose 148 mg/dL (65-115); Lactate Dehydrogenase 128 U/L (135-214); Osmolality Calculated 298 mOsm/kg (285-295); Potassium 4.7 mmol/L (3.5-5.1); Sodium 142 mmol/L (136-145); Total Bilirubin 0.7 mg/dL (0.15-1.2); Total Protein 6.9 g/dL (6.6-8.7)
[2024-08-09] MEDS: denosumab 120 mg SDV SUBCUT (10:11)
== END 2024-09-02 23:59 | disposition home or self-care (01) ==
PROVIDERS: Internal Medicine; PCP Internal Medicine; Visit Provider Nurse Practitioner Family
DX: C50.812 Malignant neoplasm of overlapping sites of left female breast (principal); Z17.0 Estrogen receptor positive status [ER+]; C78.02 Secondary malignant neoplasm of left lung; C79.51 Secondary malignant neoplasm of bone; F17.210 Nicotine dependence, cigarettes, uncomplicated; Z79.899 Other long term (current) drug therapy
CPT/HCPCS: 36415; 80053; 83615; 85025; 86300; 96372; 99214; J0897

== ENCOUNTER 2024-09-09 09:41 | Oncology outpatient (recurring) (ONCR) | payer MEDICARE, OTHER, SELFPAY ==
[2024-09-09 10:16] LABS: Hematocrit 43.7 % (36-47); Hemoglobin 14.30 g/dL (11.27-16.99); Mean Corpuscular HGB Conc 32.7 g/dL (30-55); Mean Corpuscular Hemoglobin 36.0 pg (27-33); Mean Corpuscular Volume 110.1 fl (85-98); Nucleated Red Blood Cells % 0 %; Platelet Count 141 10^3/cmm (157-399); Red Blood Count 3.97 10^6/uL (3.85-5.65); White Blood Count 4.83 10^3/uL (3.29-11.43)
[2024-09-09 10:45] LABS: Alanine Aminotransferase < 5 U/L (0-33); Albumin Level 3.9 g/dL (3.5-5.2); Alkaline Phosphatase 54 U/L (35-105); Anion Gap 14.6 (5-19); Aspartate Amino Transferase 13 U/L (0-32); Blood Urea Nitrogen 11 mg/dL (8-23); CA 15-3 168.3 U/mL (0-25); Calcium 9.3 mg/dL (8.5-10.5); Carbon Dioxide 29 mmol/L (22-29); Chloride 100 mmol/L (98-107); Creatinine Clr Calc Pharmacy 48.9725; Globulin 2.9 g/dL (1.3-4.6); Glucose 202 mg/dL (65-115); Osmolality Calculated 293 mOsm/kg (285-295); Potassium 4.6 mmol/L (3.5-5.1); Sodium 139 mmol/L (136-145); Total Protein 6.8 g/dL (6.6-8.7)
[2024-09-09] MEDS: denosumab 120 mg SDV SUBCUT (11:26)
== END 2024-10-03 23:59 | disposition home or self-care (01) ==
PROVIDERS: PCP Internal Medicine; Visit Provider Nurse Practitioner Family
DX: C50.812 Malignant neoplasm of overlapping sites of left female breast (principal); Z17.0 Estrogen receptor positive status [ER+]; C78.02 Secondary malignant neoplasm of left lung; C79.51 Secondary malignant neoplasm of bone; F17.210 Nicotine dependence, cigarettes, uncomplicated; Z79.899 Other long term (current) drug therapy; Z92.3 Personal history of irradiation; Z71.6 Tobacco abuse counseling
CPT/HCPCS: 36415; 80053; 85025; 86300; 96372; 99214; J0897

== ENCOUNTER 2024-11-01 09:00 | Oncology outpatient (recurring) (ONCR) | payer MEDICARE, OTHER, SELFPAY ==
[2024-10-07 13:11] LABS: Hematocrit 41.9 % (36-47); Hemoglobin 13.90 g/dL (11.27-16.99); Mean Corpuscular HGB Conc 33.2 g/dL (30-55); Mean Corpuscular Hemoglobin 35.2 pg (27-33); Mean Corpuscular Volume 106.1 fl (85-98); Nucleated Red Blood Cells % 0 %; Platelet Count 146 10^3/cmm (157-399); Red Blood Count 3.95 10^6/uL (3.85-5.65); White Blood Count 5.67 10^3/uL (3.29-11.43)
[2024-10-07 13:40] LABS: Alanine Aminotransferase 7 U/L (0-33); Albumin Level 4.0 g/dL (3.5-5.2); Alkaline Phosphatase 50 U/L (35-105); Anion Gap 15.2 (5-19); Aspartate Amino Transferase 14 U/L (0-32); Blood Urea Nitrogen 11 mg/dL (8-23); CA 15-3 158.0 U/mL (0-25); Calcium 8.7 mg/dL (8.5-10.5); Carbon Dioxide 29 mmol/L (22-29); Chloride 104 mmol/L (98-107); Creatinine Clr Calc Pharmacy 48.5632; Globulin 2.7 g/dL (1.3-4.6); Glucose 132 mg/dL (65-115); Osmolality Calculated 299 mOsm/kg (285-295); Potassium 4.2 mmol/L (3.5-5.1); Sodium 144 mmol/L (136-145); Total Protein 6.7 g/dL (6.6-8.7)
[2024-10-07] MEDS: denosumab 120 mg SDV SUBCUT (14:07)
--- NOTE | 2024-11-01 09:00 | PETR_ITS ---
PROCEDURE INFORMATION: Exam: PET/CT Skull Base to Mid-thigh Exam date and time: 11/01/2024 10:10 AM Age: 84 years old Clinical indication: Condition or disease; Primary cancer: Lt breast cancer; Additional info: Infilltrating ductal carcinoma of overlapping LABS AND CLINICAL REPORTS: Glucose: 193 mg/dl Treatment strategy for malignancy (PET staging): Restaging (PS) TECHNIQUE: Imaging protocol: Following at least four-hour fasting and following the injection of radiopharmaceutical, low dose CT images were obtained. Then, PET images were obtained. Attenuation corrected images were constructed using the CT scan. Fused images of PET and CT were reviewed. The standardized uptake values (SUV) reported below are maximum values within a region of interest, expressed in gm/ml. Exam includes orbital meatal line to mid-thigh. SUV normalization method: BodyWeight Radiopharmaceutical: 10.66 mCi F-18 FDG (Fluorodeoxyglucose), IV. Time of imaging post radiopharmaceutical administration: 46 minutes Injection site: RAC COMPARISON: PT PET skull to thigh SUBS [id number] 06/28/2024 9:56 AM FINDINGS: Brain: Visualized brain has normal physiologic uptake. Pharynx: No abnormal uptake. Larynx: No abnormal uptake. Lungs, pleura and trachea: No abnormal uptake. Stable areas of scarring and bronchiectasis throughout the right lung. Stable non FDG avid 9 mm right lower lobe (series 202, image 108), and 4 mm posterior left upper lobe (image 85) pulmonary nodules. Heart: Normal physiologic uptake. [id number] coronary artery calcifications. Mediastinal space: No abnormal uptake. Liver: No abnormal uptake. Gallbladder and biliary ducts: No abnormal uptake. Pancreas: No abnormal uptake. Spleen: No abnormal uptake. Adrenal glands: No abnormal uptake. Kidneys and ureters: Normal physiologic uptake. Simple 4.2 cm right renal cyst. Stomach and bowel: No abnormal uptake. Colonic diverticulosis without diverticulitis. Vasculature: No abnormal uptake. Marked atherosclerotic calcifications. Lymph nodes: No abnormal uptake. No lymphadenopathy in the head, neck, chest, abdomen, pelvis, and extremities. Hilar and mediastinal calcified lymph nodes, suggestive of prior granulomatous organism exposure. Skeleton: Diffuse widespread sclerotic osseous metastatic disease. With overall resolved previously noted increased FDG uptake. There is only minimal residual increased uptake in the sternal body, maximum SUV 2.5, previously 2.7 on the prior study. There is also some increased FDG uptake along the right acetabular rim, maximum SUV 2.6. This is thought to be degenerative. Soft tissues: No abnormal uptake in the visualized head, neck, chest, abdomen, pelvis, and extremities. Unchanged scarring within the inferolateral left breast without abnormal FDG uptake. METRICS: Mediastinal blood pool: Mean SUV of 2.1 Liver uptake: Mean SUV of 2.5 PET/PET skull to thigh SUBS [id number] IMPRESSION: 1. Good treatment response, with near-complete resolution of previously noted osseous FDG uptake. There is only minimal residual uptake in the sternal body. Otherwise, the remaining axial and appendicular skeleton demonstrates no significant FDG uptake. Mild uptake noted in the right acetabular margin is thought to be degenerative. 2. Stable non FDG avid pulmonary nodules without new or enlarging nodule. 3. Chronic and incidental findings as above.
== END 2024-11-03 23:59 | disposition home or self-care (01) ==
LOC: ONCMED 10:18
PROVIDERS: Nurse Practitioner Family; PCP Internal Medicine; Visit Provider Internal Medicine Medical Oncology
DX: C50.812 Malignant neoplasm of overlapping sites of left female breast; R93.89 Abnormal findings on diagnostic imaging of other specified body structures; R91.8 Other nonspecific abnormal finding of lung field; J98.4 Other disorders of lung; J47.9 Bronchiectasis, uncomplicated; I25.10 Atherosclerotic heart disease of native coronary artery without angina pectoris; N28.1 Cyst of kidney, acquired; K57.30 Diverticulosis of large intestine without perforation or abscess without bleeding; I70.90 Unspecified atherosclerosis; R59.0 Localized enlarged lymph nodes; N64.89 Other specified disorders of breast; Z53.9 Procedure and treatment not carried out, unspecified reason
CPT/HCPCS: 36415; 78815; 80053; 85025; 86300; 96372; 99214; A9552; J0897

== ENCOUNTER 2024-11-06 14:25 | Oncology outpatient (recurring) (ONCR) | payer MEDICARE, OTHER, SELFPAY ==
[2024-11-06 14:42] LABS: Hematocrit 40.5 % (36-47); Hemoglobin 13.60 g/dL (11.27-16.99); Mean Corpuscular HGB Conc 33.6 g/dL (30-55); Mean Corpuscular Hemoglobin 36.5 pg (27-33); Mean Corpuscular Volume 108.6 fl (85-98); Nucleated Red Blood Cells % 0 %; Platelet Count 166 10^3/cmm (157-399); Red Blood Count 3.73 10^6/uL (3.85-5.65); White Blood Count 7.33 10^3/uL (3.29-11.43)
[2024-11-06 15:14] LABS: Alanine Aminotransferase 6 U/L (0-33); Albumin Level 3.8 g/dL (3.5-5.2); Alkaline Phosphatase 59 U/L (35-105); Anion Gap 13.2 (5-19); Aspartate Amino Transferase 11 U/L (0-32); Blood Urea Nitrogen 10 mg/dL (8-23); CA 15-3 148.5 U/mL (0-25); Calcium 9.1 mg/dL (8.5-10.5); Carbon Dioxide 31 mmol/L (22-29); Chloride 103 mmol/L (98-107); Creatinine Clr Calc Pharmacy 48.5632; Globulin 3.0 g/dL (1.3-4.6); Glucose 195 mg/dL (65-115); Osmolality Calculated 300 mOsm/kg (285-295); Potassium 4.2 mmol/L (3.5-5.1); Sodium 143 mmol/L (136-145); Total Protein 6.8 g/dL (6.6-8.7)
[2024-11-06] MEDS: denosumab 120 mg SDV (Infusion Clinic Only) SUBCUT (16:37)
== END 2024-12-03 23:59 | disposition home or self-care (01) ==
PROVIDERS: Internal Medicine Medical Oncology; PCP Internal Medicine; Visit Provider Internal Medicine
DX: C50.812 Malignant neoplasm of overlapping sites of left female breast (principal); Z17.0 Estrogen receptor positive status [ER+]; C79.51 Secondary malignant neoplasm of bone; C78.00 Secondary malignant neoplasm of unspecified lung; F17.210 Nicotine dependence, cigarettes, uncomplicated; Z79.899 Other long term (current) drug therapy; Z92.3 Personal history of irradiation
CPT/HCPCS: 36415; 80053; 85025; 86300; 96372; 99213; J0897

== ENCOUNTER 2024-12-19 11:46 | Oncology outpatient (recurring) (ONCR) | payer MEDICARE, OTHER, SELFPAY ==
[2024-12-19 12:17] LABS: Hematocrit 43.9 % (36-47); Hemoglobin 14.60 g/dL (11.27-16.99); Mean Corpuscular HGB Conc 33.3 g/dL (30-55); Mean Corpuscular Hemoglobin 36.0 pg (27-33); Mean Corpuscular Volume 108.1 fl (85-98); Nucleated Red Blood Cells % 0 %; Platelet Count 141 10^3/cmm (157-399); Red Blood Count 4.06 10^6/uL (3.85-5.65); White Blood Count 9.07 10^3/uL (3.29-11.43)
[2024-12-19 12:35] LABS: Alanine Aminotransferase 13 U/L (0-33); Albumin Level 4.1 g/dL (3.5-5.2); Alkaline Phosphatase 63 U/L (35-105); Anion Gap 15.3 (5-19); Aspartate Amino Transferase 14 U/L (0-32); Blood Urea Nitrogen 18 mg/dL (8-23); Calcium 9.7 mg/dL (8.5-10.5); Carbon Dioxide 32 mmol/L (22-29); Chloride 96 mmol/L (98-107); Globulin 2.6 g/dL (1.3-4.6); Glucose 138 mg/dL (65-115); Osmolality Calculated 292 mOsm/kg (285-295); Potassium 4.3 mmol/L (3.5-5.1); Sodium 139 mmol/L (136-145); Total Protein 6.7 g/dL (6.6-8.7)
[2024-12-19] MEDS: denosumab-bbdz 120 mg SDV (Inpatient and Infusion Clinic Use) SUBCUT (13:37)
[2024-12-19 14:11] LABS: CA 15-3 171.1 U/mL (0-25)
== END 2025-01-03 23:59 | disposition home or self-care (01) ==
PROVIDERS: Internal Medicine; PCP Internal Medicine; Visit Provider Nurse Practitioner Family
DX: C50.812 Malignant neoplasm of overlapping sites of left female breast (principal); Z17.0 Estrogen receptor positive status [ER+]; C79.51 Secondary malignant neoplasm of bone; C78.00 Secondary malignant neoplasm of unspecified lung; F17.210 Nicotine dependence, cigarettes, uncomplicated; R03.0 Elevated blood-pressure reading, without diagnosis of hypertension; Z79.899 Other long term (current) drug therapy; Z92.3 Personal history of irradiation; Z79.631 Long term (current) use of antimetabolite agent
CPT/HCPCS: 36415; 80053; 85025; 86300; 96372; 99214; Q5136

== ENCOUNTER 2025-02-13 16:48 | Emergency (ER) | payer MEDICARE, OTHER, SELFPAY ==
[2025-02-13] VITALS (7 sets, daily range): BP systolic 112–154; BP diastolic 64–79; PULSE 79–103; RESP 20–26; TEMP 36.5; O2SAT 87–97; BMI 22.3
--- NOTE | 2025-02-13 16:55 | ECG_ITS ---
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 Measurements Intervals [place] Rate: 103 P: 73 NM: 160 QRS: -18 QRSD: 97 T: 95 QT: 323 QTc: 424 Interpretive Statements SINUS TACHYCARDIA POSSIBLE ANTERIOR MYOCARDIAL INFARCTION , OF INDETERMINATE AGE [30 ms Q WAVE IN V3/V4, OR R < 0.2 mV IN V4] INTERPRETATION BASED ON A DEFAULT AGE OF 40 YEARS Compared to ECG 10/18/2021 00:20:26 Sinus rhythm no longer present Myocardial infarct finding still present Electronically Signed On 02-13-2025 17:15:25 JACK SPINNER by Sky Padilla M.D. [id number]
--- NOTE | 2025-02-13 16:55 | XRR_ITS ---
PROCEDURE INFORMATION: Exam: XR Chest Exam date and time: 02/13/2025 5:08 PM Age: 84 years old Clinical indication: Shortness of breath TECHNIQUE: Imaging protocol: Radiologic exam of the chest. Views: 2 views. COMPARISON: CR XR chest 2V* [id number] 04/20/2022 12:17 PM FINDINGS: Lungs: Right lower lobe consolidation. Pleural spaces: Unremarkable. No pleural effusion. No pneumothorax. Heart/Mediastinum: The heart is enlarged. Vasculature: There is unfolding of the thoracic aorta. Bones/joints: Moderate degenerative disease of bilateral acromioclavicular joints. There are mild degenerative changes of the glenohumeral joint. Sclerotic lesions in the right humeral head and right glenoid as well as thoracic spine, suspicious for metastasis. XR/XR chest 2V* [id number] IMPRESSION: 1. Right lower lobe consolidation, suggestive of pneumonia. 2. Cardiomegaly.
[2025-02-13 17:31] LABS: Hematocrit 41.9 % (36-47); Hemoglobin 13.80 g/dL (11.27-16.99); Mean Corpuscular HGB Conc 32.9 g/dL (30-55); Mean Corpuscular Hemoglobin 35.6 pg (27-33); Mean Corpuscular Volume 108.0 fl (85-98); Nucleated Red Blood Cells % 0 %; Platelet Count 129 10^3/cmm (157-399); Red Blood Count 3.88 10^6/uL (3.85-5.65); White Blood Count 6.50 10^3/uL (3.29-11.43)
[2025-02-13 17:44] LABS: ABG PCO2 58.8 mmHg (35-45); ABG PH Result 7.37 (7.35-7.45); Alveolar-Arterial Oxygen Gradi 16.7 mmHg (5-10); Arterial Blood Gas Hematocrit 42.0 % (37-47); Blood Gas Allen Test Pos; Blood Gas LPM 5.0 %; Blood Gas Operator Identificat GD; Blood Gas Sample Site Radial, right; Blood Gas Sample Type Arterial; Carboxyhemoglobin 1.8 %THgb (0.4-20.1); Glucose Level-ABG 355.0 mg/dL (70-115); HCO3 ABG 34.1 mmol/L (22-26); Ionized Calcium Level - ABG 1.2 mmol/L (1.1-1.4); Methemoglobin 1.0 % (0.4-1.5); Oxygen Saturation ABG 96.4; PO2 ABG 82.9 mmHg (80.0-100.0); PO2 FiO2 Ratio Arterial Blood 207; Potassium Level - ABG 3.9 mmol/L (3.5-5.0); Sodium Level - ABG 141.0 mmol/L (131-143)
[2025-02-13 17:52] LABS: Troponin(5th) Baseline 16 ng/L (0-10)
--- NOTE | 2025-02-13 17:55 | ECG_ITS ---
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 Measurements Intervals [place] Rate: 103 P: 73 MA: 160 QRS: -18 QRSD: 97 T: 95 QT: 323 QTc: 424 Interpretive Statements SINUS TACHYCARDIA POSSIBLE ANTERIOR MYOCARDIAL INFARCTION , OF INDETERMINATE AGE [30 ms Q WAVE IN V3/V4, OR R < 0.2 mV IN V4] INTERPRETATION BASED ON A DEFAULT AGE OF 40 YEARS Compared to ECG 10/18/2021 00:20:26 Sinus rhythm no longer present Myocardial infarct finding still present Electronically Signed On 02-13-2025 17:46:14 PAIN MANAGEMENT SPECIALIST by Sky Padilla M.D. [id number]
[2025-02-13 18:06] LABS: Alanine Aminotransferase 8 U/L (0-33); Albumin Level 3.9 g/dL (3.5-5.2); Alkaline Phosphatase 62 U/L (35-105); Anion Gap 13.5 (5-19); Aspartate Amino Transferase 10 U/L (0-32); Blood Urea Nitrogen 16 mg/dL (8-23); Calcium 9.1 mg/dL (8.5-10.5); Carbon Dioxide 34 mmol/L (22-29); Chloride 97 mmol/L (98-107); Creatinine Clr Calc Pharmacy 46.6140; Globulin 2.4 g/dL (1.3-4.6); Glucose 369 mg/dL (65-115); NT Pro B Type Natriuretic Pept 222 pg/mL (0-450); Osmolality Calculated 306 mOsm/kg (285-295); Potassium 4.5 mmol/L (3.5-5.1); Sodium 140 mmol/L (136-145); Total Protein 6.3 g/dL (6.6-8.7)
--- NOTE | 2025-02-13 18:09 | W.ED.GENADLT ---
HPI - General Adult General: Chief complaint: Shortness of Breath/Dyspnea Stated complaint: SOB Time Seen by Provider: 02/13/25 16:49 History of Present Illness: Patient is a 84-year-old female with past medical history of COPD, chronic hypoxic respiratory failure, metastatic breast cancer, diabetes presents with a chief complaint of worsening dyspnea for the past several days. At baseline, she uses 5 L of supplemental oxygen. The patient arrives on room air and is hypoxic on arrival but with 4 L of nasal cannula, patient's oxygen saturation is above 95%. She denies fever, increased in sputum production, hemoptysis, chest pain, syncope. She denies abdominal pain, nausea or vomiting. Patient denies dysuria but states that in the past few days, her stools have been loose. She denies any blood in stool or urine. She denies any lower extremity edema or asymmetry. Related Data Home Medications ?Medication ?Instructions ?Recorded ?Confirmed cyanocobalamin (vitamin B-12) 50 50 mcg PO DAILY ##0 11/13/19 12/19/24 mcg tablet (Vitamin B-12) fluticasone fur. 200 mcg-umeclid 1 inh inhalation DAILY PRN 12/30/21 12/19/24 62.5 mcg-vilant 25 mcg Shortness Of Breath inhalat.powder (Trelegy Ellipta) vit C 50 mg-E 15 unit-zinc cit 4.5 2 tab PO DAILY 11/15/22 12/19/24 mg-lutein 2.5 mg-zeaxan chew tablet ([facility]) prevagen PO 03/07/24 12/19/24 red beet 500 mg capsule mg PO BID 05/02/24 12/19/24 levothyroxine 75 mcg tablet mcg PO 08/09/24 12/19/24 Previous Rx's ?Medication ?Instructions ?Recorded amlodipine 5 mg tablet 5 mg PO BID #60 tabs 09/29/21 pantoprazole 40 mg tablet,delayed 40 mg PO BID 6 weeks #84 tabs 10/12/22 release (Protonix) lorazepam 0.5 mg tablet 0.5 mg PO TID PRN nausea and 10/25/23 vomiting #30 tabs ondansetron HCl 8 mg tablet See Rx Instructions .Route 02/08/24 .COMPLEX #30 tabs capecitabine 500 mg tablet See Rx Instructions .Route 01/20/25 .COMPLEX #84 tabs amoxicillin 875 mg-potassium 1 tab PO BID #14 tabs 02/13/25 clavulanate 125 mg tablet apixaban 5 mg (74 tabs) tablets in See Rx Instructions PO .COMPLEX 02/13/25 a dose pack (Eliquis DVT-PE Treat #74 ea 30D Start) azithromycin 250 mg tablet 250 mg PO DAILY 4 days #4 tabs 02/13/25 Allergies Allergy/AdvReac Type Severity Reaction Status Date / Time No Known Allergies Allergy Verified 02/13/25 17:02 [facility] PFS: Medical History (Updated 02/13/25 @ 20:38 by Magalsi Miles MD) Metastatic breast cancer Current smoker Pneumonia Hypoxemia Restless leg syndrome Abnormal ankle brachial index (SURESH) Pulmonary nodule Dyslipidemia GERD (gastroesophageal reflux disease) Carpal tunnel syndrome Hypothyroidism Peripheral vascular disease Primary osteoarthritis of left knee Diabetes mellitus -non insulin dependent COPD (chronic obstructive pulmonary disease) Acute exacerbation of chronic obstructive pulmonary disease Chronic toe pain, bilateral Accelerated essential hypertension Surgical History Hx of cholecystectomy History of lumpectomy of left breast Family History Sister Cancer CAD (coronary artery disease) Other Diabetes Hyperlipidemia Denies family history of Clotting disorder Dementia Psychiatric illness Chronic kidney disease (CKD) Suicide Anesthesia complication Bleeding disorder Lung disease Hypertension Stroke Social History Smoking and tobacco/nicotine status: current every day tobacco/nicotine user cigarettes Packs smoked per day: 1 Years cigarettes smoked: 65 [ Other cigarette details: started at 15] Quit status (tobacco/nicotine): not considering quitting Second hand smoke exposure: No Alcohol intake: never Substance/Drug Use: never Lives independently: Yes Household members: family Marital status: / 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 Patient is alert and oriented. Patient is breathing comfortably on 4L of NC w/SpO2 above 95%. Patient has coarse rhonchi/wheezing throughout all lung pineda. No hypotension. +Tachycardia noted. Abdomen is soft, nondistended and nontender. Patient is moving all extremities, no deformity or gross injury. No lower extremity edema or asymmetry. Course Vital Signs: Vital signs: Vital Signs Temperature 97.7 F 02/13/25 16:51 Pulse Rate 85 02/13/25 19:32 Respiratory Rate 20 H 02/13/25 18:25 Blood Pressure 147/75 02/13/25 19:32 Pulse Oximetry 94 02/13/25 19:32 Oxygen Delivery Me thod Nasal Cannula 02/13/25 19:32 Oxygen Flow Rate 5 02/13/25 19:32 MDM - General Adult Medical Decision Making 84-year-old female with a complex medical history presents with a chief complaint of worsening dyspnea for the past several days. Differential diagnosis includes but is limited to, viral upper respiratory infection, bronchitis, COPD exacerbation, decompensated CHF, pulmonary embolus, ACS, other. On exam, patient is normotensive but is mildly tachycardic, hypoxic and tachypneic. However, she does well on 4 L of nasal cannula. Patient was evaluated lab work including CBC, CMP, troponin, BNP, ABG, COVID and flu screen, chest x-ray, CT PE given that she has multiple risk factors for pulmonary embolus, exertional dyspnea, hypoxia and tachypnea and tachycardia. Patient was treated with DuoNeb and IV dexamethasone. Lab work shows a normal white blood cell count and no anemia. ABG shows mild CO2 retention. Patient does not have any actionable electrolyte abnormalities, has normal kidney function and anion gap. Troponin is mildly elevated at 16 and BNP is within normal limits; clinically, she does not appear to be fluid overloaded. Chest x-ray appears to have a right lower lobe consolidation which may be suggestive of pneumonia. CT shows: IMPRESSION: 1. Segmental branch pulmonary emboli involving both lower lobe pulmonary arteries. No right heart strain. 2. Tree-in-bud infiltrates in bilateral lower lobes, likely infectious/inflammatory. 3. Similar pulmonary nodules. 4. Moderate multilevel degenerative change in the thoracic spine. 5. Diffuse sclerotic metastatic osseous lesions. Despite the fact that patient has a normal white blood cell count and has been afebrile, this patient is a cancer patient and this is immunocompromise. Will treat infiltrates with antibiotics to cover for pneumonia. Regarding pulmonary emboli, there does not appear to be any heart strain or heart failure. Patient denies history of ICH, CVA within the last 3 months, history of GI bleeding, recent traumatic injury, recent brain or spine surgery. She is a candidate for anticoagulation. Patient is at baseline of O2. I offered this patient admission given her immunocompromise, possible pneumonia and pulmonary emboli but patient declined, stating that she would prefer to be treated at home. Patient states that she has support at home, cane, walker and oxygen available. Her family is comfortable taking this patient home. Patient is alert, oriented, has decision-making capacity and I feel that outpatient treatment is a reasonable choice for her. We did discuss very strict return precautions and advised her to return should her condition worsen. She expressed understanding and is comfortable with our plan. Patient was discharged in stable condition. Lab Data 02/13/25 17:14 02/13/25 17:14 Radiology Impressions Chest X-Ray 02/13/25 16:55 IMPRESSION: 1. Right lower lobe consolidation, suggestive of pneumonia. 2. Cardiomegaly. Chest CTA 02/13/25 18:12 IMPRESSION: 1. Segmental branch pulmonary emboli involving both lower lobe pulmonary arteries. No right heart strain. 2. Tree-in-bud infiltrates in bilateral lower lobes, likely infectious/inflammatory. 3. Similar pulmonary nodules. 4. Moderate multilevel degenerative change in the thoracic spine. 5. Diffuse sclerotic metastatic osseous lesions. COMMENTS: Consistent with the [employer]'s Incidental Findings Committee white paper (J Am Benjy Radiol 2018): Any incidental renal lesion less than 1 cm or classified as too small to characterize, or any incidental cystic renal lesion characterized as simple-appearing, is likely benign. No follow-up imaging is recommended for these lesions per consensus recommendations based on imaging criteria. ADDENDUM: 02/13/251945 THIS REPORT CONTAINS FINDINGS THAT MAY BE CRITICAL TO PATIENT CARE. The findings were verbally communicated via telephone conference with Magalis Miles at 7:44 PM MANAGER OF DISASTER [employer]OVERY on 02/13/2025. The findings were acknowledged and understood. Laboratory Results WBC 6.50 10^3/uL (3.29-11.43) 02/13/25 17:14 RBC 3.88 10^6/uL (3.85-5.65) 02/13/25 17:14 Hgb 13.80 g/dL (11.27-16.99) 02/13/25 17:14 Hct 41.9 % (36-47) 02/13/25 17:14 MCV 108.0 fl (85-98) H 02/13/25 17:14 MCH 35.6 pg (27-33) H 02/13/25 17:14 MCHC 32.9 g/dL (30-55) 02/13/25 17:14 RDW 14.6 % (12.1-15.1) 02/13/25 17:14 Plt Count 129 10^3/cmm (157-399) L 02/13/25 17:14 MPV 9.8 fL (7.4-10.4) 02/13/25 17:14 Neut % (Auto) 85.9 % 02/13/25 17:14 Lymph % (Auto) 9.8 % 02/13/25 17:14 [place] % (Auto) 3.8 % 02/13/25 17:14 Eos % (Auto) 0.0 % 02/13/25 17:14 Baso % (Auto) 0.0 % 02/13/25 17:14 Neut # (Auto) 5.58 10^3/uL (1.8-7.7) 02/13/25 17:14 Lymph # (Auto) 0.6 10^3/uL (0.8-4.8) L 02/13/25 17:14 [place] # (Auto) 0.3 10^3/uL (0.2-0.9) 02/13/25 17:14 Eos # (Auto) 0.0 10^3/uL (0.0-0.8) 02/13/25 17:14 Baso # (Auto) 0.0 10^3/uL (0.0-0.1) 02/13/25 17:14 Nucleated RBC % (auto) 0 % 02/13/25 17:14 Nucleated RBCs # 0.0 /100WBC 02/13/25 17:14 Specimen Type Arterial 02/13/25 17:25 Sample Site Radial, right 02/13/25 17:25 ABG pH 7.37 (7.35-7.45) 02/13/25 17:25 ABG pCO2 58.8 mmHg (35-45) H 02/13/25 17: ABG pO2 82.9 mmHg (80.0-100.0) 02/13/25 17:25 ABG PO2/FiO2 Ratio 207 02/13/25 17:25 ABG HCO3 34.1 mmol/L (22-26) H 02/13/25 17:25 ABG O2 Saturation 96.4 02/13/25 17:25 ABG Base Excess 6.9 mmol/L (-2.0-2.0) H 02/13/25 17:25 Jeff Test Pos 02/13/25 17:25 A-a O2 Gradient 16.7 mmHg (5-10) H 02/13/25 17:25 Hematocrit 42.0 % (37-47) 02/13/25 17:25 Hgb O2 Saturation 93.8 % (95-100) L 02/13/25 17:25 Carboxyhemoglobin 1.8 %THgb (0.4-20.1) 02/13/25 17:25 Methemoglobin 1.0 % (0.4-1.5) 02/13/25 17:25 Total Hemoglobin 13.7 g/dL (12-16) 02/13/25 17:25 Sodium 141.0 mmol/L (131-143) 02/13/25 17:25 Potassium 3.9 mmol/L (3.5-5.0) 02/13/25 17:25 Glucose 355.0 mg/dL (70-115) H 02/13/25 17:25 Ionized Calcium 1.2 mmol/L (1.1-1.4) 02/13/25 17:25 O2 Delivery Device Nc 02/13/25 17:25 O2 Liters/Min 5.0 % 02/13/25 17:25 FiO2 40.0 % 02/13/25 17:25 Tarper ID Gd 02/13/25 17:25 Sodium 140 mmol/L (136-145) 02/13/25 17:14 Potassium 4.5 mmol/L (3.5-5.1) 02/13/25 17:14 Chloride 97 mmol/L (98-107) L 02/13/25 17:14 Carbon Dioxide 34 mmol/L (22-29) H 02/13/25 17:14 Anion Gap 13.5 (5-19) 02/13/25 17:14 BUN 16 mg/dL (8-23) 02/13/25 17:14 Creatinine 0.7 mg/dL (0.5-0.9) 02/13/25 17:14 GFR Calculation Not Reportable 02/13/25 17:14 Glucose 369 mg/dL (65-115) H 02/13/25 17:14 Calculated Osmolality 306 mOsm/kg (285-295) H 02/13/25 17:14 Calcium 9.1 mg/dL (8.5-10.5) 02/13/25 17:14 Total Bilirubin 0.5 mg/dL (0.15-1.2) 02/13/25 17:14 AST 10 U/L (0-32) 02/13/25 17:14 ALT 8 U/L (0-33) 02/13/25 17:14 Alkaline Phosphatase 62 U/L (35-105) 02/13/25 17:14 Troponin T Baseline 16 ng/L (0-10) H 02/13/25 17:14 Troponin T 60 Minute 14.34 ng/L (0-10) H 02/13/25 18:12 Delta Troponin T -1.66 ABS# (0-10) L 02/13/25 18:12 NT-Pro-B Natriuret Pep 222 pg/mL (0-450) 02/13/25 17:14 Total Protein 6.3 g/dL (6.6-8.7) L 02/13/25 17:14 Albumin 3.9 g/dL (3.5-5.2) 02/13/25 17:14 Globulin 2.4 g/dL (1.3-4.6) 02/13/25 17:14 Influenza A (PCR) Negative (Negative) 02/13/25 17:14 Influenza Type B (PCR) Negative (Negative) 02/13/25 17:14 RSV (PCR) Negative (Negative) 02/13/25 17:14 SARS-CoV-2 (PCR) Negative (Negative) 02/13/25 17:14 All radiology interpretation(s) finalized by discharge EKG Data EKG 1: Interpretation: EKG shows sinus tachycardia with a heart rate of 105, normal axis, narrow complex, normal QT/QTc, no STEMI. Computer generated interpretation: Chest X-Ray 02/13/25 16:55 IMPRESSION: 1. Right lower lobe consolidation, suggestive of pneumonia. 2. Cardiomegaly. Chest CTA 12/11/25 18:12 IMPRESSION: 1. Segmental branch pulmonary emboli involving both lower lobe pulmonary arteries. No right heart strain. 2. Tree-in-bud infiltrates in bilateral lower lobes, likely infectious/inflammatory. 3. Similar pulmonary nodules. 4. Moderate multilevel degenerative change in the thoracic spine. 5. Diffuse sclerotic metastatic osseous lesions. COMMENTS: Consistent with the [employer]'s Incidental Findings Committee white paper (J Am Benjy Radiol 2018): Any incidental renal lesion less than 1 cm or classified as too small to characterize, or any incidental cystic renal lesion characterized as simple-appearing, is likely benign. No follow-up imaging is recommended for these lesions per consensus recommendations based on imaging criteria. ADDENDUM: 02/13/251945 THIS REPORT CONTAINS FINDINGS THAT MAY BE CRITICAL TO PATIENT CARE. The findings were verbally communicated via telephone conference with Magalis Miles at 7:44 PM MANAGER OF [employer]ISASTER [employer]OVERY on 02/13/2025. The findings were acknowledged and understood. Discharge Plan Discharge Patient Disposition: Home Clinical Impression: Pulmonary embolism, Pneumonia, Acute and chronic respiratory failure with hypoxia, Metastatic cancer Condition: Stable Prescriptions: New Eliquis DVT-PE Treat 30D Start 5 mg (74 tabs) tablets,dose pack See Rx Instructions .ROUTE .COMPLEX Qty: 74 0RF Rx Instructions: orally per package directions azithromycin 250 mg tablet 250 mg PO DAILY 4 Days Qty: 4 0RF Rx Instructions: start on day 2 of therapy amoxicillin-pot clavulanate 875-125 mg tablet 1 tab PO BID Qty: 14 0RF No Action Trelegy Ellipta 200-62.5-25 mcg blister with device 1 inh inhalation DAILY PRN (Reason: Shortness Of Breath) lorazepam 0.5 mg tablet 0.5 mg PO TID PRN (Reason: nausea and vomiting) Qty: 30 1RF Rx Instructions: 1/2 to 1 tablet every 6 hours prn SEVERE nausea or insomnia red beet 500 mg capsule PO BID pantoprazole [Protonix] 40 mg tablet,delayed release (DR/EC) 40 mg PO BID 42 Days Qty: 84 1RF ondansetron HCl 8 mg tablet See Rx Instructions .ROUTE .COMPLEX Qty: 30 1RF Dose Instruction: TAKE 1 TABLET BY MOUTH EVERY 6 HOURS NEEDED FOR NAUSEA AND VOMITING Rx Instructions: TAKE 1 TABLET BY MOUTH EVERY 6 HOURS NEEDED FOR NAUSEA AND VOMITING prevagen PO levothyroxine 75 mcg tablet PO amlodipine 5 mg tablet 5 mg PO BID Qty: 60 0RF Rx Instructions: MUST have follow-up with new provider for further refills capecitabine 500 mg tablet See Rx Instructions .ROUTE .COMPLEX Qty: 84 0RF Dose Instruction: TAKE THREE TABLETS BY MOUTH TWICE DAILY. TAKE for SEVEN DAYS, then off for SEVEN DAYS. repeat ONE time for a 28 DAY cycle. TAKE with water 30 MINUTES AFTER a meal. Rx Instructions: TAKE THREE TABLETS BY MOUTH TWICE DAILY. TAKE for SEVEN DAYS, then off for SEVEN DAYS. repeat ONE time for a 28 DAY cycle. TAKE with water 30 MINUTES AFTER a meal. Vitamin B-12 50 mcg Tablet 50 mcg PO DAILY Qty: 0 Ocuvite Eye Health 50 mg-15 unit- 4.5 mg-2.5 mg Tablet,Chewable 2 tab PO DAILY Discharge Orders: Discharge ED (Routine); Ordered 02/13/25 Ordered By: Magalis Miles Referrals: Nasima Back MD [Primary Care Provider, Internal Medicine] Patient Instructions: Opioid Safety, Pain Management, Patient Portal & Amy Instructions, Deep Vein Thrombosis (DC), Apixaban (By mouth), Bacterial Pneumonia (DC) Activity Restrictions/Additional Instructions: Please start taking your blood thinning medication tomorrow to treat blood clot in the vasculature of your lungs. Please start taking your antibiotics as prescribed. Monitor your condition very closely at home. If your condition worsens or additional concerns arise, please do not hesitate to return to the emergency department for reassessment. Please follow-up closely with your primary care physician, by Monday or Monday at the latest. Print Language: Taiwanese Coding Level of Care Code ED Poultryman for Lavelle Martins
--- NOTE | 2025-02-13 18:12 | CTR_ITS ---
PROCEDURE INFORMATION: Exam: CTA Chest With Contrast Exam date and time: 02/13/2025 7:06 PM Age: 84 years old Clinical indication: Other: Hypoxia, h/o cancer TECHNIQUE: Imaging protocol: Computed tomographic angiography of the chest with contrast. Exam focused on the arteries. 3D rendering (Not supervised by radiologist): MIP and/or 3D reconstructed images were created by the technologist. Radiation optimization: All CT scans at this facility use at least one of these dose optimization techniques: automated exposure control; mA and/or kV adjustment per patient size (includes targeted exams where dose is matched to clinical indication); or iterative reconstruction. Contrast material: [id number]; Contrast volume: 100 ml; Contrast route: INTRAVENOUS (IV); COMPARISON: CT angio chest PE protcl [id number] 10/17/2021 5:07 PM RADIATION DOSE METRICS: Total DLP (mGy-cm): 693.91 FINDINGS: Pulmonary arteries: Filling defect in the right lower lobe pulmonary artery segmental branches. Aorta: Mild atheromatous disease of the aortic arch. Lungs: Filling defect in the segmental branches of the left lower lobe. Multiple ground-glass opacities in the right lower lobe with tree-in-bud infiltrates and to a lesser extent left lower lobe. The right middle lobe is not visualized to be correlated with surgical history versus collapse. Stable pulmonary nodules when compared to the PET-CT. Pleural spaces: Unremarkable. No pneumothorax. No pleural effusion. Heart: Unremarkable. No cardiomegaly. No pericardial effusion. Heart RV/LV ratio: The RV to LV ratio is 0.9. Coronary arteries: There is moderate atherosclerotic calcification of the coronary arteries. There is moderate atherosclerotic calcification of the coronary arteries. Lymph nodes: There are prominent paraesophageal lymph nodes measuring 1.7 x 1.1 cm. Kidneys: There is a simple cyst in the right kidney. There are multiple left renal collecting system calcifications. Bones/joints: Multiple sclerotic lesions in the bones, consistent with metastasis. There is a curvature of the thoracic spine convex to the left. The thoracic spine demonstrates moderate degenerative changes at multiple levels. Soft tissues: Unremarkable. CT/CT angio chest PE protcl [id number] IMPRESSION: 1. Segmental branch pulmonary emboli involving both lower lobe pulmonary arteries. No right heart strain. 2. Tree-in-bud infiltrates in bilateral lower lobes, likely infectious/inflammatory. 3. Similar pulmonary nodules. 4. Moderate multilevel degenerative change in the thoracic spine. 5. Diffuse sclerotic metastatic osseous lesions. COMMENTS: Consistent with the [employer]'s Incidental Findings Committee white paper (J Am Benjy Radiol 2018): Any incidental renal lesion less than 1 cm or classified as too small to characterize, or any incidental cystic renal lesion characterized as simple-appearing, is likely benign. No follow-up imaging is recommended for these lesions per consensus recommendations based on imaging criteria.
[2025-02-13 18:19] LABS: Respiratory Syncytial Virus Ce NEGATIVE (Negative); SARS-CoV-2 PCR NEGATIVE (Negative)
[2025-02-13] MEDS: iohexol 350 mg/mL 500 mL Btl (per mL) IV (19:17)
== END 2025-02-13 20:59 | disposition home or self-care (01) ==
PROVIDERS: Emergency Provider Emergency Medicine; PCP Internal Medicine
DX: I26.99 Other pulmonary embolism without acute cor pulmonale (principal); J18.9 Pneumonia, unspecified organism; J96.21 Acute and chronic respiratory failure with hypoxia; C79.81 Secondary malignant neoplasm of breast; J44.9 Chronic obstructive pulmonary disease, unspecified; E78.5 Hyperlipidemia, unspecified; E11.9 Type 2 diabetes mellitus without complications; F17.210 Nicotine dependence, cigarettes, uncomplicated; Z11.52 Encounter for screening for COVID-19
CPT/HCPCS: 36415; 36600; 71046; 71275; 80051; 80053; 82330; 82805; 83880; 84484; 85025; 87637; 93005; 94640; 96374; 99285; J1100; J9999; Q0144